=== PATIENT | female | born 1945 | race Caucasian/White ===

== ENCOUNTER 2020-01-27 10:58 | Inpatient (IN) | payer OTHER, BC ==
[2020-01-27] MEDS ORDERED: NA CHLORIDE 0.9% 500 ML ONE ×2 (11:25→12:53)
[2020-01-27 11:35] LABS: Absolute Lymphocytes (CBC) 0.9 K/uL (0.7-4.9); Basophils % 0.4 % (0-1.3); Hematocrit 35.7 % (36.0-45.0); Lymphocytes % 12.4 % (15.3-44.8); MPV 7.9 fL (7.6-11.3); RBC Red Blood Cell Count 4.05 M/uL (3.86-4.86)
[2020-01-27] MEDS ORDERED: ONDANSETRON 4 MG/2 ML VIAL ONE (11:37)
[2020-01-27 11:54] LABS: Albumin 2.8 g/dL (3.4-5.0); Bilirubin Direct 0.2 mg/dL (0-0.2); Bilirubin Total 0.6 mg/dL (0.2-1.0); Potassium 3.1 mmol/L (3.5-5.1); Protein, Total 6.8 g/dL (6.4-8.2)
[2020-01-27 12:57] LABS: Blood Morphology Comment NOT SEEN (NOT SEEN); Platelet Estimate ADEQ
--- NOTE | 2020-01-27 13:12 | ER ---
Nurse's Notes [facility] Name: Maribell Coello Age: 74 yrs Sex: Female : 1945 Arrival Date: 01/27/2020 Time: 11: Bed 6 Private MD: Diagnosis: Dehydration;Acute kidney failure, unspecified Presentation: 01/26 11:01 Chief complaint: EMS states: Pt c/o generalized weakness, loss of appetite and nausea, ph sees GI, has appointment today but felt like she couldn't wait. Also c/o bilateral foot pain which she believes is r/t new medication prescribed by GI. Coronavirus screen: Client denies travel out of the [place] in the last 14 days. At this time, the client does not indicate any symptoms associated with coronavirus-19. Ebola Screen: No symptoms or risks identified at this time. Initial Sepsis Screen: Does the patient meet any 2 criteria? No. Patient's initial sepsis screen is negative. Does the patient have a suspected source of infection? No. Patient's initial sepsis screen is negative. Risk Assessment: Do you want to hurt yourself or someone else? Patient reports no desire to harm self or others. Onset of symptoms was January 27, 2020. 11:01 Method Of Arrival: EMS: [facility] 11: Acuity: ALBINO 3 ph Historical: - Allergies: 11:07 No Known Allergies; ph - Home Meds: 11:07 Metformin Oral [Active]; sucralfate Oral [Active]; ph - PMHx: 11:07 Diabetes - NIDDM; Hypertension; Ulcers; ph - Immunization history:: Flu vaccine is up to date. - Social history:: Smoking status: Patient denies any tobacco usage or history of. - Family history:: not pertinent. - Hospitalizations: : No recent hospitalization is reported. Screenin:08 Abuse screen: Denies threats or abuse. Denies injuries from another. Nutritional ph screening: No deficits noted. Tuberculosis screening: No symptoms or risk factors identified. Fall Risk No fall in past 12 months (0 pts). No secondary diagnosis (0 pts). IV access (20 points). Ambulatory Aid- None/Bed Rest/Nurse Assist (0 pts). Gait- Weak (10 pts.). Mental Status- Oriented to own ability (0 pts). Total Rao Fall Scale indicates Low Risk Score (25-44 pts). Fall prevention measures have been instituted. Side Rails Up X 2 Placed close to Nursing Station Frequent Obs/Assesments occuring Family Present and informed to notify staff if they need to leave bedside As available Patient and Family Educated on Fall Prevention Program and strategies. Assessment: 11:05 General: Appears in no apparent distress. uncomfortable, Behavior is calm, cooperative, em appropriate for age. Pain: Denies pain. Neuro: Level of Consciousness is awake, alert, obeys commands, Oriented to person, place, time, situation, Appropriate for age. Cardiovascular: Capillary refill < 3 seconds Patient's skin is warm and dry. Respiratory: Airway is patent Respiratory effort is even, unlabored, Respiratory pattern is regular, symmetrical. GI: Abdomen is round non-distended, Abd is soft and non tender X 4 quads. Reports nausea, Patient currently denies nausea. Derm: Skin is intact, is fragile, is thin, Skin is pink, warm \T\ dry. Musculoskeletal: Capillary refill < 3 seconds, Range of motion: intact in all extremities. 12:40 Reassessment: Patient appears in no apparent distress at this time. Patient and/or em family updated on plan of care and expected duration. Pain level reassessed. Patient is alert, oriented x 3, equal unlabored respirations, skin warm/dry/pink. Patient states feeling better. 13:31 Reassessment: Dr. Urrutia - tita at bedside. em 14:30 Reassessment: Patient appears in no apparent distress at this time. Patient and/or em family updated on plan of care and expected duration. Pain level reassessed. Patient is alert, oriented x 3, equal unlabored respirations, skin warm/dry/pink. 15:30 Reassessment: Patient appears in no apparent distress at this time. Patient and/or em family updated on plan of care and expected duration. Pain level reassessed. Patient is alert, oriented x 3, equal unlabored respirations, skin warm/dry/pink. Vital Signs: 11:01 BP 127 / 58; Pulse 90; Resp 18; Temp 97.6(O); Pulse Ox 98% on R/A; Weight 84.37 kg; ph Height 5 ft. 3 in. (160.02 cm); 12:30 BP 135 / 64; Pulse 71; Resp 18; Pulse Ox 98% on R/A; em 13:30 BP 138 / 74; Pulse 85; Resp 18; Pulse Ox 100% on R/A; em 14:30 BP 139 / 91; Pulse 87; Resp 18; Pulse Ox 99% on R/A; Pain 0/10; em 15:30 BP 111 / 60; Pulse 75; Resp 18; Pulse Ox 99% on R/A; em 11:01 Body Mass Index 32.95 (84.37 kg, 160.02 cm) ph ED Course: 11:01 Patient arrived in ED. ph 11:02 Paulo Hairston, RN is Primary Nurse. em 11:03 Jarred Urrutia MD is Attending Physician. rn 11:05 Triage completed. ph 11:08 Arm band placed on Patient placed in an exam room, on a stretcher, on pulse oximetry. ph 11:08 Patient has correct armband on for positive identification. Bed in low position. Call ph light in reach. Side rails up X2. Pulse ox on. NIBP on. Door closed. Noise minimized. Warm blanket given. 11:20 Initial lab(s) drawn, by la, sent to lab. Inserted saline lock: 20 gauge in right em antecubital area, using aseptic technique. Blood collected. 11:29 EKG done, by ED staff, reviewed by Jarred Urrutia MD. dh3 13:10 Jarred Urrutia MD is Hospitalizing Provider. rn 13:10 Faraz Urrutia MD is Hospitalizing Provider. rn 16:01 No provider procedures requiring assistance completed. Patient admitted, IV remains in em place. Administered Medications: 11:20 Drug: NS 0.9% 500 ml Route: IV; Rate: bolus; Site: right antecubital; em 12:40 Follow up: IV Status: Completed infusion; IV Intake: 500ml em 11:30 Drug: Zofran (Ondansetron) 4 mg Route: IVP; Site: right antecubital; em 12:44 Follow up: Response: No adverse reaction; Marked relief of symptoms; Nausea is decreasedem 12:44 Drug: NS 0.9% 500 ml Route: IV; Rate: bolus; Site: right antecubital; em 13:30 Follow up: IV Status: Completed infusion; IV Intake: 500ml em Intake: 12:40 IV: 500ml; Total: 500ml. em 13:30 IV: 500ml; Total: 1000ml. em Outcome: 13:10 Decision to Hospitalize by Provider. rn 16:01 Admitted to ICU accompanied by nurse, via wheelchair, room ER 11, on monitor, with em chart, Report called to KESHAV Howell 16:01 Condition: good 16:01 Discharge instructions given to patient, Instructed on discharge instructions, Demonstrated understanding of instructions, follow-up care. 16:06 Patient left the ED. em Signatures: Paulo Hairston, KESHAV RN Jarred Taylor MD MD rn Hall, Patricia, RN RN Gurinder, Ida [facility]
--- NOTE | 2020-01-27 13:12 | EDPHYS ---
Physician Documentation [facility] Name: Maribell Coello Age: 74 yrs Sex: Female : 1945 Arrival Date: 01/27/2020 Time: 11:01 Bed 6 Private MD: ED Physician Jarred Urrutia HPI: 01/26 11:24 This 74 yrs old Female presents to ER via EMS with complaints of General rn Weakness. 11:24 Reports generalized weakness, being treated for ulcers by GI, has phone appt today with rn Dr. Bosch's office, reports dry heaves and fatigue. No syncope. Reports today got "the shakes", felt weak all over, and called 911 because wasn't sure if was going to pass out. Feels better now. No abd pain. No chest pain/sob. No productive cough or fever. . Onset: The symptoms/episode began/occurred at an unknown time. Severity of symptoms: At their worst the symptoms were mild in the emergency department the symptoms are unchanged. The patient has not experienced similar symptoms in the past. The patient has not recently seen a physician. Historical: - Allergies: 11:07 No Known Allergies; ph - Home Meds: 11:07 Metformin Oral [Active]; sucralfate Oral [Active]; ph - PMHx: 11:07 Diabetes - NIDDM; Hypertension; Ulcers; ph - Immunization history:: Flu vaccine is up to date. - Social history:: Smoking status: Patient denies any tobacco usage or history of. - Family history:: not pertinent. - Hospitalizations: : No recent hospitalization is reported. ROS: 11:24 Constitutional: Negative for fever and weight loss, Eyes: Negative for injury, pain, rn redness, and discharge, Neck: Negative for injury, pain, and swelling, Cardiovascular: Negative for chest pain, palpitations, and edema, Respiratory: Negative for shortness of breath, cough, wheezing, and pleuritic chest pain, Abdomen/GI: Negative for abdominal pain, constipation, MS/Extremity: Negative for injury and deformity, Skin: Negative for injury, rash, and discoloration, Neuro: Negative for headache, numbness, tingling, and seizure. Exam: 11:24 Constitutional: This is a well developed, well nourished patient who is awake, alert, rn and in no acute distress. Head/Face: Normocephalic, atraumatic. Cardiovascular: Regular rate and rhythm. No pulse deficits. Respiratory: No increased work of breathing, no retractions or nasal flaring. Abdomen/GI: Soft, non-tender Skin: Warm, dry MS/ Extremity: Pulses equal, no cyanosis. Neurovascular intact. Full, normal range of motion. Equal circumference. Neuro: Awake and alert, GCS 15, oriented to person, place, time, and situation. Cranial nerves II-XII grossly intact. Motor strength 4/5 in all extremities. Sensory grossly intact. Vital Signs: 11:01 BP 127 / 58; Pulse 90; Resp 18; Temp 97.6(O); Pulse Ox 98% on R/A; Weight 84.37 kg; ph Height 5 ft. 3 in. (160.02 cm); 12:30 BP 135 / 64; Pulse 71; Resp 18; Pulse Ox 98% on R/A; em 13:30 BP 138 / 74; Pulse 85; Resp 18; Pulse Ox 100% on R/A; em 14:30 BP 139 / 91; Pulse 87; Resp 18; Pulse Ox 99% on R/A; Pain 0/10; em 15:30 BP 111 / 60; Pulse 75; Resp 18; Pulse Ox 99% on R/A; em 11:01 Body Mass Index 32.95 (84.37 kg, 160.02 cm) ph MDM: 11:03 Patient medically screened. rn 13:09 Differential Diagnosis dehydration, UGIB, acute kidney injury. Data reviewed: vital rn signs, nurses notes, lab test result(s), EKG, and as a result, I will admit patient. Counseling: I had a detailed discussion with the patient and/or guardian regarding: the historical points, exam findings, and any diagnostic results supporting the discharge/admit diagnosis, lab results. Counseling: I had a detailed discussion with the patient and/or guardian regarding: the need for further work-up and treatment in the hospital. Response to treatment: the patient's symptoms have mildly improved after treatment, and as a result, I will admit patient. Admission orders: after a detailed discussion of the patient's condition and case, the admit orders are written by me. ED course: Pt with acute kidney injury, hypokalemia, possible ongoing UGIB, stable hemoglobin, will admit to hospitalist service for hydration and Dr. Erwin consult if needed. . 01/26 11:04 Order name: CBC with Diff; Complete Time: 13: rn 01/26 11:04 Order name: Basic Metabolic Panel; Complete Time: 12:23 rn 01/26 11:04 Order name: Urine Microscopic Only rn 01/26 11:04 Order name: Hepatic Function; Complete Time: 12:23 rn 01/26 11:04 Order name: Lipase; Complete Time: 12:23 rn 01/26 12:57 Order name: Manual Differential; Complete Time: 13: EDMS 01/26 11:04 Order name: IV Start; Complete Time: 11:22 rn 01/26 11:04 Order name: EKG; Complete Time: 11:04 rn 01/26 11:04 Order name: EKG - Nurse/Tech; Complete Time: 11:30 rn 01/26 11:04 Order name: Labs collected and sent; Complete Time: 11:22 rn Administered Medications: 11:20 Drug: NS 0.9% 500 ml Route: IV; Rate: bolus; Site: right antecubital; em 12:40 Follow up: IV Status: Completed infusion; IV Intake: 500ml em 11:30 Drug: Zofran (Ondansetron) 4 mg Route: IVP; Site: right antecubital; em 12:44 Follow up: Response: No adverse reaction; Marked relief of symptoms; Nausea is decreasedem 12:44 Drug: NS 0.9% 500 ml Route: IV; Rate: bolus; Site: right antecubital; em 13:30 Follow up: IV Status: Completed infusion; IV Intake: 500ml em Disposition: 01/27/20 13:10 Hospitalization ordered by Faraz Urrutia for Observation. Preliminary diagnosis are Dehydration, Acute kidney failure, unspecified. - Bed requested for Telemetry/MedSurg (observation). - Status is Observation. em - Condition is Stable. - Problem is new. - Symptoms have improved. Signatures: Dispatcher [employer] Paulo Heath RN RN em Jarred Urrutia MD MD rn Hall, Patricia, RN RN ph Corrections: (The following items were deleted from the chart) 16:06 13:10 Hospitalization Ordered by Faraz Urrutia MD for Observation. Preliminary em diagnosis is Dehydration; Acute kidney failure, unspecified. Bed requested for Telemetry/MedSurg (observation). Status is Observation. Condition is Stable. Problem is new. Symptoms have improved. rn
--- NOTE | 2020-01-27 13:50 | P.HP ---
Certification for Inpatient Patient admitted to: Observation With expected LOS: <2 Midnights Practitioner: I am a practitioner with admitting privileges, knowledge of patient current condition, hospital course, and medical plan of care. Services: Services provided to patient in accordance with Admission requirements found in Title 42 Section 412.3 of the Code of Federal Regulations Patient History Date of Service: 01/27/20 Primary Care Provider: Jose Callejas Reason for admission: GRACIE, decreased PO intake History of Present Illness: 74-year-old female, PMH: HTN, DM 2 who presents to ED with trembling, shakiness, and generalized weakness that has been progressively worsening over the past few days. She reports she has had decreased p.o. intake over the past 6 weeks due to the bitter taste in her mouth and decreased appetite. She recently underwent EGD [address] Bosch and was found to have esophagitis, gastritis with some bleeding, gastric ulcers. She was started on esomeprazole b.i.d. and Carafate b.i.d.. She reports minimal improvement, and continued decreased p.o. intake. She reports 1 small episode of nonbloody loose bowel movement 2 days ago. She has not had a bowel movement since then. She otherwise denies chest pain, shortness of breath, abdominal pain, dysuria, new rashes/lesions, numbness/tingling. In the ED, labwork notable for no leukocytosis, hemoglobin: 12.1, CO2: 20, BUN/Cr: 43/2.3. Urine pending. She was given to 500 cc bolus and reportedly felt better. Allergies citric acid Allergy (Verified 01/27/20 16:16) Hives/Rash Home Medications: Carvedilol [Coreg] 1 tab PO BID 01/27/20 Esomeprazole Mag Trihydrate [Nexium] 1 tab PO BID 01/27/20 Metformin ER [Glucophage ER*] 1 tab PO DAILY 01/27/20 Ondansetron HCl [Zofran] 1 tab PO Q6H PRN 01/27/20 Sucralfate 1 bot PO BID 01/27/20 Valsartan [Diovan] 1 tab PO DAILY 01/27/20 - Past Medical/Surgical History -: HTN -: DM 2, noninsulin dependent Past Surgical History: Patient denies surgical history - Social History Smoking Status: Never smoker Alcohol use: No Place of Residence: Home Review of Systems 10-point ROS is otherwise unremarkable Physical Examination - Physical Exam General: Alert, In no apparent distress, Oriented x3 HEENT: Other (Dry mucous membranes), Sclerae nonicteric Neck: Supple, JVD not distended Respiratory: Clear to auscultation bilaterally, Normal air movement Cardiovascular: No edema, Regular rate/rhythm, Normal S1 S2 Gastrointestinal: Soft and benign, Non-distended, No tenderness Musculoskeletal: No erythema, No tenderness Integumentary: No rashes Neurological: Normal speech, Normal affect - Studies Laboratory Data (last 24 hrs) 01/27/20 11:20: Sodium 137, Potassium 3.1 L, BUN 43 H, Creatinine 2.33 H, Glucose 199 H, Total Bilirubin 0.6, AST 18, ALT 14, Alkaline Phosphatase 92, Lipase 292 01/27/20 11:20: WBC 7.3, Hgb 12.1, Hct 35.7 L, Plt Count 271 D Assessment and Plan - Advance Directives Does patient have a Living Will: No Does patient have a Durable POA for Healthcare: No Physician Review Additional Text: GRACIE, likely prerenal -likely prerenal given significantly decreased p.o. intake. -continue normal saline at 100 mL/hr -will check urine sodium, creatinine, protein, obtain renal ultrasound to rule out any intrinsic disease -UA pending -if no improvement consider nephrology consult in a.m. Gastritis/esophagitis/duodenitis, with ulcers and prior bleeding -continue PPI b.i.d., continue Carafate b.i.d. HTN -low BP in the ED, restart as appropriate DM2, noninsulin dependent -insulin sliding scale, Accu-Cheks a.c. hs Time Spent Managing Pts Care (In Minutes): 55
[2020-01-27] MEDS ORDERED: ONDANSETRON 4 MG/2 ML VIAL IV PRN (16:17)
[2020-01-27] MEDS: INSULIN -REGULAR HUMAN 50 UNIT/0.5 ML ML SQ SCH ×2 (16:30→19:59)
[2020-01-27] MEDS: NA CHLORIDE 0.9% 1,000 ML IV SCH (17:17)
[2020-01-27] MEDS: PANTOPRAZOLE 40MG TABLET PO SCH (17:17)
[2020-01-27] MEDS: SUCRALFATE 1GM/10ML UCUP FT SCH ×2 (17:17→19:59)
[2020-01-27 17:31] LABS: Phosphorus 1.9 mg/dL (2.5-4.9)
[2020-01-27] MEDS ORDERED: POTASSIUM CL SA 10 MEQ TAB PO ONE (18:00)
[2020-01-27 23:44] LABS: Urine Appearance CLEAR; Urine Blood NEGATIVE (NEG); Urine Color YELLOW; Urine Glucose TRACE (NEG); Urine Protein 1+ (NEG); Urine Urobilinogen 0.2 mg/dL (0.2-1.0)
[2020-01-27 23:46] LABS: Urine Microscopic Reflex ORDER UMIC
[2020-01-27 23:51] LABS: UR PROTEIN 76 mg/dL (<11.9); UR SODIUM 9 mmol/L (27-287)
[2020-01-27 23:55] LABS: Urine Bilirubin NEGATIVE (NEG)
[2020-01-28 00:54] LABS: Urine Bacteria <20 /HPF (<20); Urine Culture Reflex Order REFLEXED; Urine RBC <5 /HPF (NONE SEEN); Urine Urothelial Cells <5 /HPF (NONE SEEN)
[2020-01-28] MEDS: NA CHLORIDE 0.9% 1,000 ML IV SCH ×3 (01:49→16:56)
[2020-01-28 04:07] LABS: Protime INR 1.03
[2020-01-28 04:09] LABS: Absolute Lymphocytes (CBC) 1.5 K/uL (0.7-4.9); Basophils % 0.6 % (0-1.3); Hematocrit 31.1 % (36.0-45.0); Lymphocytes % 20.7 % (15.3-44.8); MPV 7.6 fL (7.6-11.3); RBC Red Blood Cell Count 3.57 M/uL (3.86-4.86)
[2020-01-28 04:26] LABS: Albumin 2.2 g/dL (3.4-5.0); Bilirubin Total 0.4 mg/dL (0.2-1.0); Magnesium 1.6 mg/dL (1.8-2.4); Phosphorus 1.4 mg/dL (2.5-4.9); Potassium 3.7 mmol/L (3.5-5.1); Protein, Total 5.9 g/dL (6.4-8.2)
[2020-01-28] MEDS ORDERED: MAGNESIUM SULFATE 1 gm IVPB 1 GM/100 ML BAG IV ONE (04:40)
[2020-01-28] MEDS: INSULIN -REGULAR HUMAN 50 UNIT/0.5 ML ML SQ SCH ×4 (07:30→21:00)
[2020-01-28] MEDS: PANTOPRAZOLE 40MG TABLET PO SCH ×2 (08:10→16:55)
[2020-01-28] MEDS: SUCRALFATE 1GM/10ML UCUP FT SCH ×3 (08:10→16:55)
[2020-01-28] MEDS ORDERED: POTASSIUM PHOS IN 0.9 % NACL 15 MMOL/250 ML BAG IV ONE (09:00)
--- NOTE | 2020-01-28 18:42 | P.PN ---
Subjective Date of Service: 01/28/20 Primary Care Provider: Jose Callejas Chief Complaint: GRACIE, decreased PO intake Patient states she ate half of a meals today. She is less nauseous and feels she is getting better. She also reported pain in her legs are better. Physical Examination - Vital Signs Temperature: 97.3 F Blood Pressure: 133/58 Pulse: 70 Respirations: 18 Pulse Ox (%): 97 - Physical Exam General: Alert, In no apparent distress, Oriented x3 HEENT: Mucous membr. moist/pink Neck: Supple, JVD not distended Respiratory: Clear to auscultation bilaterally, Normal air movement Cardiovascular: No edema, Regular rate/rhythm, Normal S1 S2 Gastrointestinal: Normal bowel sounds, Soft and benign, Non-distended, No tenderness Musculoskeletal: No swelling, No erythema Integumentary: No rashes Neurological: Normal speech, Normal strength at 5/5 x4 extr - Studies Laboratory Data (last 24 hrs) 01/28/20 03:39: Sodium 140, Potassium 3.7, BUN 34 H, Creatinine 1.77 H, Glucose 131 H, Phosphorus 1.4 L, Magnesium 1.6 L, Total Bilirubin 0.4, AST 15, ALT 11 L, Alkaline Phosphatase 81 01/28/20 03:39: PT 12.2, INR 1.03 01/28/20 03:39: WBC 7.4, Hgb 10.8 L, Hct 31.1 L, Plt Count 238 01/27/20 22:43: Potassium 3.7 Assessment And Plan Physician Review Additional Text: GRACIE, likely prerenal -likely prerenal given significantly decreased p.o. intake. -serum creatinine is improving -continue IV normal saline -continue to monitor renal function. Gastritis/esophagitis/duodenitis, with ulcers and prior bleeding -continue PPI b.i.d., continue Carafate. HTN -blood pressure is stable. - DM2, noninsulin dependent -insulin sliding scale, Accu-Cheks a.c. hs
--- NOTE | 2020-01-28 18:53 | RAD REPORT ---
EXAM DESCRIPTION: US - Renal Ultrasound-Complete - 01/28/2020 6:01 pm CLINICAL HISTORY: pritesh COMPARISON: No comparisons FINDINGS: The right kidney measures 11.0 x 5.4 x 4.7 cm. The left kidney measures 10.9 x 5.8 x 4.9 cm. Renal cortical thickness and echogenicity are normal. No hydronephrosis or suspicious renal mass. No bladder wall thickening or mass. No intraluminal stone or mass. IMPRESSION: No hydronephrosis or suspicious renal mass. No other significant findings.
[2020-01-28] MEDS: SUCRALFATE 1GM/10ML UCUP PO SCH (21:00)
[2020-01-29] MEDS: NA CHLORIDE 0.9% 1,000 ML IV SCH ×3 (02:09→20:44)
[2020-01-29 04:17] LABS: Magnesium 1.7 mg/dL (1.8-2.4); Phosphorus 1.4 mg/dL (2.5-4.9); Potassium 3.7 mmol/L (3.5-5.1)
[2020-01-29] MEDS ORDERED: POTASSIUM CL SA 10 MEQ TAB PO ONE (05:24)
[2020-01-29] MEDS ORDERED: MAGNESIUM SULFATE 1 gm IVPB 1 GM/100 ML BAG IV ONE (05:24)
[2020-01-29] MEDS: POTASS/SODIUM PHOSPHATE 1 PKT POWD.PACK PO SCH ×3 (05:52→10:03)
--- NOTE | 2020-01-29 06:01 | EKG ---
Test Date: 2020-01-27 Test Time: 11:29:44 Pharm Spec: VEENA MEASUREMENT RESULTS: Intervals: Rate: 73 AK: 188 QRSD: 94 QT: 384 QTc: 423 [place]: P: 69 AK: 188 QRS: 33 T: -2 INTERPRETIVE STATEMENTS: Normal sinus rhythm Nonspecific ST and T wave abnormality Abnormal ECG Compared to ECG 07/23/2013 21:20:25 Sinus arrhythmia no longer present ST (T wave) deviation still present Electronically Signed On 01-29-20 05:56:46 CDT by Andrés Landin
[2020-01-29] MEDS: ACETAMINOPHEN 500 MG TAB PO PRN ×3 (06:20→23:35)
[2020-01-29] MEDS ORDERED: Magnesium Sulfate 2gm IVPB 2 G/50 ML BAG IV ONE (07:12)
[2020-01-29] MEDS ORDERED: POTASSIUM PHOS 30 MM in NA CHLORIDE 0.9% 500 ML IV ONE (07:12)
[2020-01-29] MEDS: INSULIN -REGULAR HUMAN 50 UNIT/0.5 ML ML SQ SCH ×4 (07:30→20:33)
[2020-01-29] MEDS: PANTOPRAZOLE 40MG TABLET PO SCH ×2 (08:24→17:16)
[2020-01-29] MEDS: SUCRALFATE 1GM/10ML UCUP PO SCH ×2 (08:26→20:38)
--- NOTE | 2020-01-29 14:01 | P.PN ---
Subjective Date of Service: 01/29/20 Primary Care Provider: Jose Callejas Chief Complaint: GRACIE, decreased PO intake Subjective: No new changes (No acute events overnight.) Physical Examination - Vital Signs Temperature: 97.8 F Blood Pressure: 140/65 Pulse: 83 Respirations: 16 Pulse Ox (%): 98 - Physical Exam General: In no apparent distress, Cooperative, Other (lethargic) HEENT: Atraumatic, Normocephalic, EOMI Neck: Supple Respiratory: Clear to auscultation bilaterally, Normal air movement Cardiovascular: No edema, Normal pulses, Regular rate/rhythm, Normal S1 S2 Gastrointestinal: Normal bowel sounds, Soft and benign, Non-distended Musculoskeletal: Other (Decreased ROM in both lower extremities) Neurological: Normal speech, Normal tone, Sensation intact Assessment & Plan Physician Review Additional Text: Assessment Patient is a 74 year old female with HTN, type II diabetes mellitus and recent dysphagia s/p EGD. She has been having poor oral intake for the past month. She was admitted for near syncope. Work up so far has showed GRACIE, and possibly UTI. Dizziness and gait abnormalities Near syncope GRACIE Uncontrolled type II diabetes mellitus Peripheral neuropathy Gastritis PLAN continue ceftriaxone for UTI Will check for orthostatic vitals PT/OT Continue IVF infusion Start long acting insulin along with insulin sliding scale Continue pantoprazole and sucralfate for gastritis Resume home dose of coreg Replace electrolytes: magnesium, phosphorus
[2020-01-29] MEDS ORDERED: D50W 25 GM/50 ML SYRINGE/VIAL IV PRN (14:03)
[2020-01-29] MEDS ORDERED: GLUCAGON 1 MG/VIAL IM PRN (14:03)
[2020-01-29] MEDS: SUCRALFATE 1 GM TABLET PO SCH ×2 (14:36→17:00)
[2020-01-29] MEDS: CEFTRIAXONE/SWI 1gm 1 GM/10 ML SYR IV SCH (14:37)
[2020-01-29] MEDS: NA CHLORIDE 0.9% 500 ML IV ONE ×2 (17:00→17:14)
[2020-01-29] MEDS: carvediloL 12.5 MG TAB PO SCH (17:16)
[2020-01-29 18:41] VITALS: BMI 33.7
[2020-01-29] MEDS: INSULIN GLARGINE 100 UNITS/ML SQ SCH (20:35)
[2020-01-30 04:26] LABS: Magnesium 1.5 mg/dL (1.8-2.4); Phosphorus 1.6 mg/dL (2.5-4.9); Potassium 3.3 mmol/L (3.5-5.1)
[2020-01-30] MEDS: POTASS/SODIUM PHOSPHATE 1 PKT POWD.PACK PO SCH ×3 (05:35→09:33)
[2020-01-30] MEDS: carvediloL 12.5 MG TAB PO SCH ×2 (05:35→17:14)
[2020-01-30] MEDS ORDERED: Magnesium Sulfate 2gm IVPB 2 G/50 ML BAG IV ONE (06:00)
[2020-01-30] MEDS ORDERED: POTASSIUM 25 MEQ EFFERV TAB PO ONE (06:00)
[2020-01-30] MEDS: INSULIN -REGULAR HUMAN 50 UNIT/0.5 ML ML SQ SCH ×4 (07:30→21:34)
[2020-01-30] MEDS: SUCRALFATE 1GM/10ML UCUP PO SCH ×2 (09:00→21:00)
[2020-01-30] MEDS: GABAPENTIN 100 MG CAP PO SCH ×3 (09:32→21:32)
[2020-01-30] MEDS: CEFTRIAXONE/SWI 1gm 1 GM/10 ML SYR IV SCH (09:33)
[2020-01-30] MEDS: PANTOPRAZOLE 40MG TABLET PO SCH ×2 (09:33→17:14)
[2020-01-30] MEDS: NA CHLORIDE 0.9% 1,000 ML IV SCH (09:34)
[2020-01-30] MEDS: ACETAMINOPHEN 500 MG TAB PO PRN (09:45)
[2020-01-30] MEDS: predniSONE 20 MG TAB PO SCH (15:06)
--- NOTE | 2020-01-30 15:08 | P.PN ---
Subjective Date of Service: 01/30/20 Primary Care Provider: Jose Callejas Chief Complaint: GRACIE, decreased PO intake Subjective: No new changes (Patient continues to have bilateral lower extremity pain. States it's radiating proximally to the hips) Physical Examination - Vital Signs Temperature: 98.0 F Blood Pressure: 136/61 Pulse: 80 Respirations: 16 Pulse Ox (%): 100 - Physical Exam General: Mild distress HEENT: Atraumatic, Normocephalic, EOMI Neck: Supple Respiratory: Clear to auscultation bilaterally, Normal air movement Cardiovascular: No edema, Normal pulses, Regular rate/rhythm, Normal S1 S2 Gastrointestinal: Normal bowel sounds, Non-distended, No tenderness Musculoskeletal: No clubbing, No swelling, No contractures, No erythema, No warmth, Tenderness Neurological: Normal speech, Sensation intact, Normal affect - Studies Microbiology Data (last 24 hrs): 01/27/20 23:15 Clean Catch Urine [place] Count - Final BETWEEN 10,000 & 100,000 CFU/ML 01/27/20 23:15 Clean Catch Urine - Final MIXED LUNA. 01/27/20 18:10 Nasopharnyx Coronavirus COVID-19 PCR - Final Assessment & Plan Physician Review Additional Text: Assessment Patient is a 74 year old female with HTN, type II diabetes mellitus and recent dysphagia s/p EGD. She has been having poor oral intake for the past month. She was admitted for near syncope. Work up so far has showed GRACIE, and possibly UTI. Dizziness and gait abnormalities Near syncope GRACIE Uncontrolled type II diabetes mellitus - A1c 12.1 Peripheral neuropathy Gastritis PLAN Still working with PT/OT. Dispo recommendations pending UTI ruled out. Discontinue ceftriaxone Discontinue IVF infusion as renal function returned to baseline Elevated serum and urine uric acid. Discussed with Nephrology potential diagnosis of gout arthritis. Nephrology started prednisone Continue bedtime lantus and insulin sliding scale. Fasting blood glucose < 188 Continue pantoprazole and sucralfate for gastritis Resume home dose of carvedilol
[2020-01-30] MEDS: INSULIN GLARGINE 100 UNITS/ML SQ SCH (21:32)
[2020-01-30] MEDS ORDERED: CEFTRIAXONE 1,000 MG in WATER FOR INJ,STERILE 10 ML IVP SCH (23:00)
[2020-01-31] MEDS ORDERED: CEFTRIAXONE/SWI 1gm 1 GM/10 ML SYR ONE (00:27)
--- NOTE | 2020-01-31 01:56 | CON ---
Date of Consultation: 01/30/2020 Consulting Physician: Prince Aurelio Klein MD. Reason For Consultation: Elevated BUN and creatinine, leg pain. History Of Present Illness: This is a 74-year-old female with significant past medical history of diabetes since 1994, complicated with neuropathy, no retinopathy, hypertension, hyperlipidemia, GERD, the patient came to the hospital because of decreased intake, found to have elevation in BUN and creatinine. The patient had EGD done by GI showing esophagitis. The patient was placed on PPI. Her symptoms did not improve. The patient is complaining also from pain in the leg without any fevers or any chills. No significant swelling. Primary workup showed uric acid at 8.1. Past Medical History: 1. Diabetes, complicated with neuropathy. 2. Hypertension. 3. Hyperlipidemia. 4. Esophagitis. Home Medications: Carvedilol, esomeprazole, metformin, Zofran, Carafate, valsartan. Allergies: TO CITRIC ACID. Past Surgical History: Negative. Social History: Lives with family. Denies smoking. Denies drinking. Denies drugs abuse. Review of Systems: Head and Neck: No red eye. No ear pain. GI: Decreased intake. : No polyuria, no dysuria, no hematuria. 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 Respiratory: No shortness of breath. Cardiovascular: Has no chest pain. Endocrine: No polydipsia. Skin: No rash. Neuro: Has neuropathy. Musculoskeletal: Has leg pain. Physical Examination: General: When I saw the patient, the patient is lying in bed. Vital Signs: Blood pressure 104/51, pulse of 78, afebrile. The patient had good urine output of 1200. Chest: Clear to auscultation. Heart: S1, S2. Regular. Abdomen: Soft, nontender. Extremities: Trace edema. Tenderness on the right ankle. No motion limitation. Laboratory Data: Upon presentation, H and H of 12.1/35.7. Sodium 140, potassium of 3.3, bicarb 21, BUN 18, creatinine 1, GFR of 51, magnesium 1.5, phosphorus 1.6. Urinalysis; WBC more than 50. Culture still pending. Current Medications: The patient on in the hospital include; 1. Carvedilol. 2. Tylenol. 3. Gabapentin. 4. Pantoprazole. 5. Carafate. 6. Magnesium sulfate. 7. KCl. Assessment And Plan: 1. Acute kidney injury, secondary to prerenal, superimposed, with ARB. Looked to me still on the dry side. We will follow up renal ultrasound. We will continue hydration. 2. We will hold any ARB for the time being and we will monitor the patient. 3. Hypertension, controlled, currently on the lower side of the presence of acute kidney injury. Hold blood pressure medications, especially ARB. 4. Urinary tract infection, to rule out complicated urinary tract infection. We will follow up ultrasound. We will start the patient on ceftriaxone and we will monitor. 5. Hypokalemia, hypomagnesemia, hypophosphatemia. Agree with supplement. We will follow up level. 6. Diabetes, as by Primary. 7. Leg pain with elevated uric acid. Possible Gout We will repeat uric acid. Start the patient on prednisone. We will follow up. Thank you, Dr. Klein, for allowing us to participate in the care of your patient. Time spent coordinating the care, discuss him with all of our team members including othere managed services sales consultant and hospitalist and [id number] with the patient and please go out of 65 min PATEL Voice ID: [id number] Report ID: [id number] JIM
[2020-01-31 04:56] LABS: Albumin 1.7 g/dL (3.4-5.0); Magnesium 1.9 mg/dL (1.8-2.4); Phosphorus 1.9 mg/dL (2.5-4.9); Potassium 4.3 mmol/L (3.5-5.1)
[2020-01-31 05:25] LABS: Urine Protein/Creatinine Ratio 0.66 ratio (<0.15)
[2020-01-31] MEDS: PANTOPRAZOLE 40MG TABLET PO SCH (06:18)
[2020-01-31] MEDS: carvediloL 12.5 MG TAB PO SCH (06:18)
[2020-01-31] MEDS: POTASS/SODIUM PHOSPHATE 1 PKT POWD.PACK PO SCH ×3 (06:24→12:29)
[2020-01-31] MEDS ORDERED: POTASS/SODIUM PHOSPHATE 1 PKT POWD.PACK ONE (06:36)
[2020-01-31] MEDS: INSULIN -REGULAR HUMAN 50 UNIT/0.5 ML ML SQ SCH ×2 (07:30→11:30)
[2020-01-31] MEDS: predniSONE 20 MG TAB PO SCH (08:25)
[2020-01-31] MEDS: GABAPENTIN 100 MG CAP PO SCH (08:25)
[2020-01-31] MEDS: SUCRALFATE 1GM/10ML UCUP PO SCH (08:26)
[2020-01-31] MEDS: ACETAMINOPHEN 500 MG TAB PO PRN (08:30)
--- NOTE | 2020-01-31 08:41 | P.DS ---
Admission Date: 01/28/20 Discharge Date: 01/31/20 Primary Care Provider: Jose Callejas Disposition: ROUTINE DISCHARGE Discharge Condition: GOOD Reason for Admission: GRACIE, decreased PO intake Brief History of Present Illness: Please refer to H&P Hospital Course: Patient is a 74 year old female with known PMH of HTN, type II diabetes mellitus who presented to the [facility] with poor oral intake, gait abnormalities. She was found to be in acute renal failure. Responded to IVF infusion. Nephrology was consulted. Her hospital course has been marked by bilateral lower extremity pain limiting her ability ambulate. The etiology of this issue was attributed to possible gout arthritis. She had a partial response to oral steroid which was started by Nephrology. Of note, patient A1c WAS 12.1. She is on OHA for the chronic management of her diabetes. She did better after being started on lantus during this hospital stay. She will need to follow up with her PCP for glucose monitor and insulin adjustment if needed Vital Signs/Physical Exam: Temp Pulse Resp BP Pulse Ox 97.1 F 73 18 156/70 H 97 01/31/20 08:00 01/31/20 08:00 01/31/20 08:00 01/31/20 08:00 01/31/20 08:00 General: In no apparent distress, Cooperative HEENT: Atraumatic, Normocephalic, EOMI Neck: Supple Respiratory: Clear to auscultation bilaterally, Normal air movement Cardiovascular: No edema, Normal pulses, Regular rate/rhythm, Normal S1 S2 Gastrointestinal: Normal bowel sounds, Soft and benign, Non-distended Musculoskeletal: No clubbing, No swelling, No contractures, No erythema, No tenderness, No warmth Neurological: Normal speech, Sensation intact, Normal affect Laboratory Data at Discharge: WBC 7.4 K/uL (4.3-10.9) 01/28/20 03:39 Hgb 10.8 g/dL (12.0-15.0) L 01/28/20 03:39 Hct 31.1 % (36.0-45.0) L 01/28/20 03:39 Plt Count 238 K/uL (152-406) 01/28/20 03:39 PT 12.2 SECONDS (9.5-12.5) 01/28/20 03:39 INR 1.03 01/28/20 03:39 Sodium 137 mmol/L (136-145) 01/31/20 04:10 Potassium 4.3 mmol/L (3.5-5.1) 01/31/20 04:10 BUN 17 mg/dL (7-18) 01/31/20 04:10 Creatinine 1.16 mg/dL (0.55-1.3) 01/31/20 04:10 Glucose 257 mg/dL (74-106) H 01/31/20 04:10 Uric Acid 8.1 mg/dL (2.6-6.0) H 01/30/20 12:07 Phosphorus 1.9 mg/dL (2.5-4.9) L 01/31/20 04:10 Magnesium 1.9 mg/dL (1.8-2.4) 01/31/20 04:10 Total Bilirubin 0.4 mg/dL (0.2-1.0) 01/28/20 03:39 AST 15 U/L (15-37) 01/28/20 03:39 ALT 11 U/L (12-78) L 01/28/20 03:39 Alkaline Phosphatase 81 U/L (45-117) 01/28/20 03:39 Lipase 292 U/L (73-393) 01/27/20 11:20 Home Medications: Carvedilol [Coreg] 1 tab PO BID 01/27/20 Esomeprazole Mag Trihydrate [Nexium] 1 tab PO BID 01/27/20 Metformin ER [Glucophage ER*] 1 tab PO DAILY 01/27/20 Ondansetron HCl [Zofran] 1 tab PO Q6H PRN 01/27/20 Sucralfate 1 bot PO BID 01/27/20 Valsartan [Diovan] 1 tab PO DAILY 01/27/20 Insulin Glargine Human [Lantus*] 10 units SQ BEDTIME #10 ml 01/31/20 carvediloL [Coreg*] 12.5 mg PO BID 6AM 6PM tab 01/31/20 predniSONE [Prednisone*] 40 mg PO DAILY #7 tab 01/31/20 New Medications: Insulin Glargine Human [Lantus*] 10 units SQ BEDTIME #10 ml predniSONE [Prednisone*] 40 mg PO DAILY #7 tab Diet: ADA
[2020-01-31 08:43] VITALS: O2SAT 97
[2020-01-31] MEDS ORDERED: CEFTRIAXONE 1 GM/NS 50 ML 1 GM/50 ML BAG IV SCH (09:00)
--- NOTE | 2020-01-31 10:23 | P.PN ---
Subjective Date of Service: 01/31/20 Primary Care Provider: Jose Callejas Chief Complaint: GRACIE, decreased PO intake Subjective: Improving Subjective Pt With HX of SM, admitted with near syncope had GRACIE , resolved on IVF Today no moravian complaints feels better can be discharged from nephrology point of view eneral: AAOX3, NAD , obese Neck; Supple, No elevated JVD hear: RRR, normal S1,2 no murmur or rub Chest: CTAB, no rlaes or wheezes Abdomen: Soft , Nt Extremities No edema or ulcer GRACIE due to dehdration resolved renal dose meds DM as per primary team HTN controlle Hypokalemia and hypomagnesemia replace as needed Physical Examination - Vital Signs Temperature: 97.1 F Blood Pressure: 156/70 Pulse: 73 Respirations: 18 Pulse Ox (%): 97 - Studies Microbiology Data (last 24 hrs): 01/27/20 23:15 Clean Catch Urine [place] Count - Final BETWEEN 10,000 & 100,000 CFU/ML 01/27/20 23:15 Clean Catch Urine - Final MIXED LUNA.
[2020-01-31] MEDS ORDERED: CEFTRIAXONE/SWI 1gm 1 GM/10 ML SYR IV SCH (11:00)
[2020-01-31 12:25] VITALS: BP 125/60; TEMP 97.7
[2020-02-01] MEDS ORDERED: predniSONE 5 MG TAB PO SCH (09:00)
== END 2020-01-31 13:54 | disposition home or self-care (01) | DRG 683 ==
LOC: ER 10:58 → ERHOLD 13:58 → 4TH 16:33 → OBSVTOIN 01-28 13:26
PROVIDERS: ADMIT Hospitalist; ATTEND Internal Medicine
DX: N17.9 Acute kidney failure, unspecified (principal); K22.10 Ulcer of esophagus without bleeding; I10 Essential (primary) hypertension; K25.9 Gastric ulcer, unspecified as acute or chronic, without hemorrhage or perforation; K26.9 Duodenal ulcer, unspecified as acute or chronic, without hemorrhage or perforation; E11.42 Type 2 diabetes mellitus with diabetic polyneuropathy; M10.9 Gout, unspecified; K21.9 Gastro-esophageal reflux disease without esophagitis; E78.5 Hyperlipidemia, unspecified; E87.6 Hypokalemia; E83.42 Hypomagnesemia; E83.39 Other disorders of phosphorus metabolism; E86.0 Dehydration; Z79.84 Long term (current) use of oral hypoglycemic drugs; Z79.899 Other long term (current) drug therapy; Z91.09 Other allergy status, other than to drugs and biological substances; Z20.828 Contact with and (suspected) exposure to other viral communicable diseases
CPT/HCPCS: 36415; 76770; 80048; 80053; 80069; 80076; 81003; 81015; 82550; 82570; 82947; 83036; 83690; 83735; 84100; 84132; 84156; 84300; 84550; 85025; 85610; 87086; 87088; 93005; 96361; 96374; 97116; 97161; 97530; 99285; G0378; J0696; J1815; J2405; J3475; J7030; J7040; J7512; U0002

== ENCOUNTER 2022-11-13 12:05 | Inpatient (IN) | payer OTHER, BC ==
--- OUTSIDE RECORDS SUMMARY | 2022-11-13 12:08 | XMS REPORT | Continuity of Care Document ---
:1945 Author Organization [facility] t Address [address]. [place]. [address] Care Team Providers Name Role Phone Jose Callejas Primary Care Physician LON TRAMMELL Attending Clinician Unavailable WENDY RAMIREZ Attending Clinician Unavailable MELVIN HERNANDEZ Attending Clinician Unavailable RAMESH BRAN Attending Clinician Unavailable YARIEL BRAY Admitting Clinician Unavailable Payers Payer Name Policy Type Policy Number Effective Date Expiration Date Taylor villafuerte MEDICARE PART A [id number] 2010 2024 AND B 00:00:00 00:00:00 Problems Condition Condition Condition Status Onset Resolution Last Treating Co mments Source Name Details Category Date Date Treatment Clinician Date 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 Social History Social Habit Start Date Stop Date Quantity Comments Source Exposure to 2022-08-06 2022-08-16 Not sure [facility] SARS-CoV-2 (event) 00:00:00 19:30:00 Tobacco use and 2022-02-15 2022-02-15 Smokeless tobacco [facility] exposure 00:00:00 00:00:00 non-user Alcohol intake 2022-02-15 2022-02-15 Lifetime [facility] 00:00:00 00:00:00 non-drinker (finding) Sex Ass[birth year] [facility] 00:00:00 00:00:00 Smoking Status Start Date Stop Date Source Never smoked tobacco [facility] Medications Ordered Filled Start Stop Current Ordering Indication Dosage Frequency Signature Comments Components Source Medication Medication Date Date Medication? Clinician (SIG) Name Name carvedilol Yes [id number] TAKE 1 U T (Coreg) 25 4-19 TABLET BY Heal th MG tablet 00:00: MOUTH 00 TWICE A DAY IN THE MORNING AND IN THE EVENING. TAKE WITH MEALS. levETIRAcet Yes [id number] 1500mg Q.5D Take 3 UT am (Keppra) 2-16 9106 tablets Healt h 500 MG 00:00: (1,500 mg tablet 00 total) by mouth in the morning and 3 tablets (1,500 mg total) in the evening. lacosamide 2022- No [id number] 100mg Q.5D Take 1 UT (Vimpat) 2-16 04-26 9106 tablet Health 100 MG 00:00: 00:00 (100 mg tablet 00 :00 total) by mouth in the morning and 1 tablet (100 mg total) before bedtime. hydrALAZINE 2022- No [id number] TAKE 1 AND UT (Apresoline 2-13 05-15 04/25 Health ) 50 MG 00:00: 04:59 TABLETS BY tablet 00 :00 MOUTH 2 TIMES A DAY gabapentin Yes [id number] 100mg Q.[id number] Take 1 UT (Neurontin) 2-10 9106 [id number] capsule Health 100 MG 00:00: 3D (100 mg capsule 00 total) by mouth in the morning and 1 capsule (100 mg total) at noon and 1 capsule (100 mg total) in the evening. lacosamide Yes [id number] 100mg Q.5D Take 1 UT (Vimpat) 1-27 9106 tablet Health 100 MG 00:00: (100 mg tablet 00 total) by mouth in the morning and 1 tablet (100 mg total) before bedtime. amLODIPine 2021-04 Yes [id number] TAKE 1 U T (Norvasc) 1-21 TABLET BY Healt h 10 MG 00:00: MOUTH 1 tablet 00 TIME EACH DAY. lisinopril 2021-04 Yes [id number] 10mg QD Take 1 U T 10 MG 1-09 tablet (10 Health tablet 00:00: mg total) 00 by mouth 1 (one) time each day. Blood 2021-04 Yes [id number] Check BP DC Pressure 0-25 daily Health Monitor kit 00:00: 00 methocarbam Yes [id number] 500mg Q.[id number] Take 1 UT ol 8-01 9106 [id number] tablet Health (Robaxin) 00:00: 3D (500 mg 500 MG 00 total) by tablet mouth in the morning and 1 tablet (500 mg total) at noon and 1 tablet (500 mg total) in the evening. Do all this for 14 days. glimepiride Yes [id number] 2mg Take 1 UT (Amaryl) 2 4-27 tablet (2 Heal th MG tablet 00:00: mg total) 00 by mouth 1 (one) time each day before breakfast. allopurinol Yes 300mg QD Take 300 U T (Zyloprim) 4-20 mg by Health 300 MG 12:24: mouth 1 tablet 32 (one) time each day. Immunizations Ordered Immunization Filled Immunization Date Status Commen ts Source Name Name COVID-19 Nuji 2021-05-05 [facility]pleted [facility]:00 ([facility]) COVID-19 Nuji 2020-07-11 Completed [facility] 00:00:00 ([facility]) COVID-19 Nuji 2020-06-20 Completed [facility]:00 ([facility]) Procedures This patient has no known procedures. Encounters Start End Encounter Admission Attending Care Care Encounter Source Date/Time Date/Time Type Type Clinicians Facility Department ID 2022-08-18 Outpatient [facility] [id number] DC 10:05:46 [id number] [facility] 2022-08-17 Outpatient [facility] [id number] DC 13:41:22 [id number] [facility] 2022-08-16 Outpatient [facility] [id number] UT 19:59:21 [id number] [facility] 2022-08-03 Outpatient [facility] [id number] [place] 15:58:21 [id number] [facility] 2022-02-22 Outpatient [facility] [id number] [place] 14:35:57 [id number] [facility] 2022-02-15 Outpatient [facility] [id number] [place] 14:03:39 [id number] [facility] 2021-09-12 Outpatient VALERI, [facility] [id number] UT 01:03:08 LON [id number] [facility] 2021-09-03 Outpatient [facility] [id number] [place] 13:01:47 [id number] [facility] 2021-08-11 Outpatient COLEA, [facility] [id number] UT 10:03:41 [facility] [id number] [facility] 2021-08-03 Outpatient [facility] [id number] UT 11:03:02 [id number] [facility] 2021-08-02 Outpatient [facility] [id number] UT 09:37:02 [id number] [facility] 2021-07-14 Outpatient [facility] [id number] [place] 13:45:11 [id number] [facility] 2021-06-11 Outpatient COLEA, [facility] [id number] [place] 15:41:00 [facility] 2023-08-21 2023-08-21 Outpatient DAVID, [facility] [id number] [place] 13:00:00 13:00:00 [facility] 2022-08-17 2022-08-17 [facility] [id number] UT 14:00:00 14:27:53 [facility] [id number] H [facility] [id number] 2022-02-22 2022-02-22 Outpatient COLEA, [facility] [id number] UT 13:00:00 13:00:00 [facility] 2022-02-15 2022-02-15 Outpatient COLEA, [facility] [id number] UT 14:30:00 14:54:11 [facility] 2021-06-04 2021-06-16 Inpatient E YINA, [facility] [id number] [facility] 22:12:00 17:10:00 RAMESH Results This patient has no known results.
[2022-11-13] MEDS ORDERED: NA CHLORIDE 0.9% 1,000 ML ONE ×4 (12:29→17:37)
[2022-11-13 13:01] LABS: Absolute Lymphocytes (CBC) 0.9 K/uL (0.7-4.9); Hematocrit 38.6 % (36.0-45.0); Lymphocytes % 6.7 % (15.3-44.8); MCV 91.3 fL (80-100); MPV 7.5 fL (7.6-11.3); RBC Red Blood Cell Count 4.22 M/uL (3.86-4.86)
[2022-11-13 13:08] LABS: Specific Gravity 1.022 (1.005-1.030); Urine Bacteria >50 /HPF (<20); Urine Bilirubin NEGATIVE (Negative); Urine Blood 3+ (Negative); Urine Clarity Extremely Turbid (Clear); Urine Color Colorless (Yellow); Urine Glucose 4+ (Over) (Negative); Urine Mucus 3+ /HPF (None Seen); Urine Protein TRACE (Negative); Urine RBC >50 /HPF (None Seen); Urine Urobilinogen Normal (Normal); Urine WBC Clump Occasional /HPF (None Seen)
[2022-11-13 13:27] LABS: Albumin 2.6 g/dL (3.4-5.0); Bilirubin Total 0.4 mg/dL (0.2-1.0); Magnesium 1.8 mg/dL (1.6-2.4); Potassium 4.4 mEq/L (3.5-5.1); Protein, Total 6.7 g/dL (6.4-8.2); Troponin High Sensitivity 4.8 pg/mL (<58.9)
--- NOTE | 2022-11-13 13:27 | RAD REPORT ---
EXAM DESCRIPTION: CT - Head Brain Wo Cont - 11/13/2022 1:14 pm CLINICAL HISTORY: CONFUSED COMPARISON: No comparisons TECHNIQUE: All CT scans are performed using dose optimization technique as appropriate and may inclu de automated exposure control or mA/KV adjustment according to patient size. FINDINGS: No intracranial hemorrhage, hydrocephalus or extra-axial fluid collection.No areas of brai n edema or evidence of midline shift. Moderate chronic small vessel ischemic changes The paranasal sinuses and mastoids are clear. The calvarium is intact. IMPRESSION: No acute intracranial abnormality.
[2022-11-13] MEDS ORDERED: NA CHLORIDE 0.9% 50 ML ONE (13:39)
[2022-11-13] MEDS ORDERED: CEFTRIAXONE 1000 MG/VIAL ONE (13:39)
--- NOTE | 2022-11-13 13:48 | RAD REPORT ---
EXAM DESCRIPTION: RAD - Chest Single View - 11/13/2022 1:31 pm CLINICAL HISTORY: ams COMPARISON: CHEST SINGLE VIEW dated 07/23/2013 FINDINGS: Lines: None. Lungs: Nonspecific fullness of the right lung apex. Pleural: No significant pleural effusions or pneumothorax. Cardiac: The heart size is within normal limits. Mediastinum: Within normal limits. Bones: No acute fractures. Other: None IMPRESSION: No acute cardiopulmonary disease. Right apical opacity could be scarring but is nonspeci fic. Consider chest CT to exclude a mass. This need not be emergent.
[2022-11-13] MEDS ORDERED: INSULIN -REGULAR HUMAN 50 UNIT/0.5 ML ML ONE ×3 (14:28→20:31)
--- NOTE | 2022-11-13 14:39 | ER ---
Nurse's Notes [facility] Name: Maribell Coello Age: 76 yrs Sex: Female : 1945 Arrival Date: 11/13/2022 Time: 12:05 Bed 20 Private MD: Diagnosis: Hyperglycemia, unspecified;Altered mental status, unspecified Presentation: 11/13 12:09 Chief complaint: EMS states: AMS x 3 days, stated three days ago pt was trying to put vg1 shorts on and fell against the wall and slid down. Today BGL was reading "high" and pt does not take any mediations at home. Coronavirus screen: Vaccine status: Patient reports receiving the 2nd dose of the covid vaccine. Client denies travel out of the [place] in the last 14 days. Ebola Screen: Patient negative for fever greater than or equal to 101.5 degrees Fahrenheit, and additional compatible Ebola Virus Disease symptoms Patient denies exposure to infectious person. Patient denies travel to an Ebola-affected area in the 21 days before illness onset. Initial Sepsis Screen: Does the patient meet any 2 criteria? HR > 90 bpm. Yes Does the patient have a suspected source of infection? No. Patient's initial sepsis screen is negative. Risk Assessment: Do you want to hurt yourself or someone else? Patient reports no desire to harm self or others. Onset of symptoms was November 10, 2022. 12:09 Method Of Arrival: EMS: [facility] vg1 12:09 Acuity: ALBINO 2 vg1 12:19 Care prior to arrival: IV initiated. 20 GA, in the left hand. vg1 12:19 Care prior to arrival: Medication(s) given: Normal saline infusion, 1000 mL. vg1 Triage Assessment: 12:16 General: Appears uncomfortable, obese, unkempt, Behavior is cooperative. Pain: Denies vg1 pain. Neuro: Level of Consciousness is awake, alert, obeys commands, Oriented to person, place. Cardiovascular: Patient's skin is warm and dry. Respiratory: Airway is patent Respiratory effort is even, unlabored. GI: Abdomen is round non-distended, pt is covered in fecal matter. : No signs and/or symptoms were reported regarding the genitourinary system. Derm: Rash noted that is on pelvis. Musculoskeletal: Circulation, motion, and sensation intact. Historical: - Allergies: 12:16 No Known Allergies; vg1 - Home Meds: 15:03 amlodipine oral [Active]; carvedilol oral [Active]; gabapentin oral [Active]; vg1 Lisinopril Oral [Active]; Hydralazine Oral [Active]; Keppra Oral [Active]; - PMHx: 12:16 Diabetes - NIDDM; Hypertension; Ulcers; vg1 15:03 Cerebrovascular accident; Seizure; vg1 - Immunization history:: Client reports receiving the 2nd dose of the Covid vaccine. - Social history:: Smoking status: Patient denies any tobacco usage or history of. Screenin:18 [facility] ED Fall Risk Assessment (Adult) History of falling in the last 3 months, vg1 including since admission Yes- single mechanical fall (1 pt) Confusion or Disorientation No (0 pts) Intoxicated or Sedated No (0 pts) Impaired Gait Yes (1 pt) Mobility Assist Device Used Yes (1 pt) Altered Elimination Yes (1 pt) Score/Fall Risk Level 3 or more points = High Risk Oriented to surroundings, Maintained a safe environment, Educated pt \\T\\ family on fall prevention, incl call for assistance when getting out of bed, Assessed \\T\\ reinforced patient's understanding of fall precautions, Hourly rounding (assess needs \\T\\ fall precautionary measures) done. Abuse screen: Denies threats or abuse. Denies injuries from another. Nutritional screening: No deficits noted. Tuberculosis screening: No symptoms or risk factors identified. Assessment: 12:18 Reassessment: SEE TRIAGE. vg1 19:25 General: Appears in no apparent distress. comfortable, obese, Behavior is calm, pf1 cooperative, appropriate for age, quiet. Pain: Denies pain. Neuro: Level of Consciousness is awake, alert, confused, Oriented to person. Cardiovascular: Capillary refill < 3 seconds Patient's skin is warm and dry. Respiratory: No deficits noted. Airway is patent Respiratory effort is even, unlabored, Respiratory pattern is regular, symmetrical. GI: Abdomen is round non-distended, obese, Bowel sounds present X 4 quads. Abd is soft and non tender X 4 quads. : No signs and/or symptoms were reported regarding the genitourinary system. EENT: No deficits noted. No signs and/or symptoms were reported regarding the EENT system. Derm: Rash noted that is red, on pelvis Abscess located on back. 20:44 General: attempted patient report, nurse to call back.. pf1 Vital Signs: 12:09 BP 153 / 82; Pulse 90; Resp 18; Temp 99.1(O); Pulse Ox 94% on R/A; vg1 12:54 BP 139 / 87; Pulse 90; Resp 17; Pulse Ox 96% on R/A; vg1 13:50 BP 142 / 85; Pulse 90; Resp 18; Pulse Ox 97% on R/A; vg1 17:54 Weight 85.73 kg; vg1 19:00 BP 138 / 72; Pulse 93; Resp 17; Temp 99.2; Pulse Ox 98% on R/A; Pain 0/10; pf1 19:40 BP 140 / 96; Pulse 88; Resp 17; Pulse Ox 97% on R/A; Pain 0/10; pf1 20:41 BP 131 / 59; Pulse 79; Resp 16; Temp 99.8; Pulse Ox 97% on R/A; Pain 0/10; pf1 19:00 Pain Scale: Adult pf1 19:40 Pain Scale: Adult pf1 20:41 Pain Scale: Adult pf1 ED Course: 12:09 Patient arrived in ED. vg1 12:09 Elliot Humphrey is Attending Physician. sk4 12:16 Triage completed. vg1 12:16 Arm band placed on. vg1 12:18 Patient has correct armband on for positive identification. Placed in gown. Bed in low vg1 position. Call light in reach. Side rails up X2. Client placed on continuous cardiac and pulse oximetry monitoring. NIBP monitoring applied. 12:19 Angy Ng, RN is Primary Nurse. vg1 13:10 Lactate w/ 2H reflex if indic. Sent. mm9 13:10 Urinalysis w/ reflexes Sent. mm9 13:10 CMP Sent. mm9 13:10 Magnesium Sent. mm9 13:11 Troponin HS Sent. mm9 13:11 Initial lab(s) drawn, by me, sent to lab. Urine collected: straight cath specimen, mm9 cloudy, EKG done, by ED staff, reviewed by Elliot Humphrey. Maintain EMS IV. Dressing intact. Good blood return noted. Site clean \\T\\ dry. 13:12 Pillow given. mm9 13:16 CT Head Brain wo Cont In Process Unspecified. EDMS 13:33 XRAY Chest (1 view) In Process Unspecified. EDMS 13:45 Inserted saline lock: 20 gauge in right antecubital area, using aseptic technique. vg1 13:45 First set of blood cultures drawn by me. vg1 13:58 Second set of blood cultures drawn LAC. vg1 14:38 Arnaldo Suarez MD is Hospitalizing Provider. sk4 20:39 No provider procedures requiring assistance completed. Patient admitted, IV remains in pf1 place. 21:01 Provided Education on: Need for admission. pf1 Administered Medications: 13:50 Drug: NS 0.9% IV 1000 ml Route: IV; Rate: 1 bolus; Site: right antecubital; vg1 19:00 Follow up: Response: No adverse reaction; Marked relief of symptoms; IV Status: pf1 Completed infusion; IV Intake: 1000ml 14:04 Drug: Rocephin IV 1 grams Route: IV; Rate: bolus; Site: right antecubital; vg1 14:26 Follow up: IV Status: Completed infusion vg1 14:27 Drug: Insulin Regular Human IVP 10 units {Co-Signature: sg5 (Shahana Thornton RN).} vg1 Route: IVP; Site: right antecubital; 19:00 Follow up: Response: No adverse reaction; Marked relief of symptoms; Blood sugar is pf1 lowered 14:31 Not Given (Physician Discretion): NS 0.9% IV 1000 ml IV at 1 bolus Per protocol; 1000 vg1 mL bolus 18:04 Drug: NS 0.9% IV (30 ml/kg) 30 ml/kg {Note: pt currently receiving third bolus.} Route: vg1 IV; Rate: bolus; Site: left hand; 19:00 Follow up: Response: No adverse reaction; Marked relief of symptoms pf1 20:45 Follow up: IV Status: Infusion continued upon admission pf1 20:23 Drug: Insulin Regular Human Sub-Q 10 units {Co-Signature: pf1 (Aurea Osorio RN).} rv {Note: bgl 384.} Route: Sub-Q; Site: abdomen; 20:45 Follow up: Response: No adverse reaction pf1 Medication: 20:43 VIS not applicable for this client. pf1 Intake: 19:00 IV: 1000ml; Total: 1000ml. pf1 Outcome: 14:38 Decision to Hospitalize by Provider. sk4 21:00 Admitted to Med/surg accompanied by tech, via stretcher, room 427, with chart, Report pf1 called to KESHAV Rain 21:00 Condition: stable 21:00 Instructed on the need for admit, Demonstrated understanding of instructions. 21:01 Patient left the ED. pf1 Signatures: Dispatcher [employer] EDMS Jim Desir, RN RN Angy Robert RN RN [email or web address] Lurdes Saba mm9 Aurea Osorio, KESHAV RN pf1 Elliot Humphrey 4 Shahana Thornton RN sg5 Aurea Osorio RN pf1
--- NOTE | 2022-11-13 14:39 | EDPHYS ---
Physician Documentation [facility] Name: Maribell Coello Age: 76 yrs Sex: Female : 1945 Arrival Date: 11/13/2022 Time: 12:05 Bed 20 Private MD: ED Physician Elliot Humphrey HPI: 11/13 12:22 This 76 yrs old Female presents to ER via EMS with complaints of High Blood Sugar. sk4 12:22 here by ems for ams. they report family informed three days of confusion. sugar reading sk4 high. ketones pos. has known diabetes but reportedly on no medicatinos. ems reports pt was on a sofa in excrement when they arrived. did slump over and bump head on a wall two days ago. . Historical: - Allergies: 12:16 No Known Allergies; vg1 - Home Meds: 15:03 amlodipine oral [Active]; carvedilol oral [Active]; gabapentin oral [Active]; vg1 Lisinopril Oral [Active]; Hydralazine Oral [Active]; Keppra Oral [Active]; - PMHx: 12:16 Diabetes - NIDDM; Hypertension; Ulcers; vg1 15:03 Cerebrovascular accident; Seizure; vg1 - Immunization history:: Client reports receiving the 2nd dose of the Covid vaccine. - Social history:: Smoking status: Patient denies any tobacco usage or history of. ROS: 12:22 Unable to obtain ROS due to altered mental status. sk4 Exam: 12:22 Constitutional: no acute distress. Head/Face: Normocephalic, atraumatic. sk4 Chest/axilla: Normal chest wall appearance and motion. Nontender with no deformity. No lesions are appreciated. Cardiovascular: Regular rate and rhythm Respiratory: Lungs have equal breath sounds bilaterally, clear to auscultation Abdomen/GI: Soft, non-tender Skin: Warm, dry w Neuro: oriented to name only. movse all extremities. Vital Signs: 12:09 BP 153 / 82; Pulse 90; Resp 18; Temp 99.1(O); Pulse Ox 94% on R/A; vg1 12:54 BP 139 / 87; Pulse 90; Resp 17; Pulse Ox 96% on R/A; vg1 13:50 BP 142 / 85; Pulse 90; Resp 18; Pulse Ox 97% on R/A; vg1 17:54 Weight 85.73 kg; vg1 19:00 BP 138 / 72; Pulse 93; Resp 17; Temp 99.2; Pulse Ox 98% on R/A; Pain 0/10; pf1 19:40 BP 140 / 96; Pulse 88; Resp 17; Pulse Ox 97% on R/A; Pain 0/10; pf1 20:41 BP 131 / 59; Pulse 79; Resp 16; Temp 99.8; Pulse Ox 97% on R/A; Pain 0/10; pf1 19:00 Pain Scale: Adult pf1 19:40 Pain Scale: Adult pf1 20:41 Pain Scale: Adult pf1 MDM: 12:09 Patient medically screened. [facility] 12:22 Differential diagnosis: DKA, hyperglycemia, electrolyte abn, cva, sepsis, bacteremia. [facility] Data reviewed: vital signs, nurses notes, lab test result(s), EKG, radiologic studies. 14:37 Consideration of Admission/Observation Patient was admitted/placed on observation. [facility] Management of patient was discussed with the following: Hospitalist: admission. Response to treatment: the patient's symptoms have mildly improved after treatment. ED course: iv fluid bolus. labs show elevated glucose and uti. rocephin. no ev of dka. insulin bolus given. admitted to hospiatlist. pt more awake/alert/conversational.. 11/13 12:10 Order name: CBC with Diff; Complete Time: 13:08 [facility] 11/13 12:10 Order name: Magnesium; Complete Time: 13:41 [facility] 11/13 12:10 Order name: Troponin HS; Complete Time: 13:41 [facility] 11/13 12:10 Order name: CMP; Complete Time: 13:41 [facility] 11/13 12:10 Order name: Urinalysis w/ reflexes; Complete Time: 13:27 [facility] 11/13 12:10 Order name: Lactate w/ 2H reflex if indic.; Complete Time: 13:27 [facility] 11/13 12:10 Order name: Blood Culture Adult (2) [facility] 11/13 13:20 Order name: Urine Culture EDNM 11/13 15:04 Order name: CBC with Automated Diff EDMS 11/13 15:04 Order name: CBC with Automated Diff EDMS 11/13 15:04 Order name: Comprehensive Metabolic Panel EDMS 11/13 15:04 Order name: Comprehensive Metabolic Panel [facility] 11/13 15:15 Order name: Hemoglobin A1c; Complete Time: 18:44 [facility] 11/13 15:15 Order name: Lipid Profile; Complete Time: 17:13 [facility] 11/13 15:15 Order name: Thyroid Stimulating Hormone; Complete Time: 17:13 [facility] 11/13 16:31 Order name: LDL, Direct; Complete Time: 17:13 [facility] 11/13 16:48 Order name: Lactate Sepsis 2 HR Follow-up; Complete Time: 17:13 [facility] 11/13 17:14 Order name: Glucose, Ancillary Testing; Complete Time: 18:44 [facility] 11/13 19:42 Order name: Glucose, Ancillary Testing; Complete Time: 20:23 [facility] 11/13 20:01 Order name: Lactate w/ 2H reflex if indic.; Complete Time: 20:23 [facility] 11/13 20:01 Order name: Basic Metabolic Panel; Complete Time: 20:23 [facility] 11/13 12:10 Order name: XRAY Chest (1 view); Complete Time: 14:09 [facility] 11/13 12:10 Order name: CT Head Brain wo Cont; Complete Time: 13:41 [facility] 11/13 18:02 Order name: CT Abd/Pelvis - Without Contrast [facility] 11/13 18:38 Order name: CT; Complete Time: 18:44 [facility] 11/13 12:10 Order name: EKG; Complete Time: 12:11 [facility] 11/13 15:04 Order name: 60g Consistent Carbohydrate (ADA 1800/2000) [facility] 11/13 15:13 Order name: Social Service Consult [facility] 11/13 12:10 Order name: Cardiac monitoring; Complete Time: 12:53 [facility] 11/13 12:10 Order name: EKG - Nurse/Tech; Complete Time: 12:53 [facility] 11/13 12:10 Order name: IV Saline Lock; Complete Time: 12:53 [facility] 11/13 12:10 Order name: Labs collected and sent; Complete Time: 12:53 [facility] 11/13 12:10 Order name: O2 Per Protocol; Complete Time: 12:19 [facility] 11/13 12:10 Order name: O2 Sat Monitoring; Complete Time: 12:19 [facility] Administered Medications: 13:50 Drug: NS 0.9% IV 1000 ml Route: IV; Rate: 1 bolus; Site: right antecubital; vg1 19:00 Follow up: Response: No adverse reaction; Marked relief of symptoms; IV Status: pf1 Completed infusion; IV Intake: 1000ml 14:04 Drug: Rocephin IV 1 grams Route: IV; Rate: bolus; Site: right antecubital; vg1 14:26 Follow up: IV Status: Completed infusion vg1 14:27 Drug: Insulin Regular Human IVP 10 units {Co-Signature: sg5 (Shahana Thornton RN).} vg1 Route: IVP; Site: right antecubital; 19:00 Follow up: Response: No adverse reaction; Marked relief of symptoms; Blood sugar is pf1 lowered 14:31 Not Given (Physician Discretion): NS 0.9% IV 1000 ml IV at 1 bolus Per protocol; 1000 vg1 mL bolus 18:04 Drug: NS 0.9% IV (30 ml/kg) 30 ml/kg {Note: pt currently receiving third bolus.} Route: vg1 IV; Rate: bolus; Site: left hand; 19:00 Follow up: Response: No adverse reaction; Marked relief of symptoms pf1 20:45 Follow up: IV Status: Infusion continued upon admission pf1 20:23 Drug: Insulin Regular Human Sub-Q 10 units {Co-Signature: pf1 (Aurea Osorio RN).} rv {Note: bgl 384.} Route: Sub-Q; Site: abdomen; 20:45 Follow up: Response: No adverse reaction pf1 Disposition Summary: 11/13/22 14:38 Hospitalization Ordered Hospitalization Status: Inpatient Admission sk4 Provider: Arnaldo Suarez Location: [facility] (Inpatient) sk4 Condition: Stable sk4 Problem: new sk4 Symptoms: have improved sk4 Bed/Room Type: Standard 4 Room Assignment: 427(11/13/22 20:30) cg Diagnosis - Hyperglycemia, unspecified sk4 - Altered mental status, unspecified sk4 Forms: - Medication Reconciliation Form sk4 - SBAR form sk4 Signatures: Dispatcher [employer] EDBraden Lopez FNP-C [employer]RE EXTINGUISHER CHARGER-Cla1 Briseyda Ng RN RN cg Caren Hall RN RN ap3 Jim Desir RN RN rv Angy Ng RN RN vg1 Elliot Humphrey [facility] Aurea Osorio RN pf1 Shahana Thornton RN sg5 Aurea Osorio RN pf1 Corrections: (The following items were deleted from the chart) 20:30 14:38 [facility] 21:01 12:25 BETA HYDROXYBUTYRATE+C.LAB.BRZ ordered. [facility] pf1
[2022-11-13] MEDS ORDERED: ONDANSETRON 4 MG/2 ML VIAL IV PRN (14:59)
[2022-11-13] MEDS ORDERED: MORPHINE 2 MG/ML SYR IV PRN (14:59)
--- NOTE | 2022-11-13 15:10 | P.HP ---
Certification for Inpatient With expected LOS: >2 Midnights Patient will require the following post-hospital care: Home Health Services Practitioner: I am a practitioner with admitting privileges, knowledge of patient current condition, hospital course, and medical plan of care. Services: Services provided to patient in accordance with Admission requirements found in Title 42 Section 412.3 of the Code of Federal Regulations Patient History Date of Service: 11/13/22 Reason for admission: Altered mental status hyperglycemia and a UTI History of Present Illness: Patient is 76 years old admitted from the home with altered mental status. According to EMS she has been altered for the past 3 days her son lives with her/currently patient is able to ambulate with assistance eat and drink and was found to be unkempt covered in feces. She has not taken her diabetic medication for a while. Her son knows a list of all her medications Allergies citric acid Allergy (Verified 01/27/20 16:16) Hives/Rash Home Medications: Carvedilol [Coreg] 1 tab PO BID 01/27/20 Esomeprazole Mag Trihydrate [Nexium] 1 tab PO BID 01/27/20 Metformin ER [Glucophage ER*] 1 tab PO DAILY 01/27/20 Sucralfate 1 bot PO BID 01/27/20 Valsartan [Diovan] 1 tab PO DAILY 01/27/20 ondansetron HCL [Zofran] 1 tab PO Q6H PRN 01/27/20 Insulin Glargine Human [Lantus*] 10 units SQ BEDTIME #10 ml 01/31/20 predniSONE [Prednisone*] 40 mg PO DAILY #7 tab 01/31/20 Syringe,Insulin,Needless 1 ml [Insulin Syringe] 100 ml SQ DAILY #45 disp.syrin 02/01/20 - Past Medical/Surgical History -: HTN -: DM 2, noninsulin dependent -: Dental surgery -: finger surgery -: cataract - Social History Alcohol use: No CD- Drugs: No Caffeine use: Yes Review of Systems 10-point ROS is otherwise unremarkable General: Weakness Physical Examination - Vital Signs Temperature: 98 F Blood Pressure: 152/77 Pulse: 86 Respirations: 13 Pulse Ox (%): 96 - Physical Exam General: Alert, Oriented x1 Neck: Supple Respiratory: Clear to auscultation bilaterally Cardiovascular: No edema, Normal S1 S2 Gastrointestinal: Normal bowel sounds, Soft and benign Musculoskeletal: No clubbing, No swelling (Patient is alert has expressive dysphasia/able to follow commands son at the bedside moving all her extremities poorcomprehension) - Studies Laboratory Data (last 24 hrs) 11/13/22 12:51: Sodium 129 L, Potassium 4.4, BUN 29 H, Creatinine 1.58 H, Glucose 619 H*, Magnesium 1.8, Total Bilirubin 0.4, AST 10 L, ALT 19, Alkaline Phosphatase 97 11/13/22 12:51: WBC 13.60 H, Hgb 12.4, Hct 38.6, Plt Count 237 Assessment and Plan - Problems (Diagnosis) (1) Hyperglycemia Current Visit: Yes Status: Acute Plan: Patient is age 76 with a history of diabetes ran out of her glimepiride ended up here with severe hyperglycemia her blood sugar is 619. Apparently she was discharged from [facility] with glimepiride and the son was not able to renew it. Patient is intolerant to metformin it is causes diarrhea does not take any insulin at home./Patient has been altered for the past 3 days according to EMS head CT is negative chest x-ray is unremarkable/patient is hyponatremic renal function is abnormal admit with IV fluids start patient on insulin (2) Cystitis Current Visit: Yes Status: Acute Plan: Patient has a UTI and will be given some Rocephin cultures have been ordered (3) Sepsis Current Visit: Yes Status: Acute Plan: Severe Sepsis elevated LA, Flud bolus Qualifiers: Sepsis acute organ dysfunction status: with acute organ dysfunction Severe sepsis acute organ dysfunction type: acute renal failure - Advance Directives Does patient have a Living Will: No Does patient have a Durable POA for Healthcare: No
[2022-11-13] MEDS: AMLODIPINE 10 MG TAB PO SCH (15:11)
[2022-11-13 16:14] LABS: HDL Cholesterol 39 mg/dL (40-60); Thyroid Stimulating Hormone 0.349 uIU/mL (0.358-3.740)
[2022-11-13 16:31] LABS: LDL, Direct 127 mg/dL (100-129)
[2022-11-13] MEDS ORDERED: AMLODIPINE 10 MG TAB ONE (16:43)
[2022-11-13] MEDS ORDERED: INSULIN GLARGINE 100 UNIT/ML SQ ONE (16:43)
[2022-11-13] MEDS: NA CHLORIDE 0.9% 1,000 ML IV SCH (17:00)
[2022-11-13] MEDS: INSULIN GLARGINE 100 UNIT/ML SQ SCH (17:05)
[2022-11-13] MEDS ORDERED: ACETAMINOPHEN 650MG/RECT SUPP PR ONE ×2 (17:21→17:29)
[2022-11-13] MEDS ORDERED: NA CHLORIDE 0.9% 1,000 ML IV ONE (17:29)
[2022-11-13] MEDS: INSULIN -REGULAR HUMAN 50 UNIT/0.5 ML ML SQ SCH ×2 (17:30→22:23)
--- NOTE | 2022-11-13 18:37 | RAD REPORT ---
EXAM DESCRIPTION: CTAbdomen Pelvis Wo Contrast - 11/13/2022 6:23 pm CLINICAL HISTORY: UTI, sepsis, pritesh COMPARISON: No comparisons TECHNIQUE: CT of the abdomen and pelvis was performed without contrast. All CT scans are performed using dose optimization technique as appropriate and may include automated exposure control or mA/KV adjustment according to patient size. FINDINGS: Lower chest: Cystic pleural based structure in the right lower lobe of doubtful significan ce. Coronary artery calcifications. Mild circumferential thickened distal esophagus. Liver: No acute abnormality or suspicious lesions. Biliary: No biliary ductal dilatation. Stomach: No significant focal abnormality. Duodenum: No significant focal abnormality. Pancreas: Pancreatic atrophy. Spleen: No significant abnormality. Adrenal: Left adrenal thickening. Kidney/ureter: No hydronephrosis. No renal calculi. Too small to characterize and/or benign appearing renal lesions are noted. Retroperitoneum: No retroperitoneal adenopathy. 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 Bowel: No significant focal abnormality. Peritoneum: No ascites or free air. Bladder: Grossly unremarkable. Reproductive: No adnexal masses. Bones: No acute fracture. Intramedullary johny with cephalomedullary screw in the right femur. Other: n/a IMPRESSION: No acute intra-abdominal or pelvic finding.
[2022-11-13 19:56] LABS: Potassium 3.5 mEq/L (3.5-5.1)
[2022-11-13] MEDS ORDERED: carvediloL 12.5 MG TAB PO SCH (21:00)
[2022-11-13 21:29] VITALS: O2SAT 97
[2022-11-14 00:05] VITALS: BMI 33.5
[2022-11-14] MEDS: NA CHLORIDE 0.9% 1,000 ML IV SCH ×4 (01:00→21:32)
[2022-11-14 05:34] LABS: Absolute Lymphocytes (CBC) 2.2 K/uL (0.7-4.9); Hematocrit 33.3 % (36.0-45.0); Lymphocytes % 13.6 % (15.3-44.8); MCV 89.9 fL (80-100); MPV 7.4 fL (7.6-11.3)
[2022-11-14 06:01] LABS: Bilirubin Total 0.4 mg/dL (0.2-1.0); Potassium 3.2 mEq/L (3.5-5.1); Protein, Total 5.6 g/dL (6.4-8.2)
--- NOTE | 2022-11-14 07:26 | P.PN ---
Date of Service: 11/14/22 Subjective: no nausea / vomiting / diarrhea denies trouble urinating febrile yesterday (102.3), now afebrile otherwise no new / worsening problems ROS: 10 point ROS as noted above, otherwise negative Physical Exam: GEN: Alert, orientedx2, NAD HEENT: Normal conjunctiva, sclera anicteric CV: Regular rate and rhythm, no edema Pulm: Nonlabored respirations on room air ABD: Soft, nontender, nondistended Neuro: Normal speech, normal affect, AOx2 vitals reviewed Problem List: Severe Sepsis likely secondary to UTI Altered Mental Status GRACIE NIDDM2 with Hyperglycemia hx of CVA Seizures Hypertension Severe Sepsis likely secondary to UTI Altered Mental Status CT head (11/13): No acute intracranial abnormality CT Abdomen (11/13): No acute intra-abdominal or pelvic finding. Urine culture: pending Blood culture: pending Continue Rocephin (11/14-) febrile yesterday (102.3), now afebrile; +leukocytosis (13.6 -> 15.9) cont IVF PRN pain medication GRACIE Monitor renal function cont IVF NIDDM2 with Hyperglycemia Reports not taking insulin at home - d/t diarrhea from metformin and also son not being able to renew prescription ACHS Accu-Chek, SSI hx of CVA Seizures Hypertension confirm home medications, restart as appropriate PT consult Code: Full Dispo: Home vs snf ss/cm consulted
[2022-11-14] MEDS: INSULIN -REGULAR HUMAN 50 UNIT/0.5 ML ML SQ SCH ×4 (07:30→21:32)
[2022-11-14] MEDS: carvediloL 25 MG TAB PO SCH ×2 (08:00→17:05)
[2022-11-14] MEDS: CEFTRIAXONE 1,000 MG in NA CHLORIDE 0.9% 50 ML IVPB SCH (08:44)
[2022-11-14] MEDS: AMLODIPINE 10 MG TAB PO SCH (08:44)
[2022-11-14] MEDS: INSULIN GLARGINE 100 UNIT/ML SQ SCH (08:45)
[2022-11-15 04:03] LABS: Absolute Lymphocytes (CBC) 1.8 K/uL (0.7-4.9); Hematocrit 30.6 % (36.0-45.0); Lymphocytes % 14.4 % (15.3-44.8); MCV 90.6 fL (80-100); MPV 7.2 fL (7.6-11.3); RBC Red Blood Cell Count 3.38 M/uL (3.86-4.86)
[2022-11-15 04:26] LABS: Magnesium 1.4 mg/dL (1.6-2.4); Potassium 3.1 mEq/L (3.5-5.1)
[2022-11-15] MEDS: INSULIN -REGULAR HUMAN 50 UNIT/0.5 ML ML SQ SCH ×4 (09:18→20:54)
[2022-11-15] MEDS: AMLODIPINE 10 MG TAB PO SCH (09:19)
[2022-11-15] MEDS: carvediloL 25 MG TAB PO SCH ×2 (09:19→17:00)
[2022-11-15] MEDS: CEFTRIAXONE 1,000 MG in NA CHLORIDE 0.9% 50 ML IVPB SCH (09:20)
[2022-11-15] MEDS: INSULIN GLARGINE 100 UNIT/ML SQ SCH (09:20)
[2022-11-15] MEDS: NA CHLORIDE 0.9% 1,000 ML IV SCH ×2 (09:21→17:00)
[2022-11-15] MEDS ORDERED: HYDROCODONE/APAP 5/325 MG TAB PO PRN (12:54)
--- NOTE | 2022-11-15 14:58 | EKG ---
Test Date: 2022-11-13 Test Time: 12:49:26 Sales Support Engineer: LAURA MEASUREMENT RESULTS: Intervals: Rate: 91 DC: 206 QRSD: 98 QT: 350 QTc: 430 [place]: P: 75 DC: 206 QRS: 59 T: 141 INTERPRETIVE STATEMENTS: Normal sinus rhythm Cannot rule out Anterior infarct, age undetermined Abnormal ECG Compared to ECG 01/27/2020 11:29:44 Myocardial infarct finding now present ST (T wave) deviation no longer present Electronically Signed On 11-15-22 14:55:42 CDT by Vinny Ken
--- NOTE | 2022-11-15 19:06 | P.PN ---
Subjective Date of Service: 11/15/22 Chief Complaint: Altered mental status hyperglycemia and a UTI Patient has no new complaint except intermittent hip pain with movement. She has a history of hip fracture. Physical Examination - Vital Signs Temperature: 97.6 F Blood Pressure: 144/70 Pulse: 80 Respirations: 17 Pulse Ox (%): 95 Assessment And Plan - Plan Physical Exam: GEN: Alert, oriented x 2, NAD HEENT: Normal conjunctiva, sclera anicteric CV: Regular rate and rhythm, no edema Pulm: Clear to auscultation bilaterally ABD: Soft, nontender, nondistended Neuro: No focal motor deficit vitals reviewed Problem List: Severe Sepsis likely secondary to UTI Altered Mental Status GRACIE NIDDM2 with Hyperglycemia hx of CVA Seizures Hypertension Severe Sepsis likely secondary to UTI Altered Mental Status CT head (11/13): No acute intracranial abnormality CT Abdomen (11/13): No acute intra-abdominal or pelvic finding. Urine culture: GNR. Follow urine culture. Blood culture: No growth to date Continue Rocephin (11/14-) No fever over the past 48 hours Patient has good oral intake. Discontinue IV fluid. PRN pain medication GRACIE GRACIE resolved. Discontinue IV fluid NIDDM2 with Hyperglycemia Reports not taking insulin at home - d/t diarrhea from metformin and also son not being able to renew prescription ACHS Accu-Chek, SSI hx of CVA Seizures Hypertension Continue home medications. Patient with impaired mobility. Continue PT. Code: Full
[2022-11-16 04:38] LABS: Potassium 3.7 mEq/L (3.5-5.1)
[2022-11-16 04:56] LABS: Absolute Lymphocytes (CBC) 1.5 K/uL (0.7-4.9); Hematocrit 31.2 % (36.0-45.0); Lymphocytes % 13.9 % (15.3-44.8); MPV 7.4 fL (7.6-11.3); RBC Red Blood Cell Count 3.42 M/uL (3.86-4.86)
[2022-11-16 08:14] VITALS: BP 139/70; TEMP 98.2
--- NOTE | 2022-11-16 08:53 | P.DS ---
Admission Date: 11/13/22 Discharge Date: 11/16/22 Disposition: ID HOME/HOME HEALTH CARE Discharge Condition: FAIR Reason for Admission: Altered mental status hyperglycemia and a UTI Brief History of Present Illness: Patient is 76 years old admitted from the home with altered mental status. According to EMS she was confused for 3 days. Her son lives with her provided the history. Patient is able to ambulate with assistance eat and drink and was found to be unkempt covered in feces. She had not taken her diabetic medication for a while. UA done in the emergency department suggested UTI. Patient was diagnosed with sepsis secondary to UTI and admitted for further management. Hospital Course: Diagnosis Severe Sepsis likely secondary to UTI Altered Mental Status GRACIE NIDDM2 with Hyperglycemia hx of CVA Seizures Hypertension Severe Sepsis likely secondary to UTI Altered Mental Status CT head (11/13): No acute intracranial abnormality CT Abdomen (11/13): No acute intra-abdominal or pelvic finding. Urine culture: Pansensitive E. coli. Blood culture: No growth to date Patient treated with IV Rocephin She had fever initially which resolved. Altered mental status resolved. Patient has good oral intake. GRACIE GRACIE resolved with IV hydration. NIDDM2 with Hyperglycemia Reports not taking insulin at home - d/t diarrhea from metformin and also son not being able to renew prescription. Hemoglobin A1c >14 Patient was started on long-acting insulin. She was also managed with insulin sliding scale. Patient is discharged with Lantus insulin. hx of CVA Seizures Hypertension Continued home medications. Patient with impaired mobility. She received PT. She is discharged to home with home health to continue therapy. Vital Signs/Physical Exam: Temp Pulse Resp BP Pulse Ox 98.2 F 79 20 139/70 96 11/16/22 08:00 11/16/22 08:00 11/16/22 08:00 11/16/22 08:00 11/16/22 08:00 General: Alert, In no apparent distress, Oriented x2 HEENT: Mucous membr. moist/pink Neck: JVD not distended Respiratory: Clear to auscultation bilaterally, Normal air movement Cardiovascular: No edema, Regular rate/rhythm, Normal S1 S2 Gastrointestinal: Soft and benign, Non-distended Musculoskeletal: No swelling Integumentary: No rashes Neurological: Other (No focal motor deficit) Laboratory Data at Discharge: WBC 11.10 thou/uL (4.3-10.9) H 11/16/22 03:39 Hgb 10.3 g/dL (12.0-15.0) L 11/16/22 03:39 Hct 31.2 % (36.0-45.0) L 11/16/22 03:39 Plt Count 229 thou/uL (152-406) 11/16/22 03:39 Sodium 137 mEq/L (136-145) 11/16/22 03:39 Potassium 3.7 mEq/L (3.5-5.1) D 11/16/22 03:39 BUN 18 mg/dL (7-18) 11/16/22 03:39 Creatinine 1.03 mg/dL (0.55-1.02) H 11/16/22 03:39 Glucose 231 mg/dL (74-106) H 11/16/22 03:39 Magnesium 1.4 mg/dL (1.6-2.4) L 11/15/22 03:35 Total Bilirubin 0.4 mg/dL (0.2-1.0) 11/14/22 05:00 AST 10 U/L (15-37) L 11/14/22 05:00 ALT 14 U/L (13-56) 11/14/22 05:00 Alkaline Phosphatase 73 U/L (45-117) D 11/14/22 05:00 Triglycerides 880 mg/dL (<150) H 11/13/22 12:51 Cholesterol 310 mg/dL (<200) H 11/13/22 12:51 LDL Cholesterol Direct 127 mg/dL (100-129) 11/13/22 12:51 HDL Cholesterol 39 mg/dL (40-60) L 11/13/22 12:51 Cholesterol/HDL Ratio 7.95 11/13/22 12:51 Home Medications: Carvedilol [Coreg] 1 tab PO BID 01/27/20 Esomeprazole Mag Trihydrate [Nexium] 1 tab PO BID 01/27/20 Sucralfate 1 bot PO BID 01/27/20 Valsartan [Diovan] 1 tab PO DAILY 01/27/20 ondansetron HCL [Zofran] 1 tab PO Q6H PRN 01/27/20 Alcohol Antiseptic Pads [Alcohol Swabs] 1 each TP DAILY #100 ea 11/16/22 Amlodipine [Norvasc*] 10 mg PO DAILY #30 tab 11/16/22 Blood Sugar Diagnostic [Blood Glucose Test Strip] 1 each MC DAILY #100 strip 11/16/22 Blood-Glucose Meter [Blood Glucose Meter] 1 each MC DAILY #1 ea 11/16/22 Cefpodoxime Proxetil 100 mg PO BID #10 tab 11/16/22 Insulin Glargine,Hum.rec.anlog [Lantus Solostar] 30 unit SQ DAILY #15 ml 11/16/22 Lancets [Lancets Ultra Thin] 1 each MC DAILY #100 ea 11/16/22 Pen Needle, Diabetic [Pen [place]] 1 each MC DAILY #100 units 11/16/22 New Medications: Alcohol Antiseptic Pads [Alcohol Swabs] 1 each TP DAILY #100 ea Blood-Glucose Meter [Blood Glucose Meter] 1 each MC DAILY #1 ea Blood Sugar Diagnostic [Blood Glucose Test Strip] 1 each MC DAILY #100 strip Cefpodoxime Proxetil 100 mg PO BID #10 tab Lancets [Lancets Ultra Thin] 1 each MC DAILY #100 ea Insulin Glargine,Hum.rec.anlog [Lantus Solostar] 30 unit SQ DAILY #15 ml Amlodipine [Norvasc*] 10 mg PO DAILY #30 tab Pen Needle, Diabetic [Pen [place]] 1 each MC DAILY #100 units Diet: ADA Activity: Fall precautions Followup: Unknown,U [Primary Care Provider] - Time spent managing pt's care (in minutes): 35
[2022-11-16] MEDS: INSULIN -REGULAR HUMAN 50 UNIT/0.5 ML ML SQ SCH (09:10)
[2022-11-16] MEDS: INSULIN GLARGINE 100 UNIT/ML SQ SCH (09:11)
[2022-11-16] MEDS: carvediloL 25 MG TAB PO SCH (09:12)
[2022-11-16] MEDS: AMLODIPINE 10 MG TAB PO SCH (09:13)
[2022-11-16] MEDS: CEFTRIAXONE 1,000 MG in NA CHLORIDE 0.9% 50 ML IVPB SCH (09:14)
== END 2022-11-16 12:40 | disposition home health service (06) | DRG 872 ==
LOC: ER 12:05 → ERHOLD 14:59 → 4TH 20:33
PROVIDERS: ADMIT Internal Medicine Sleep Medicine; ATTEND Internal Medicine
DX: A41.51 Sepsis due to Escherichia coli [E. coli] (principal); E87.1 Hypo-osmolality and hyponatremia; N30.00 Acute cystitis without hematuria; N17.9 Acute kidney failure, unspecified; E11.65 Type 2 diabetes mellitus with hyperglycemia; R65.20 Severe sepsis without septic shock; I10 Essential (primary) hypertension; Z88.8 Allergy status to other drugs, medicaments and biological substances; Z79.84 Long term (current) use of oral hypoglycemic drugs; Z86.73 Personal history of transient ischemic attack (TIA), and cerebral infarction without residual deficits; Z79.52 Long term (current) use of systemic steroids; Z79.899 Other long term (current) drug therapy
CPT/HCPCS: 36415; 70450; 71045; 74176; 80048; 80053; 80061; 81001; 82947; 83036; 83605; 83735; 84443; 84484; 85025; 87040; 87077; 87086; 87088; 87186; 93005; 96372; 97116; 97161; 97530; 99285; J0696; J1815; J7030

== ENCOUNTER 2022-11-29 21:37 | Inpatient (IN) | payer OTHER, BC ==
--- OUTSIDE RECORDS SUMMARY | 2022-11-29 21:39 | XMS REPORT | Continuity of Care Document ---
:1945 Author Organization [facility] t Address [address] [place] [place] [address] Care Team Providers Name Role Phone Jose Callejas Primary Care Physician LON TRAMMELL Attending Clinician Unavailable WENDY RAMIREZ Attending Clinician Unavailable MELVIN HERNANDEZ Attending Clinician Unavailable RAMESH BRAN Attending Clinician Unavailable YARIEL BRAY Admitting Clinician Unavailable Payers Payer Name Policy Type Policy Number Effective Date Expiration Date Taylor villafuerte MEDICARE PART A [id number] 2010 2024 AND B 00:00:00 00:00:00 Problems Condition Condition Condition Status Onset Resolution Last Treating Co mments Source Name Details Category Date Date Treatment Clinician Date Focal Focal Disease Active [place] [facility] epilepsy 08-17 Health 00:00: 00 Pathologic [...] Source Exposure to 2022-08-06 2022-08-16 Not sure [facility] SARS-CoV-2 (event) 00:00:00 19:30:00 Tobacco use and 2022-02-15 2022-02-15 Smokeless tobacco [facility] exposure 00:00:00 00:00:00 non-user Alcohol intake 2022-02-15 2022-02-15 Lifetime [facility] 00:00:00 00:00:00 non-drinker (finding) Sex Ass[birth year] [facility] 00:00:00 00:00:00 Smoking Status Start Date Stop Date Source Never smoked tobacco [facility] Medications Ordered Filled Start Stop Current Ordering Indication Dosage Frequency Signature Comments Components Source Medication Medication Date Date Medication? Clinician (SIG) Name Name carvedilol Yes [id number] TAKE 1 U T (Coreg) 25 4-19 TABLET BY Heal th MG tablet 00:00: MOUTH 00 TWICE A DAY IN THE MORNING AND IN THE EVENING. TAKE WITH MEALS. levETIRAcet Yes [id number] 1500mg Q.5D Take 3 UT am (Keppra) 2-16 9106 tablets Healt h 500 MG 00:00: (1,500 mg tablet 00 total) by mouth in the morning and 3 tablets (1,500 mg total) in the evening. lacosamide 2022- No [id number] 100mg Q.5D Take 1 UT (Vimpat) 2-16 04-26 9106 tablet Health 100 MG 00:00: 00:00 (100 mg tablet 00 :00 total) by mouth in the morning and 1 tablet (100 mg total) before bedtime. hydrALAZINE 2022- No [id number] TAKE 1 AND UT (Apresoline 2-13 05-15 04/25 Health ) 50 MG 00:00: 04:59 TABLETS BY tablet 00 :00 MOUTH 2 TIMES A DAY gabapentin Yes [id number] 100mg Q.[id number] Take 1 UT (Neurontin) 2-10 9106 [id number] capsule Health 100 MG 00:00: 3D (100 mg capsule 00 total) by mouth in the morning and 1 capsule (100 mg total) at noon and 1 capsule (100 mg total) in the evening. lacosamide Yes [id number] 100mg Q.5D Take 1 UT (Vimpat) 1-27 9106 tablet Health 100 MG 00:00: (100 mg tablet 00 total) by mouth in the morning and 1 tablet (100 mg total) before bedtime. amLODIPine 2021-04 Yes [id number] TAKE 1 U T (Norvasc) 1-21 TABLET BY Healt h 10 MG 00:00: MOUTH 1 tablet 00 TIME EACH DAY. lisinopril 2021-04 Yes [id number] 10mg QD Take 1 U T 10 MG 1-09 tablet (10 Health tablet 00:00: mg total) 00 by mouth 1 (one) time each day. Blood 2021-04 Yes [id number] Check BP [place] Pressure 0-25 daily Health Monitor kit 00:00: 00 methocarbam Yes [id number] 500mg Q.[id number] Take 1 UT ol 8-01 9106 [id number] tablet Health (Robaxin) 00:00: 3D (500 mg 500 MG 00 total) by tablet mouth in the morning and 1 tablet (500 mg total) at noon and 1 tablet (500 mg total) in the evening. Do all this for 14 days. glimepiride Yes [id number] 2mg Take 1 UT (Amaryl) 2 4-27 tablet (2 Heal th MG tablet 00:00: mg total) 00 by mouth 1 (one) time each day before breakfast. allopurinol Yes 300mg QD Take 300 U T (Zyloprim) 4-20 mg by Health 300 MG 12:24: mouth 1 tablet 32 (one) time each day. Immunizations Ordered Immunization Filled Immunization Date Status Commen ts Source Name Name COVID-19 [facility]beat 2021-05-05 [facility]pleted [facility]00 ([facility]) COVID-19 Opbeat 2020-07-11 [facility]pleted [facility] 00:[facility]:00 ([facility]) COVID-19 Opbeat 2020-06-20 Completed [facility] ([facility]) Procedures This patient has no known procedures. Encounters Start End Encounter Admission Attending Care Care Encounter Source Date/Time Date/Time Type Type Clinicians Facility Department ID 2022-08-18 Outpatient [facility] [id number] [place] 10:05:46 [id number] [facility] 2022-08-17 Outpatient [facility] [id number] [place] 13:41:22 [id number] [facility] 2022-08-16 Outpatient [facility] [id number] [place] 19:59:21 [id number] [facility] 2022-08-03 Outpatient [facility] [id number] [place] 15:58:21 [id number] [facility] 2022-02-22 Outpatient [facility] [id number] [place] 14:35:57 [id number] [facility] 2022-02-15 Outpatient [facility] [id number] [place] 14:03:39 [id number] [facility] 2021-09-12 Outpatient VALERI, [facility] [id number] [place] 01:03:08 LON [id number] [facility] 2021-09-03 Outpatient [facility] [id number] [place] 13:01:47 [id number] [facility] 2021-08-11 Outpatient COLEA, [facility] [id number] [place] 10:03:41 [facility] [id number] [facility] 2021-08-03 Outpatient [facility] [id number] [place] 11:03:02 [id number] [facility] 2021-08-02 Outpatient [facility] [id number] [place] 09:37:02 [id number] [facility] 2021-07-14 Outpatient [facility] [id number] [place] 13:45:11 [id number] [facility] 2021-06-11 Outpatient COLEA, [facility] [id number] [place] 15:41:00 [facility] 2023-08-21 2023-08-21 Outpatient DAVID, [facility] [id number] [place] 13:00:00 13:00:00 [facility] 2022-08-17 2022-08-17 [facility] [place] [facility] [id number] [place] 14:00:00 14:27:53 [facility] [id number] [facility] [id number] 2022-02-22 2022-02-22 Outpatient COLEA, [facility] [id number] [place] 13:00:00 13:00:00 [facility] 2022-02-15 2022-02-15 Outpatient COLEA, [facility] [id number] [place] 14:30:00 14:54:11 [facility] 2021-06-04 2021-06-16 Inpatient E YINA, [facility] [id number] [facility] 22:12:00 17:10:00 RAMESH Results This patient has no known results.
[2022-11-29 22:15] LABS: Absolute Lymphocytes (CBC) 1.6 K/uL (0.7-4.9); Hematocrit 38.9 % (36.0-45.0); Lymphocytes % 11.9 % (15.3-44.8); MCV 92.4 fL (80-100); MPV 7.2 fL (7.6-11.3); Platelets 520 thou/uL (152-406); RBC Red Blood Cell Count 4.21 M/uL (3.86-4.86)
[2022-11-29 22:20] LABS: Protime INR 0.99
[2022-11-29 22:26] LABS: Arterial Blood Carboxyhemoglob 1.8 % (0-1.5); Blood Gas Oxyhemoglobin 93.1 % (94-97)
--- NOTE | 2022-11-29 22:26 | RAD REPORT ---
EXAM DESCRIPTION: RADChest Single View11/29/2022 10:16 pm CLINICAL HISTORY: CHEST PAIN COMPARISON: Chest Single View dated 11/13/2022; CHEST SINGLE VIEW dated 07/23/2013; Abdomen Pelvis Wo Contrast dated 11/13/2022 TECHNIQUE: Portable AP view of the chest. FINDINGS: The lungs are clear.Bibasilar atelectasis. No pneumothorax or effusion. The cardiomediasti nal contours are unremarkable. IMPRESSION: No acute cardiopulmonary process.
[2022-11-29 22:33] LABS: Albumin 3.2 g/dL (3.4-5.0); Bilirubin Total 0.6 mg/dL (0.2-1.0); C-Reactive Protein 79.2 mg/L (<3.00); Potassium 4.4 mEq/L (3.5-5.1); Protein, Total 7.7 g/dL (6.4-8.2)
[2022-11-29] MEDS ORDERED: INSULIN -REGULAR HUMAN 50 UNIT/0.5 ML ML ONE (22:59)
[2022-11-29] MEDS ORDERED: ONDANSETRON 4 MG/2 ML VIAL ONE (23:00)
[2022-11-29] MEDS ORDERED: NA CHLORIDE 0.9% 100 ML ONE (23:00)
[2022-11-29] MEDS ORDERED: PIPERACIL/TAZO 3.375 GM VIAL IV ONE (23:00)
[2022-11-29] MEDS ORDERED: NA CHLORIDE 0.9% 1,000 ML ONE (23:01)
[2022-11-29 23:13] LABS: Specific Gravity 1.027 (1.005-1.030); Urine Bacteria 20-50 /HPF (<20); Urine Bilirubin NEGATIVE (Negative); Urine Blood 1+ (Negative); Urine Clarity Extremely Turbid (Clear); Urine Color Yellow (Yellow); Urine Glucose 1+ (Negative); Urine Mucus Slight /HPF (None Seen); Urine Protein 1+ (Negative); Urine RBC 21-50 /HPF (None Seen); Urine Urobilinogen Normal (Normal); Urine WBC Clump Rare /HPF (None Seen)
[2022-11-30] MEDS ORDERED: NA CHLORIDE 0.9% 1,000 ML ONE (00:17)
[2022-11-30] MEDS ORDERED: ALBUMIN HUMAN 25% 100 ML IV ONE (00:40)
[2022-11-30] MEDS ORDERED: NA CHLORIDE 0.9% 250 ML ONE (02:19)
[2022-11-30] MEDS ORDERED: VANCOMYCIN 1 GM/VIAL ONE (02:19)
[2022-11-30 02:45] LABS: Potassium 2.9 mEq/L (3.5-5.1)
--- NOTE | 2022-11-30 03:00 | EDPHYS ---
Physician Documentation [facility] Name: Maribell Coello Age: 76 yrs Sex: Female : 1945 Arrival Date: 11/29/2022 Time: 21:37 Bed 15 Private MD: ED Physician Jose Thomas HPI: 11/29 21:45 This 76 yrs old Female presents to ER via Unassigned with complaints of sp4 altered mental status . 21:45 76-year-old female presents with EMS for elevated blood sugar reported as high at home sp4 secondary to reading at 541 and then also EMS reported the reading was high. Patient also appears confused and has signs of generalized weakness or overall ill-appearing. Patient herself states she is OK and no complaint. 11/30 00:27 Patient's last admission record 11/13/2022 patient was admitted for severe sepsis, sp4 mental status changes, acute renal insufficiency, hyperglycemia associated with diabetes, also history of CVA seizures and hypertension. Patient was admitted by Dr. Lantigua. Patient responded to IV hydration and was managed for E. coli UTI with sepsis and managed with IV Rocephin. Patient was managed with home hypertension for her seizures. Patient's last creatinine in the range started at 1.03 and her blood glucose prior to discharge was 231. Hemoglobin 10.3.. Historical: - Allergies: 11/29 21:46 No Known Allergies; vc1 - Home Meds: 21:46 amlodipine oral [Active]; carvedilol oral [Active]; gabapentin oral [Active]; vc1 sucralfate Oral [Active]; Metformin Oral [Active]; Hydralazine Oral [Active]; 22:04 lisinopril Oral [Active]; Keppra Oral [Active]; ha1 - PMHx: 21:46 Cerebrovascular accident; Diabetes - NIDDM; Hypertension; Seizure; Ulcers; vc1 - PSHx: 21:46 None; vc1 - Immunization history:: Adult Immunizations unknown. - Social history:: Smoking status: unknown. - Family history:: not pertinent. ROS: 11/30 00:27 Constitutional: Negative for fever, chills, and weight loss, positive for mental status sp4 changes All other systems are negative. Exam: 00:27 Constitutional: This is a well developed, elderly frail woman, ill-appearing, toxic sp4 appearing, signs of dehydration, acute confusion, patient has no complaints on arrival but appears altered. Head/Face: Normocephalic, atraumatic. Eyes: Pupils equal round and reactive to light, extra-ocular motions intact. Lids and lashes normal. Conjunctiva and sclera are not injected. Cornea within normal limits. Periorbital areas with no swelling, redness, or edema. ENT: Nares patent. No nasal discharge, no septal abnormalities noted. Tympanic membranes are normal and external auditory canals are clear. Oropharynx with no redness, swelling, or masses, exudates, or evidence of obstruction, uvula midline. Mucous membranes moist. Neck: Trachea midline, no thyromegaly or masses palpated, and no cervical lymphadenopathy. Supple, full range of motion without nuchal rigidity, or vertebral point tenderness. Chest/axilla: Normal chest wall appearance and motion. Nontender with no deformity. No lesions are appreciated. Cardiovascular: Regular rate and rhythm with a normal S1 and S2. No gallops, murmurs, or rubs. Normal PMI, no JVD. No pulse deficits. Respiratory: Lungs have equal breath sounds bilaterally, clear to auscultation and percussion. No rales, rhonchi or wheezes noted. No increased work of breathing, no retractions or nasal flaring. Abdomen/GI: Soft, non-tender, with normal bowel sounds. No distension or tympany. No guarding or rebound. No evidence of tenderness throughout. Back: No spinal tenderness. No costovertebral tenderness. Female : Urinary incontinence on arrival Skin: Warm, dry , Normal color with no rashes, no lesions, and no evidence of cellulitis. Poor skin turgor indicative of dehydration MS/ Extremity: Pulses equal, no cyanosis. Neurovascular intact. Full, normal range of motion. Neuro: Awake and alert, GCS 15, oriented to person, place, Cranial nerves II-XII grossly intact. Motor strength 5/5 in all extremities. Sensory grossly intact. Signs of mild to moderate confusion and hypoactive delirium, generalized weakness patient is nonambulatory on arrival Psych: Awake, alert, with orientation to person, place . Signs of hypoactive delirium. 00:27 ECG was reviewed by the Attending Physician. EKG time 2227, there is normal sinus rhythm at the rate of 69, muscle tremor artifact, no ectopy, no ST elevation or depression, no signs of acute abnormality. Vital Signs: 11/29 21:43 Temp 99.1(A); vc1 21:43 BP 156 / 116; Pulse 70; Resp 22; Pulse Ox 89% on R/A; Weight 85.73 kg; Height 5 ft. 4 ha1 in. ; 22:05 BP 158 / 135; Pulse 69; Resp 22 S; Pulse Ox 94% on 2 lpm NC; ha1 22:45 BP 105 / 62; Pulse 68; Resp 18 S; Pulse Ox 98% on 2 lpm NC; ha1 23:30 BP 102 / 54; Pulse 68; Resp 16 S; Pulse Ox 96% on 2 lpm NC; ha1 23:47 BP 105 / 60; Pulse 77; Resp 17 S; Pulse Ox 98% on 2 lpm NC; ha1 23:56 BP 88 / 73; Pulse 73; Resp 16 S; Pulse Ox 98% on R/A; ha1 11/30 02:45 BP 101 / 49; Pulse 71; Resp 18 S; Pulse Ox 98% on 2 lpm NC; ha1 03:30 BP 108 / 53; Pulse 68; Resp 17 S; Pulse Ox 98% on 2 lpm NC; ha1 04:15 BP 107 / 44; Pulse 71; Resp 18 S; Pulse Ox 98% on 2 lpm NC; ha1 05:00 BP 106 / 52; Pulse 70; Resp 20 S; Pulse Ox 98% on 2 lpm NC; ha1 11/29 21:43 Body Mass Index 32.44 (85.73 kg, 162.56 cm) ha1 Procedures: 01:19 Central Line: the site was prepped with Betadine, in sterile fashion, a triple lumen sp4 catheter was inserted, in the right internal jugular vein, in 1 attempts. placement was verified, by CXR, by blood return, Ultrasound-guided placed, the site was dressed with Tegaderm, using sterile technique, the patient tolerated the procedure, well, Right internal jugular CVL placed with ultrasound guidance. No complication. MDM: 11/29 21:48 Patient medically screened. sp4 11/30 00:27 Differential Diagnosis altered mental status, sepsis. Data reviewed: vital signs, sp4 nurses notes, EMS record, old medical records, lab test result(s), EKG, radiologic studies, CT scan, plain films. Consideration of Admission/Observation Patient was admitted/placed on observation. Escalation of care including admission/observation considered. Management of patient was discussed with the following: Hospitalist: Discussed with admitting team. ED course: Patient presents with altered mental status elevated blood sugar above 700 additionally signs of acute renal failure and hypoactive delirium. Patient's blood pressure has dropped in the emergency room she will require central line for emergent resuscitation. Will probably require ICU admit. . 02:56 ED course: Blood sugar has markedly improved down to 400. Patient at this time does not sp4 require insulin infusion. But will give another bolus of 5 units IV. Will replace IV potassium and IV calcium. Stable for admission to telemetry floor without ICU, condition on admit is stable blood pressure 101/49.. 11/29 21:46 Order name: Blood Culture Adult (2) sp4 11/29 21:46 Order name: CBC with Diff; Complete Time: 22:36 sp4 11/29 21:46 Order name: CMP; Complete Time: 00:05 sp4 11/29 21:46 Order name: Lactate w/ 2H reflex if indic.; Complete Time: 22:36 sp4 11/29 21:46 Order name: Protime (+inr); Complete Time: 22:36 sp4 11/29 21:46 Order name: Ptt, Activated; Complete Time: 22:36 sp4 11/29 21:46 Order name: Urinalysis w/ reflexes; Complete Time: 00:05 sp4 11/29 21:46 Order name: ABG; Complete Time: 22:36 sp4 11/29 21:47 Order name: CRP; Complete Time: 00:05 sp4 11/29 22:01 Order name: Glucose, Ancillary Testing; Complete Time: 22:36 EDMS 11/29 23:17 Order name: Urine Culture EDMS 11/30 00:05 Order name: Glucose, Ancillary Testing; Complete Time: 00:05 EDMS 11/30 01:35 Order name: BMP; Complete Time: 02:54 ha1 11/30 03:30 Order name: Lactate w/ 2H reflex if indic. EDMS 11/30 03:30 Order name: Urinalysis w/ reflexes EDMS 11/30 03:30 Order name: Basic Metabolic Panel EDMS 11/30 03:30 Order name: Basic Metabolic Panel EDMS 11/30 03:30 Order name: Basic Metabolic Panel EDMS 11/30 03:30 Order name: Basic Metabolic Panel EDMS 11/30 03:30 Order name: CBC with Automated Diff EDMS 11/30 03:30 Order name: CBC with Automated Diff EDMS 11/30 03:30 Order name: CBC with Automated Diff EDMS 11/30 03:30 Order name: CBC with Automated Diff EDMS 11/30 03:30 Order name: Magnesium EDMS 11/30 03:30 Order name: Magnesium EDMS 11/30 03:30 Order name: Magnesium EDMS 11/30 03:30 Order name: Magnesium EDMS 11/29 21:46 Order name: Chest Single View XRAY; Complete Time: 22:36 sp4 11/29 21:47 Order name: CT Head Brain wo Cont sp4 11/30 01:17 Order name: Chest Single View XRAY sp4 11/29 21:46 Order name: EKG; Complete Time: 21:47 sp4 11/30 03:30 Order name: 60g Consistent Carbohydrate (ADA 1800/2000) EDOH 11/30 03:30 Order name: CONS Physician Consult EDOH 11/30 03:31 Order name: Dietitian Consult EDOH 11/30 03:52 Order name: Physical Therapy Consult EDOH 11/29 21:46 Order name: Accucheck; Complete Time: 22:07 sp4 11/29 21:46 Order name: Cardiac monitoring; Complete Time: 22:07 sp4 11/29 21:46 Order name: Cath; Complete Time: 22:42 sp4 11/29 21:46 Order name: EKG - Nurse/Tech; Complete Time: 22:30 sp4 11/29 21:46 Order name: IV Saline Lock - Large Bore; Complete Time: 22:07 sp4 11/29 21:46 Order name: Labs collected and sent; Complete Time: 22:07 sp4 11/29 21:46 Order name: O2 Per Protocol; Complete Time: 22:07 sp4 11/29 21:46 Order name: O2 Sat Monitoring; Complete Time: 22:07 sp4 11/29 21:46 Order name: Vital Signs; Complete Time: 22:07 sp4 11/30 00:27 Order name: Central Line Kit; Complete Time: 01:21 sp4 EC:27 Rate is 69 beats/min. Rhythm is regular, Normal Sinus Rhythm. QRS [place] is Normal. [place] sp4 interval is normal. QRS interval is normal. QT interval is normal. T waves are Normal. No ST changes noted. Clinical impression: No evidence of ischemia. Interpreted by me. Administered Medications: 11/29 22:52 Drug: Insulin Regular Human IVP 10 units {Co-Signature: vc1 (Zena Pearson RN).} ha Route: IVP; Site: left antecubital; 22:53 Drug: Insulin Regular Human IVP 10 units {Co-Signature: vc1 (Zena Pearson RN).} ha1 Route: IVP; Site: left antecubital; 23:10 Drug: NS 0.9% IV 1000 ml Route: IV; Rate: 1 bolus; Site: left antecubital; [place] 23:10 Drug: Ondansetron IVP 4 mg Route: IVP; Site: left antecubital; [place] 23:14 Drug: NS 0.9% IV 1000 ml Route: IV; Rate: 125 ml/hr; Site: left antecubital; [place] 23:55 Drug: Piperacillin-Tazobactam IVPB 3.375 grams Route: IVPB; Infused Over: 60 mins; [place] Site: left hand; 11/30 00:25 Follow up: Response: No adverse reaction; IV Status: Completed infusion [place] 00:11 Drug: NS 0.9% IV 1000 ml Route: IV; Rate: 1 bolus; Site: left antecubital; [place] 00:43 Drug: Albumin IVPB 25 grams Volume: 100 ml; Route: IVPB; Site: left antecubital; [place] 02:30 Drug: vancoMYCIN IVPB 1 grams Route: IVPB; Infused Over: 2 hrs; Site: left antecubital; [place] 04:30 Follow up: Response: No adverse reaction; IV Status: Completed infusion; IV Intake: ha1 250ml 03:55 Drug: Insulin Regular Human IVP 5 units {Co-Signature: pf1 (Aurea Osorio RN).} Route: ha1 IVP; Site: left hand; 04:00 Drug: Calcium Gluconate IVPB 2 grams Route: IVPB; Infused Over: 60 mins; Site: left ha1 hand; 04:00 Drug: Potassium Chloride IV 20 mEq {Note: central line.} Route: IV; Rate: calculated ha1 rate; Site: Other; 04:42 Drug: Potassium Chloride IV 20 mEq {Note: Dr. Paez put in the order but due to protocol ha1 the two potassium can not be administered together. the second this order will be given by nurse Eve in patients room..} Route: IV; Rate: calculated rate; Site: Other; Disposition Summary: 11/30/22 02:59 Hospitalization Ordered Hospitalization Status: Inpatient Admission sp4 Provider: Briana Humphrey sp4 Condition: Stable sp4 Problem: new sp4 Symptoms: have improved sp4 Bed/Room Type: Standard sp4 Location: Intensive Care Unit(11/30/22 03:29) cg Room Assignment: -(11/30/22 03:29) cg Diagnosis - Acute hypovolemia, hyperglycemia, hyperglycemic hyperosmolar nonketotic state, sp4 hypokalemia, hypocalcemia, moderate dehydration, sepsis, pyelonephritis, acute hypoactive delirium, acute metabolic encephalopathy - Other specified diabetes mellitus with hyperglycemia sp4 - Acute renal insufficiency sp4 Forms: - Medication Reconciliation Form sp4 - SBAR form sp4 Critical care time excluding procedures: 02:59 Critical care time: Bedside Care: 36 minutes, Consultation: 12 minutes, Family sp4 Intervention: 12 minutes. Total time: 60 minutes Signatures: Dispatcher [employer] Briseyda Villatoro RN RN Zena Pearson RN RN vc1 Erlinda Armas RN RN 1 Jose Thomas MD MD sp4 Zena Pearson RN vc1 Aurea Osorio RN pf1 Corrections: (The following items were deleted from the chart) 11/29 22:06 21:46 Home Meds: lisinopril Oral; vc1 ha1 22:06 21:46 Home Meds: Keppra Oral; vc1 ha1 11/30 03:29 02:59 Telemetry/MedSurg (Inpatient) sp4 cg 03: 02:59 sp4 cg
--- NOTE | 2022-11-30 03:00 | ER ---
Nurse's Notes [facility] Name: Maribell Coello Age: 76 yrs Sex: Female : 1945 Arrival Date: 11/29/2022 Time: 21:37 Bed 15 Private MD: Diagnosis: Acute hypovolemia, hyperglycemia, hyperglycemic hyperosmolar nonketotic state, hypokalemia, hypocalcemia, moderate dehydration, sepsis, pyelonephritis, acute hypoactive delirium, acute metabolic encephalopathy;Other specified diabetes mellitus with hyperglycemia;Acute renal insufficiency Presentation: 11/29 21:43 Chief complaint: EMS states: We were called out for a fall with lift assist. When we vc1 arrived he said she had been altered all day. He checked her sugar earlier and it said high so he gave her 40 units, at 1840 it said 541. About 30 minutes ago it said high again so he gave her 30 more units. When we arrived she was altered and hanging upside down off the couch. Her oxygen was 89% so we placed her on 2L where it came up to 94%. Coronavirus screen: Client denies travel out of the [place] in the last 14 days. At this time, the client does not indicate any symptoms associated with coronavirus-19. Ebola Screen: Patient negative for fever greater than or equal to 101.5 degrees Fahrenheit, and additional compatible Ebola Virus Disease symptoms Patient denies exposure to infectious person. Patient denies travel to an Ebola-affected area in the 21 days before illness onset. No symptoms or risks identified at this time. Risk Assessment: Do you want to hurt yourself or someone else? Patient reports no desire to harm self or others. Onset of symptoms was November 29, 2022. 21:43 Method Of Arrival: EMS: [facility] vc1 21:43 Acuity: ALBINO 3 vc1 21:43 Initial Sepsis Screen: Does the patient meet any 2 criteria? No. Patient's initial ha1 sepsis screen is negative. Does the patient have a suspected source of infection? No. Patient's initial sepsis screen is negative. 21:49 Care prior to arrival: IV initiated. 20 GA, in the left wrist, Oxygen administered. via vc1 nasal cannula. Triage Assessment: 21:43 General: Appears uncomfortable, Behavior is calm. Pain: Denies pain. Neuro: Level of ha1 Consciousness is awake, alert, Oriented to person, place. Cardiovascular: Capillary refill. 21:43 Respiratory: Airway is patent Respiratory effort is even, unlabored, Respiratory ha1 pattern is regular, symmetrical. Derm: Rash noted that is red, on buttocks. Musculoskeletal:. Historical: - Allergies: 21:46 No Known Allergies; vc1 - Home Meds: 21:46 amlodipine oral [Active]; carvedilol oral [Active]; gabapentin oral [Active]; vc1 sucralfate Oral [Active]; Metformin Oral [Active]; Hydralazine Oral [Active]; 22:04 lisinopril Oral [Active]; Keppra Oral [Active]; ha1 - PMHx: 21:46 Cerebrovascular accident; Diabetes - NIDDM; Hypertension; Seizure; Ulcers; vc1 - PSHx: 21:46 None; vc1 - Immunization history:: Adult Immunizations unknown. - Social history:: Smoking status: unknown. - Family history:: not pertinent. Screenin:43 [facility] ED Fall Risk Assessment (Adult) History of falling in the last 3 months, ha1 including since admission No falls in past 3 months (0 pts) Confusion or Disorientation Yes (5 pts) Intoxicated or Sedated No (0 pts) Impaired Gait Yes (1 pt) Mobility Assist Device Used Yes (1 pt) Altered Elimination Yes (1 pt) Score/Fall Risk Level 3 or more points = High Risk Oriented to surroundings, Maintained a safe environment, Educated pt \T\ family on fall prevention, incl call for assistance when getting out of bed, Hourly rounding (assess needs \T\ fall precautionary measures) done. Abuse screen: Denies threats or abuse. Denies injuries from another. Nutritional screening: No deficits noted. Tuberculosis screening: No symptoms or risk factors identified. Assessment: 22:00 Reassessment: Patient and/or family updated on plan of care and expected duration. Pain ha1 level reassessed. Patient is alert, oriented x 3, equal unlabored respirations, skin warm/dry/pink. 23:58 Reassessment: Patient and/or family updated on plan of care and expected duration. Pain ha1 level reassessed. Patient is alert, oriented x 3, equal unlabored respirations, skin warm/dry/pink. Patient is alert/active/playful, equal unlabored respirations, skin warm/dry/pink. notified Dr. Paez of low BP. 11/30 01:00 Reassessment: Patient and/or family updated on plan of care and expected duration. Pain ha1 level reassessed. Patient is alert, oriented x 3, equal unlabored respirations, skin warm/dry/pink. 01:50 Reassessment: pt. was moved from room 16 to room 15 because oxygen monitor was not ha1 working. 02:00 Reassessment: Patient and/or family updated on plan of care and expected duration. Pain ha1 level reassessed. General: Appears comfortable, Behavior is calm. 03:00 Reassessment: Patient and/or family updated on plan of care and expected duration. Pain ha1 level reassessed. 03:00 Respiratory: Airway is patent Respiratory effort is even, unlabored, Respiratory ha1 pattern is regular, symmetrical. 04:00 Reassessment: Patient and/or family updated on plan of care and expected duration. Pain ha1 level reassessed. 04:00 Respiratory: Airway is patent Respiratory effort is even, unlabored, Respiratory ha1 pattern is regular, symmetrical. 05:00 Reassessment:. Respiratory: Airway is patent Respiratory effort is even, unlabored, ha1 Respiratory pattern is regular, symmetrical. 05:00 Reassessment: Patient states feeling better. ha1 Vital Signs: 11/29 21:43 Temp 99.1(A); vc1 21:43 BP 156 / 116; Pulse 70; Resp 22; Pulse Ox 89% on R/A; Weight 85.73 kg; Height 5 ft. 4 ha1 in. ; 22:05 BP 158 / 135; Pulse 69; Resp 22 S; Pulse Ox 94% on 2 lpm NC; ha1 22:45 BP 105 / 62; Pulse 68; Resp 18 S; Pulse Ox 98% on 2 lpm NC; ha1 23:30 BP 102 / 54; Pulse 68; Resp 16 S; Pulse Ox 96% on 2 lpm NC; ha1 23:47 BP 105 / 60; Pulse 77; Resp 17 S; Pulse Ox 98% on 2 lpm NC; ha1 23:56 BP 88 / 73; Pulse 73; Resp 16 S; Pulse Ox 98% on R/A; ha1 11/30 02:45 BP 101 / 49; Pulse 71; Resp 18 S; Pulse Ox 98% on 2 lpm NC; ha1 03:30 BP 108 / 53; Pulse 68; Resp 17 S; Pulse Ox 98% on 2 lpm NC; ha1 04:15 BP 107 / 44; Pulse 71; Resp 18 S; Pulse Ox 98% on 2 lpm NC; ha1 05:00 BP 106 / 52; Pulse 70; Resp 20 S; Pulse Ox 98% on 2 lpm NC; ha1 11/29 21:43 Body Mass Index 32.44 (85.73 kg, 162.56 cm) ha1 ED Course: 11/29 21:43 Patient arrived in ED. vc1 21:45 Jose Thomas MD is Attending Physician. sp4 21:46 Triage completed. vc1 21:49 Arm band placed on left wrist. vc1 21:49 Patient has correct armband on for positive identification. Placed in gown. Bed in low vc1 position. Call light in reach. Side rails up X2. Client placed on continuous cardiac and pulse oximetry monitoring. NIBP monitoring applied. 21:50 Maintain EMS IV. Dressing intact. Good blood return noted. Site clean \T\ dry. Gauge \T\ vc 1 site: 20 gauge left wrist. 22:04 Erlinda Armas, RN is Primary Nurse. ha1 22:06 Inserted saline lock: 20 gauge in left antecubital area, using aseptic technique. Blood rv1 collected. 22:07 ABG Sent. rv1 22:07 Blood Culture Adult (2) Sent. rv1 22:07 CBC with Diff Sent. rv1 22:07 CMP Sent. rv1 22:07 Lactate w/ 2H reflex if indic. Sent. rv1 22:07 Protime (+inr) Sent. rv1 22:07 Ptt, Activated Sent. rv1 22:18 Chest Single View XRAY In Process Unspecified. EDMS 22:30 CRP Sent. ha1 22:42 Blood Culture Adult (2) Sent. ha1 22:47 Urinalysis w/ reflexes Sent. rv1 23:09 CT Head Brain wo Cont In Process Unspecified. EDMS 11/30 01:10 Assisted provider with central line placement. Set up central line tray. Triple lumen ha1 line placed in right subclavian. Line placed by Jose Thomas MD Placement verified by CXR, Dressed with Tegaderm, Blood was collected. Patient tolerated well. Was handwashing/sanitizing done immediately prior to procedure? Was blood aspirated from each lumen? Yes. 01:31 Chest Single View XRAY In Process Unspecified. EDMS 02:57 Briana Humphrey MD is Hospitalizing Provider. sp4 05:00 Patient admitted, IV remains in place. ha1 Administered Medications: 11/29 22:52 Drug: Insulin Regular Human IVP 10 units {Co-Signature: vc1 (Zena Pearson RN).} ha1 Route: IVP; Site: left antecubital; 22:53 Drug: Insulin Regular Human IVP 10 units {Co-Signature: vc1 (Zena Pearson RN).} ha1 Route: IVP; Site: left antecubital; 23:10 Drug: NS 0.9% IV 1000 ml Route: IV; Rate: 1 bolus; Site: left antecubital; [facility] 23:10 Drug: Ondansetron IVP 4 mg Route: IVP; Site: left antecubital; [facility] 23:14 Drug: NS 0.9% IV 1000 ml Route: IV; Rate: 125 ml/hr; Site: left antecubital; 1 23:55 Drug: Piperacillin-Tazobactam IVPB 3.375 grams Route: IVPB; Infused Over: 60 mins; [facility] Site: left hand; 11/30 00:25 Follow up: Response: No adverse reaction; IV Status: Completed infusion [facility] 00:11 Drug: NS 0.9% IV 1000 ml Route: IV; Rate: 1 bolus; Site: left antecubital; [facility] 00:43 Drug: Albumin IVPB 25 grams Volume: 100 ml; Route: IVPB; Site: left antecubital; 1 02:30 Drug: vancoMYCIN IVPB 1 grams Route: IVPB; Infused Over: 2 hrs; Site: left antecubital; [facility] 04:30 Follow up: Response: No adverse reaction; IV Status: Completed infusion; IV Intake: ha1 250ml 03:55 Drug: Insulin Regular Human IVP 5 units {Co-Signature: pf1 (Aurea Osorio RN).} Route: ha1 IVP; Site: left hand; 04:00 Drug: Calcium Gluconate IVPB 2 grams Route: IVPB; Infused Over: 60 mins; Site: left ha1 hand; 04:00 Drug: Potassium Chloride IV 20 mEq {Note: central line.} Route: IV; Rate: calculated ha1 rate; Site: Other; 04:42 Drug: Potassium Chloride IV 20 mEq {Note: Dr. Paez put in the order but due to protocol ha1 the two potassium can not be administered together. the second this order will be given by nurse Eve in patients room..} Route: IV; Rate: calculated rate; Site: Other; Medication: 05:00 VIS not applicable for this client. ha1 Intake: 04:30 IV: 250ml; Total: 250ml. ha1 Outcome: 02:59 Decision to Hospitalize by Provider. sp4 05:00 Admitted to ICU accompanied by tech, via stretcher, room 7, with chart, Report called ha1 to Nini Prado 05:00 Condition: stable ha1 05:00 Discharge instructions given to patient, Instructed on the need for admit. 05:04 Patient left the ED. ha1 Signatures: Dispatcher [employer] EDMS Zena Pearson RN RN vc1 Erlinda Armas RN RN 1 Renuka Fletcher rvJose Valenzuela MD MD sp4 Zena Pearson RN vc1 Aurea Osorio RN pf1 Corrections: (The following items were deleted from the chart) 11/29 22:06 21:46 Home Meds: lisinopril Oral; vc1 ha1 22:06 21:46 Home Meds: Keppra Oral; vc1 ha1 23:58 22:08 Pulse 69bpm; Resp 22bpm; Spontaneous; Pulse Ox 94% 2 lpm Nasal Cannula; ha1 ha1 11/30 00:15 0808 23:58 Reassessment: Patient and/or family updated on plan of care and expected ha1 duration. Pain level reassessed. Patient is alert, oriented x 3, equal unlabored respirations, skin warm/dry/pink. ha1
--- NOTE | 2022-11-30 03:12 | P.HP ---
Certification for Inpatient Patient admitted to: Inpatient With expected LOS: <2 Midnights Patient will require the following post-hospital care: None Practitioner: I am a practitioner with admitting privileges, knowledge of patient current condition, hospital course, and medical plan of care. Services: Services provided to patient in accordance with Admission requirements found in Title 42 Section 412.3 of the Code of Federal Regulations Patient History Date of Service: 11/30/22 Reason for admission: Hyperglycemia History of Present Illness: 76 year old female pmhx HTN, DM uncontrolled presents to emergency room via EMS for hyperglycemia. Her BG >500 at home. reports associated confusion, moderate generalized weakness. She is poor historian, reports she ran out of her medication, unsure accuracy, She does denies fever, cough, NVD, Abdominal pain, chest pain. She was previously admitted 11/13/2022 for severe sepsis,E. coli UTI, mental status changes, acute renal insufficiency, hyperglycemia associated with diabetes.Labatory evaluation, CBC WBC 13.80, left shift 79.8, BG 784 on arrival to ER, hyponatremia 127, Acute renal insufficency BUN 58 CR 4.25, hypo albumin 3.2, with noted hypotension. CXR MPRESSION: No acute cardiopulmonary process, CT head pendingPlan to admit for Acute hypovolemia, hyperglycemia, hyperglycemic hyperosmolar nonketotic state, hypokalemia, hypocalcemia, moderate dehydration, sepsis, pyelonephritis, acute hypoactive delirium, acute metabolic encephalopathy, Other specified diabetes mellitus with hyperglycemia, Acute renal insufficiency Allergies citric acid Allergy (Verified 01/27/20 16:16) Hives/Rash Home Medications: Carvedilol [Coreg] 1 tab PO BID 01/27/20 Esomeprazole Mag Trihydrate [Nexium] 1 tab PO BID 01/27/20 Sucralfate 1 bot PO BID 01/27/20 Valsartan [Diovan] 1 tab PO DAILY 01/27/20 ondansetron HCL [Zofran] 1 tab PO Q6H PRN 01/27/20 Alcohol Antiseptic Pads [Alcohol Swabs] 1 each TP DAILY #100 ea 11/16/22 Amlodipine [Norvasc*] 10 mg PO DAILY #30 tab 11/16/22 Blood Sugar Diagnostic [Blood Glucose Test Strip] 1 each MC DAILY #100 strip 11/16/22 Blood-Glucose Meter [Blood Glucose Meter] 1 each MC DAILY #1 ea 11/16/22 Cefpodoxime Proxetil 100 mg PO BID #10 tab 11/16/22 Insulin Glargine,Hum.rec.anlog [Lantus Solostar] 30 unit SQ DAILY #15 ml 11/16/22 Lancets [Lancets Ultra Thin] 1 each MC DAILY #100 ea 11/16/22 Pen Needle, Diabetic [Pen [place]] 1 each MC DAILY #100 units 11/16/22 - Past Medical/Surgical History Diabetic: Yes -: HTN -: DM 2, noninsulin dependent -: Dental surgery -: finger surgery -: cataract - Social History Alcohol use: No CD- Drugs: No Caffeine use: Yes Review of Systems 10-point ROS is otherwise unremarkable Physical Examination - Physical Exam General: Alert, In no apparent distress, Oriented x2 HEENT: Atraumatic, Normocephalic, PERRLA Neck: 2+ carotid pulse no bruit, JVD not distended Respiratory: Clear to auscultation bilaterally, Normal air movement Cardiovascular: Normal pulses, Regular rate/rhythm, Normal S1 S2 Capillary refill: <2 Seconds Gastrointestinal: Normal bowel sounds, Hypoactive Musculoskeletal: No clubbing, No swelling Integumentary: No rashes, No breakdown Neurological: Sensation intact, Other (AOx2, forgettful, follows commands, no focal deficits) - Studies Laboratory Data (last 24 hrs) 11/30/22 11/29/22 11/29/22 02:10 22:01 22:01 WBC Hgb Hct Plt Count PT 10.9 INR 0.99 APTT 25.7 Sodium 137 D 127 L Potassium 2.9 L D 4.4 BUN 47 H 58 H Creatinine 2.83 H 4.25 H Glucose 400 H* 748 H* Total Bilirubin 0.6 AST 11 L ALT 21 Alkaline Phosphatase 105 11/29/22 22:01 WBC 13.80 H Hgb 12.5 Hct 38.9 Plt Count 520 H PT INR APTT Sodium Potassium BUN Creatinine Glucose Total Bilirubin AST ALT Alkaline Phosphatase Assessment and Plan - Plan Assessment/Plan acute hypoactive delirium acute metabolic encephalopathy Acute hypovolemia hyperglycemia, hyperglycemic hyperosmolar nonketotic state hypokalemia hypocalcemia moderate dehydration, sepsis pyelonephritis acute hypoactive delirium acute metabolic encephalopathy Acute renal insufficiency Assessment/Plan acute hypoactive delirium acute metabolic encephalopathy fall precautions, PT eval for evaluation ambulation CT head pending sepsis with Acute hypovolemia moderate dehydration pyelonephritis CBC WBC 13.80, left shift 79.8, trend cultures ID consult, IV abx, IVF CXR MPRESSION: No acute cardiopulmonary process, hyperglycemia, hyperglycemic hyperosmolar nonketotic state SSI, Plater Supervisor consult for DM diet education hypokalemia hypocalcemia hyponatremia trend electrolytes, replace prn hyponatremia 127, Acute renal insufficiency Neph consult, trend kidney function BUN 58 CR 4.25, Diet DM diet Full code DVT heparin Discharge Plan: Home Plan to discharge in: 48 Hours - Advance Directives Does patient have a Living Will: No Does patient have a Durable POA for Healthcare: No - Code Status/Comfort Care Code Status: Full Code Physician Review: Patient Assessed, Agree with Above Assessment and Plan Time Spent Managing Pts Care (In Minutes): 50
[2022-11-30] MEDS ORDERED: ACETAMINOPHEN 500 MG TAB PO PRN (03:28)
[2022-11-30] MEDS ORDERED: ONDANSETRON 4 MG/2 ML VIAL IV PRN (03:28)
[2022-11-30] MEDS ORDERED: NA CHLORIDE 0.9% 1,000 ML IV SCH (04:00)
[2022-11-30] MEDS ORDERED: CALCIUM GLUCONATE 1 GM IVPB 2 GM/100 ML BAG IV ONE (04:07)
[2022-11-30] MEDS ORDERED: KCL 20 MEQ/100 mL IVPB 200 ML IV ONE (04:07)
[2022-11-30] MEDS ORDERED: NA CHLORIDE 0.9% 500 ML ONE (04:08)
[2022-11-30] MEDS ORDERED: INSULIN -REGULAR HUMAN 50 UNIT/0.5 ML ML ONE (04:10)
[2022-11-30 07:22] VITALS: BMI 32.0
[2022-11-30] MEDS: PIPER TAZO 3.375 GM in NA CHLORIDE 0.9% 100 ML IV SCH ×2 (08:21→11:48)
[2022-11-30] MEDS: HEPARIN 5000 UNIT/ML 1 ML VIAL SQ SCH ×2 (08:21→16:59)
[2022-11-30] MEDS: INSULIN -REGULAR HUMAN 50 UNIT/0.5 ML ML SQ SCH ×4 (08:22→22:51)
[2022-11-30] MEDS ORDERED: DOXYCYCLINE 100 MG in NA CHLORIDE 0.9% 100 ML IVPB SCH (09:00)
--- NOTE | 2022-11-30 09:49 | P.CNS ---
Date of Consult: 11/30/22 Reason for Consult: sepsis, uti Chief Complaint: Hyperglycemia History of Present Illness: Patient is a 76 yo female with a past medical history of Diabetes mellitus type 2 and hypertension who presented to the ED via EMS with complaints of confusion and generalized weakness. Her blood glucose was found to be >500. Urinalysis with pyuria and bacteruria suggestive of UTI. Allergies citric acid Allergy (Verified 01/27/20 16:16) Hives/Rash Home medications list reviewed: Yes Home Medications: Carvedilol [Coreg] 1 tab PO BID 01/27/20 Esomeprazole Mag Trihydrate [Nexium] 1 tab PO BID 01/27/20 Sucralfate 1 bot PO BID 01/27/20 Valsartan [Diovan] 1 tab PO DAILY 01/27/20 ondansetron HCL [Zofran] 1 tab PO Q6H PRN 01/27/20 Alcohol Antiseptic Pads [Alcohol Swabs] 1 each TP DAILY #100 ea 11/16/22 Amlodipine [Norvasc*] 10 mg PO DAILY #30 tab 11/16/22 Blood Sugar Diagnostic [Blood Glucose Test Strip] 1 each MC DAILY #100 strip 11/16/22 Blood-Glucose Meter [Blood Glucose Meter] 1 each MC DAILY #1 ea 11/16/22 Cefpodoxime Proxetil 100 mg PO BID #10 tab 11/16/22 Insulin Glargine,Hum.rec.anlog [Lantus Solostar] 30 unit SQ DAILY #15 ml 11/16/22 Lancets [Lancets Ultra Thin] 1 each MC DAILY #100 ea 11/16/22 Pen Needle, Diabetic [Pen [place]] 1 each MC DAILY #100 units 11/16/22 - Past Medical/Surgical History Diabetic: Yes -: HTN -: DM 2, noninsulin dependent -: CVA -: Seizures -: Dental surgery -: finger surgery -: cataract - Social History Smoking Status: Unknown if ever smoked Alcohol use: No CD- Drugs: No Caffeine use: Yes Review of Systems Unremarkable (denies any complaints at this time) Physical Examination Temp Pulse Resp BP Pulse Ox 97 F 86 12 118/52 L 100 11/30/22 05:25 11/30/22 05:25 11/30/22 05:25 11/30/22 05:25 11/30/22 05:25 General: In no apparent distress, Oriented x2 HEENT: Atraumatic, Normocephalic Neck: Supple, JVD not distended Respiratory: Normal air movement (on 2L NC), Diminished Cardiovascular: Normal pulses, Regular rate/rhythm Gastrointestinal: Normal bowel sounds, Soft and benign Musculoskeletal: No clubbing, No swelling Integumentary: Other (moisture associated dermatitis buttocks) Neurological: Normal affect Urinary: Bhatti catheter Laboratory Data (last 24 hrs) 11/30/22 11/29/22 11/29/22 02:10 22:01 22:01 WBC Hgb Hct Plt Count PT 10.9 INR 0.99 APTT 25.7 Sodium 137 D 127 L Potassium 2.9 L D 4.4 BUN 47 H 58 H Creatinine 2.83 H 4.25 H Glucose 400 H* 748 H* Total Bilirubin 0.6 AST 11 L ALT 21 Alkaline Phosphatase 105 11/29/22 22:01 WBC 13.80 H Hgb 12.5 Hct 38.9 Plt Count 520 H PT INR APTT Sodium Potassium BUN Creatinine Glucose Total Bilirubin AST ALT Alkaline Phosphatase Imagings Data: - Reviewed Conclusions/Impression: Problem List Diabetes Mellitus type II Hypertension Sepsis Urinary Tract Infection Acute Renal Insufficiency Mild PCM Sepsis Urinary Tract Infection - Blood cultures 11/29: Pending - Urine culture 11/29: pending - Currently on Zosyn and Doxycycline (started 11/30) - Denies any urinary symptoms. No dysuria, retention, frequency, suprapubic pain or flank pain. No nausea or vomiting. Leukocytosis (WBC 13.8) Afebrile. Recommendations - Continue Zosyn for now. Will follow up with urine culture results and adjust as needed. - Discontinue Doxycycline - Monitor WBC and fever trends Case discussed with Ephraim Leggett
--- NOTE | 2022-11-30 10:37 | RAD REPORT ---
EXAM DESCRIPTION: CT - Head Brain Wo Cont - 11/30/2022 7:10 am CLINICAL HISTORY: 76-year-old female with confusion. COMPARISON: 11/13/2022. TECHNIQUE: CT brain without contrast. This exam was performed according to our departmental dose opt imization program which includes use of automated exposure control, adjustment of the mA and/or kV ac cording to patient size and/or use of iterative reconstruction technique. FINDINGS: Multifocal regions of patchy hypoattenuation are present in a subcortical and periventricu lar deep white matter distribution, nonspecific; however, most likely represent small vessel ischemic disease, age indeterminate. Gliosis of the superior right temporal lobe may reflect sequela of prior infarction. The ventricles, and sulci are prominent compatible with underlying volume loss. The malave-white norm er differentiation is preserved. There is no mass effect, midline shift, intra- or extra-axial flui d collection/acute hemorrhage. Partially empty sella otherwise the midline structures are within normal limits. The osseous struct ures are unremarkable. The paranasal sinuses and mastoid air cells are clear. IMPRESSION: 1. No acute intracranial abnormalities. Nonspecific white matter change most likely sm all vessel ischemic disease, age indeterminate. 2. CT is insensitive for early evaluation of acute stroke. If there is clinical concern for acute ischemia, an MRI may be considered. Electronically signed by: Celena Carter MD 11/29/2022 11:46 PM CDT Due to temporary technical issues with the PACS/Fluency reporting system, reports are being signed by the in house radiologist without review as a courtesy to ensure prompt reporting. The interpreting r adiologist is fully responsible for the content of the report.
[2022-11-30] MEDS: NA CHLORIDE 0.9% 1,000 ML IV SCH ×2 (11:00→21:00)
--- NOTE | 2022-11-30 12:39 | P.PN ---
Date of Service: 11/30/22 Patient appear confused. Vital signs stable. Blood sugar readings yesterday. Diagnosis: Hyperosmolar hyperglycemia state. UTI Plan: Continue antibiotic IV fluid Aggressive blood sugar control. Resume home dose Lantus. Fingerstick glucose monitoring.
--- NOTE | 2022-11-30 13:20 | RAD REPORT ---
EXAM DESCRIPTION: RAD - Chest Single View - 11/30/2022 1:29 am CLINICAL HISTORY: The patient is 76 years old and is Female; R IJ CVL placement TECHNIQUE: Frontal view of the chest. COMPARISON: No relevant prior studies available. FINDINGS: Lungs: Unremarkable. No consolidation. Pleural space: Unremarkable. No pneumothorax. Heart: Unremarkable. Mediastinum: Unremarkable. Bones/joints: Unremarkable. Tubes, lines and devices: Right IJ central venous catheter with tip in the SVC. IMPRESSION: Right IJ central venous catheter with tip in the SVC. Electronically signed by: Tremaine Barreto MD 11/30/2022 1:50 AM CDT Due to temporary technical issues with the PACS/Fluency reporting system, reports are being signed by the in house radiologist without review as a courtesy to ensure prompt reporting. The interpreting r adiologist is fully responsible for the content of the report.
--- NOTE | 2022-11-30 17:56 | P.CNS ---
Date of Consult: 11/30/22 Reason for Consult: GRACIE Requesting Physician: ligia lantigua Chief Complaint: Hyperglycemia History of Present Illness: 76 year old female pmhx HTN, DM uncontrolled presents to emergency room via EMS for hyperglycemia. Her BG >500 at home. reports associated confusion, moderate generalized weakness. She is poor historian, reports she ran out of her medication, unsure accuracy, She does denies fever, cough, NVD, Abdominal pain, chest pain. She was previously admitted 11/13/2022 for severe sepsis,E. coli UTI, mental status changes, acute renal insufficiency, hyperglycemia associated with diabetes.Labatory evaluation, CBC WBC 13.80, left shift 79.8, BG 784 on arrival to ER, hyponatremia 127, Acute renal insufficency BUN 58 CR 4.25, hypo albumin 3.2, with noted hypotension. CXR MPRESSION: No acute cardiopulmonary process, CT head pendingPlan to admit for Acute hypovolemia, hyperglycemia, hyperglycemic hyperosmolar nonketotic state, hypokalemia, hypocalcemia, moderate dehydration, sepsis, pyelonephritis, acute hypoactive delirium, acute metabolic encephalopathy, Other specified diabetes mellitus with hyperglycemia, Acute renal insufficiency 21:45 This 76 yrs old Female presents to ER via Unassigned with complaints of sp4 altered mental status . 21:45 76-year-old female presents with EMS for elevated blood sugar reported as high at home sp4 secondary to reading at 541 and then also EMS reported the reading was high. Patient also appears confused and has signs of generalized weakness or overall ill- appearing. Patient herself states she is OK and no complaint. 11/30 00:27 Patient's last admission record 11/13/2022 patient was admitted for severe sepsis, sp4 mental status changes, acute renal insufficiency, hyperglycemia associated with diabetes, also history of CVA seizures and hypertension. Patient was admitted by Dr. Lantigua. Patient responded to IV hydration and was managed for E. coli UTI with sepsis and managed with IV Rocephin. Patient was managed with home hypertension for her seizures. Patient's last creatinine in the range started at 1.03 and her blood glucose prior to discharge was 231. Hemoglobin 10.3.. No NSAIDs. No urinary difficulties. Allergies citric acid Allergy (Verified 01/27/20 16:16) Hives/Rash Home medications list reviewed: Yes Home Medications: Carvedilol [Coreg] 1 tab PO BID 01/27/20 Esomeprazole Mag Trihydrate [Nexium] 1 tab PO BID 01/27/20 Sucralfate 1 bot PO BID 01/27/20 Valsartan [Diovan] 1 tab PO DAILY 01/27/20 ondansetron HCL [Zofran] 1 tab PO Q6H PRN 01/27/20 Alcohol Antiseptic Pads [Alcohol Swabs] 1 each TP DAILY #100 ea 11/16/22 Amlodipine [Norvasc*] 10 mg PO DAILY #30 tab 11/16/22 Blood Sugar Diagnostic [Blood Glucose Test Strip] 1 each MC DAILY #100 strip 11/16/22 Blood-Glucose Meter [Blood Glucose Meter] 1 each MC DAILY #1 ea 11/16/22 Cefpodoxime Proxetil 100 mg PO BID #10 tab 11/16/22 Insulin Glargine,Hum.rec.anlog [Lantus Solostar] 30 unit SQ DAILY #15 ml 11/16/22 Lancets [Lancets Ultra Thin] 1 each MC DAILY #100 ea 11/16/22 Pen Needle, Diabetic [Pen [place]] 1 each MC DAILY #100 units 11/16/22 - Past Medical/Surgical History Diabetic: Yes -: HTN -: DM 2, noninsulin dependent -: CVA -: Seizures -: Hx GRACIE (Dr. Alonso/ Dr. Sesay) -: Dental surgery -: finger surgery -: cataract - Social History Smoking Status: Unknown if ever smoked Alcohol use: No CD- Drugs: No Caffeine use: Yes Review of Systems 10-point ROS is otherwise unremarkable General: Weakness, Malaise Physical Examination Temp Pulse Resp BP Pulse Ox 97.8 F 72 16 108/58 L 92 11/30/22 16:00 11/30/22 15:19 11/30/22 15:00 11/30/22 15:19 11/30/22 15:19 General: In no apparent distress, Cooperative HEENT: Atraumatic Neck: Supple Respiratory: Normal air movement Cardiovascular: No edema, Regular rate/rhythm Gastrointestinal: Soft and benign, Non-distended Musculoskeletal: No clubbing, No contractures Integumentary: No rashes, No cyanosis Neurological: Normal speech Laboratory Data (last 24 hrs) 11/30/22 11/29/2223 02:10 22:01 22:01 WBC Hgb Hct Plt Count PT 10.9 INR 0.99 APTT 25.7 Sodium 137 D 127 L Potassium 2.9 L D 4.4 BUN 47 H 58 H Creatinine 2.83 H 4.25 H Glucose 400 H* 748 H* Total Bilirubin 0.6 AST 11 L ALT 21 Alkaline Phosphatase 105 11/29/22 22:01 WBC 13.80 H Hgb 12.5 Hct 38.9 Plt Count 520 H PT INR APTT Sodium Potassium BUN Creatinine Glucose Total Bilirubin AST ALT Alkaline Phosphatase Imagings Data: EXAM DESCRIPTION: RAD - Chest Single View - 11/30/2022 1:29 am CLINICAL HISTORY: The patient is 76 years old and is Female; R IJ CVL placement TECHNIQUE: Frontal view of the chest. COMPARISON: No relevant prior studies available. FINDINGS: Lungs: Unremarkable. No consolidation. Pleural space: Unremarkable. No pneumothorax. Heart: Unremarkable. Mediastinum: Unremarkable. Bones/joints: Unremarkable. Tubes, lines and devices: Right IJ central venous catheter with tip in the SVC. IMPRESSION: Right IJ central venous catheter with tip in the SVC. EXAM DESCRIPTION: CT - Head Brain Wo Cont - 11/30/2022 7:10 am CLINICAL HISTORY: 76-year-old female with confusion. COMPARISON: 11/13/2022. TECHNIQUE: CT brain without contrast. This exam was performed according to our departmental dose optimization program which includes use of automated exposure control, adjustment of the mA and/or kV according to patient size and/or use of iterative reconstruction technique. FINDINGS: Multifocal regions of patchy hypoattenuation are present in a subcortical and periventricular deep white matter distribution, nonspecific; however, most likely represent small vessel ischemic disease, age indeterminate. Gliosis of the superior right temporal lobe may reflect sequela of prior infarction. The ventricles, and sulci are prominent compatible with underlying volume loss. The malave-white matter differentiation is preserved. There is no mass effect, midline shift, intra- or extra-axial fluid collection/acute hemorrhage. Partially empty sella otherwise the midline structures are within normal limits. The osseous structures are unremarkable. The paranasal sinuses and mastoid air cells are clear. IMPRESSION: 1. No acute intracranial abnormalities. Nonspecific white matter change most likely small vessel ischemic disease, age indeterminate. 2. CT is insensitive for early evaluation of acute stroke. If there is clinical concern for acute ischemia, an MRI may be considered. EXAM DESCRIPTION: RADChest Single View11/29/2022 10:16 pm CLINICAL HISTORY: CHEST PAIN COMPARISON: Chest Single View dated 11/13/2022; CHEST SINGLE VIEW dated 07/23/2013; Abdomen Pelvis Wo Contrast dated 11/13/2022 TECHNIQUE: Portable AP view of the chest. FINDINGS: The lungs are clear.Bibasilar atelectasis. No pneumothorax or effusion. The cardiomediastinal contours are unremarkable. IMPRESSION: No acute cardiopulmonary process. Conclusions/Impression: Stage III GRACIE in the setting of hypotension & hypovolemia CKD with Proteinuria -No NSAIDs -Continue IVF with NS -Continue dee Hyponatremia -Continue IVF with NS Hypokalemia -Replete potassium as ordered Hypocalcemia -Start Ergo -Start Tums BID HTN with CKD complicated by hypotension -Hold antihypertensives -Continue IVF DM II with CKD & Hyperglycemia -Continue Lantus -RISS Acute Cystitis with Hematuria -Continue Zosyn -Follow up culture Thank you kindly for the consultation
--- NOTE | 2022-11-30 18:07 | EKG ---
Test Date: 2022-11-29 Test Time: 22:25:32 Timber Harvester Operator: DORIAN MEASUREMENT RESULTS: Intervals: Rate: 71 NM: 198 QRSD: 78 QT: 420 QTc: 456 [place]: P: 88 NM: 198 QRS: 68 T: 89 INTERPRETIVE STATEMENTS: Normal sinus rhythm Nonspecific ST and T wave abnormality Abnormal ECG Compared to ECG 11/13/2022 12:49:26 ST (T wave) deviation now present Myocardial infarct finding no longer present Electronically Signed On 11-30-22 18:06:29 CDT by Vinny Ken
--- NOTE | 2022-11-30 18:07 | EKG ---
Test Date: 2022-11-29 Test Time: 22:27:01 Relations Specialist: DORIAN MEASUREMENT RESULTS: Intervals: Rate: 69 [place]: 198 QRSD: 86 QT: 424 QTc: 454 [place]: P: 73 [place]: 198 QRS: 52 T: 81 INTERPRETIVE STATEMENTS: Normal sinus rhythm Nonspecific ST and T wave abnormality Abnormal ECG Compared to ECG 11/29/2022 22:25:32 No significant changes Electronically Signed On 11-30-22 18:06:25 CDT by Vinny Ken
[2022-11-30] MEDS: SUCRALFATE 1 GM TABLET PO SCH (22:51)
[2022-12-01] MEDS: PIPER TAZO 3.375 GM in NA CHLORIDE 0.9% 100 ML IV SCH ×2 (00:22→12:11)
[2022-12-01] MEDS: HEPARIN 5000 UNIT/ML 1 ML VIAL SQ SCH ×3 (00:22→17:34)
[2022-12-01 05:35] LABS: Albumin 2.3 g/dL (3.4-5.0); Bilirubin Direct 0.2 mg/dL (0-0.2); Bilirubin Indirect, Calculated 0.1 mg/dL (0.2-0.8); Bilirubin Total 0.3 mg/dL (0.2-1.0); Phosphorus 1.8 mg/dL (2.5-4.9); Potassium 3.5 mEq/L (3.5-5.1); Protein, Total 5.7 g/dL (6.4-8.2); Uric Acid 10.4 mg/dL (2.6-6.0)
[2022-12-01 05:36] LABS: Absolute Lymphocytes (CBC) 2.2 K/uL (0.7-4.9); Hematocrit 31.3 % (36.0-45.0); Lymphocytes % 24.3 % (15.3-44.8); MCV 91.5 fL (80-100); MPV 7.3 fL (7.6-11.3); Platelets 345 thou/uL (152-406); RBC Red Blood Cell Count 3.42 M/uL (3.86-4.86)
[2022-12-01] MEDS: SUCRALFATE 1 GM TABLET PO SCH ×2 (08:42→20:35)
[2022-12-01] MEDS: CALCIUM CARBONATE 500 MG TAB PO SCH ×2 (08:42→17:58)
[2022-12-01] MEDS: DOCUSATE NA 100 MG CAP PO SCH ×2 (08:42→20:33)
[2022-12-01] MEDS: POTASS/SODIUM PHOSPHATE 1 PKT POWD.PACK PO SCH ×3 (08:43→10:26)
[2022-12-01] MEDS: INSULIN -REGULAR HUMAN 50 UNIT/0.5 ML ML SQ SCH ×4 (08:44→20:33)
[2022-12-01] MEDS: INSULIN GLARGINE 100 UNIT/ML SQ SCH (08:57)
[2022-12-01] MEDS ORDERED: DRISDOL (VITAMIN D=ERGOCALCIFEROL) 50000 UNIT CAP PO SCH (09:00)
[2022-12-01] MEDS ORDERED: HOME MED 1 EA UNK (Insulin Glargine,Hum.Rec.Anlog [Lantus Solostar] 100 UNIT/ML Insuln.Pen SQ SCH (09:00)
[2022-12-01] MEDS ORDERED: POTASSIUM CL SA 10 MEQ TAB PO ONE (09:00)
--- NOTE | 2022-12-01 09:58 | P.PN ---
Date of Service: 12/01/22 Chief Complaint: Hyperglycemia Subjective: Improving. Transferred out of ICU. Patient seen and examined at bedside. No new or worsening complaints. No acute events reported overnight. Physical Examination Temp Pulse Resp BP Pulse Ox 97.4 F 73 16 153/68 H 95 12/01/22 08:00 12/01/22 08:00 12/01/22 08:00 12/01/22 08:00 12/01/22 08:00 General: In no apparent distress, Oriented x2 HEENT: Atraumatic, Normocephalic Neck: Supple, JVD not distended Respiratory: Normal air movement. On room air. Diminished at bases. Cardiovascular: Normal pulses, Regular rate/rhythm Gastrointestinal: Normal bowel sounds, Soft and benign Musculoskeletal: No clubbing, No swelling Integumentary: Moisture associated dermatitis buttocks Neurological: Normal affect Urinary: Bhatti catheter Laboratory Data: Reviewed Microbiology Data: Reviewed Imagings Data: Reviewed Medications List: reviewed Assessment and Plan Problem List Diabetes Mellitus type II Hypertension Sepsis Urinary Tract Infection, Uncomplicated Acute Renal Insufficiency Mild PCM Sepsis Urinary Tract Infection - Urinalysis 11/29: +pyuria and bacteruria suggestive of UTI - Blood cultures 11/29: No growth to date - Urine culture 11/29: No growth to date - Currently on Zosyn (started 11/30) - Denies any urinary symptoms. No dysuria, retention, frequency, suprapubic pain or flank pain. No nausea or vomiting. Leukocytosis resolved (WBC 13.8 -> 9.2) Afebrile. Recommendations - Urine and blood culture no growth. We will continue antibiotic therapy for 5 days (started 11/30) - Currently on Zosyn IV --> Consider switch to Augmentin PO. - Monitor WBC and fever trends - Strict blood glucose control - Supportive care and nutritional support as needed - Apply calazime cream to buttocks Case discussed with Ephraim Leggett
[2022-12-01 10:12] VITALS: O2SAT 95
--- NOTE | 2022-12-01 16:19 | P.PN ---
Subjective Date of Service: 12/01/22 Chief Complaint: Hyperglycemia Patient denies any new complaint today. She is awake and interactive and appears to be in a good mood. No issues overnight. Physical Examination - Vital Signs Temperature: 97.6 F Blood Pressure: 161/76 Pulse: 89 Respirations: 16 Pulse Ox (%): 95 - Studies Microbiology Data (last 24 hrs): 11/29/22 22:43 Clean Catch Urine [place] Count - Final No growth. 11/29/22 22:43 Clean Catch Urine - Final No growth. 11/29/22 22:01 Blood - Blood Blood Culture Gram Stain - Final 11/29/22 22:17 Blood - Blood Blood Culture Gram Stain - Final Assessment And Plan - Plan Physical Exam General: Alert, In no apparent distress, Oriented x2 Neck: JVD not distended Respiratory: Clear to auscultation bilaterally, Normal air movement Cardiovascular: Normal pulses, Regular rate/rhythm, Normal S1 S2 Gastrointestinal: Normal bowel sounds, Hypoactive Integumentary: No rashes, No breakdown Neurological: Sensation intact, AOx2, follows commands, no focal deficits. Diagnosis Acute metabolic encephalopathy Acute hypovolemia Hyperglycemic hyperosmolar nonketotic state hypokalemia Hypocalcemia Sepsis Acute cystitis Acute kidney injury Plan acute metabolic encephalopathy Secondary to [facility] fall precautions, PT eval for evaluation ambulation Septic shock Acute cystitis CBC WBC 13.80, left shift 79.8, Urine culture: No growth ID consulted, IV Continue abx, IVF Hyperglycemic hyperosmolar nonketotic state Significantly improved. AMS improved. Continue long-acting insulin and SSI. Monitor and correct electrolytes. Acute kidney injury Improved with IV hydration. Neph consulted Serum creatinine has trended down significantly. Diet DM diet Full code DVT heparin Discharge Plan: Home
[2022-12-01] MEDS: NA CHLORIDE 0.9% 1,000 ML IV SCH ×2 (17:00→17:39)
[2022-12-01] MEDS: AMPICILLIN/SULBACT 3 GM in NA CHLORIDE 0.9% 100 ML IV SCH (17:35)
[2022-12-01] MEDS ORDERED: POTASS/SODIUM PHOSPHATE 1 PKT POWD.PACK PO ONE (21:10)
--- NOTE | 2022-12-01 21:14 | P.PN ---
Date of Service: 12/01/22 Vital Signs Temp Pulse Resp BP Pulse Ox 97.6 F 89 16 161/76 H 95 12/01/22 16:22 12/01/22 16:22 12/01/22 16:22 12/01/22 16:22 12/01/22 16:22 Medications Acetaminophen (Acetaminophen 500 Mg Tab) 500 mg PO Q4HP PRN PRN Reason: Pain scale 2-4 (Mild) Calcium Carbonate/Glycine (Calcium Carbonate 500 Mg Tab) 500 mg PO BIDWM [facility] Last Admin: 12/01/22 17:58 Dose: 500 mg Docusate Sodium (Docusate Na 100 Mg Cap) 100 mg PO BID [facility] Last Admin: 12/01/22 20:33 Dose: Not Given Ergocalciferol (Drisdol (Vitamin D=Ergocalciferol) 86306 Unit Cap) 50,000 unit PO Q7D [facility] Last Admin: 12/01/22 09:00 Dose: 50,000 unit Heparin Sodium (Porcine) (Heparin 5000 Unit/Ml 1 Ml Vial) 5,000 unit SQ Q8HR [facility] Last Admin: 12/01/22 17:34 Dose: 5,000 unit Sodium Chloride (Ns 1000 Ml Ivbag) 1,000 mls @ 100 mls/hr IV .Q10H [facility] Last Admin: 12/01/22 17:39 Dose: 1,000 mls Ampicillin Sodium/Sulbactam (Sodium 3 gm/ Sodium Chloride) 100 mls @ 200 mls/hr IV Q6HR [facility]; Protocol Last Admin: 12/01/22 17:35 Dose: 100 mls Insulin Glargine (Insulin Glargine 100 Unit/Ml) 30 unit SQ DAILY [facility] Last Admin: 12/01/22 08:57 Dose: 30 unit Insulin Human Regular (Insulin -Regular Human 50 Unit/0.5 Ml Ml) 0 unit SQ ACHS [facility]; Protocol Last Admin: 12/01/22 20:33 Dose: 7 unit Ondansetron HCl (Ondansetron 4 Mg/2 Ml Vial) 4 mg IV Q6HP PRN PRN Reason: NAUSEA / VOMITING Sodium Chloride (Flush Normal Saline 10 Ml) 10 ml IV BID [facility] Last Admin: 12/01/22 20:34 Dose: 10 ml Sucralfate (Sucralfate 1 Gm Tablet) 1 gm PO BID [facility] Last Admin: 12/01/22 20:35 Dose: 1 gm Microbiology Results 11/29/22 22:43 Clean Catch Urine [place] Count - Final No growth. 11/29/22 22:43 Clean Catch Urine - Final No growth. 11/29/22 22:01 Blood - Blood Aerobic Blood Culture - Preliminary 11/29/22 22:01 Blood - Blood Blood Culture Gram Stain - Final 11/29/22 22:01 Blood - Blood Anaerobic Blood Culture - Preliminary No growth in 24 hours. 11/29/22 22:17 Blood - Blood Aerobic Blood Culture - Preliminary 11/29/22 22:17 Blood - Blood Blood Culture Gram Stain - Final 11/29/22 22:17 Blood - Blood Anaerobic Blood Culture - Preliminary No growth in 24 hours. Assessment/ Plan: Nephrology No dyspnea No chest pain Feeling better No acute events overnight Vitals, medications, blood work and imaging reviewed in the chart. General: In no apparent distress, Cooperative HEENT: Atraumatic Neck: Supple Respiratory: Normal air movement Cardiovascular: No edema, Regular rate/rhythm Gastrointestinal: Soft and benign, Non-distended Musculoskeletal: No clubbing, No contractures Integumentary: No rashes, No cyanosis Neurological: Normal speech [facility] Laboratory Data (last 24 hrs) 11/30/22 11/29/22 11/29/22 02:10 22:01 22:01 WBC Hgb Hct Plt Count PT 10.9 INR 0.99 APTT 25.7 Sodium 137 D 127 L Potassium 2.9 L D 4.4 BUN 47 H 58 H Creatinine 2.83 H 4.25 H Glucose 400 H* 748 H* Total Bilirubin 0.6 AST 11 L ALT 21 Alkaline Phosphatase 105 11/29/22 22:01 WBC 13.80 H Hgb 12.5 Hct 38.9 Plt Count 520 H PT INR APTT Sodium Potassium BUN Creatinine Glucose Total Bilirubin AST ALT Alkaline Phosphatase Imagings Data: EXAM DESCRIPTION: RAD - Chest Single View - 11/30/2022 1:29 am CLINICAL HISTORY: The patient is 76 years old and is Female; R IJ CVL placement TECHNIQUE: Frontal view of the chest. COMPARISON: No relevant prior studies available. FINDINGS: Lungs: Unremarkable. No consolidation. Pleural space: Unremarkable. No pneumothorax. Heart: Unremarkable. Mediastinum: Unremarkable. Bones/joints: Unremarkable. Tubes, lines and devices: Right IJ central venous catheter with tip in the SVC. IMPRESSION: Right IJ central venous catheter with tip in the SVC. EXAM DESCRIPTION: CT - Head Brain Wo Cont - 11/30/2022 7:10 am CLINICAL HISTORY: 76-year-old female with confusion. COMPARISON: 11/13/2022. TECHNIQUE: CT brain without contrast. This exam was performed according to our departmental dose optimization program which includes use of automated exposure control, adjustment of the mA and/or kV according to patient size and/or use of iterative reconstruction technique. FINDINGS: Multifocal regions of patchy hypoattenuation are present in a subcortical and periventricular deep white matter distribution, nonspecific; however, most likely represent sm all vessel ischemic disease, age indeterminate. Gliosis of the superior right temporal lobe may reflect sequela of prior infarction. The ventricles, and sulci are prominent compatible with underlying volume loss. The malave-white matter differentiation is preserved. There is no mass effect, midline shift, intra- or extra-axial fluid collection/acute hemorrhage. Partially empty sella otherwise the midline structures are within normal limits. The osseous structures are unremarkable. The paranasal sinuses and mastoid air cells are clear. IMPRESSION: 1. No acute intracranial abnormalities. Nonspecific white matter change most likely small vessel ischemic disease, age indeterminate. 2. CT is insensitive for early evaluation of acute stroke. If there is clinical concern for acute ischemia, an MRI may be considered. EXAM DESCRIPTION: RADChest Single View11/29/2022 10:16 pm CLINICAL HISTORY: CHEST PAIN COMPARISON: Chest Single View dated 11/13/2022; CHEST SINGLE VIEW dated 07/23/2013; Abdomen Pelvis Wo Contrast dated 11/13/2022 TECHNIQUE: Portable AP view of the chest. FINDINGS: The lungs are clear.Bibasilar atelectasis. No pneumothorax or effusion. The cardiomediastinal contours are unremarkable. IMPRESSION: No acute cardiopulmonary process. Conclusions/Impression: Stage III GRACIE in the setting of hypotension & hypovolemia CKD with Proteinuria -No NSAIDs -Continue IVF with NS -Continue dee Hyponatremia -Continue IVF with NS Hypokalemia -Replete potassium as ordered Hypocalcemia -Continue Ergo -Continue Tums BID Hypophosphatemia -Neutraphos X1 HTN with CKD complicated by hypotension -Hold antihypertensives -Continue IVF DM II with CKD & Hyperglycemia -Continue Lantus -RISS Acute Cystitis with Hematuria -Continue Zosyn -Follow up culture Case reviewed with Dr. Lantigua
[2022-12-02] MEDS: AMPICILLIN/SULBACT 3 GM in NA CHLORIDE 0.9% 100 ML IV SCH ×4 (00:41→17:06)
[2022-12-02] MEDS: HEPARIN 5000 UNIT/ML 1 ML VIAL SQ SCH ×3 (01:47→16:03)
[2022-12-02] MEDS ORDERED: AMPICILLIN/SULBACTAM 3GM/VIAL ONE (03:51)
[2022-12-02] MEDS ORDERED: NA CHLORIDE 0.9% 100 ML ONE (03:54)
[2022-12-02] MEDS: NA CHLORIDE 0.9% 1,000 ML IV SCH ×2 (04:16→15:41)
[2022-12-02 04:56] LABS: Absolute Lymphocytes (CBC) 2.2 K/uL (0.7-4.9); Hematocrit 32.6 % (36.0-45.0); Lymphocytes % 25.9 % (15.3-44.8); MCV 90.4 fL (80-100); MPV 6.9 fL (7.6-11.3); Platelets 329 thou/uL (152-406)
[2022-12-02 05:09] LABS: Magnesium 1.5 mg/dL (1.6-2.4); Phosphorus 1.6 mg/dL (2.5-4.9); Potassium 3.7 mEq/L (3.5-5.1)
[2022-12-02] MEDS: POTASS/SODIUM PHOSPHATE 1 PKT POWD.PACK PO SCH ×3 (08:01→11:00)
[2022-12-02 08:27] LABS: Specific Gravity 1.008 (1.005-1.030); Urine Bacteria <20 /HPF (<20); Urine Bilirubin NEGATIVE (Negative); Urine Blood 3+ (Negative); Urine Clarity Turbid (Clear); Urine Color Colorless (Yellow); Urine Glucose 3+ (Negative); Urine Mucus Slight /HPF (None Seen); Urine Protein NEGATIVE (Negative); Urine RBC 21-50 /HPF (None Seen); Urine Urobilinogen Normal (Normal)
[2022-12-02] MEDS ORDERED: DRISDOL (VITAMIN D=ERGOCALCIFEROL) 50000 UNIT CAP PO SCH (09:00)
[2022-12-02] MEDS ORDERED: Magnesium Sulfate 2gm IVPB 2 G/50 ML BAG IV ONE (09:00)
[2022-12-02] MEDS ORDERED: POTASSIUM CL SA 10 MEQ TAB PO ONE (09:00)
--- NOTE | 2022-12-02 09:33 | P.PN ---
Date of Service: 12/02/22 Chief Complaint: Hyperglycemia Subjective: Improving. No acute events reported overnight. Denies any new or worsening complaints. Patient in bed, NAD. nonlabored respirations. Physical Examination Temp Pulse Resp BP Pulse Ox 98.3 F 90 16 178/82 H 96 12/02/22 08:00 12/02/22 08:00 12/02/22 08:00 12/02/22 08:00 12/02/22 08:00 General: In no apparent distress, Oriented x2 HEENT: Atraumatic, Normocephalic Neck: Supple, JVD not distended Respiratory: Normal air movement. On room air. Diminished at bases. Cardiovascular: Normal pulses, Regular rate/rhythm Gastrointestinal: Normal bowel sounds, Soft and benign Musculoskeletal: No clubbing, No swelling Integumentary: Moisture associated dermatitis buttocks Laboratory Data: Reviewed Microbiology Data: Reviewed Imagings Data: Reviewed Medications List: reviewed Assessment and Plan Problem List Diabetes Mellitus type II Hypertension Sepsis Urinary Tract Infection, Uncomplicated Acute Renal Insufficiency Mild PCM Sepsis Urinary Tract Infection - Urinalysis 11/29: +pyuria and bacteruria suggestive of UTI - Blood cultures 11/29: No growth to date - Urine culture 11/29: No growth to date - Zosyn switched to Unasyn 12/02 - Denies any urinary symptoms. No dysuria, retention, frequency, suprapubic pain or flank pain. No nausea or vomiting. - Urine culture 12/01: pending Leukocytosis resolved Afebrile. Recommendations - Urine and blood culture no growth. Continue antibiotic therapy for 5 days (started 11/30) - Zosyn switched to Unasyn 12/02. - follow up with repeat urine culture - Monitor WBC and fever trends - Strict blood glucose control - Supportive care and nutritional support as needed - Apply calazime cream to buttocks Case discussed with Ephraim Leggett
[2022-12-02 09:48] LABS: UR MICROALBUMIN 7.4 mg/dL (< 1.9); UR PROTEIN 21.2 mg/dL (<11.9)
[2022-12-02 09:54] LABS: UR CREAT < 13.0 mg/dL (20-320)
[2022-12-02] MEDS: INSULIN -REGULAR HUMAN 50 UNIT/0.5 ML ML SQ SCH ×4 (10:03→21:09)
[2022-12-02] MEDS: INSULIN GLARGINE 100 UNIT/ML SQ SCH (10:04)
[2022-12-02] MEDS: SUCRALFATE 1 GM TABLET PO SCH ×2 (10:05→21:03)
[2022-12-02] MEDS: CALCIUM CARBONATE 500 MG TAB PO SCH ×2 (10:06→16:03)
[2022-12-02] MEDS: DOCUSATE NA 100 MG CAP PO SCH ×2 (10:06→21:08)
--- NOTE | 2022-12-02 18:38 | P.PN ---
Subjective Date of Service: 12/02/22 Chief Complaint: Hyperglycemia Patient has no new complaint. She is awake and interactive and appears to be in a good mood. No issues overnight. Physical Examination - Vital Signs Temperature: 97.9 F Blood Pressure: 175/79 Pulse: 88 Respirations: 16 Pulse Ox (%): 98 - Studies Microbiology Data (last 24 hrs): 11/29/22 22:01 Blood - Blood Blood Culture Gram Stain - Final Assessment And Plan - Plan Physical Exam General: Alert, In no apparent distress, Oriented x2 Neck: JVD not distended Respiratory: Clear to auscultation bilaterally, Normal air movement Cardiovascular: Normal pulses, Regular rate/rhythm, Normal S1 S2 Gastrointestinal: Normal bowel sounds, Hypoactive Integumentary: No rashes, No breakdown Neurological: Sensation intact, AOx2, follows commands, no focal deficits. Diagnosis Acute metabolic encephalopathy Acute hypovolemia Hyperglycemic hyperosmolar nonketotic state hypokalemia Hypocalcemia Sepsis Acute cystitis Acute kidney injury Plan acute metabolic encephalopathy Secondary to [facility]. Resolved. fall precautions, PT eval for evaluation ambulation Septic shock Acute cystitis CBC WBC 13.80, left shift 79.8, Urine culture: No growth Blood culture: Gram stain positive for gram-positive rods in 2 bottles. All bottles yielded no growth. Repeat blood culture is pending. ID is following. Continue abx, IVF Hyperglycemic hyperosmolar nonketotic state Significantly improved. AMS improved. Continue long-acting insulin and SSI. Monitor and correct electrolytes. Acute kidney injury Resolved Nephrology is following. Discontinue IV fluid. Diet DM diet Full code DVT heparin Discharge Plan: Home
[2022-12-02] MEDS ORDERED: HOME MED 1 EA UNK (Hydralazine Hcl [Hydralazine Hcl] 50 MG Tablet) PO SCH (21:00)
[2022-12-02] MEDS: HYDRALAZINE HCL 25 MG TABLET PO SCH (21:02)
[2022-12-02] MEDS: levETIRAcetam 500 MG TAB PO SCH (21:02)
[2022-12-02] MEDS: carvediloL 25 MG TAB PO SCH (21:03)
[2022-12-02] MEDS: GABAPENTIN 100 MG CAP PO SCH (21:03)
[2022-12-03] MEDS: AMPICILLIN/SULBACT 3 GM in NA CHLORIDE 0.9% 100 ML IV SCH ×2 (00:04→06:01)
[2022-12-03] MEDS: HEPARIN 5000 UNIT/ML 1 ML VIAL SQ SCH ×2 (00:05→08:40)
[2022-12-03 04:26] LABS: Absolute Lymphocytes (CBC) 2.5 K/uL (0.7-4.9); Hematocrit 30.9 % (36.0-45.0); Lymphocytes % 30.4 % (15.3-44.8); MCV 91.3 fL (80-100); MPV 6.6 fL (7.6-11.3); Platelets 301 thou/uL (152-406); RBC Red Blood Cell Count 3.38 M/uL (3.86-4.86)
[2022-12-03 04:40] LABS: Magnesium 1.8 mg/dL (1.6-2.4); Phosphorus 2.5 mg/dL (2.5-4.9); Potassium 3.4 mEq/L (3.5-5.1)
[2022-12-03] MEDS ORDERED: MAGNESIUM SULFATE 1 gm IVPB 1 GM/100 ML BAG IV ONE (04:57)
[2022-12-03] MEDS ORDERED: POTASSIUM 25 MEQ EFFERV TAB PO ONE (07:00)
[2022-12-03] MEDS: INSULIN -REGULAR HUMAN 50 UNIT/0.5 ML ML SQ SCH (07:30)
[2022-12-03 08:37] VITALS: BP 122/70; TEMP 97.1
[2022-12-03] MEDS: INSULIN GLARGINE 100 UNIT/ML SQ SCH (08:40)
[2022-12-03] MEDS: SUCRALFATE 1 GM TABLET PO SCH (08:41)
[2022-12-03] MEDS: HYDRALAZINE HCL 25 MG TABLET PO SCH (08:42)
[2022-12-03] MEDS: DOCUSATE NA 100 MG CAP PO SCH (08:42)
[2022-12-03] MEDS: GABAPENTIN 100 MG CAP PO SCH (08:42)
[2022-12-03] MEDS: carvediloL 25 MG TAB PO SCH (08:42)
[2022-12-03] MEDS: CALCIUM CARBONATE 500 MG TAB PO SCH (08:43)
[2022-12-03] MEDS: levETIRAcetam 500 MG TAB PO SCH (08:44)
--- NOTE | 2022-12-03 08:58 | P.DS ---
Admission Date: 11/30/22 Discharge Date: 12/03/22 Disposition: DC HOME/HOME HEALTH CARE Discharge Condition: FAIR Reason for Admission: Hyperglycemia Brief History of Present Illness: 76 year old female PMH HTN, DM uncontrolled presented to the emergency room via EMS for hyperglycemia. Her BG >500 at home. She was confused and had moderate generalized weakness. She is poor historian, reports she ran out of her medication, unsure accuracy, She denied fever, cough, NVD, Abdominal pain, chest pain. She was previously admitted 11/13/2022 for severe sepsis,E. coli UTI, mental status changes, acute renal insufficiency, hyperglycemia associated with diabetes. Labatory evaluation, CBC WBC 13.80, left shift 79.8, BG 784 on arrival to ER, hyponatremia 127, Acute renal insufficency BUN 58 CR 4.25, hypo albumin 3.2, with noted hypotension. CXR MPRESSION: No acute cardiopulmonary process. Patient to admit for hyperglycemic hyperosmolar nonketotic state, electrolyte abnormalities, sepsis, and UTI. Hospital Course: Diagnosis Acute metabolic encephalopathy Acute hypovolemia Hyperglycemic hyperosmolar nonketotic state hypokalemia Hypocalcemia Sepsis Acute cystitis Acute kidney injury Patient admitted to the medical floor in the following medical problems addressed: Plan acute metabolic encephalopathy Secondary to HHS. Resolved with IV hydration and subcutaneous insulin. Patient was seen by PT. she ambulated 140 feet with a walker. Septic shock Acute cystitis CBC WBC 13.80, left shift 79.8, Urine culture: No growth Blood culture: Gram stain positive for gram-positive rods in 2 bottles. All bottles yielded no growth. Repeat blood cultures x2 yielded no growth. Infectious disease saw patient and assisted with management. Patient treated with broad-spectrum IV antibiotics-Unasyn and IV fluid. She is discharged with oral Augmentin. Hyperglycemic hyperosmolar nonketotic state Significantly improved with subcutaneous insulin AMS resolved. Managed with home dose Lantus and SSI. Acute kidney injury Resolved with IV fluid Nephrology saw her and assisted with management. Vital Signs/Physical Exam: Temp Pulse Resp BP Pulse Ox 97.1 F 66 16 122/70 95 12/03/22 08:00 12/03/22 08:43 12/03/22 08:00 12/03/22 08:43 12/03/22 08:00 General: In no apparent distress, Other (Awake) HEENT: Mucous membr. moist/pink Neck: JVD not distended Respiratory: Clear to auscultation bilaterally, Normal air movement Cardiovascular: Regular rate/rhythm, Normal S1 S2 Gastrointestinal: Normal bowel sounds, Soft and benign, Non-distended Integumentary: No rashes, No cyanosis Neurological: Other (Aphasic. She moves all extremities.) Laboratory Data at Discharge: WBC 8.10 thou/uL (4.3-10.9) 12/03/22 04:18 Hgb 10.2 g/dL (12.0-15.0) L 12/03/22 04:18 Hct 30.9 % (36.0-45.0) L 12/03/22 04:18 Plt Count 301 thou/uL (152-406) 12/03/22 04:18 PT 10.9 SECONDS (9.5-12.5) 11/29/22 22:01 INR 0.99 11/29/22 22:01 APTT 25.7 SECONDS (24.3-36.9) 11/29/22 22:01 Sodium 141 mEq/L (136-145) 12/03/22 04:18 Potassium 3.4 mEq/L (3.5-5.1) L 12/03/22 04:18 BUN 11 mg/dL (7-18) 12/03/22 04:18 Creatinine 0.72 mg/dL (0.55-1.02) 12/03/22 04:18 Glucose 119 mg/dL (74-106) H 12/03/22 04:18 Uric Acid 10.4 mg/dL (2.6-6.0) H 12/01/22 05:00 Phosphorus 2.5 mg/dL (2.5-4.9) 12/03/22 04:18 Magnesium 1.8 mg/dL (1.6-2.4) 12/03/22 04:18 Total Bilirubin 0.3 mg/dL (0.2-1.0) 12/01/22 05:00 AST 12 U/L (15-37) L 12/01/22 05:00 ALT 16 U/L (13-56) 12/01/22 05:00 Alkaline Phosphatase 77 U/L (45-117) 12/01/22 05:00 Home Medications: Carvedilol [Coreg] 2 tab PO BID 01/27/20 Amlodipine [Norvasc*] 10 mg PO DAILY #30 tab 11/16/22 Gabapentin 100 mg PO TID 12/02/22 Hydralazine HCl 1.5 tab PO BID 12/02/22 Lisinopril [Zestril] 10 mg PO DAILY 12/02/22 levETIRAcetam [Levetiracetam] 1,500 mg PO BID 12/02/22 Amox/Clavulanate [Augmentin 875-125 Tab] 1 each PO BID #10 tab 12/03/22 Calcium Carbonate [Oscal*] 500 mg PO BIDWM #60 tab 12/03/22 Docusate [Colace Cap*] 100 mg PO BID #60 cap 12/03/22 Insulin Glargine,Hum.rec.anlog [Semglee] 30 unit SQ DAILY ml 12/03/22 Sucralfate [Carafate*] 1 gm PO BID tab 12/03/22 Vitamin D [Drisdol*] 50,000 unit PO Q7D #4 cap 12/03/22 New Medications: Amox/Clavulanate [Augmentin 875-125 Tab] 1 each PO BID #10 tab Docusate [Colace Cap*] 100 mg PO BID #60 cap Vitamin D [Drisdol*] 50,000 unit PO Q7D #4 cap Calcium Carbonate [Oscal*] 500 mg PO BIDWM #60 tab Diet: ADA Activity: Fall precautions Time spent managing pt's care (in minutes): 38
[2022-12-03] MEDS ORDERED: lisinopriL 10 MG TAB PO SCH (09:00)
[2022-12-03] MEDS ORDERED: AMLODIPINE 10 MG TAB PO SCH (09:00)
[2022-12-03] MEDS ORDERED: Mupirocin NASAL 2 APPL/1 GM TUBE NAS SCH (21:00)
== END 2022-12-03 13:16 | disposition home health service (06) | DRG 871 ==
LOC: ER 21:37 → 3RD-ICU 11-30 03:16 → 2ND 11-30 15:45
PROVIDERS: ADMIT Internal Medicine; ATTEND Internal Medicine
PROC: 02HV33Z Insertion of Infusion Device into Superior Vena Cava, Percutaneous Approach (ICD-10-PCS; principal; 2022-11-30)
DX: A41.9 Sepsis, unspecified organism (principal); E11.00 Type 2 diabetes mellitus with hyperosmolarity without nonketotic hyperglycemic-hyperosmolar coma (NKHHC); G93.41 Metabolic encephalopathy; R65.21 Severe sepsis with septic shock; N12 Tubulo-interstitial nephritis, not specified as acute or chronic; F05 Delirium due to known physiological condition; N17.9 Acute kidney failure, unspecified; E44.1 Mild protein-calorie malnutrition; L89.321 Pressure ulcer of left buttock, stage 1; L89.311 Pressure ulcer of right buttock, stage 1; I12.9 Hypertensive chronic kidney disease with stage 1 through stage 4 chronic kidney disease, or unspecified chronic kidney disease; N18.9 Chronic kidney disease, unspecified; E11.22 Type 2 diabetes mellitus with diabetic chronic kidney disease; E86.1 Hypovolemia; E87.6 Hypokalemia; E83.51 Hypocalcemia; E86.0 Dehydration; Z79.4 Long term (current) use of insulin; Z79.02 Long term (current) use of antithrombotics/antiplatelets; Z91.09 Other allergy status, other than to drugs and biological substances; Z68.32 Body mass index [BMI] 32.0-32.9, adult; Z86.73 Personal history of transient ischemic attack (TIA), and cerebral infarction without residual deficits; Z79.899 Other long term (current) drug therapy
CPT/HCPCS: 36415; 70450; 71045; 80048; 80053; 80076; 81001; 82043; 82570; 82805; 82947; 83605; 83735; 84100; 84156; 84550; 85025; 85610; 85730; 86140; 87040; 87086; 87088; 87205; 93005; 97116; 97161; 99285; J0295; J0612; J1644; J1815; J2405; J2543; J3475; J3480; J7030; J7040; J7050; P9047

== ENCOUNTER 2022-12-13 12:04 | Inpatient (IN) | payer OTHER, BC ==
--- OUTSIDE RECORDS SUMMARY | 2022-12-13 12:07 | XMS REPORT | Continuity of Care Document ---
:1945 Author Organization [facility] t Address [address] [place] [place] [address] Care Team Providers Name Role Phone Jose Callejas Primary Care Physician LON TRAMMELL Attending Clinician Unavailable WENDY RAMIREZ Attending Clinician Unavailable MELVIN HERNANDEZ Attending Clinician Unavailable RAMESH BRAN Attending Clinician Unavailable YARIEL BRAY Admitting Clinician Unavailable Payers Payer Name Policy Type Policy Number Effective Date Expiration Date Taylor villfauerte MEDICARE PART A [id number] 2010 2024 AND B 00:00:00 00:00:00 Problems Condition Condition Condition Status Onset Resolution Last Treating Co mments Source Name Details Category Date Date Treatment Clinician Date Focal Focal Disease Active [facility] epilepsy 08-17 [facility] 00:00: 00 Pathologic [...] Source Exposure to 2022-08-06 2022-08-16 Not sure [facility] SARS-CoV-2 (event) 00:00:00 19:30:00 Tobacco use and 2022-02-15 2022-02-15 Smokeless tobacco [facility] exposure 00:00:00 00:00:00 non-user Alcohol intake 2022-02-15 2022-02-15 Lifetime [facility] 00:00:00 00:00:00 non-drinker (finding) Sex Ass[birth year] [facility] 00:00:00 00:00:00 Smoking Status Start Date Stop Date Source Never smoked tobacco [facility] Medications Ordered Filled Start Stop Current Ordering Indication Dosage Frequency Signature Comments Components Source Medication Medication Date Date Medication? Clinician (SIG) Name Name carvedilol Yes [id number] TAKE 1 U T (Coreg) 25 4-19 TABLET BY Heal th MG tablet 00:00: MOUTH 00 TWICE A DAY IN THE MORNING AND IN THE EVENING. TAKE WITH MEALS. levETIRAcet Yes [id number] 1500mg Q.5D Take 3 UT am (Keppra) 2-16 9106 tablets Healt h 500 MG 00:00: (1,500 mg tablet 00 total) by mouth in the morning and 3 tablets (1,500 mg total) in the evening. lacosamide 2022- No [id number] 100mg Q.5D Take 1 UT (Vimpat) 2-16 04-26 9106 tablet Health 100 MG 00:00: 00:00 (100 mg tablet 00 :00 total) by mouth in the morning and 1 tablet (100 mg total) before bedtime. hydrALAZINE 2022- No [id number] TAKE 1 AND UT (Apresoline 2-13 05-15 04/25 Health ) 50 MG 00:00: 04:59 TABLETS BY tablet 00 :00 MOUTH 2 TIMES A DAY gabapentin Yes [id number] 100mg Q.[id number] Take 1 UT (Neurontin) 2-10 9106 [id number] capsule Health 100 MG 00:00: 3D (100 mg capsule 00 total) by mouth in the morning and 1 capsule (100 mg total) at noon and 1 capsule (100 mg total) in the evening. lacosamide Yes [id number] 100mg Q.5D Take 1 UT (Vimpat) 1-27 9106 tablet Health 100 MG 00:00: (100 mg tablet 00 total) by mouth in the morning and 1 tablet (100 mg total) before bedtime. amLODIPine 2021-04 Yes [id number] TAKE 1 U T (Norvasc) 1-21 TABLET BY Healt h 10 MG 00:00: MOUTH 1 tablet 00 TIME EACH DAY. lisinopril 2021-04 Yes [id number] 10mg QD Take 1 U T 10 MG 1-09 tablet (10 Health tablet 00:00: mg total) 00 by mouth 1 (one) time each day. Blood 2021-04 Yes [id number] Check BP [place] Pressure 0-25 daily Health Monitor kit 00:00: 00 methocarbam Yes [id number] 500mg Q.[id number] Take 1 UT ol 8-01 9106 [id number] tablet Health (Robaxin) 00:00: 3D (500 mg 500 MG 00 total) by tablet mouth in the morning and 1 tablet (500 mg total) at noon and 1 tablet (500 mg total) in the evening. Do all this for 14 days. glimepiride Yes [id number] 2mg Take 1 UT (Amaryl) 2 4-27 tablet (2 Heal th MG tablet 00:00: mg total) 00 by mouth 1 (one) time each day before breakfast. allopurinol Yes 300mg QD Take 300 U T (Zyloprim) 4-20 mg by Health 300 MG 12:24: mouth 1 tablet 32 (one) time each day. Immunizations Ordered Immunization Filled Immunization Date Status Commen ts Source Name Name COVID-19 [facility] 2021-05-05 Completed [facility]:00 ([facility]) COVID-19 [facility] 2020-07-11 Completed [facility] 00:00:00 ([facility]) COVID-19 [facility] 2020-06-20 Completed [facility] 00:00:00 ([facility]) Procedures This patient has no known procedures. Encounters Start End Encounter Admission Attending Care Care Encounter Source Date/Time Date/Time Type Type Clinicians Facility Department ID 2022-08-18 Outpatient [facility] [id number] [place] 10:05:46 [id number] [facility] 2022-08-17 Outpatient [facility] [id number] [place] 13:41:22 [id number] [facility] 2022-08-16 Outpatient [facility] [id number] [place] 19:59:21 [id number] [facility] 2022-08-03 Outpatient [facility] [id number] [place] 15:58:21 [id number] [facility] 2022-02-22 Outpatient [facility] [id number] [place] 14:35:57 [id number] [facility] 2022-02-15 Outpatient [facility] [id number] [place] 14:03:39 [id number] [facility] 2021-09-12 Outpatient VALERI, [facility] [id number] [place] 01:03:08 LON [id number] [facility] 2021-09-03 Outpatient [facility] [id number] [place] 13:01:47 [id number] [facility] 2021-08-11 Outpatient COLEA, [facility] [id number] [place] 10:03:41 [facility] [id number] [facility] 2021-08-03 Outpatient [facility] [id number] [place] 11:03:02 [id number] [facility] 2021-08-02 Outpatient [facility] [id number] [place] 09:37:02 [id number] [facility] 2021-07-14 Outpatient [facility] [id number] [place] 13:45:11 [id number] [facility] 2021-06-11 Outpatient COLEA, [facility] [id number] [place] 15:41:00 [facility] 2023-08-21 2023-08-21 Outpatient DAVID, [facility] [id number] [place] 13:00:00 13:00:00 [facility] 2022-08-17 2022-08-17 [facility] [id number] [place] 14:00:00 14:27:53 [facility] [id number] [facility] [id number] 2022-02-22 2022-02-22 Outpatient COLEA, [facility] [id number] [place] 13:00:00 13:00:00 [facility] 2022-02-15 2022-02-15 Outpatient COLEA, [facility] [id number] [place] 14:30:00 14:54:11 [facility] 2021-06-04 2021-06-16 Inpatient E YINA, [facility] [address] [facility] 22:12:00 17:10:00 RAMESH Results This patient has no known results.
[2022-12-13 13:04] LABS: Absolute Lymphocytes (CBC) 2.2 K/uL (0.7-4.9); Hematocrit 38.4 % (36.0-45.0); Lymphocytes % 18.2 % (15.3-44.8); MCV 92.1 fL (80-100); MPV 7.4 fL (7.6-11.3); Platelets 383 thou/uL (152-406); RBC Red Blood Cell Count 4.17 M/uL (3.86-4.86)
[2022-12-13 13:08] LABS: Protime INR 1.03
[2022-12-13] MEDS ORDERED: NA CHLORIDE 0.9% 2,000 ML ONE (13:21)
[2022-12-13] MEDS ORDERED: INSULIN -REGULAR HUMAN 50 UNIT/0.5 ML ML ONE (13:21)
[2022-12-13 13:33] LABS: Specific Gravity 1.024 (1.005-1.030); Transitional Epithelial <5 /HPF (None Seen); Urine Bacteria <20 /HPF (<20); Urine Bilirubin NEGATIVE (Negative); Urine Blood 2+ (Negative); Urine Clarity Extremely Turbid (Clear); Urine Color Light-Orange (Yellow); Urine Glucose NEGATIVE (Negative); Urine Protein 1+ (Negative); Urine RBC >50 /HPF (None Seen); Urine Urobilinogen Normal (Normal); Urine WBC Clump Many /HPF (None Seen)
[2022-12-13 13:43] LABS: Albumin 3.1 g/dL (3.4-5.0); Bilirubin Direct 0.1 mg/dL (0-0.2); Bilirubin Indirect, Calculated 0.3 mg/dL (0.2-0.8); Bilirubin Total 0.4 mg/dL (0.2-1.0); Potassium 4.3 mEq/L (3.5-5.1); Protein, Total 7.5 g/dL (6.4-8.2); Troponin High Sensitivity 5.7 pg/mL (<58.9)
--- NOTE | 2022-12-13 14:25 | RAD REPORT ---
EXAM DESCRIPTION: RAD - Chest Single View - 12/13/2022 2:07 pm CLINICAL HISTORY: SOB Chest pain. COMPARISON: <Comparisons> FINDINGS: Portable technique limits examination quality. The lungs are emphysematous but grossly clear. The heart is normal in size. No displaced fractures. IMPRESSION: No acute intrathoracic process suspected.
--- NOTE | 2022-12-13 14:54 | ER ---
Nurse's Notes [facility] Name: Maribell Coello Age: 76 yrs Sex: Female : 1945 Arrival Date: 12/13/2022 Time: 12:04 Bed 8 Private MD: Diagnosis: Acute kidney failure, unspecified;UTI/ Urinary tract infection, site not specified;Type 2 diabetes mellitus with hyperglycemia;Weakness;Obesity, unspecified;Elevated white blood cell count Presentation: 12/13 12:23 Chief complaint: EMS states: EMS called for high blood sugar, BGL 430s, son reports ph that her blood sugar has been high for the past few days, has been administering insulin, VSS, pt smells of urine w/ urinary and bowel incontinence noted. Coronavirus screen: Vaccine status: Patient reports receiving the 2nd dose of the covid vaccine. Ebola Screen: No symptoms or risks identified at this time. Initial Sepsis Screen: Does the patient meet any 2 criteria? Mean Arterial Pressure (MAP) < 65. No. Patient's initial sepsis screen is negative. Does the patient have a suspected source of infection? Yes: Dysuria/Frequency/Urgency/UTI. Risk Assessment: Do you want to hurt yourself or someone else? Patient reports no desire to harm self or others. Onset of symptoms was December 13, 2022. 12:23 Method Of Arrival: EMS: [facility] ph 12:23 Acuity: ALBINO 3 ph 12:26 Care prior to arrival: Medication(s) given: Normal saline infusion, IV initiated. 20 ph GA, in the left antecubital area. Historical: - Allergies: 12:26 CITRIC ACID; ph - PMHx: 12:26 Cerebrovascular accident; Diabetes - NIDDM; Hypertension; Seizure; Ulcers; ph - Immunization history:: Adult Immunizations unknown. - Social history:: Smoking status: unknown. Screenin:28 [facility] ED Fall Risk Assessment (Adult) History of falling in the last 3 months, ld1 including since admission No falls in past 3 months (0 pts). Abuse screen: Denies threats or abuse. Denies injuries from another. Nutritional screening: No deficits noted. Tuberculosis screening: No symptoms or risk factors identified. Assessment: 12:26 General: Appears in no apparent distress. comfortable, Behavior is calm, cooperative, ld1 appropriate for age. Pain: Denies pain. Neuro: Level of Consciousness is awake, alert, obeys commands, Oriented to person, place, time, situation. Cardiovascular: Capillary refill < 3 seconds Patient's skin is warm and dry. Rhythm is sinus rhythm. Respiratory: Airway is patent Respiratory effort is even, unlabored. GI: Abdomen is round non-distended. : No signs and/or symptoms were reported regarding the genitourinary system. EENT: No signs and/or symptoms were reported regarding the EENT system. Derm: No signs and/or symptoms reported regarding the dermatologic system. Musculoskeletal: No signs and/or symptoms reported regarding the musculoskeletal system. Vital Signs: 12:23 BP 98 / 45; Pulse 72; Resp 18; Temp 97.6(O); Pulse Ox 95% on R/A; Weight 81.65 kg; ph 12:26 BP 98 / 45; Pulse 72; Resp 18; Pulse Ox 94% on R/A; ld1 13:17 BP 115 / 65; Pulse 69; Resp 18; Pulse Ox 96% on R/A; ld1 14:24 BP 121 / 80; Pulse 73; Resp 18; Pulse Ox 100% on R/A; ld1 15:19 BP 157 / 68; Pulse 68; Resp 18; Pulse Ox 97% on R/A; ld1 16:25 BP 139 / 72; Pulse 71; Resp 18; Pulse Ox 96% on R/A; ld1 18:08 BP 149 / 80; Pulse 72; Resp 18; Pulse Ox 99% on R/A; ld1 ED Course: 12:11 Patient arrived in ED. sb4 12:17 Neil Leblanc MD is Attending Physician. davis 12:26 Triage completed. ph 12:26 Cleaned of incontinence. Linen changed. ld1 12:27 Patient has correct armband on for positive identification. Placed in gown. Bed in low ph position. Call light in reach. Side rails up X2. Client placed on continuous cardiac and pulse oximetry monitoring. NIBP monitoring applied. Door closed. Noise minimized. Warm blanket given. 12:27 Maintain EMS IV. Dressing intact. Good blood return noted. Site clean \T\ dry. Gauge \T\ ph site: 20 LAC. 12:28 Arm band placed on Patient placed in an exam room, on a stretcher, on satellite project site monitor, ph on pulse oximetry. 12:28 Straight cath inserted, using sterile technique, 16 Fr. Specimen obtained. Returned ph cloudy urine. Patient tolerated well. 12:28 No provider procedures requiring assistance completed. ld1 12:36 Erin Gerard, RN is Primary Nurse. ld1 12:59 Lactate w/ 2H reflex if indic. Sent. bc6 12:59 Urine W/Microscopic (UAM) Sent. bc6 12:59 Basic Metabolic Panel Sent. bc6 12:59 CBC with Diff Sent. bc6 12:59 LFT's Sent. bc6 12:59 PT-INR Sent. bc6 12:59 Troponin HS Sent. bc6 12:59 Inserted saline lock: 20 gauge in right antecubital area, using aseptic technique. bc6 Blood collected. 13:17 Lactate w/ 2H reflex if indic. Sent. ld1 13:17 Urine W/Microscopic (UAM) Sent. ld1 13:17 Basic Metabolic Panel Sent. ld1 13:17 LFT's Sent. ld1 13:17 Troponin HS Sent. ld1 13:17 Lipase Sent. ld1 13:52 Notified ED physician of a critical lab result(s). Glucose 418. aa5 14:09 XRAY Chest (1 view) In Process Unspecified. EDMS 14:49 Joe Lantigua is Hospitalizing Provider. [facility] 14:53 CT Stone Protocol In Process Unspecified. EDMS 21:18 Patient admitted, IV remains in place. rv 21:19 Provided Education on: UTI, HYPERGYLCEMIA. rv Administered Medications: 13:16 Drug: Insulin Regular Human IVP 10 units {Co-Signature: ph (Maira Funez RN).} Route: ld1 IVP; Site: right antecubital; 19:55 Follow up: Response: No adverse reaction; Blood sugar is lowered rv 13:17 Drug: NS 0.9% IV 1000 ml Route: IV; Rate: 1 bolus; Site: right antecubital; ld1 19:55 Follow up: IV Status: Completed infusion; IV Intake: 1000ml rv 13:17 Drug: NS 0.9% IV 1000 ml Route: IV; Rate: 1 bolus; Site: right antecubital; ld1 19:55 Follow up: IV Status: Completed infusion; IV Intake: 1000ml rv 15:18 Drug: Rocephin IV 1 grams Route: IV; Rate: per protocol; Site: left antecubital; ld1 19:55 Follow up: Response: No adverse reaction; IV Status: Completed infusion rv Medication: 21:19 VIS not applicable for this client. rv Intake: 19:55 IV: 1000ml; Total: 1000ml. rv 19:55 IV: 1000ml; Total: 2000ml. rv Outcome: 14:53 Decision to Hospitalize by Provider. davis 21:18 Admitted to Tele accompanied by nurse, via stretcher, room 405, with chart, Report rv called to BEDSIDE REPORT 21:18 Condition: stable 21:18 Instructed on the need for admit. 21:19 Patient left the ED. rv Signatures: Dispatcher [employer] EDMS Neil Leblanc MD MD cha Calderon, Audri, RN RN aa5 Maira Funez, RN RN ph Jim Desir RN RN rv Erin Gerard RN RN ld1 Alis Antony, PA-C PA-C sb4 Haley Berman 6 Maira Funez RN ph Corrections: (The following items were deleted from the chart) 12:27 12:26 Patient is placed in psych hold ld1 ld1
--- NOTE | 2022-12-13 14:54 | EDPHYS ---
Physician Documentation [facility] Name: Maribell Coello Age: 76 yrs Sex: Female : 1945 Arrival Date: 12/13/2022 Time: 12:04 Bed 8 Private MD: ED Physician Neil Leblanc HPI: 12/13 14:40 This 76 yrs old Female presents to ER via EMS with complaints of High Blood davis Sugar. 14:40 The patient or guardian reports hyperglycemia. Onset: The symptoms/episode davis began/occurred 2 day(s) ago. Associated signs and symptoms: Pertinent positives: nausea. Current symptoms: In the emergency department the patient's symptoms are unchanged from the initial presentation, despite home interventions. The patient has experienced similar episodes in the past, a few times. Historical: - Allergies: 12:26 CITRIC ACID; ph - PMHx: 12:26 Cerebrovascular accident; Diabetes - NIDDM; Hypertension; Seizure; Ulcers; ph - Immunization history:: Adult Immunizations unknown. - Social history:: Smoking status: unknown. ROS: 14:42 Constitutional: Negative for fever, chills, and weight loss, Eyes: Negative for injury, davis pain, redness, and discharge, ENT: Negative for injury, pain, and discharge, Neck: Negative for injury, pain, and swelling, Cardiovascular: Negative for chest pain, palpitations, and edema, Respiratory: Negative for shortness of breath, cough, wheezing, and pleuritic chest pain, Abdomen/GI: Negative for abdominal pain, nausea, vomiting, diarrhea, and constipation, : Negative for injury, bleeding, discharge, and swelling, MS/Extremity: Negative for injury and deformity, Skin: Negative for injury, rash, and discoloration, Neuro: Negative for headache, weakness, numbness, tingling, and seizure, Psych: Negative for depression, anxiety, suicide ideation, homicidal ideation, and hallucinations, Allergy/Immunology: Negative for hives, rash, and allergies, Endocrine: Negative for neck swelling, polydipsia, polyuria, polyphagia, and marked weight changes. 14:42 Back: Positive for flank pain, bilaterally. Exam: 14:43 Constitutional: This is a well developed, well nourished patient who is awake, alert, davis and in no acute distress. Head/Face: Normocephalic, atraumatic. Eyes: Pupils equal round and reactive to light, extra-ocular motions intact. Lids and lashes normal. Conjunctiva and sclera are non-icteric and not injected. Cornea within normal limits. Periorbital areas with no swelling, redness, or edema. ENT: Nares patent. No nasal discharge, no septal abnormalities noted. Tympanic membranes are normal and external auditory canals are clear. Oropharynx with no redness, swelling, or masses, exudates, or evidence of obstruction, uvula midline. Mucous membranes moist. Neck: Trachea midline, no thyromegaly or masses palpated, and no cervical lymphadenopathy. Supple, full range of motion without nuchal rigidity, or vertebral point tenderness. No Meningismus. Chest/axilla: Normal chest wall appearance and motion. Nontender with no deformity. No lesions are appreciated. Cardiovascular: Regular rate and rhythm with a normal S1 and S2. No gallops, murmurs, or rubs. Normal PMI, no JVD. No pulse deficits. Respiratory: Lungs have equal breath sounds bilaterally, clear to auscultation and percussion. No rales, rhonchi or wheezes noted. No increased work of breathing, no retractions or nasal flaring. Abdomen/GI: Soft, non-tender, with normal bowel sounds. No distension or tympany. No guarding or rebound. No evidence of tenderness throughout. Back: No spinal tenderness. No costovertebral tenderness. Full range of motion. Female : Normal external genitalia. Skin: Warm, dry with normal turgor. Normal color with no rashes, no lesions, and no evidence of cellulitis. MS/ Extremity: Pulses equal, no cyanosis. Neurovascular intact. Full, normal range of motion. Neuro: Awake and alert, GCS 15, oriented to person, place, time, and situation. Cranial nerves II-XII grossly intact. Motor strength 5/5 in all extremities. Sensory grossly intact. Cerebellar exam normal. Normal gait. Psych: Awake, alert, with orientation to person, place and time. Behavior, mood, and affect are within normal limits. 14:43 ECG was reviewed by the Attending Physician. Vital Signs: 12:23 BP 98 / 45; Pulse 72; Resp 18; Temp 97.6(O); Pulse Ox 95% on R/A; Weight 81.65 kg; ph 12:26 BP 98 / 45; Pulse 72; Resp 18; Pulse Ox 94% on R/A; ld1 13:17 BP 115 / 65; Pulse 69; Resp 18; Pulse Ox 96% on R/A; ld1 14:24 BP 121 / 80; Pulse 73; Resp 18; Pulse Ox 100% on R/A; ld1 15:19 BP 157 / 68; Pulse 68; Resp 18; Pulse Ox 97% on R/A; ld1 16:25 BP 139 / 72; Pulse 71; Resp 18; Pulse Ox 96% on R/A; ld1 18:08 BP 149 / 80; Pulse 72; Resp 18; Pulse Ox 99% on R/A; ld1 MDM: 12:17 Patient medically screened. davis 14:57 Differential diagnosis: hyperglycemia. Differential Diagnosis sepsis, flu. Data daivs reviewed: vital signs, nurses notes, lab test result(s), EKG. Consideration of Admission/Observation Patient was admitted/placed on observation. Escalation of care including admission/observation considered. I considered the following discharge prescriptions or medication management in the emergency department Medications were administered in the Emergency Department. See MAR. Independent interpretation of the following test(s) in the Emergency Department EKG: See my EKG interpretation above. Test considered but Not performed: Ultrasound no abd usg. Care significantly affected by the following chronic conditions: Diabetes, Hypertension, seizure, cva. Counseling: I had a detailed discussion with the patient and/or guardian regarding the historical points, exam findings, and any diagnostic results supporting the discharge/admit diagnosis, lab results, radiology results, the need for further work-up and treatment in the hospital. 12/13 12:44 Order name: Glucose, Ancillary Testing; Complete Time: 13:03 EDMS 12/13 12:52 Order name: Basic Metabolic Panel; Complete Time: 14:36 ph 12/13 12:52 Order name: CBC with Diff; Complete Time: 14:36 ph 12/13 12:52 Order name: LFT's; Complete Time: 14:36 ph 12/13 12:52 Order name: PT-INR; Complete Time: 14:36 ph 12/13 12:52 Order name: Troponin HS; Complete Time: 14:36 ph 12/13 12:53 Order name: Urine W/Microscopic (UAM); Complete Time: 14:36 ph 12/13 12:53 Order name: Lactate w/ 2H reflex if indic.; Complete Time: 14:36 ph 12/13 13:03 Order name: Lipase; Complete Time: 14:36 davis 12/13 13:39 Order name: Urine Culture EDSC 12/13 14:57 Order name: Glucose, Ancillary Testing EDSC 12/13 16:28 Order name: Magnesium [facility]SC 12/13 16:28 Order name: Phosphorus [facility]SC 12/13 16:29 Order name: T4 Free [facility]SC 12/13 16:29 Order name: Thyroid Stimulating Hormone EDSC 12/13 16:29 Order name: Urinalysis w/ reflexes EDMS 12/13 16:29 Order name: Basic Metabolic Panel [facility] 12/13 16:29 Order name: Basic Metabolic Panel [facility] 12/13 16:29 Order name: CBC with Automated Diff [facility] 12/13 16:29 Order name: CBC with Automated Diff [facility] 12/13 16:29 Order name: Lipid Profile [facility] 12/13 16:29 Order name: Lipid Profile [facility] 12/13 16:29 Order name: NT PRO-BNP [facility] 12/13 16:29 Order name: NT PRO-BNP [facility] 12/13 16:36 Order name: NT PRO-BNP [facility] 12/13 12:52 Order name: XRAY Chest (1 view); Complete Time: 14:36 ph 12/13 14:40 Order name: CT Stone Protocol [facility] 12/13 12:52 Order name: EKG; Complete Time: 12:53 ph 12/13 16:26 Order name: Diet Ada 1800 Abrahan; Complete Time: 16:26 ld1 12/13 16:28 Order name: CONS Physician Consult [facility] 12/13 12:52 Order name: Cardiac monitoring; Complete Time: 12:53 ph 12/13 12:52 Order name: EKG - Nurse/Tech; Complete Time: 12:53 ph 12/13 12:52 Order name: IV Saline Lock; Complete Time: 12:53 ph 12/13 12:52 Order name: Labs collected and sent; Complete Time: 12:53 ph 12/13 12:52 Order name: O2 Per Protocol; Complete Time: 12:53 ph 12/13 12:52 Order name: O2 Sat Monitoring; Complete Time: 12:53 ph EC:43 Rate is 70 beats/min. Rhythm is regular. QRS [place] is Normal. [place] interval is normal. QRS davis interval is normal. QT interval is normal. No Q waves. T waves are Normal. No ST changes noted. Clinical impression: NSR w/ Non-specific ST/T Changes and No evidence of ischemia. Interpreted by me. Reviewed by me. Administered Medications: 13:16 Drug: Insulin Regular Human IVP 10 units {Co-Signature: casimiro (Maira Funez RN).} Route: ld1 IVP; Site: right antecubital; 19:55 Follow up: Response: No adverse reaction; Blood sugar is lowered rv 13:17 Drug: NS 0.9% IV 1000 ml Route: IV; Rate: 1 bolus; Site: right antecubital; ld1 19:55 Follow up: IV Status: Completed infusion; IV Intake: 1000ml rv 13:17 Drug: NS 0.9% IV 1000 ml Route: IV; Rate: 1 bolus; Site: right antecubital; ld1 19:55 Follow up: IV Status: Completed infusion; IV Intake: 1000ml rv 15:18 Drug: Rocephin IV 1 grams Route: IV; Rate: per protocol; Site: left antecubital; ld1 19:55 Follow up: Response: No adverse reaction; IV Status: Completed infusion rv Disposition Summary: 12/13/22 14:53 Hospitalization Ordered Hospitalization Status: Inpatient Admission davis Provider: Joe Lantigua cha [facility] davis Condition: Fair davis Problem: new davis Symptoms: have improved davis Bed/Room Type: Standard [facility] Room Assignment: 405(12/13/22 19:39) cg Diagnosis - Acute kidney failure, unspecified davis - UTI/ Urinary tract infection, site not specified davis - Type 2 diabetes mellitus with hyperglycemia davis - Weakness davis - Obesity, unspecified davis - Elevated white blood cell count davis Forms: - Medication Reconciliation Form davis - SBAR form davis - Leadership Thank You Letter davis Signatures: Dispatcher [employer] Neil Gaines MD MD cha Hall, Patricia, RN RN ph Garcia, Cindy, RN RN Erin Gerard RN RN ld1 Jim Desir RN, Patricia RN ph Corrections: (The following items were deleted from the chart) 16:29 15:44 60g Consistent Carbohydrate (ADA 1800/2000) ordered. EDSC EDMS 19:39 14:53 davis cg
--- NOTE | 2022-12-13 15:17 | RAD REPORT ---
EXAM DESCRIPTION: CT - Stone Protocol - 12/13/2022 2:56 pm CLINICAL HISTORY: Flank pain. FLANK PAIN COMPARISON: Abdomen Pelvis Wo Contrast dated 11/13/2022 TECHNIQUE: Axial images were obtained without oral or IV contrast. Lack of contrast limits solid org an and vascular assessment. The [id number] spans the entirety of the system partially obscuring uppermost abdomen and lung bases. Coronal reformatted images were obtained and reviewed. All CT scans are performed using dose optimization technique as appropriate and may include automated exposure control or mA/KV adjustment according to patient size. FINDINGS: The lower lung sanchez are clear. Imaged portions of the liver and spleen show no suspicious findings on non-contrast imaging. The panc reas and adrenal glands are normal. No pathologic lymphadenopathy in the abdomen or pelvis. 8 mm oblong stone is present right renal pelvis. No additional stone or hydronephrosis. No bowel obstruction, free air, free fluid or abscess. Normal appendix noted.Moderate stool is presen t throughout the colon. No significant bony abnormality. Hardware is present proximal right femur. IMPRESSION: 8 mm stone is seen in the right renal pelvis. Moderate stool throughout the colon.
[2022-12-13] MEDS ORDERED: CEFTRIAXONE 1000 MG/VIAL ONE (15:20)
[2022-12-13] MEDS ORDERED: ACETAMINOPHEN 325 MG TABLET PO PRN (16:08)
[2022-12-13] MEDS ORDERED: TRAMADOL HCL 50 MG TAB PO PRN (16:08)
[2022-12-13] MEDS ORDERED: D10W 250 ML BAG IV PRN ×2 (16:09→16:23)
[2022-12-13] MEDS ORDERED: GLUCAGON 1 MG/VIAL IM PRN ×2 (16:09→16:23)
[2022-12-13] MEDS ORDERED: ONDANSETRON 4 MG/2 ML VIAL IV PRN (16:26)
[2022-12-13] MEDS: INSULIN -REGULAR HUMAN 50 UNIT/0.5 ML ML SQ SCH ×2 (16:30→22:29)
--- NOTE | 2022-12-13 16:33 | P.HP ---
Certification for Inpatient Patient admitted to: Inpatient With expected LOS: >2 Midnights Patient will require the following post-hospital care: None Practitioner: I am a practitioner with admitting privileges, knowledge of patient current condition, hospital course, and medical plan of care. Services: Services provided to patient in accordance with Admission requirements found in Title 42 Section 412.3 of the Code of Federal Regulations Patient History Date of Service: 12/13/22 Reason for admission: Hyperglycemia History of Present Illness: Patient is a 76-year-old female with a past medical history significant for DM 2, hypertension, seizures, CVA who presents with complaint of hyperglycemia. Patient is alert and oriented x1 and unable to provide any accurate history. Patient noted to be confused. Patient's son reported that patient has been experiencing intermittent confusion for the past couple of days. Family also reported that patient's blood sugar has been uncontrolled for quite some time now but blood sugar levels became very elevated in the last 2 days. No other signs and symptoms reported. Symptoms are aggravated or relieved by nothing. Patient was brought to the hospital for medical evaluation. Of note, nursing staff reported the patient was soiled with feces and urine from head to toe. Patient was given a complete bath by nursing staff. Allergies citric acid Allergy (Verified 01/27/20 16:16) Hives/Rash Home Medications: Carvedilol [Coreg] 2 tab PO BID 01/27/20 Amlodipine [Norvasc*] 10 mg PO DAILY #30 tab 11/16/22 Gabapentin 100 mg PO TID 12/02/22 Hydralazine HCl 1.5 tab PO BID 12/02/22 Lisinopril [Zestril] 10 mg PO DAILY 12/02/22 levETIRAcetam [Levetiracetam] 1,500 mg PO BID 12/02/22 Amox/Clavulanate [Augmentin 875-125 Tab] 1 each PO BID #10 tab 12/03/22 Calcium Carbonate [Oscal*] 500 mg PO BIDWM #60 tab 12/03/22 Docusate [Colace Cap*] 100 mg PO BID #60 cap 12/03/22 Insulin Glargine,Hum.rec.anlog [Semglee] 30 unit SQ DAILY ml 12/03/22 Sucralfate [Carafate*] 1 gm PO BID tab 12/03/22 Vitamin D [Drisdol*] 50,000 unit PO Q7D #4 cap 12/03/22 - Past Medical/Surgical History Diabetic: Yes -: HTN -: DM 2, noninsulin dependent -: CVA -: Seizures -: Hx GRACIE (Dr. Alonso/ Dr. Sesay) -: Dental surgery -: finger surgery -: cataract - Social History Smoking Status: Never smoker Alcohol use: No CD- Drugs: No Caffeine use: Yes Place of Residence: Home Review of Systems is unable to be obtained (Patient is confused. Unable to provide history.) Physical Examination - Physical Exam General: Alert, In no apparent distress, Oriented x1, Cooperative, Confused HEENT: Atraumatic, PERRLA, Mucous membr. moist/pink, EOMI, Sclerae nonicteric Neck: Supple, 2+ carotid pulse no bruit, No LAD, Without JVD or thyroid abnormality Respiratory: Clear to auscultation bilaterally, Normal air movement Cardiovascular: No edema, Regular rate/rhythm, Normal S1 S2 Capillary refill: <2 Seconds Gastrointestinal: Normal bowel sounds, Soft and benign, No tenderness Musculoskeletal: No clubbing, No swelling, No tenderness Integumentary: No rashes, No significant lesion Neurological: Normal speech, Normal tone, Normal affect Lymphatics: No axilla or inguinal lymphadenopathy - Studies Laboratory Data (last 24 hrs) 12/13/22 12/13/22 12/13/22 12:55 12:55 12:55 WBC 12.20 H Hgb 12.8 Hct 38.4 Plt Count 383 PT 11.3 INR 1.03 Sodium Potassium BUN Creatinine Glucose Total Bilirubin AST ALT Alkaline Phosphatase Lipase 34 12/13/22 12:55 WBC Hgb Hct Plt Count PT INR Sodium 133 L Potassium 4.3 BUN 46 H Creatinine 2.29 H Glucose 418 H* Total Bilirubin 0.4 AST 10 L ALT 19 Alkaline Phosphatase 88 Lipase Assessment and Plan - Plan --GRACIE. Likely prerenal. Secondary to dehydration. Continue IV hydration. Nephrology consulted. Will await further recommendations. --DM2 with hyperglycemia. BS monitoring with sliding scale insulin, pre-meal insulin and Lantus. -- History of CVA. Continue aspirin. --UTI POA. Patient placed on antibiotics. Urine cultures pending. --Candidiasis. Yeast noted on UA. Patient placed on Diflucan. --History of seizures. Seizure precautions. Continue home medication. --GERD. Continue home medications. --Hypertension. Stable. Continue home medications. --Constipation. CT imaging indicates " moderate stool throughout the colon." Patient placed on laxatives. --Acute metabolic encephalopathy. Likely secondary to UTI. Continue antibiotics and supportive care. --DVT prophylaxis with Lovenox subQ. Discharge Plan: Home Plan to discharge in: Greater than 2 days - Advance Directives Does patient have a Living Will: No Does patient have a Durable POA for Healthcare: No - Code Status/Comfort Care Code Status Assessed: Yes Physician Review: Patient Assessed, Agree with Above Assessment and Plan Critical Care: No
--- NOTE | 2022-12-13 16:42 | P.CNS ---
Date of Consult: 12/13/22 Reason for Consult: GRACIE Requesting Physician: Briana Humphrey Chief Complaint: Hyperglycemia History of Present Illness: Patient is a 76-year-old female with a past medical history significant for DM 2, hypertension, seizures, CVA who presents with complaint of hyperglycemia. Patient is alert and oriented x1 and unable to provide any accurate history. Patient noted to be confused. Patient's son reported that patient has been experiencing intermittent confusion for the past couple of days. Family also reported that patient's blood sugar has been uncontrolled for quite some time now but blood sugar levels became very elevated in the last 2 days. No other signs and symptoms reported. Symptoms are aggravated or relieved by nothing. Patient was brought to the hospital for medical evaluation. Of note, nursing staff reported the patient was soiled with feces and urine from head to toe. Patient was given a complete bath by nursing staff. The patient's son reports that he called EMS for hyperglycemia with BG in the 400s. He did not call the PCP because she currently does not have a PCP. 14:40 This 76 yrs old Female presents to ER via EMS with complaints of High Blood davis Sugar. 14:40 The patient or guardian reports hyperglycemia. Onset: The symptoms/episode davis began/occurred 2 day(s) ago. Associated signs and symptoms: Pertinent positives: nausea. Current symptoms: In the emergency department the patient's symptoms are unchanged from the initial presentation, despite home interventions. The patient has experienced similar episodes in the past, a few times. Allergies citric acid Allergy (Verified 01/27/20 16:16) Hives/Rash Home medications list reviewed: Yes Home Medications: Carvedilol [Coreg] 2 tab PO BID 01/27/20 Amlodipine [Norvasc*] 10 mg PO DAILY #30 tab 11/16/22 Gabapentin 100 mg PO TID 12/02/22 Hydralazine HCl 1.5 tab PO BID 12/02/22 Lisinopril [Zestril] 10 mg PO DAILY 12/02/22 levETIRAcetam [Levetiracetam] 1,500 mg PO BID 12/02/22 Amox/Clavulanate [Augmentin 875-125 Tab] 1 each PO BID #10 tab 12/03/22 Calcium Carbonate [Oscal*] 500 mg PO BIDWM #60 tab 12/03/22 Docusate [Colace Cap*] 100 mg PO BID #60 cap 12/03/22 Insulin Glargine,Hum.rec.anlog [Semglee] 30 unit SQ DAILY ml 12/03/22 Sucralfate [Carafate*] 1 gm PO BID tab 12/03/22 Vitamin D [Drisdol*] 50,000 unit PO Q7D #4 cap 12/03/22 - Past Medical/Surgical History Diabetic: Yes -: HTN -: IDDM II -: CVA -: Seizures -: Proteinuria/ Hx GRACIE -: Dental surgery -: finger surgery -: cataract - Social History Smoking Status: Unknown if ever smoked Alcohol use: No CD- Drugs: No Caffeine use: Yes Review of Systems 10-point ROS is otherwise unremarkable General: Weakness, Malaise Physical Examination General: In no apparent distress, Oriented x3 HEENT: Atraumatic Neck: Supple Respiratory: Normal air movement Cardiovascular: No edema, Regular rate/rhythm Gastrointestinal: Soft and benign, Non-distended Musculoskeletal: No clubbing, No contractures Integumentary: No rashes, No cyanosis Neurological: Normal speech Laboratory Data (last 24 hrs) 12/13/22 12/13/22 12/13/22 12:55 12:55 12:55 WBC 12.20 H Hgb 12.8 Hct 38.4 Plt Count 383 PT 11.3 INR 1.03 Sodium Potassium BUN Creatinine Glucose Total Bilirubin AST ALT Alkaline Phosphatase Lipase 34 12/13/22 12:55 WBC Hgb Hct Plt Count PT INR Sodium 133 L Potassium 4.3 BUN 46 H Creatinine 2.29 H Glucose 418 H* Total Bilirubin 0.4 AST 10 L ALT 19 Alkaline Phosphatase 88 Lipase Imagings Data: EXAM DESCRIPTION: RAD - Chest Single View - 12/13/2022 2:07 pm CLINICAL HISTORY: SOB Chest pain. COMPARISON: <Comparisons> FINDINGS: Portable technique limits examination quality. The lungs are emphysematous but grossly clear. The heart is normal in size. No displaced fractures. IMPRESSION: No acute intrathoracic process suspected. EXAM DESCRIPTION: CT - Stone Protocol - 12/13/2022 2:56 pm CLINICAL HISTORY: Flank pain. FLANK PAIN COMPARISON: Abdomen Pelvis Wo Contrast dated 11/13/2022 TECHNIQUE: Axial images were obtained without oral or IV contrast. Lack of contrast limits solid organ and vascular assessment. The [id number] spans the entirety of the system partially obscuring uppermost abdomen and lung bases. Coronal reformatted images were obtained and reviewed. All CT scans are performed using dose optimization technique as appropriate and may include automated exposure control or mA/KV adjustment according to patient size. FINDINGS: The lower lung sanchez are clear. Imaged portions of the liver and spleen show no suspicious findings on non- contrast imaging. The pancreas and adrenal glands are normal. No pathologic lymphadenopathy in the abdomen or pelvis. 8 mm oblong stone is present right renal pelvis. No additional stone or hydronephrosis. No bowel obstruction, free air, free fluid or abscess. Normal appendix noted.Moderate stool is present throughout the colon. No significant bony abnormality. Hardware is present proximal right femur. IMPRESSION: 8 mm stone is seen in the right renal pelvis. Moderate stool throughout the colon. Conclusions/Impression: Stage III GRACIE likely due to hypovolemia CKD I with Proteinuria -No NSAIDs -Continue IVF Hyponatremia in the setting of Hyperglycemia -Corrected sodum 140.6 Hypercalcemia -Continue IVF HTN with CKD -Hold antihypertensives DM II with CKD & Hyperglycemia -Continue Lantus -RISS Case reviewed with hospitalist team ER and Hospital note reviewed Thank you kindly for the consultation
[2022-12-13] MEDS ORDERED: NA CHLORIDE 0.9% 1,000 ML IV SCH (17:00)
[2022-12-13] MEDS: INSULIN LISPRO 100 UNIT/1 ML SQ SCH (17:00)
[2022-12-13] MEDS: ENOXAPARIN 30 MG/0.3 ML SQ SCH (17:00)
[2022-12-13 17:11] LABS: Magnesium 1.9 mg/dL (1.6-2.4); Phosphorus 3.6 mg/dL (2.5-4.9); Thyroid Stimulating Hormone 0.443 uIU/mL (0.358-3.740)
[2022-12-13] MEDS ORDERED: POLYETHYL GLY 3350 17 GM/DOSE PO PRN (19:49)
[2022-12-13] MEDS ORDERED: INSULIN GLARGINE 100 UNIT/ML SQ SCH (21:00)
[2022-12-13] MEDS ORDERED: NACHLORIDE 0.45% 1,000 ML IV SCH (21:00)
[2022-12-13] MEDS: FLUCONAZOLE 100 MG TAB PO SCH (22:13)
[2022-12-13] MEDS: DOCUSATE NA/SENNA CONC 1 TAB PO SCH (22:14)
[2022-12-13] MEDS: Meropenem 1,000 MG in NA CHLORIDE 0.9% 100 ML IV SCH (22:15)
[2022-12-13] MEDS: INSULIN GLARGINE 100 UNIT/ML SQ SCH (22:28)
[2022-12-14 00:03] VITALS: O2SAT 96; BMI 31.8
[2022-12-14 06:40] LABS: Hematocrit 35.8 % (36.0-45.0); Lymphocytes % 25.8 % (15.3-44.8); MCV 92.5 fL (80-100); MPV 7.4 fL (7.6-11.3); Platelets 314 thou/uL (152-406); RBC Red Blood Cell Count 3.87 M/uL (3.86-4.86)
[2022-12-14 06:55] LABS: BUN Blood Urea Nitrogen 37 mg/dL (7-18); Bicarbonate 29 mEq/L (21-32); Glomerular Filtration Rate 38 ml/min (=/>90); Glucose Level 162 mg/dL (74-106); HDL Cholesterol 35 mg/dL (40-60); NT PRO-BNP 289 pg/mL (<450); Potassium 3.6 mEq/L (3.5-5.1); Sodium Level 138 mEq/L (136-145)
[2022-12-14] MEDS ORDERED: POTASSIUM CL SA 10 MEQ TAB PO ONE (07:06)
[2022-12-14 07:07] LABS: LDL, Direct 105 mg/dL (100-129)
[2022-12-14] MEDS: INSULIN -REGULAR HUMAN 50 UNIT/0.5 ML ML SQ SCH ×4 (07:30→21:00)
[2022-12-14] MEDS: INSULIN LISPRO 100 UNIT/1 ML SQ SCH ×3 (08:00→16:30)
[2022-12-14] MEDS: ENOXAPARIN 30 MG/0.3 ML SQ SCH (08:28)
[2022-12-14] MEDS: Meropenem 1,000 MG in NA CHLORIDE 0.9% 100 ML IV SCH ×2 (08:28→20:56)
[2022-12-14] MEDS: ASPIRIN 81 MG CHEWABLE TABLET PO SCH (08:29)
[2022-12-14] MEDS: DOCUSATE NA/SENNA CONC 1 TAB PO SCH ×2 (08:29→20:57)
[2022-12-14] MEDS: FLUCONAZOLE 100 MG TAB PO SCH (08:33)
--- NOTE | 2022-12-14 08:48 | P.PN ---
Date of Service: 12/14/22 Vital Signs Temp Pulse Resp BP Pulse Ox 97.1 F 65 18 158/69 H 96 12/14/22 07:46 12/14/22 07:46 12/14/22 07:46 12/14/22 07:46 12/14/22 07:46 Medications Acetaminophen (Acetaminophen 325 Mg Tablet) 650 mg PO Q6H PRN PRN Reason: TEMP > 100' F Aspirin (Aspirin 81 Mg Chewable Tablet) 81 mg PO DAILY [facility] Last Admin: 12/14/22 08:29 Dose: 81 mg Dextrose (D10w 250 Ml Bag) 125 ml IV PRN PRN; Protocol PRN Reason: HYPOGLYCEMIA Enoxaparin Sodium (Enoxaparin 30 Mg/0.3 Ml) 30 mg SQ DAILY [facility] Last Admin: 12/14/22 08:28 Dose: 30 mg Fluconazole (Fluconazole 100 Mg Tab) 100 mg PO DAILY [facility]; Protocol Stop: 12/18/22 18:01 Last Admin: 12/14/22 08:33 Dose: 100 mg Glucagon (Glucagon 1 Mg/Vial) 1 mg IM 1X PRN; Protocol PRN Reason: HYPOGLYCEMIA Meropenem 1,000 mg/ Sodium (Chloride) 100 mls @ 200 mls/hr IV Q12HR [facility] Last Admin: 12/14/22 08:28 Dose: 100 mls Insulin Glargine (Insulin Glargine 100 Unit/Ml) 30 unit SQ BEDTIME [facility] Last Admin: 12/13/22 22:28 Dose: 30 unit Insulin Human Lispro (Insulin Lispro 100 Unit/1 Ml) 5 unit SQ TIDWM [facility] Last Admin: 12/14/22 08:00 Dose: Not Given Insulin Human Regular (Insulin -Regular Human 50 Unit/0.5 Ml Ml) 0 unit SQ ACHS [facility]; Protocol Last Admin: 12/14/22 07:30 Dose: Not Given Ondansetron HCl (Ondansetron 4 Mg/2 Ml Vial) 4 mg IV Q6HP PRN PRN Reason: NAUSEA / VOMITING Polyethylene Glycol (Polyethyl Gly 3350 17 Gm/Dose) 17 gm PO DAILY PRN PRN Reason: CONSTIPATION Senna/Docusate Sodium (Docusate Na/Senna Conc 1 Tab) 1 tab PO BID [facility] Last Admin: 12/14/22 08:29 Dose: 1 tab Sodium Chloride (Flush Normal Saline 10 Ml) 10 ml IV BID [facility] Last Admin: 12/14/22 08:30 Dose: 10 ml Tramadol HCl (Tramadol Hcl 50 Mg Tab) 50 mg PO TID PRN PRN Reason: Pain scale 5-7 (Moderate) Lab Results (last 24 hrs) 12/13/22 14:44: POC Glucose 260 H 12/13/22 12:55: Phosphorus 3.6, Magnesium 1.9, NT-Pro-B Natriuret Pep 175, TSH 0.443, Free T4 1.08 12/13/22 12:55: Lipase 34 12/13/22 12:55: Lactic Acid 1.3 12/13/22 12:55: Urine Color Light-orange, Urine Clarity Extremely turbid H, Urine pH 5.0, Ur Specific [place] 1.024, Glucose (UA)(Auto) Negative, Urine Ketones Negative, Urine Blood 2+ H, Urine Nitrite Negative, Urine Bilirubin Negative, Urine Urobilinogen Normal, Ur Leukocyte Esterase 500 H, Urine RBC >50 H, Urine WBC >50 H, Urine WBC Clumps Many H, Ur Squamous Epith Cells <5, Ur Transition Epith Cell <5, Urine Bacteria <20, Urine Yeast (Budding) Many H, Urine Culture Reflexed Reflexed, Urine Total Protein 1+ H 12/13/22 12:55: PT 11.3, INR 1.03 12/13/22 12:55: WBC 12.20 H, RBC 4.17, Hgb 12.8, Hct 38.4, MCV 92.1, MCH 30.7, MCHC 33.4, RDW 14.3, Plt Count 383, MPV 7.4 L, Neutrophils % 72.9, Lymphocytes % 18.2, Monocytes % 4.9, Eosinophils % 2.8, Basophils % 1.2, Absolute Neutrophils 8.9 H, Absolute Lymphocytes 2.2, Absolute Monocytes 0.6, Absolute Eosinophils 0.3, Absolute Basophils 0.1 12/13/22 12:55: Sodium 133 L, Potassium 4.3, Chloride 96 L, Carbon Dioxide 29, Anion Gap 12.3, BUN 46 H, Creatinine 2.29 H, Est GFR (CKD-EPI) 22 L, Glucose 418 H*, Calcium 10.7 H, Total Bilirubin 0.4, Direct Bilirubin 0.1, Indirect Bilirubin 0.3, AST 10 L, ALT 19, Alkaline Phosphatase 88, Troponin I High Sens 5.7, Serum Total Protein 7.5, Albumin 3.1 L, Globulin 4.4 H, Albumin/Globulin Ratio 0.7 L 12/13/22 12:32: POC Glucose 446 H* Assessment/ Plan: Nephrology No dyspnea No chest pain Feeling better today +PO No acute events overnight Vitals, medications, blood work and imaging reviewed in the chart General: In no apparent distress, Oriented x3 HEENT: Atraumatic Neck: Supple Respiratory: Normal air movement Cardiovascular: No edema, Regular rate/rhythm Gastrointestinal: Soft and benign, Non-distended Musculoskeletal: No clubbing, No contractures Integumentary: No rashes, No cyanosis Neurological: Normal speech Laboratory Data (last 24 hrs) 12/13/22 12/13/22 12/13/22 12:55 12:55 12:55 WBC 12.20 H Hgb 12.8 Hct 38.4 Plt Count 383 PT 11.3 INR 1.03 Sodium Potassium BUN Creatinine Glucose Total Bilirubin AST ALT Alkaline Phosphatase Lipase 34 12/13/22 12:55 WBC Hgb Hct Plt Count PT INR Sodium 133 L Potassium 4.3 BUN 46 H Creatinine 2.29 H Glucose 418 H* Total Bilirubin 0.4 AST 10 L ALT 19 Alkaline Phosphatase 88 Lipase Imagings Data: EXAM DESCRIPTION: RAD - Chest Single View - 12/13/2022 2:07 pm CLINICAL HISTORY: SOB Chest pain. COMPARISON: <Comparisons> FINDINGS: Portable technique limits examination quality. The lungs are emphysematous but grossly clear. The heart is normal in size. No displaced fractures. IMPRESSION: No acute intrathoracic process suspected. EXAM DESCRIPTION: CT - Stone Protocol - 12/13/2022 2:56 pm CLINICAL HISTORY: Flank pain. FLANK PAIN COMPARISON: Abdomen Pelvis Wo Contrast dated 11/13/2022 TECHNIQUE: Axial images were obtained without oral or IV contrast. Lack of contrast limits solid organ and vascular assessment. The [id number] spans the entirety of the system partially obscuring uppermost abdomen and lung bases. Coronal reformatted images were obtained and reviewed. All CT scans are performed using dose optimization technique as appropriate and may include automated exposure control or mA/KV adjustment according to patient size. FINDINGS: The lower lung sanchez are clear. Imaged portions of the liver and spleen show no suspicious findings on non- contrast imaging. The pancreas and adrenal glands are normal. No pathologic lymphadenopathy in the abdomen or pelvis. 8 mm oblong stone is present right renal pelvis. No additional stone or hydronephrosis. No bowel obstruction, free air, free fluid or abscess. Normal appendix noted.Moderate stool is present throughout the colon. No significant bony abnormality. Hardware is present proximal right femur. IMPRESSION: 8 mm stone is seen in the right renal pelvis. Moderate stool throughout the colon. Conclusions/Impression: Stage III GRACIE likely due to hypovolemia CKD I with Proteinuria -No NSAIDs -Continue IVF Hyponatremia in the setting of Hyperglycemia -Monitor level Hypercalcemia, resolved -Continue IVF HTN with CKD -Restart Lisinopril 10mg daily DM II with CKD & Hyperglycemia -Continue Lantus -RISS Anemia in chronic illness -Monitor H&H Case reviewed with Dr. Humphrey Hospitalist note reviewed
[2022-12-14] MEDS: lisinopriL 10 MG TAB PO SCH (10:06)
--- NOTE | 2022-12-14 12:59 | EKG ---
Test Date: 2022-12-13 Test Time: 12:32:19 [employer] Operator Helper: YARELI MEASUREMENT RESULTS: Intervals: Rate: 70 [place]: 206 QRSD: 90 QT: 410 QTc: 442 [place]: P: 74 [place]: 206 QRS: 35 T: 82 INTERPRETIVE STATEMENTS: Normal sinus rhythm Nonspecific ST and T wave abnormality Abnormal ECG Compared to ECG 11/29/2022 22:27:01 No significant changes Electronically Signed On 12-14-22 12:57:46 CDT by Vinny Ken
[2022-12-14 18:10] LABS: Specific Gravity 1.022 (1.005-1.030); Urine Bacteria <20 /HPF (<20); Urine Bilirubin NEGATIVE (Negative); Urine Blood 2+ (Negative); Urine Clarity Extremely Turbid (Clear); Urine Color Yellow (Yellow); Urine Glucose NEGATIVE (Negative); Urine Protein 1+ (Negative); Urine RBC >50 /HPF (None Seen); Urine Urobilinogen Normal (Normal); Urine WBC Clump Occasional /HPF (None Seen)
[2022-12-14] MEDS: INSULIN GLARGINE 100 UNIT/ML SQ SCH (20:58)
[2022-12-15 07:26] LABS: Absolute Lymphocytes (CBC) 2.7 K/uL (0.7-4.9); Hematocrit 35.3 % (36.0-45.0); Lymphocytes % 20.1 % (15.3-44.8); MCV 91.1 fL (80-100); MPV 7.4 fL (7.6-11.3); Platelets 293 thou/uL (152-406); RBC Red Blood Cell Count 3.88 M/uL (3.86-4.86)
[2022-12-15] MEDS: INSULIN -REGULAR HUMAN 50 UNIT/0.5 ML ML SQ SCH ×2 (07:30→12:12)
[2022-12-15 07:34] LABS: Potassium 3.4 mEq/L (3.5-5.1)
[2022-12-15 08:38] VITALS: BP 148/66; TEMP 97.1
[2022-12-15] MEDS: INSULIN LISPRO 100 UNIT/1 ML SQ SCH ×2 (09:55→12:11)
[2022-12-15] MEDS: ENOXAPARIN 30 MG/0.3 ML SQ SCH (09:56)
[2022-12-15] MEDS: lisinopriL 10 MG TAB PO SCH (09:56)
[2022-12-15] MEDS: ASPIRIN 81 MG CHEWABLE TABLET PO SCH (09:56)
[2022-12-15] MEDS: DOCUSATE NA/SENNA CONC 1 TAB PO SCH (09:56)
[2022-12-15] MEDS: FLUCONAZOLE 100 MG TAB PO SCH (09:56)
[2022-12-15] MEDS: Meropenem 1,000 MG in NA CHLORIDE 0.9% 100 ML IV SCH (09:57)
--- NOTE | 2022-12-15 10:55 | P.PN ---
Date of Service: 12/15/22 Vital Signs Temp Pulse Resp BP Pulse Ox 97.1 F 70 18 148/66 H 95 12/15/22 08:00 12/15/22 09:56 12/15/22 08:00 12/15/22 09:56 12/15/22 08:00 Medications Acetaminophen (Acetaminophen 325 Mg Tablet) 650 mg PO Q6H PRN PRN Reason: TEMP > 100' F Aspirin (Aspirin 81 Mg Chewable Tablet) 81 mg PO DAILY [facility] Last Admin: 12/15/22 09:56 Dose: 81 mg Dextrose (D10w 250 Ml Bag) 125 ml IV PRN PRN; Protocol PRN Reason: HYPOGLYCEMIA Enoxaparin Sodium (Enoxaparin 30 Mg/0.3 Ml) 30 mg SQ DAILY [facility] Last Admin: 12/15/22 09:56 Dose: 30 mg Fluconazole (Fluconazole 100 Mg Tab) 100 mg PO DAILY [facility]; Protocol Stop: 12/18/22 18:01 Last Admin: 12/15/22 09:56 Dose: 100 mg Glucagon (Glucagon 1 Mg/Vial) 1 mg IM 1X PRN; Protocol PRN Reason: HYPOGLYCEMIA Meropenem 1,000 mg/ Sodium (Chloride) 100 mls @ 200 mls/hr IV Q12HR [facility] Last Admin: 12/15/22 09:57 Dose: 100 mls Insulin Glargine (Insulin Glargine 100 Unit/Ml) 30 unit SQ BEDTIME [facility] Last Admin: 12/14/22 20:58 Dose: 30 unit Insulin Human Lispro (Insulin Lispro 100 Unit/1 Ml) 5 unit SQ TIDWM [facility] Last Admin: 12/15/22 09:55 Dose: 5 unit Insulin Human Regular (Insulin -Regular Human 50 Unit/0.5 Ml Ml) 0 unit SQ ACHS [facility]; Protocol Last Admin: 12/15/22 07:30 Dose: 4 unit Lisinopril (Lisinopril 10 Mg Tab) 10 mg PO DAILY [facility] Last Admin: 12/15/22 09:56 Dose: 10 mg Ondansetron HCl (Ondansetron 4 Mg/2 Ml Vial) 4 mg IV Q6HP PRN PRN Reason: NAUSEA / VOMITING Polyethylene Glycol (Polyethyl Gly 3350 17 Gm/Dose) 17 gm PO DAILY PRN PRN Reason: CONSTIPATION Senna/Docusate Sodium (Docusate Na/Senna Conc 1 Tab) 1 tab PO BID [facility] Last Admin: 12/15/22 09:56 Dose: 1 tab Sodium Chloride (Flush Normal Saline 10 Ml) 10 ml IV BID [facility] Last Admin: 12/15/22 09:56 Dose: 10 ml Tramadol HCl (Tramadol Hcl 50 Mg Tab) 50 mg PO TID PRN PRN Reason: Pain scale 5-7 (Moderate) Microbiology Results 12/13/22 12:55 Clean Catch Urine [place] Count - Final >100,000 CFU/ML. 12/13/22 12:55 Clean Catch Urine - Final Assessment/ Plan: Nephrology No dyspnea No chest pain No acute events overnight Vitals, medications, blood work and imaging reviewed in the chart General: In no apparent distress, Oriented x3 HEENT: Atraumatic Neck: Supple Respiratory: Normal air movement Cardiovascular: No edema, Regular rate/rhythm Gastrointestinal: Soft and benign, Non-distended Musculoskeletal: No clubbing, No contractures Integumentary: No rashes, No cyanosis Neurological: Normal speech Laboratory Data (last 24 hrs) 12/13/22 12/13/22 12/13/22 12:55 12:55 12:55 WBC 12.20 H Hgb 12.8 Hct 38.4 Plt Count 383 PT 11.3 INR 1.03 Sodium Potassium BUN Creatinine Glucose Total Bilirubin AST ALT Alkaline Phosphatase Lipase 34 12/13/22 12:55 WBC Hgb Hct Plt Count PT INR Sodium 133 L Potassium 4.3 BUN 46 H Creatinine 2.29 H Glucose 418 H* Total Bilirubin 0.4 AST 10 L ALT 19 Alkaline Phosphatase 88 Lipase Imagings Data: EXAM DESCRIPTION: RAD - Chest Single View - 12/13/2022 2:07 pm CLINICAL HISTORY: SOB Chest pain. COMPARISON: <Comparisons> FINDINGS: Portable technique limits examination quality. The lungs are emphysematous but grossly clear. The heart is normal in size. No displaced fractures. IMPRESSION: No acute intrathoracic process suspected. EXAM DESCRIPTION: CT - Stone Protocol - 12/13/2022 2:56 pm CLINICAL HISTORY: Flank pain. FLANK PAIN COMPARISON: Abdomen Pelvis Wo Contrast dated 11/13/2022 TECHNIQUE: Axial images were obtained without oral or IV contrast. Lack of contrast limits solid organ and vascular assessment. The [id number] spans the entirety of the system partially obscuring uppermost abdomen and lung bases. Coronal reformatted images were obtained and reviewed. All CT scans are performed using dose optimization technique as appropriate and may include automated exposure control or mA/KV adjustment according to patient size. FINDINGS: The lower lung sanchez are clear. Imaged portions of the liver and spleen show no suspicious findings on non- contrast imaging. The pancreas and adrenal glands are normal. No pathologic lymphadenopathy in the abdomen or pelvis. 8 mm oblong stone is present right renal pelvis. No additional stone or hydronephrosis. No bowel obstruction, free air, free fluid or abscess. Normal appendix noted.Moderate stool is present throughout the colon. No significant bony abnormality. Hardware is present proximal right femur. IMPRESSION: 8 mm stone is seen in the right renal pelvis. Moderate stool throughout the colon. Conclusions/Impression: Stage III GRACIE likely due to hypovolemia CKD I with Proteinuria -No NSAIDs Hyponatremia in the setting of Hyperglycemia -Monitor level Hypokalemia -Replete as ordered Hypercalcemia, resolved -Monitor level -Start Ergo HTN with CKD -Increase Lisinopril 10mg BID DM II with CKD & Hyperglycemia -Continue Lantus -RISS Anemia in chronic illness -Monitor H&H Hospitalist note reviewed
[2022-12-15] MEDS ORDERED: DRISDOL (VITAMIN D=ERGOCALCIFEROL) 50000 UNIT CAP PO SCH (11:00)
--- NOTE | 2022-12-15 12:16 | P.PN ---
Date of Service: 12/14/22 Subjective Patient is clinically doing well with no new complaints. Physical Examination -Vitals Reviewed -Physical Exam General: Alert, In no apparent distress, Oriented x1, Cooperative, Confused Respiratory: Clear to auscultation bilaterally, Normal air movement Cardiovascular: No edema, Regular rate/rhythm, Normal S1 S2 Gastrointestinal: Normal bowel sounds, Soft and benign, No tenderness Musculoskeletal: No clubbing, No swelling, No tenderness Integumentary: No rashes, No significant lesion Neurological: Normal speech, Normal tone, Normal affect Assessment and Plan -Assessment/Plan --GRACIE. Likely prerenal. Secondary to dehydration. Continue IV hydration. Nephrology consulted. Will await further recommendations. Continues to improve --DM2 with hyperglycemia. BS monitoring with sliding scale insulin, pre-meal insulin and Lantus. --History of CVA. Continue aspirin. --UTI POA. Patient placed on antibiotics. Urine cultures pending. No bacteremia. No bacteria grown in the urine. Continue on oral antibiotics --Candidiasis. Yeast noted on UA. Patient placed on Diflucan. --History of seizures. Seizure precautions. Continue home medication. --GERD. Continue home medications. --Hypertension. Stable. Continue home medications. --Constipation. CT imaging indicates " moderate stool throughout the colon." Patient placed on laxatives. --Acute metabolic encephalopathy. Likely secondary to UTI. Continue antibiotics and supportive care. --DVT prophylaxis with Lovenox subQ. Discharge Plan: Home Plan to discharge in: Greater than 2 days - Advance Directives Does patient have a Living Will: No Does patient have a Durable POA for Healthcare: No - Code Status/Comfort Care Code Status Assessed: Yes Physician Review: Patient Assessed, Agree with Above Assessment and Plan Critical Care: No
--- NOTE | 2022-12-15 12:22 | P.DS ---
Discharge Date: 12/15/22 Disposition: ROUTINE DISCHARGE Discharge Condition: GOOD Reason for Admission: Hyperglycemia Brief History of Present Illness: Patient is a 76-year-old female with a past medical history significant for DM 2, hypertension, seizures, CVA who presents with complaint of hyperglycemia. Patient is alert and oriented x1 and unable to provide any accurate history. Patient noted to be confused. Patient's son reported that patient has been experiencing intermittent confusion for the past couple of days. Family also reported that patient's blood sugar has been uncontrolled for quite some time now but blood sugar levels became very elevated in the last 2 days. No other signs and symptoms reported. Symptoms are aggravated or relieved by nothing. Patient was brought to the hospital for medical evaluation. Of note, nursing staff reported the patient was soiled with feces and urine from head to toe. Patient was given a complete bath by nursing staff. Hospital Course: Patient has done well during hospitalization. Patient renal function has improved. Patient has fungal infection in the urine which we will treat with Diflucan. Also treat with omnicef for possible infection. At this time, johnnie ent is stable for discharge with outpatient follow-up. Vital Signs/Physical Exam: Temp Pulse Resp BP Pulse Ox 97.1 F 70 18 148/66 H 95 12/15/22 08:00 12/15/22 09:56 12/15/22 08:00 12/15/22 09:56 12/15/22 08:00 General: Alert, In no apparent distress, Oriented x3 Laboratory Data at Discharge: WBC 13.30 thou/uL (4.3-10.9) H 12/15/22 06:37 Hgb 12.3 g/dL (12.0-15.0) 12/15/22 06:37 Hct 35.3 % (36.0-45.0) L 12/15/22 06:37 Plt Count 293 thou/uL (152-406) 12/15/22 06:37 PT 11.3 SECONDS (9.5-12.5) 12/13/22 12:55 INR 1.03 12/13/22 12:55 Sodium 137 mEq/L (136-145) 12/15/22 06:37 Potassium 3.4 mEq/L (3.5-5.1) L 12/15/22 06:37 BUN 27 mg/dL (7-18) H 12/15/22 06:37 Creatinine 1.06 mg/dL (0.55-1.02) H 12/15/22 06:37 Glucose 172 mg/dL (74-106) H 12/15/22 06:37 Phosphorus 3.6 mg/dL (2.5-4.9) 12/13/22 12:55 Magnesium 1.9 mg/dL (1.6-2.4) 12/13/22 12:55 Total Bilirubin 0.4 mg/dL (0.2-1.0) 12/13/22 12:55 AST 10 U/L (15-37) L 12/13/22 12:55 ALT 19 U/L (13-56) 12/13/22 12:55 Alkaline Phosphatase 88 U/L (45-117) 12/13/22 12:55 Triglycerides 522 mg/dL (<150) H 12/14/22 06:00 Cholesterol 215 mg/dL (<200) H 12/14/22 06:00 LDL Cholesterol Direct 105 mg/dL (100-129) 12/14/22 06:00 HDL Cholesterol 35 mg/dL (40-60) L 12/14/22 06:00 Cholesterol/HDL Ratio 6.14 12/14/22 06:00 Lipase 34 U/L (13-75) 12/13/22 12:55 Home Medications: Carvedilol [Coreg] 25 mg PO BID 01/27/20 Amlodipine [Norvasc*] 10 mg PO DAILY #30 tab 11/16/22 Gabapentin 100 mg PO TID 12/02/22 Hydralazine HCl 1.5 tab PO BID 12/02/22 Lisinopril [Zestril] 10 mg PO DAILY 12/02/22 levETIRAcetam [Levetiracetam] 3 tab PO TID 12/02/22 Glimepiride [Amaryl*] 2 mg PO DAILY 12/14/22 Lacosamide 2 tab PO BID 12/14/22 Aspirin Chewable [Aspirin Chewable*] 81 mg PO DAILY #30 tab.chew 12/15/22 Docusate/Senna [Senokot-S*] 1 tab PO BID #60 tab 12/15/22 Fluconazole 100 mg PO DAILY #7 tab 12/15/22 Insulin Glargine,Hum.rec.anlog [Semglee] 30 unit SQ BEDTIME #2 vial 12/15/22 Polyethyl Gly 3350 [Glycolax*] 17 gm PO DAILY PRN #30 udbot 12/15/22 traMADol HCL [Ultram*] 50 mg PO TID PRN #30 tab 12/15/22 New Medications: Aspirin Chewable [Aspirin Chewable*] 81 mg PO DAILY #30 tab.chew Fluconazole 100 mg PO DAILY #7 tab Polyethyl Gly 3350 [Glycolax*] 17 gm PO DAILY PRN #30 udbot PRN Reason: Constipation Insulin Glargine,Hum.rec.anlog [Semglee] 30 unit SQ BEDTIME #2 vial Docusate/Senna [Senokot-S*] 1 tab PO BID #60 tab traMADol HCL [Ultram*] 50 mg PO TID PRN #30 tab PRN Reason: Pain Scale 5-7 (Moderate) Physician Discharge Instructions: -DC IV and DC home -Follow-up with PCP in 1 to 2 weeks -Follow-up with Nephrology in 1 to 2 weeks -Please call Dr. Humphrey at [phone] if any questions regarding hospital stay -Please call nursing station at [phone] if any nursing or medication questions -Return to the emergency room if symptoms worsen because Diet: ADA Activity: Fall precautions Followup: NONE,NONE [Primary Care Provider] - Time spent managing pt's care (in minutes): 35
[2022-12-15] MEDS ORDERED: lisinopriL 10 MG TAB PO SCH (21:00)
== END 2022-12-15 15:53 | disposition home or self-care (01) | DRG 682 ==
LOC: ER 12:04 → ERHOLD 16:07 → 4TH 19:59
PROVIDERS: ADMIT Hospitalist; ATTEND Hospitalist
DX: N17.9 Acute kidney failure, unspecified (principal); G93.41 Metabolic encephalopathy; B37.49 Other urogenital candidiasis; E87.1 Hypo-osmolality and hyponatremia; E86.0 Dehydration; K21.9 Gastro-esophageal reflux disease without esophagitis; I12.9 Hypertensive chronic kidney disease with stage 1 through stage 4 chronic kidney disease, or unspecified chronic kidney disease; N18.30 Chronic kidney disease, stage 3 unspecified; D63.1 Anemia in chronic kidney disease; E83.52 Hypercalcemia; E11.65 Type 2 diabetes mellitus with hyperglycemia; K59.00 Constipation, unspecified; E66.9 Obesity, unspecified; D72.829 Elevated white blood cell count, unspecified; Z79.4 Long term (current) use of insulin; Z88.8 Allergy status to other drugs, medicaments and biological substances; Z68.31 Body mass index [BMI] 31.0-31.9, adult; Z86.73 Personal history of transient ischemic attack (TIA), and cerebral infarction without residual deficits
CPT/HCPCS: 36415; 51702; 71045; 74176; 76377; 80048; 80061; 80076; 81001; 82947; 83605; 83690; 83735; 83880; 84100; 84439; 84443; 84484; 85025; 85610; 87040; 87086; 87088; 93005; 96361; 96365; 96366; 96375; 99285; J0696; J1650; J1815; J2185; J7030

== ENCOUNTER 2022-12-20 12:50 | Inpatient (IN) | payer OTHER, BC ==
--- OUTSIDE RECORDS SUMMARY | 2022-12-20 12:58 | XMS REPORT | Continuity of Care Document ---
:1945 Author Organization [facility] t Address [address] [place] [place] [address] Care Team Providers Name Role Phone Jose Callejas Primary Care Physician LON TRAMMELL Attending Clinician Unavailable WENDY RAMIREZ Attending Clinician Unavailable MELVIN HERNANDEZ Attending Clinician Unavailable RAMESH BRAN Attending Clinician Unavailable YARIEL BRAY Admitting Clinician Unavailable Payers Payer Name Policy Type Policy Number Effective Date Expiration Date Taylor villafuerte MEDICARE PART A [id number] 2010 2024 AND B 00:00:00 00:00:00 Problems Condition Condition Condition Status Onset Resolution Last Treating Co mments Source Name Details Category Date Date Treatment Clinician Date Focal Focal Disease Active [place] epilepsy epilepsy 08-17 Health 00:00: 00 Pathologic [...] Source Exposure to 2022-08-06 2022-08-16 Not sure [facility] [facility] SARS-CoV-2 (event) 00:00:00 19:30:00 Tobacco use and 2022-02-15 2022-02-15 Smokeless tobacco [facility] [facility] exposure 00:00:00 00:00:00 non-user Alcohol intake 2022-02-15 2022-02-15 Lifetime [facility] [facility] 00:00:00 00:00:00 non-drinker (finding) Sex Ass[birth year] [facility] 00:00:00 00:00:00 Smoking Status Start Date Stop Date Source Never smoked tobacco [facility] [facility] Medications Ordered Filled Start Stop Current Ordering Indication Dosage Frequency Signature Comments Components Source Medication Medication Date Date Medication? Clinician (SIG) Name Name carvedilol Yes [id number] TAKE 1 U T (Coreg) 25 4-19 TABLET BY Heal th MG tablet 00:00: MOUTH 00 TWICE A DAY IN THE MORNING AND IN THE EVENING. TAKE WITH MEALS. levETIRAcet Yes [id number] 1500mg Q.5D Take 3 UT am (Keppra) 2-16 9106 tablets Healt h 500 MG 00:00: (1,500 mg tablet 00 total) by mouth in the morning and 3 tablets (1,500 mg total) in the evening. lacosamide 2022- No [id number] 100mg Q.5D Take 1 UT (Vimpat) 2-16 04-26 9106 tablet Health 100 MG 00:00: 00:00 (100 mg tablet 00 :00 total) by mouth in the morning and 1 tablet (100 mg total) before bedtime. hydrALAZINE 2022- No [id number] TAKE 1 AND UT (Apresoline 2-13 05-15 04/25 Health ) 50 MG 00:00: 04:59 TABLETS BY tablet 00 :00 MOUTH 2 TIMES A DAY gabapentin Yes [id number] 100mg Q.[id number] Take 1 UT (Neurontin) 2-10 9106 [id number] capsule Health 100 MG 00:00: 3D (100 mg capsule 00 total) by mouth in the morning and 1 capsule (100 mg total) at noon and 1 capsule (100 mg total) in the evening. lacosamide Yes [id number] 100mg Q.5D Take 1 UT (Vimpat) 1-27 9106 tablet Health 100 MG 00:00: (100 mg tablet 00 total) by mouth in the morning and 1 tablet (100 mg total) before bedtime. amLODIPine 2021-04 Yes [id number] TAKE 1 U T (Norvasc) 1-21 TABLET BY Healt h 10 MG 00:00: MOUTH 1 tablet 00 TIME EACH DAY. lisinopril 2021-04 Yes [id number] 10mg QD Take 1 U T 10 MG 1-09 tablet (10 Health tablet 00:00: mg total) 00 by mouth 1 (one) time each day. Blood 2021-04 Yes [id number] Check BP [place] Pressure 0-25 daily Health Monitor kit 00:00: 00 methocarbam Yes [id number] 500mg Q.[id number] Take 1 UT ol 8-01 9106 [id number] tablet Health (Robaxin) 00:00: 3D (500 mg 500 MG 00 total) by tablet mouth in the morning and 1 tablet (500 mg total) at noon and 1 tablet (500 mg total) in the evening. Do all this for 14 days. glimepiride Yes [id number] 2mg Take 1 UT (Amaryl) 2 4-27 tablet (2 Heal th MG tablet 00:00: mg total) 00 by mouth 1 (one) time each day before breakfast. allopurinol Yes 300mg QD Take 300 U T (Zyloprim) 4-20 mg by Health 300 MG 12:24: mouth 1 tablet 32 (one) time each day. Immunizations Ordered Immunization Filled Immunization Date Status Commen ts Source Name Name COVID-19 [place] 2021-05-05 Completed [facility] 00:00:00 (PURPLE-DILUTE) COVID-19 [place] 2020-07-11 Completed [facility] 00:00:00 (PURPLE-DILUTE) COVID-19 [place] 2020-06-20 Completed [facility] 00:00:00 (PURPLE-DILUTE) Procedures This patient has no known procedures. Encounters Start End Encounter Admission Attending Care Care Encounter Source Date/Time Date/Time Type Type Clinicians Facility Department ID 2022-08-18 Outpatient [facility] [id number] [place] 10:05:46 [id number] [facility] 2022-08-17 Outpatient [facility] [id number] [place] 13:41:22 [id number] [facility] 2022-08-16 Outpatient [facility] [id number] [place] 19:59:21 [id number] [facility] 2022-08-03 Outpatient [facility] [id number] [place] 15:58:21 [id number] [facility] 2022-02-22 Outpatient [facility] [id number] [place] 14:35:57 [id number] [facility] 2022-02-15 Outpatient [facility] [id number] [place] 14:03:39 [id number] [facility] 2021-09-12 Outpatient VALERI, [facility] [id number] [place] 01:03:08 LON [id number] [facility] 2021-09-03 Outpatient [facility] [id number] [place] 13:01:47 [id number] [facility] 2021-08-11 Outpatient COLEA, [facility] [id number] [place] 10:03:41 [facility] [id number] [facility] 2021-08-03 Outpatient [facility] [id number] [place] 11:03:02 [id number] [facility] 2021-08-02 Outpatient [facility] [id number] [place] 09:37:02 [id number] [facility] 2021-07-14 Outpatient [facility] [id number] [place] 13:45:11 [id number] [facility] 2021-06-11 Outpatient COLEA, [facility] [id number] [place] 15:41:00 [facility] 2023-08-21 2023-08-21 Outpatient DAVID, [facility] [id number] [place] 13:00:00 13:00:00 [facility] 2022-08-17 2022-08-17 [facility] [id number] [place] 14:00:00 14:27:53 [facility] [id number] [facility] [id number] 2022-02-22 2022-02-22 Outpatient COLEA, [facility] [id number] [place] 13:00:00 13:00:00 [facility] 2022-02-15 2022-02-15 Outpatient COLEA, [facility] [id number] [place] 14:30:00 14:54:11 [facility] 2021-06-04 2021-06-16 Inpatient E YINA, [facility] [id number] [facility] 22:12:00 17:10:00 RAMESH Results This patient has no known results.
--- NOTE | 2022-12-20 13:53 | RAD REPORT ---
EXAM DESCRIPTION: RAD - Chest Single View - 12/20/2022 1:37 pm CLINICAL HISTORY: ams Chest pain. COMPARISON: Chest Single View dated 12/13/2022; Chest Single View dated 11/30/2022; Chest Single View d ated 11/29/2022; Chest Single View dated 11/13/2022 FINDINGS: Portable technique limits examination quality. The lungs are emphysematous but grossly clear. The heart is normal in size. No displaced fractures. IMPRESSION: COPD.
[2022-12-20 14:09] LABS: Lymphocytes % 28.7 % (15.3-44.8); MCV 92.1 fL (80-100); MPV 7.7 fL (7.6-11.3); Platelets 342 thou/uL (152-406); RBC Red Blood Cell Count 4.02 M/uL (3.86-4.86)
[2022-12-20 14:19] LABS: Albumin 3.1 g/dL (3.4-5.0); Bilirubin Total 0.3 mg/dL (0.2-1.0); Potassium 4.8 mEq/L (3.5-5.1); Protein, Total 7.4 g/dL (6.4-8.2)
[2022-12-20 14:31] LABS: Specific Gravity 1.013 (1.005-1.030); Urine Bacteria >50 /HPF (<20); Urine Bilirubin NEGATIVE (Negative); Urine Blood 3+ (Negative); Urine Clarity Extremely Turbid (Clear); Urine Color Light-Orange (Yellow); Urine Glucose NEGATIVE (Negative); Urine Protein 1+ (Negative); Urine RBC >50 /HPF (None Seen); Urine Urobilinogen Normal (Normal); Urine WBC Clump Many /HPF (None Seen)
--- NOTE | 2022-12-20 15:04 | ER ---
Nurse's Notes [facility] Name: Maribell Coello Age: 77 yrs Sex: Female : 1945 Arrival Date: 12/20/2022 Time: 12:50 Bed 16 Private MD: Diagnosis: UTI/ Urinary tract infection, site not specified;Hyperglycemia, unspecified;Chronic kidney disease, unspecified;Nonspecific low blood-pressure reading Presentation: 12/20 13:00 Chief complaint: EMS states: family toned out to home for suspected UTI. Pt was eh3 hospitalized for UTI recently and discharged a few days ago with oral antibiotics. EMS reports partial bottle of antibiotics at home, when course should've been completed by now. Pt c/o chest pain en route in ambulance. Coronavirus screen: Vaccine status: Patient reports receiving the 2nd dose of the covid vaccine. Ebola Screen: No symptoms or risks identified at this time. Initial Sepsis Screen: Does the patient meet any 2 criteria? No. Patient's initial sepsis screen is negative. Does the patient have a suspected source of infection? Yes: Dysuria/Frequency/Urgency/UTI. Risk Assessment: Do you want to hurt yourself or someone else? Patient reports no desire to harm self or others. Onset of symptoms was December 20, 2022. 13:00 Method Of Arrival: EMS: [facility] 13:00 Acuity: ALBINO 3 3 Triage Assessment: 13:03 General: Appears in no apparent distress. comfortable, Behavior is calm, cooperative. eh3 Pain: Denies pain. Neuro: Level of Consciousness is awake, alert, obeys commands, Oriented to person. Cardiovascular: Capillary refill < 3 seconds Patient's skin is warm and dry. Respiratory: Airway is patent Respiratory effort is even, unlabored. GI: Abdomen is round non-distended. Derm: Skin is pink, warm \T\ dry. Musculoskeletal: Circulation, motion, and sensation intact. Historical: - Allergies: 13:03 CITRIC ACID; eh3 - Home Meds: 13:03 amlodipine oral [Active]; carvedilol oral [Active]; gabapentin oral [Active]; eh3 Hydralazine Oral [Active]; Keppra Oral [Active]; lisinopril Oral [Active]; Metformin Oral [Active]; sucralfate Oral [Active]; - PMHx: 13:03 Cerebrovascular accident; Diabetes - NIDDM; Hypertension; Seizure; Ulcers; eh3 - Immunization history:: Adult Immunizations up to date. - Social history:: Smoking status: unknown. Screenin:07 [facility] ED Fall Risk Assessment (Adult) Score/Fall Risk Level 0 - 2 = Low Risk. Abuse eh3 screen: Denies threats or abuse. Denies injuries from another. Nutritional screening: No deficits noted. Tuberculosis screening: No symptoms or risk factors identified. Assessment: 13:07 Reassessment: No changes from previously documented assessment. See triage assessment. eh3 14:00 Reassessment: Patient appears in no apparent distress at this time. Patient and/or eh3 family updated on plan of care and expected duration. Pain level reassessed. Patient is alert, oriented x 3, equal unlabored respirations, skin warm/dry/pink. 15:00 Reassessment: Patient appears in no apparent distress at this time. Patient and/or eh3 family updated on plan of care and expected duration. Pain level reassessed. Patient is alert, oriented x 3, equal unlabored respirations, skin warm/dry/pink. 16:00 Reassessment: Patient appears in no apparent distress at this time. Patient and/or eh3 family updated on plan of care and expected duration. Pain level reassessed. Patient is alert, oriented x 3, equal unlabored respirations, skin warm/dry/pink. 17:00 Reassessment: Patient appears in no apparent distress at this time. Patient and/or eh3 family updated on plan of care and expected duration. Pain level reassessed. Patient is alert, oriented x 3, equal unlabored respirations, skin warm/dry/pink. 18:00 Reassessment: Patient appears in no apparent distress at this time. Patient and/or eh3 family updated on plan of care and expected duration. Pain level reassessed. Patient is alert, oriented x 3, equal unlabored respirations, skin warm/dry/pink. 18:14 Reassessment: Nurse to nurse report received by Carmen on 2nd floor. [facility] Vital Signs: 13:00 BP 109 / 59; Pulse 67; Resp 18; Temp 98.1(O); Pulse Ox 95% on R/A; 3 14:00 BP 91 / 56; Pulse 65; Resp 18; Pulse Ox 92% on R/A; eh3 15:00 BP 96 / 58; Pulse 62; Resp 18; Pulse Ox 95% on 2 lpm NC; eh3 16:00 BP 103 / 62; Pulse 60; Resp 18; Pulse Ox 95% on 2 lpm NC; eh3 17:00 BP 99 / 50; Pulse 62; Resp 18; Pulse Ox 99% on 2 lpm NC; eh3 18:00 BP 92 / 56; Pulse 63; Resp 18; Pulse Ox 96% on 3 lpm NC; eh3 ED Course: 12:56 Patient arrived in ED. ms3 12:58 Librado Gerard DO is Attending Physician. ms3 13:00 Dominique Funez, RN is Primary Nurse. eh3 13:03 Triage completed. eh3 13:03 Arm band placed on. eh3 13:07 Patient has correct armband on for positive identification. Bed in low position. Call eh3 light in reach. Side rails up X2. Provided Education on: Use of call wallace. Client placed on continuous cardiac and pulse oximetry monitoring. NIBP monitoring applied. 13:30 Inserted saline lock: 20 gauge in right antecubital area, using aseptic technique. eh3 Blood collected. 13:38 CXR XRAY In Process Unspecified. EDMS 14:00 Oxygen administration via nasal cannula \T\ 2L/min. eh3 15:04 Demarcus Kurtz MD is Hospitalizing Provider. ms3 18:16 No provider procedures requiring assistance completed. Patient admitted, IV remains in eh3 place. Administered Medications: 18:20 Drug: Rocephin IV 1 grams Route: IV; Rate: calculated rate; Site: right antecubital; eh3 18:34 Follow up: Response: No adverse reaction; IV Status: Completed infusion; IV Intake: [id number] Medication: 18:16 VIS not applicable for this client. eh3 Intake: 18:34 IV: 50ml; Total: 50ml. eh3 Outcome: 15:04 Decision to Hospitalize by Provider. ms3 18:51 Patient left the ED. eh3 Signatures: Dispatcher [employer] EDMS Librado Gerard DO DO ms3 Dominique Funez, RN RN eh3 Corrections: (The following items were deleted from the chart) 18:15 15:00 BP 96 / 58; Pulse 62bpm; Resp 18bpm; Pulse Ox 95% RA; 3 3 18:15 16:00 BP 103 / 62; Pulse 60bpm; Resp 18bpm; Pulse Ox 95% RA; 3 3
--- NOTE | 2022-12-20 15:05 | EDPHYS ---
Physician Documentation [facility] Name: Maribell Coello Age: 77 yrs Sex: Female : 1945 Arrival Date: 12/20/2022 Time: 12:50 Bed 16 Private MD: ED Physician Librado Gerard HPI: 12/20 13:44 This 77 yrs old Female presents to ER via EMS with complaints of Urinary Problem. ms3 13:44 77-year-old female with past medical history of CVA, diabetes, hypertension, seizures ms3 presents via [facility] for elevated blood glucose. EMS states they were called to patient's house for low blood glucose level. EMS noted patient's blood pressure to be 97/58, glucose 242, afebrile. Patient denies pain. Patient denies nausea, vomiting, shortness of breath. Historical: - Allergies: 13:03 CITRIC ACID; eh3 - Home Meds: 13:03 amlodipine oral [Active]; carvedilol oral [Active]; gabapentin oral [Active]; eh3 Hydralazine Oral [Active]; Keppra Oral [Active]; lisinopril Oral [Active]; Metformin Oral [Active]; sucralfate Oral [Active]; - PMHx: 13:03 Cerebrovascular accident; Diabetes - NIDDM; Hypertension; Seizure; Ulcers; eh3 - Immunization history:: Adult Immunizations up to date. - Social history:: Smoking status: unknown. ROS: 13:44 Constitutional: Negative for fever, and chills. Neck: Negative for injury, pain, and ms3 swelling, Cardiovascular: Negative for chest pain, and palpitations. Respiratory: Negative for shortness of breath, cough, wheezing, and pleuritic chest pain, Abdomen/GI: Negative for abdominal pain, nausea, vomiting, diarrhea, and constipation, MS/Extremity: Negative for injury and deformity. 13:44 All other systems are negative. Exam: 13:44 Constitutional: This is a well developed, well nourished patient who is awake, alert, ms3 and in no acute distress. Head/Face: Normocephalic, atraumatic. Neck: Trachea midline, no cervical lymphadenopathy. Supple, full range of motion without nuchal rigidity, or vertebral point tenderness. No Meningismus. Chest/axilla: Normal chest wall appearance and motion. Nontender with no deformity. Cardiovascular: Regular rate and rhythm with a normal S1 and S2. No gallops, murmurs, or rubs. Normal PMI, no JVD. No pulse deficits. Respiratory: Lungs have equal breath sounds bilaterally, clear to auscultation and percussion. No rales, rhonchi or wheezes noted. No increased work of breathing, no retractions or nasal flaring. Skin: Warm, dry with normal turgor. Normal color with no rashes, no lesions, and no evidence of cellulitis. Vital Signs: 13:00 BP 109 / 59; Pulse 67; Resp 18; Temp 98.1(O); Pulse Ox 95% on R/A; eh3 14:00 BP 91 / 56; Pulse 65; Resp 18; Pulse Ox 92% on R/A; eh3 15:00 BP 96 / 58; Pulse 62; Resp 18; Pulse Ox 95% on 2 lpm NC; eh3 16:00 BP 103 / 62; Pulse 60; Resp 18; Pulse Ox 95% on 2 lpm NC; eh3 17:00 BP 99 / 50; Pulse 62; Resp 18; Pulse Ox 99% on 2 lpm NC; eh3 18:00 BP 92 / 56; Pulse 63; Resp 18; Pulse Ox 96% on 3 lpm NC; eh3 MDM: 12:57 Patient medically screened. ms3 13:44 Differential Diagnosis UTI versus pneumonia versus hyperglycemia. ms3 17:53 Data reviewed: vital signs, nurses notes, lab test result(s), radiologic studies, and ms3 as a result, I will discharge patient. Consideration of Admission/Observation Patient was admitted/placed on observation. Management of patient was discussed with the following: Hospitalist: . 17:55 I considered the following discharge prescriptions or medication management in the mo3 emergency department Medications were administered in the Emergency Department. See MAR. Independent interpretation of the following test(s) in the Emergency Department X-Ray: My interpretation is CXR image reviewed by me does not show PNA. Historians other than the Patient: EMS: [facility]. Counseling: I had a detailed discussion with the patient and/or guardian regarding the historical points, exam findings, and any diagnostic results supporting the discharge/admit diagnosis, lab results, radiology results, the need for further work-up and treatment in the hospital. 12/20 12:57 Order name: CBC with Diff; Complete Time: 14:53 ms3 12/20 12:57 Order name: CMP; Complete Time: 14:53 ms3 12/20 12:57 Order name: Urinalysis w/ reflexes; Complete Time: 14:53 ms3 12/20 14:34 Order name: Urine Culture EDMS 12/20 16:49 Order name: Magnesium; Complete Time: 17:53 EDMS 12/20 16:50 Order name: Phosphorus; Complete Time: 17:53 EDMS 12/20 16:50 Order name: Urinalysis w/ reflexes EDMS 12/20 16:50 Order name: Basic Metabolic Panel EDMS 12/20 16:50 Order name: Basic Metabolic Panel EDMS 12/20 16:50 Order name: CBC with Automated Diff EDMS 12/20 16:50 Order name: CBC with Automated Diff EDMS 12/20 12:57 Order name: CXR XRAY; Complete Time: 14:05 ms3 12/20 16:49 Order name: CONS Physician Consult EDMS 12/20 17:05 Order name: 60g Consistent Carbohydrate (ADA 1800/1999) EDMS 12/20 12:57 Order name: IV Saline Lock; Complete Time: 16:14 ms3 12/20 12:57 Order name: Labs collected and sent; Complete Time: 16:14 ms3 Administered Medications: 18:20 Drug: Rocephin IV 1 grams Route: IV; Rate: calculated rate; Site: right antecubital; eh3 18:34 Follow up: Response: No adverse reaction; IV Status: Completed infusion; IV Intake: [id number] Disposition Summary: 12/20/22 15:04 Hospitalization Ordered Hospitalization Status: Inpatient Admission ms3 Provider: Demarcus Kurtz ms3 Location: Telemetry/MedSurg (Inpatient) ms3 Condition: Stable ms3 Problem: new ms3 Symptoms: are unchanged ms3 Bed/Room Type: Standard ms3 Room Assignment: 232(12/20/22 18:03) bd Diagnosis - UTI/ Urinary tract infection, site not specified ms3 - Hyperglycemia, unspecified ms3 - Chronic kidney disease, unspecified ms3 - Nonspecific low blood-pressure reading ms3 Forms: - Medication Reconciliation Form ms3 - SBAR form ms3 - Leadership Thank You Letter ms3 Signatures: Dispatcher [employer] EDLA Dirrim, Elena bd Gerard, Librado, DO ms3 Dominique Funez RN RN eh3 Corrections: (The following items were deleted from the chart) 18:03 15:04 ms3 bd
[2022-12-20] MEDS ORDERED: ACETAMINOPHEN 325 MG TABLET PO PRN (16:43)
[2022-12-20] MEDS ORDERED: TRAMADOL HCL 50 MG TAB PO PRN (16:43)
[2022-12-20] MEDS ORDERED: ONDANSETRON 4 MG/2 ML VIAL IV PRN (16:47)
[2022-12-20] MEDS: ENOXAPARIN 40 MG/0.4 ML SQ SCH (17:00)
[2022-12-20] MEDS ORDERED: GLUCAGON 1 MG/VIAL IM PRN (17:03)
--- NOTE | 2022-12-20 17:04 | P.HP ---
Certification for Inpatient Patient admitted to: Inpatient With expected LOS: >2 Midnights Patient will require the following post-hospital care: None Practitioner: I am a practitioner with admitting privileges, knowledge of patient current condition, hospital course, and medical plan of care. Services: Services provided to patient in accordance with Admission requirements found in Title 42 Section 412.3 of the Code of Federal Regulations Patient History Date of Service: 12/20/22 Reason for admission: Poor appetite and hyperglycemia History of Present Illness: Patient is a 77-year-old female with a past medical history significant for DM 2, hypertension, seizures, CVA who presents with complaint of poor Appetite and hyperglycemia. Patient is alert and oriented x1. Patient is confused and unable to provide any history. Patient was discharged from the hospital 5 days ago after being treated for UTI and GRACIE. Patient's son reported that patient has been having poor p.o. intake due to poor appetite for the past 5 days. Family reported that patient did not eat or drink anything yesterday. Family also reported that patient complained about dysuria every time she uses the bathroom. No other signs and symptoms reported. Symptoms are aggravated or relieved by nothing. EMS was called and patients blood pressure were noted to 97/58. Patient was brought to the hospital for medical evaluation. Allergies citric acid Allergy (Verified 12/14/22 02:45) Hives/Rash Home Medications: Carvedilol [Coreg] 25 mg PO BID 01/27/20 Amlodipine [Norvasc*] 10 mg PO DAILY #30 tab 11/16/22 Gabapentin 100 mg PO TID 12/02/22 Hydralazine HCl 1.5 tab PO BID 12/02/22 Lisinopril [Zestril] 10 mg PO DAILY 12/02/22 levETIRAcetam [Levetiracetam] 3 tab PO TID 12/02/22 Glimepiride [Amaryl*] 2 mg PO DAILY 12/14/22 Lacosamide 2 tab PO BID 12/14/22 Aspirin Chewable [Aspirin Chewable*] 81 mg PO DAILY #30 tab.chew 12/15/22 Blood Sugar Diagnostic [Glucose Test Strip] 1 each MC BID #100 strip 12/15/22 Docusate/Senna [Senokot-S*] 1 tab PO BID #60 tab 12/15/22 Fluconazole 100 mg PO DAILY #7 tab 12/15/22 Insulin Glargine,Hum.rec.anlog [Semglee] 30 unit SQ BEDTIME #2 vial 12/15/22 Polyethyl Gly 3350 [Glycolax*] 17 gm PO DAILY PRN #30 udbot 12/15/22 traMADol HCL [Ultram*] 50 mg PO TID PRN #30 tab 12/15/22 - Past Medical/Surgical History Diabetic: Yes -: HTN -: IDDM II -: CVA -: Seizures -: Proteinuria/ Hx GRACIE -: Dental surgery -: finger surgery -: cataract - Social History Smoking Status: Never smoker Alcohol use: No CD- Drugs: No Caffeine use: Yes Place of Residence: Home Review of Systems is unable to be obtained (Patient is confused, unable to provide any history.) Physical Examination - Physical Exam General: Alert, In no apparent distress, Oriented x1, Confused HEENT: Atraumatic, PERRLA, EOMI, Sclerae nonicteric Neck: Supple, 2+ carotid pulse no bruit, No LAD, Without JVD or thyroid abnormality Respiratory: Clear to auscultation bilaterally, Normal air movement Cardiovascular: No edema, Regular rate/rhythm, Normal S1 S2 Capillary refill: <2 Seconds Gastrointestinal: Normal bowel sounds, Soft and benign, Non-distended, No tenderness Musculoskeletal: No clubbing, No swelling, No tenderness Integumentary: No rashes, No significant lesion Neurological: Normal speech, Normal tone, Normal affect Lymphatics: No axilla or inguinal lymphadenopathy - Studies Laboratory Data (last 24 hrs) 12/20/22 12/20/22 13:53 13:53 WBC 10.50 Hgb 12.4 Hct 37.0 Plt Count 342 Sodium 135 L Potassium 4.8 BUN 63 H Creatinine 2.70 H Glucose 206 H Total Bilirubin 0.3 AST 15 ALT 21 Alkaline Phosphatase 95 Assessment and Plan - Plan --GRACIE. Likely prerenal. Secondary to dehydration. Continue IV hydration. Alpine Patroller consulted. Avoid NSAIDs and nephrotoxins. Will await further rec ommendations from membership administrator. --UTI POA. Patient placed on antibiotics. Urine cultures pending. Infectious disease MD consulted. Will await further recommendations. --Candidiasis. Yeast noted on UA. Patient placed on Diflucan. --Acute metabolic encephalopathy. Likely secondary to UTI. Continue antibiotics and supportive care. --DM2 with hyperglycemia. BS monitoring with sliding scale insulin and Lantus. -- History of CVA. Continue aspirin. --History of seizures. Seizure precautions. Continue home medication. --GERD. Continue home medication. --Hypertension. Patient currently hypotensive--likely secondary to dehydration. We will hold off on BP meds. Patient has not had any appreciable p.o. intake in the last 5 days. Continue IV hydration. We will continue to monitor blood pressure levels. --DVT prophylaxis with Lovenox subQ. Discharge Plan: Home Plan to discharge in: Greater than 2 days - Advance Directives Does patient have a Living Will: No Does patient have a Durable POA for Healthcare: No - Code Status/Comfort Care Code Status Assessed: Yes Physician Review: Patient Assessed, Agree with Above Assessment and Plan Critical Care: No
[2022-12-20] MEDS ORDERED: D10W 250 ML BAG IV PRN (17:10)
[2022-12-20 17:52] LABS: Magnesium 2.4 mg/dL (1.6-2.4); Phosphorus 4.5 mg/dL (2.5-4.9)
[2022-12-20] MEDS ORDERED: CEFTRIAXONE 1000 MG/VIAL ONE (18:31)
[2022-12-20] MEDS ORDERED: NA CHLORIDE 0.9% 50 ML ONE (18:32)
[2022-12-20] MEDS ORDERED: ENOXAPARIN 40 MG/0.4 ML SQ ONE (18:32)
[2022-12-20] MEDS: NA CHLORIDE 0.9% 1,000 ML IV SCH (20:38)
[2022-12-20] MEDS: INSULIN GLARGINE 100 UNIT/ML SQ SCH (21:00)
[2022-12-20] MEDS: Meropenem 1,000 MG in NA CHLORIDE 0.9% 100 ML IV SCH (21:52)
[2022-12-20] MEDS: FLUCONAZOLE 100 MG TAB PO SCH (21:52)
[2022-12-20] MEDS: INSULIN -REGULAR HUMAN 50 UNIT/0.5 ML ML SQ SCH (21:52)
[2022-12-21 03:39] LABS: Absolute Lymphocytes (CBC) 2.8 K/uL (0.7-4.9); Hematocrit 34.8 % (36.0-45.0); Lymphocytes % 32.5 % (15.3-44.8); MCV 92.5 fL (80-100); MPV 7.6 fL (7.6-11.3); Platelets 310 thou/uL (152-406); RBC Red Blood Cell Count 3.76 M/uL (3.86-4.86)
[2022-12-21 03:54] LABS: Potassium 4.4 mEq/L (3.5-5.1)
[2022-12-21 04:16] VITALS: BMI 32.8
[2022-12-21 06:40] LABS: Specific Gravity 1.021 (1.005-1.030); Urine Bacteria <20 /HPF (<20); Urine Bilirubin NEGATIVE (Negative); Urine Blood 3+ (OVER) (Negative); Urine Clarity Extremely Turbid (Clear); Urine Color Light-Orange (Yellow); Urine Glucose NEGATIVE (Negative); Urine Protein 1+ (Negative); Urine RBC >50 /HPF (None Seen); Urine Urobilinogen Normal (Normal); Urine WBC Clump Few /HPF (None Seen)
[2022-12-21] MEDS: INSULIN -REGULAR HUMAN 50 UNIT/0.5 ML ML SQ SCH ×4 (07:30→21:24)
[2022-12-21] MEDS: Meropenem 1,000 MG in NA CHLORIDE 0.9% 100 ML IV SCH ×2 (08:09→21:22)
[2022-12-21] MEDS: FLUCONAZOLE 100 MG TAB PO SCH (08:09)
[2022-12-21] MEDS: ASPIRIN 81 MG CHEWABLE TABLET PO SCH (08:09)
[2022-12-21] MEDS: ENOXAPARIN 40 MG/0.4 ML SQ SCH (08:09)
[2022-12-21] MEDS: NA CHLORIDE 0.9% 1,000 ML IV SCH (08:14)
--- NOTE | 2022-12-21 08:42 | P.CNS ---
Date of Consult: 12/21/22 Reason for Consult: GRACIE Requesting Physician: Demacrus Kurtz Chief Complaint: Poor appetite and hyperglycemia History of Present Illness: Patient is a 77-year-old female with a past medical history significant for DM 2, hypertension, seizures, CVA who presents with complaint of poor Appetite and hyperglycemia. Patient is alert and oriented x1. Patient is confused and unable to provide any history. Patient was discharged from the hospital 5 days ago after being treated for UTI and GRACIE. Patient's son reported that patient has been having poor p.o. intake due to poor appetite for the past 5 days. Family reported that patient did not eat or drink anything yesterday. Family also reported that patient complained about dysuria every time she uses the bathroom. No other signs and symptoms reported. Symptoms are aggravated or relieved by nothing. EMS was called and patients blood pressure were noted to 97/58. Patient was brought to the hospital for medical evaluation. 13:44 This 77 yrs old Female presents to ER via EMS with complaints of Urinary Problem. ms3 13:44 77-year-old female with past medical history of CVA, diabetes, hypertension, seizures ms3 presents via [facility] for elevated blood glucose. EMS states they were called to patient's house for low blood glucose level. EMS noted patient's blood pressure to be 97/58, glucose 242, afebrile. Patient denies pain. Patient denies nausea, vomiting, shortness of breath. Poor historian. +PO Allergies citric acid Allergy (Verified 12/14/22 02:45) Hives/Rash Home medications list reviewed: Yes Home Medications: Carvedilol [Coreg] 25 mg PO BID 01/27/20 Amlodipine [Norvasc*] 10 mg PO DAILY #30 tab 11/16/22 Gabapentin 100 mg PO TID 12/02/22 Hydralazine HCl 1.5 tab PO BID 12/02/22 Lisinopril [Zestril] 10 mg PO DAILY 12/02/22 levETIRAcetam [Levetiracetam] 3 tab PO TID 12/02/22 Glimepiride [Amaryl*] 2 mg PO DAILY 12/14/22 Lacosamide 2 tab PO BID 12/14/22 Aspirin Chewable [Aspirin Chewable*] 81 mg PO DAILY #30 tab.chew 12/15/22 Blood Sugar Diagnostic [Glucose Test Strip] 1 each MC BID #100 strip 12/15/22 Docusate/Senna [Senokot-S*] 1 tab PO BID #60 tab 12/15/22 Fluconazole 100 mg PO DAILY #7 tab 12/15/22 Insulin Glargine,Hum.rec.anlog [Semglee] 30 unit SQ BEDTIME #2 vial 12/15/22 Polyethyl Gly 3350 [Glycolax*] 17 gm PO DAILY PRN #30 udbot 12/15/22 traMADol HCL [Ultram*] 50 mg PO TID PRN #30 tab 12/15/22 - Past Medical/Surgical History Diabetic: Yes -: HTN -: IDDM II -: CVA -: Seizures -: Proteinuria/ Hx GRACIE (Dr. Alonso/ Dr. Sesay) -: Dental surgery -: finger surgery -: cataract - Social History Smoking Status: Unknown if ever smoked Alcohol use: No CD- Drugs: No Caffeine use: Yes Place of Residence: Home Review of Systems 10-point ROS is otherwise unremarkable General: Weakness, Malaise Physical Examination Temp Pulse Resp BP Pulse Ox 97.8 F 61 18 119/56 L 98 12/21/22 04:00 12/21/22 04:00 12/21/22 04:00 12/21/22 04:00 12/21/22 04:00 General: In no apparent distress, Cooperative HEENT: Atraumatic Neck: Supple Respiratory: Clear to auscultation bilaterally Cardiovascular: No edema, Regular rate/rhythm Gastrointestinal: Soft and benign, Non-distended Musculoskeletal: No clubbing, No contractures Integumentary: No rashes, No cyanosis Neurological: Normal speech Laboratory Data (last 24 hrs) 12/20/22 12/20/22 12/20/22 13:53 13:53 13:53 WBC 10.50 Hgb 12.4 Hct 37.0 Plt Count 342 Sodium 135 L Potassium 4.8 BUN 63 H Creatinine 2.70 H Glucose 206 H Phosphorus 4.5 Magnesium 2.4 Total Bilirubin 0.3 AST 15 ALT 21 Alkaline Phosphatase 95 Imagings Data: EXAM DESCRIPTION: RAD - Chest Single View - 12/20/2022 1:37 pm CLINICAL HISTORY: ams Chest pain. COMPARISON: Chest Single View dated 12/13/2022; Chest Single View dated 11/30/2022; Chest Single View dated 11/29/2022; Chest Single View dated 11/13/2022 FINDINGS: Portable technique limits examination quality. The lungs are emphysematous but grossly clear. The heart is normal in size. No displaced fractures. IMPRESSION: COPD. Conclusions/Impression: Stage III GRACIE likely due to hypovolemia CKD I with Proteinuria -No NSAIDs -Continue IVF with NS Hyponatremia -Continue IVF with NS Hypercalcemia -Continue IVF with NS HTN with CKD -Hold Lisinopril DM II with Hyperglycemia & CKD -RISS -Continue Lantus Anemia in chronic illness -Monitor H&H Acute Cystitis with hematuria -Continue abx -Follow up cultures Hospitalist and ER notes reviewed Thank you kindly for the consultation
--- NOTE | 2022-12-21 10:00 | P.CNS ---
Date of Consult: 12/21/22 Chief Complaint: Poor appetite and hyperglycemia History of Present Illness: Patient is a 77-year-old female with a past medical history of diabetes type 2, seizure disorder, hypertension, history of CVA who presented to the ED with complaints of decreased appetite and hyperglycemia. Of note, the patient was recently hospitalized for urinary tract infection and acute kidney injury. Since discharge, family has reported that the patient has had poor oral intake. Urine cultures obtained and patient was started on empiric antibiotics. Infectious disease consulted. Allergies citric acid Allergy (Verified 12/14/22 02:45) Hives/Rash Home medications list reviewed: Yes Home Medications: Carvedilol [Coreg] 25 mg PO BID 01/27/20 Amlodipine [Norvasc*] 10 mg PO DAILY #30 tab 11/16/22 Gabapentin 100 mg PO TID 12/02/22 Hydralazine HCl 1.5 tab PO BID 12/02/22 Lisinopril [Zestril] 10 mg PO DAILY 12/02/22 levETIRAcetam [Levetiracetam] 3 tab PO TID 12/02/22 Glimepiride [Amaryl*] 2 mg PO DAILY 12/14/22 Lacosamide 2 tab PO BID 12/14/22 Aspirin Chewable [Aspirin Chewable*] 81 mg PO DAILY #30 tab.chew 12/15/22 Blood Sugar Diagnostic [Glucose Test Strip] 1 each MC BID #100 strip 12/15/22 Docusate/Senna [Senokot-S*] 1 tab PO BID #60 tab 12/15/22 Fluconazole 100 mg PO DAILY #7 tab 12/15/22 Insulin Glargine,Hum.rec.anlog [Semglee] 30 unit SQ BEDTIME #2 vial 12/15/22 Polyethyl Gly 3350 [Glycolax*] 17 gm PO DAILY PRN #30 udbot 12/15/22 traMADol HCL [Ultram*] 50 mg PO TID PRN #30 tab 12/15/22 - Past Medical/Surgical History Diabetic: Yes -: HTN -: IDDM II -: CVA -: Seizures -: Proteinuria/ Hx GRACIE -: Dental surgery -: finger surgery -: cataract - Social History Smoking Status: Unknown if ever smoked Alcohol use: No CD- Drugs: No Caffeine use: Yes Place of Residence: Home Review of Systems Unremarkable Physical Examination Temp Pulse Resp BP Pulse Ox 96.9 F 62 16 105/56 L 99 12/21/22 08:00 12/21/22 08:00 12/21/22 08:00 12/21/22 08:00 12/21/22 08:00 General: Alert, In no apparent distress, Oriented x2, Confused HEENT: Atraumatic, Normocephalic Neck: Supple, JVD not distended Respiratory: Clear to auscultation bilaterally, Normal air movement Cardiovascular: No edema, Regular rate/rhythm Gastrointestinal: Normal bowel sounds, Soft and benign, Non-distended Musculoskeletal: No clubbing Integumentary: No rashes Laboratory Data - reviewed microbiology data - reviewed Imagings Data: - reviewed Conclusions/Impression: Problem list Urinary tract infection GRACIE Diabetes mellitus type 2 Hypertension Seizure disorder Hx CVA Urinary Tract Infection -Urine culture 12/20 pending - previous urine culture on 11/13 with E. coli. -Due to recent hospitalization and use of antibiotics, patient at high risk for multidrug-resistant organism. She was started on meropenem on 12/20. - WBC within normal limits. Afebrile. - On meropenem (12/20-) Recommendations - Continue meropenem for now - follow up with urine and blood culture results and will adjust antibiotics as appropriate. - nutritional supplementation as needed Case discussed with Ephraim Leggett
--- NOTE | 2022-12-21 10:18 | P.PN ---
Subjective Date of Service: 12/21/22 Chief Complaint: Poor appetite and hyperglycemia No acute events overnight. She is alert and oriented x 1 to person. When asked her location, she is unable to identify that she is in a hospital. When asked the date, she replies "December." She denies any particular symptoms at this time. Review of Systems is unable to be obtained (confusion) Physical Examination - Vital Signs Temperature: 96.9 F Blood Pressure: 105/56 Pulse: 62 Respirations: 16 Pulse Ox (%): 99 - Physical Exam General: Alert, In no apparent distress, Oriented x1 HEENT: Atraumatic, Mucous membr. moist/pink, Sclerae nonicteric Neck: JVD not distended Respiratory: Clear to auscultation bilaterally, Normal air movement Cardiovascular: No edema, Regular rate/rhythm, Normal S1 S2, No gallops, No rubs, No murmurs Gastrointestinal: Normal bowel sounds, Soft and benign, Non-distended, No tenderness, No rebound, No guarding Musculoskeletal: No clubbing Integumentary: No rashes Neurological: Other (slightly confused) - Studies Laboratory Data (last 24 hrs) 12/20/22 12/20/22 12/20/22 13:53 13:53 13:53 WBC 10.50 Hgb 12.4 Hct 37.0 Plt Count 342 Sodium 135 L Potassium 4.8 BUN 63 H Creatinine 2.70 H Glucose 206 H Phosphorus 4.5 Magnesium 2.4 Total Bilirubin 0.3 AST 15 ALT 21 Alkaline Phosphatase 95 Assessment And Plan - Plan # Acute Toxic Metabolic Encephalopathy likely secondary to Urinary Tract Infection - Remains A&O x 1 - mental baseline unclear at this time - Soft blood pressures on admission, but not meeting sepsis criteria - Chest x-ray = "COPD." - Urinalysis = 3+ blood, 500 leukocyte esterase, >50 RBCs, >50 WBCs, many WBCs, >50 bacteria, few yeast, 10-20 hyaline casts, 1+ protein - Urine cultures: - 12/13/2022 - 4+ yeast, not Renetta Albicans - 11/13/2022 - dean-sensitive Escherichia Coli - Infectious Diseases consulted - recommendations appreciated - Continue meropenem + fluconazole for now # KDIGO Stage III Acute Kidney Injury - suspect pre-renal - Nephrology consulted - recommendations appreciated - Creatinine = 2.70 -> 2.49 (creatinine was 0.72 on 12/03/2022) - Urinalysis = 3+ blood, 500 leukocyte esterase, >50 RBCs, >50 WBCs, many WBCs, >50 bacteria, few yeast, 10-20 hyaline casts, 1+ protein - IV fluids per Nephrology - Monitor creatinine and urine output - If worsening, obtain renal ultrasound - Renally dose medications # Hyperglycemia in Type II Diabetes Mellitus - Correction scale insulin # History of Cerebrovascular Accident # Seizure Disorder # Hypertension # Gastroesophageal Reflux Disease - Reconcile home medications once verified Demarcus Kurtz M.D.
[2022-12-21] MEDS: INSULIN GLARGINE 100 UNIT/ML SQ SCH (21:23)
[2022-12-22 05:07] LABS: Potassium 4.6 mEq/L (3.5-5.1); Uric Acid 12.4 mg/dL (2.6-6.0)
[2022-12-22] MEDS: NA CHLORIDE 0.9% 1,000 ML IV SCH ×2 (06:07→11:00)
[2022-12-22] MEDS: INSULIN -REGULAR HUMAN 50 UNIT/0.5 ML ML SQ SCH ×4 (07:30→20:40)
[2022-12-22] MEDS: ASPIRIN 81 MG CHEWABLE TABLET PO SCH (09:23)
[2022-12-22] MEDS: FLUCONAZOLE 100 MG TAB PO SCH (09:23)
[2022-12-22] MEDS: ENOXAPARIN 40 MG/0.4 ML SQ SCH (09:24)
[2022-12-22] MEDS: Meropenem 1,000 MG in NA CHLORIDE 0.9% 100 ML IV SCH (09:24)
--- NOTE | 2022-12-22 09:25 | P.PN ---
Date of Service: 12/22/22 Chief Complaint: Poor appetite and hyperglycemia Subjective: Improving Patient sitting up in bed eating breakfast. She denies any new or worsening complaints at this time. No acute events reported overnight. Physical Examination Temp Pulse Resp BP Pulse Ox 97.4 F 67 16 141/63 H 97 12/22/22 08:00 12/22/22 08:00 12/22/22 08:00 12/22/22 08:00 12/22/22 08:00 General: Alert, In no apparent distress, Oriented x2, Confused HEENT: Atraumatic, Normocephalic Neck: Supple, JVD not distended Respiratory: Clear to auscultation bilaterally, Normal air movement Cardiovascular: No edema, Regular rate/rhythm Gastrointestinal: Normal bowel sounds, Soft and benign, Non-distended Musculoskeletal: No clubbing Integumentary: No rashes Laboratory Data - reviewed Microbiology data - reviewed Imagings Data: - reviewed Medications List: reviewed Assessment and plan Problem list Urinary tract infection GRACIE Diabetes mellitus type 2 Hypertension Seizure disorder Hx CVA Urinary Tract Infection -Urine culture 12/20: colony count between 10,000-100,000 CFU/mL. -Previous urine culture 12/13: 4+ yeast not Renetta albicans for which she was prescribed fluconazole on 12/13. - Due to recent hospitalization and use of antibiotics, patient at high risk for multidrug-resistant organism. She was started on meropenem on 12/20. - WBC within normal limits. Afebrile. - On meropenem (12/20-) -Blood culture 12/21: pending Recommendations - urine culture without growth. Discontinue Meropenem. - Continue fluconazole PO for 14 days (12/13-12/27) - follow up with blood culture results - nutritional supplementation as needed Case discussed with Ephraim Leggett
--- NOTE | 2022-12-22 20:13 | P.PN ---
Subjective Date of Service: 12/22/22 Chief Complaint: Poor appetite and hyperglycemia No acute events overnight. She remains alert and oriented x 1 to person. Creatinine is improving. She denies any specific symptoms. Review of Systems is unable to be obtained Physical Examination - Vital Signs Temperature: 98.0 F Blood Pressure: 134/62 Pulse: 69 Respirations: 16 Pulse Ox (%): 97 Assessment And Plan - Plan # Acute Toxic Metabolic Encephalopathy likely secondary to Urinary Tract Infection - Remains A&O x 1 - mental baseline unclear at this time - Soft blood pressures on admission, but not meeting sepsis criteria - Chest x-ray = "COPD." - Urinalysis = 3+ blood, 500 leukocyte esterase, >50 RBCs, >50 WBCs, many WBCs, >50 bacteria, few yeast, 10-20 hyaline casts, 1+ protein - Urine cultures: - 12/13/2022 - 4+ yeast, not Renetta Albicans - 11/13/2022 - dean-sensitive Escherichia Coli - Infectious Diseases consulted - recommendations appreciated - Continue meropenem + fluconazole for now # KDIGO Stage III Acute Kidney Injury - suspect pre-renal - Nephrology consulted - recommendations appreciated - Creatinine = 2.70 -> 2.49 -> 1.58 (creatinine was 0.72 on 12/03/2022) - Urinalysis = 3+ blood, 500 leukocyte esterase, >50 RBCs, >50 WBCs, many WBCs, >50 bacteria, few yeast, 10-20 hyaline casts, 1+ protein - IV fluids per Nephrology - Monitor creatinine and urine output - If worsening, obtain renal ultrasound - Renally dose medications # Hyperglycemia in Type II Diabetes Mellitus - Correction scale insulin # History of Cerebrovascular Accident # Seizure Disorder # Hypertension # Gastroesophageal Reflux Disease - Reconcile home medications once verified Demarcus Kurtz M.D.
[2022-12-22] MEDS: INSULIN GLARGINE 100 UNIT/ML SQ SCH (20:40)
--- NOTE | 2022-12-22 21:33 | P.PN ---
Date of Service: 12/22/22 Vital Signs Temp Pulse Resp BP Pulse Ox 98.0 F 69 16 134/62 97 12/22/22 20:13 12/22/22 20:13 12/22/22 20:13 12/22/22 20:13 12/22/22 20:13 Medications Acetaminophen (Acetaminophen 325 Mg Tablet) 650 mg PO Q6H PRN PRN Reason: TEMP > 100' F Aspirin (Aspirin 81 Mg Chewable Tablet) 81 mg PO DAILY [facility] Last Admin: 12/22/22 09:23 Dose: 81 mg Dextrose (D10w 250 Ml Bag) 125 ml IV PRN PRN; Protocol PRN Reason: HYPOGLYCEMIA Enoxaparin Sodium (Enoxaparin 40 Mg/0.4 Ml) 40 mg SQ DAILY [facility] Last Admin: 12/22/22 09:24 Dose: 40 mg Fluconazole (Fluconazole 100 Mg Tab) 100 mg PO DAILY [facility]; Protocol Last Admin: 12/22/22 09:23 Dose: 100 mg Glucagon (Glucagon 1 Mg/Vial) 1 mg IM 1X PRN PRN Reason: HYPOGLYCEMIA Sodium Chloride (Ns 1000 Ml Ivbag) 1,000 mls @ 75 mls/hr IV .[id number] [facility] Last Admin: 12/22/22 11:00 Dose: Not Given Insulin Glargine (Insulin Glargine 100 Unit/Ml) 30 unit SQ BEDTIME [facility] Last Admin: 12/22/22 20:40 Dose: 30 unit Insulin Human Regular (Insulin -Regular Human 50 Unit/0.5 Ml Ml) 0 unit SQ ACHS [facility]; Protocol Last Admin: 12/22/22 20:40 Dose: 3 unit Ondansetron HCl (Ondansetron 4 Mg/2 Ml Vial) 4 mg IV Q6HP PRN PRN Reason: NAUSEA / VOMITING Sodium Chloride (Flush Normal Saline 10 Ml) 10 ml IV BID [facility] Last Admin: 12/22/22 20:41 Dose: 10 ml Tramadol HCl (Tramadol Hcl 50 Mg Tab) 50 mg PO TID PRN PRN Reason: Pain scale 5-7 (Moderate) Microbiology Results 12/20/22 14:15 Catheterized Urine [place] Count - Preliminary BETWEEN 10,000 & 100,000 CFU/ML 12/20/22 14:15 Catheterized Urine - Preliminary Assessment/ Plan: Nephrology No dyspnea No chest pain +Appetite No acute events overnight Limited IH/ ROS due to mental status Vitals, medications, blood work and imaging reviewed in the chart. General: In no apparent distress, Cooperative HEENT: Atraumatic Neck: Supple Respiratory: Clear to auscultation bilaterally Cardiovascular: No edema, Regular rate/rhythm Gastrointestinal: Soft and benign, Non-distended Musculoskeletal: No clubbing, No contractures Integumentary: No rashes, No cyanosis Neurological: Normal speech Laboratory Data (last 24 hrs) 12/20/22 12/20/22 12/20/22 13:53 13:53 13:53 WBC 10.50 Hgb 12.4 Hct 37.0 Plt Count 342 Sodium 135 L Potassium 4.8 BUN 63 H Creatinine 2.70 H Glucose 206 H Phosphorus 4.5 Magnesium 2.4 Total Bilirubin 0.3 AST 15 ALT 21 Alkaline Phosphatase 95 Imagings Data: EXAM DESCRIPTION: RAD - Chest Single View - 12/20/2022 1:37 pm CLINICAL HISTORY: ams Chest pain. COMPARISON: Chest Single View dated 12/13/2022; Chest Single View dated 11/30/2022; Chest Single View dated 11/29/2022; Chest Single View dated 11/13/2022 FINDINGS: Portable technique limits examination quality. The lungs are emphysematous but grossly clear. The heart is normal in size. No displaced fractures. IMPRESSION: COPD. Conclusions/Impression: Stage III GRACIE likely due to hypovolemia CKD I with Proteinuria -No NSAIDs -Continue IVF with NS Hyponatremia -Continue IVF with NS Hypercalcemia, resolved HTN with CKD -Hold Lisinopril DM II with Hyperglycemia & CKD -RISS -Continue Lantus Anemia in chronic illness -Monitor H&H Acute Cystitis with hematuria -Continue abx -Follow up cultures Hospitalist note reviewed Case reviewed with Dr. Kurtz
[2022-12-23] MEDS: NA CHLORIDE 0.9% 1,000 ML IV SCH (00:22)
[2022-12-23 03:33] LABS: Potassium 4.4 mEq/L (3.5-5.1)
[2022-12-23] MEDS: INSULIN -REGULAR HUMAN 50 UNIT/0.5 ML ML SQ SCH ×4 (07:30→20:40)
[2022-12-23] MEDS: ASPIRIN 81 MG CHEWABLE TABLET PO SCH (08:52)
[2022-12-23] MEDS: FLUCONAZOLE 100 MG TAB PO SCH (08:52)
[2022-12-23] MEDS: ENOXAPARIN 40 MG/0.4 ML SQ SCH (08:53)
--- NOTE | 2022-12-23 09:18 | P.PN ---
Date of Service: 12/23/22 Chief Complaint: Poor appetite and hyperglycemia Subjective: Improving Patient sitting in chair at bedside. In no apparent distress. No acute events reported overnight. She denies any urinary symptoms. No nausea, vomiting or diarrhea. No new or worsening complaints. Physical Examination Temp Pulse Resp BP Pulse Ox 97.1 F 64 16 167/86 H 98 12/23/22 08:00 12/23/22 08:53 12/23/22 08:00 12/23/22 08:53 12/23/22 08:00 General: Alert, In no apparent distress, Oriented x2, Confused/dementia HEENT: Atraumatic, Normocephalic Neck: Supple, JVD not distended Respiratory: Clear to auscultation bilaterally, Normal air movement Cardiovascular: No edema, Regular rate/rhythm Gastrointestinal: Normal bowel sounds, Soft and benign, Non-distended Musculoskeletal: No clubbing Integumentary: No rashes Laboratory Data - reviewed Microbiology data - Reviewed Imagings Data: - reviewed Medications List: reviewed Assessment and plan Problem list Urinary tract infection GRACIE Diabetes mellitus type 2 Hypertension Seizure disorder Hx CVA Urinary Tract Infection -Urine culture 12/20: colony count between 10,000-100,000 CFU/mL. -Previous urine culture 12/13: 4+ yeast not Renetta albicans for which she was prescribed fluconazole on 12/13. - Due to recent hospitalization and use of antibiotics, patient at high risk for multidrug-resistant organism. She was started on meropenem on 12/20. - WBC within normal limits. Afebrile. - On meropenem (12/20-) -Blood culture 12/21: No growth to date Recommendations - Continue fluconazole PO for 14 days (12/13 to 12/27) - nutritional supplementation as needed -physical therapy Case discussed with Ephraim Leggett
[2022-12-23] MEDS: AMLODIPINE 5 MG TAB PO SCH (12:13)
--- NOTE | 2022-12-23 16:35 | P.PN ---
Subjective Date of Service: 12/23/22 Chief Complaint: Poor appetite and hyperglycemia No acute events overnight. She remains alert and oriented x 1 to person. When asked the location, [place] She handed me the [employer] menu and stated that it was a parcel that need to be shipped. She denies any chest pain, palpitations, or shortness of breath. Review of Systems is unable to be obtained Neurological: Confusion Physical Examination - Vital Signs Temperature: 97.0 F Blood Pressure: 151/73 Pulse: 68 Respirations: 16 Pulse Ox (%): 96 - Studies Microbiology Data (last 24 hrs): 12/20/22 14:15 Catheterized Urine [place] Count - Final BETWEEN 10,000 & 100,000 CFU/ML 12/20/22 14:15 Catheterized Urine - Final Assessment And Plan - Plan - Physical Exam General: Alert, In no apparent distress, Oriented x1 HEENT: Atraumatic, Mucous membr. moist/pink, Sclerae nonicteric Neck: JVD not distended Respiratory: Clear to auscultation bilaterally, Normal air movement Cardiovascular: No edema, Regular rate/rhythm, No murmurs Gastrointestinal: Normal bowel sounds, Soft, Non-distended, No tenderness Musculoskeletal: No clubbing Integumentary: No rashes Neurological: Other (confused) # Acute Toxic Metabolic Encephalopathy likely secondary to Fungal Urinary Tract Infection - Remains A&O x 1 - mental baseline unclear at this time - Soft blood pressures on admission, but not meeting sepsis criteria - Chest x-ray = "COPD." - Urinalysis = 3+ blood, 500 leukocyte esterase, >50 RBCs, >50 WBCs, many WBCs, >50 bacteria, few yeast, 10-20 hyaline casts, 1+ protein - Urine cultures: - 12/20/2022 - 3+ yeast, not Renetta Albicans - 12/13/2022 - 4+ yeast, not Renetta Albicans - 11/13/2022 - dean-sensitive Escherichia Coli - Infectious Diseases consulted and spoke with [facility] Sgarbi - recommendations appreciated - Discontinue meropenem - Continue fluconazole # KDIGO Stage III Acute Kidney Injury - suspect pre-renal - Nephrology consulted - recommendations appreciated - Creatinine = 2.70 -> 2.49 -> 1.58 -> 1.17 (creatinine was 0.72 on 12/03/2022) - Urinalysis = 3+ blood, 500 leukocyte esterase, >50 RBCs, >50 WBCs, many WBCs, >50 bacteria, few yeast, 10-20 hyaline casts, 1+ protein - IV fluids per Nephrology - Monitor creatinine and urine output - If worsening, obtain renal ultrasound - Renally dose medications # Hyperglycemia in Type II Diabetes Mellitus - Correction scale insulin # History of Cerebrovascular Accident # Seizure Disorder # Hypertension # Gastroesophageal Reflux Disease - Reconcile home medications once verified Demarcus Kurtz M.D.
--- NOTE | 2022-12-23 17:20 | P.PN ---
Nephrology (S) Renal function test improved, BP back up post hydration, no acute events noted Vitals, medications, blood work and imaging reviewed in the chart. General: In no apparent distress HEENT: Atraumatic Neck: Supple Respiratory: b/l air entry without rhonchi Cardiovascular: No edema, Regular rate/rhythm Gastrointestinal: Soft and benign, Non-distended Musculoskeletal: No clubbing Integumentary: No rashes, No cyanosis Neurological: Normal speech, awake, responsive Imagings Data: EXAM DESCRIPTION: RAD - Chest Single View - 12/20/2022 1:37 pm CLINICAL HISTORY: ams Chest pain. COMPARISON: Chest Single View dated 12/13/2022; Chest Single View dated 11/30/2022; Chest Single View dated 11/29/2022; Chest Single View dated 11/13/2022 FINDINGS: Portable technique limits examination quality. The lungs are emphysematous but grossly clear. The heart is normal in size. No displaced fractures. IMPRESSION: COPD. Conclusions/Impression: Recurrent Stage II GRACIE in the setting of pre-renal state, relative hypotension, concurrent GRACIE Multiple GRACIE episodes in the past two mo -Renal function recovers quickly, will stop IVF. Maintain off ACEi or diuretics or meds which can induce functional kidney injury. No NSAIDs. Hypercalcemia 2nd to volume contraction, resolved HTN, essential -BP post hydration trends back up but recommend against aggressive control in the setting of above mentioned, will avoid adding back multiple agents and use monotherapy with CCB alone currently DM II with Hyperglycemia -Needs improved glycemic control as the hyperglycemia is likely contributory to osmotic diuresis and recurrent vol depletion episodes. -Re-assess spot urine study proteinuria as OP outside of acute illness episodes Acute Cystitis with hematuria -Treat yeast infection
[2022-12-23] MEDS: INSULIN GLARGINE 100 UNIT/ML SQ SCH (20:41)
[2022-12-24] MEDS ORDERED: HYDRALAZINE HCL 20 MG/ML VIAL IV PRN (00:10)
[2022-12-24] MEDS: INSULIN -REGULAR HUMAN 50 UNIT/0.5 ML ML SQ SCH ×2 (07:30→11:30)
[2022-12-24 07:50] LABS: Potassium 3.9 mEq/L (3.5-5.1)
[2022-12-24 09:50] VITALS: O2SAT 95
[2022-12-24] MEDS: AMLODIPINE 5 MG TAB PO SCH (10:33)
[2022-12-24] MEDS: ENOXAPARIN 40 MG/0.4 ML SQ SCH (10:33)
[2022-12-24] MEDS: ASPIRIN 81 MG CHEWABLE TABLET PO SCH (10:34)
[2022-12-24] MEDS: FLUCONAZOLE 100 MG TAB PO SCH (10:34)
--- NOTE | 2022-12-24 13:03 | P.PN ---
Nephrology (S) Renal function test improved, no acute events noted although pt does demonstrate confusion during conversation Vitals, medications, blood work and imaging reviewed in the chart. General: In no apparent distress HEENT: Atraumatic Neck: Supple Respiratory: b/l air entry without rhonchi Cardiovascular: No edema, Regular rate/rhythm Gastrointestinal: Soft and benign, Non-distended Musculoskeletal: No clubbing Integumentary: No rashes, No cyanosis Neurological: Normal speech, awake, responsive, pleasantly confused Imagings Data: EXAM DESCRIPTION: RAD - Chest Single View - 12/20/2022 1:37 pm CLINICAL HISTORY: ams Chest pain. COMPARISON: Chest Single View dated 12/13/2022; Chest Single View dated 11/30/2022; Chest Single View dated 11/29/2022; Chest Single View dated 11/13/2022 FINDINGS: Portable technique limits examination quality. The lungs are emphysematous but grossly clear. The heart is normal in size. No displaced fractures. IMPRESSION: COPD. Conclusions/Impression: Recurrent Stage II GRACIE in the setting of pre-renal state/relative hypotension now resolved, Multiple GRACIE episodes in the past two mo -Renal function recovers quickly, did stop IVF. Maintain off ACEi or diuretics or meds which can induce functional kidney injury. No NSAIDs. Hypercalcemia 2nd to volume contraction, resolved HTN, essential -BP post hydration trends back up but recommend against aggressive control in the setting of above mentioned, will avoid adding back multiple agents and use monotherapy with CCB alone currently DM II with Hyperglycemia -Needs improved glycemic control as the hyperglycemia is likely contributory to osmotic diuresis and recurrent vol depletion episodes. -Re-assess spot urine study proteinuria as OP outside of acute illness episodes Acute Cystitis with hematuria -Treat yeast infection
[2022-12-24 16:22] VITALS: BP 151/82; TEMP 97.5
--- NOTE | 2022-12-24 16:39 | P.DS ---
Admission Date: 12/20/22 Discharge Date: 12/24/22 Disposition: TRANSFER TO INPATIENT REHAB Discharge Condition: GOOD Reason for Admission: Poor appetite and hyperglycemia Consultations: 1. Nephrology 2. Infectious Diseases Hospital Course: DIAGNOSES: # Acute Toxic Metabolic Encephalopathy likely secondary to Fungal Urinary Tract Infection - improved # KDIGO Stage III Acute Kidney Injury - suspect pre-renal # Hyperglycemia in Type II Diabetes Mellitus # History of Cerebrovascular Accident # Seizure Disorder # Hypertension # Gastroesophageal Reflux Disease HOSPITAL COURSE: Ms. Maribell Coello is a pleasant 77 year old female with a past medical history significant for type II diabetes mellitus, prior cerebrovascular accident, seizure disorder, hypertension, and gastroesophageal reflux disease who was admitted to the [facility] on 12/20/2022 for altered mental status. She was admitted to the Medicine service. Upon further evaluation, her urinalysis revealed, 3+ blood, 500 leukocyte esterase, >50 RBCs, >50 WBCs, many WBCs, >50 bacteria, few yeast, 10-20 hyaline casts, 1+ protein. Infectious Diseases was consulted and she was evaluated by Dr. Deluna. She was initially treated with meropenem + fluconazole. Her urine culture would return positive for 3+ yeast, not Renetta Albicans. Over the course of her hospitalization, her mental status improved significantly. This morning, she was alert and oriented x 2-3, which is her mental baseline per her son, Mr. Pemberton. She has been accepted to [facility] and was discharged there for continued PT services. Per Infectious Diseases, she is to continue fluconazole for 3 more days to complete a total of 14 days. She was also found to have a stage III acute kidney injury. Nephrology was consulted and she was evaluated by Dr. Alonso. She was treated with IV fluids and, over the course of her hospitalization, her renal function normalized. On 12/24/2022, she was seen on rounds and deemed medically stable for discharge. She and her family members were given the opportunity to ask questions and reported no further questions. Furthermore, all questions were answered to the best of my ability. A copy of this discharge summary will be sent to the above providers to facilitate continuity of care. Today, I personally spent 25 minutes on her case, of which greater than 50% of the time was spent in patient education, counseling, and coordination of care as described above. - Physical Exam General: Alert, In no apparent distress, Oriented x2-3 HEENT: Atraumatic, Mucous membr. moist/pink, Sclerae nonicteric Neck: JVD not distended Respiratory: Clear to auscultation bilaterally, Normal air movement Cardiovascular: No edema, Regular rate/rhythm, No murmurs Gastrointestinal: Normal bowel sounds, Soft, Non-distended, No tenderness Musculoskeletal: No clubbing Integumentary: No rashes Neurological: Normal speech, Normal affect Vital Signs/Physical Exam: Temp Pulse Resp BP Pulse Ox 97.5 F 75 18 151/82 H 93 12/24/22 16:00 12/24/22 16:00 12/24/22 16:00 12/24/22 16:00 12/24/22 16:00 Laboratory Data at Discharge: WBC 8.60 thou/uL (4.3-10.9) 12/21/22 02:58 Hgb 11.9 g/dL (12.0-15.0) L 12/21/22 02:58 Hct 34.8 % (36.0-45.0) L 12/21/22 02:58 Plt Count 310 thou/uL (152-406) 12/21/22 02:58 Sodium 139 mEq/L (136-145) 12/24/22 07:22 Potassium 3.9 mEq/L (3.5-5.1) 12/24/22 07:22 BUN 20 mg/dL (7-18) H 12/24/22 07:22 Creatinine 0.99 mg/dL (0.55-1.02) 12/24/22 07:22 Glucose 92 mg/dL (74-106) 12/24/22 07:22 Uric Acid 12.4 mg/dL (2.6-6.0) H 12/22/22 03:35 Phosphorus 4.5 mg/dL (2.5-4.9) 12/20/22 13:53 Magnesium 2.4 mg/dL (1.6-2.4) 12/20/22 13:53 Total Bilirubin 0.3 mg/dL (0.2-1.0) 12/20/22 13:53 AST 15 U/L (15-37) 12/20/22 13:53 ALT 21 U/L (13-56) 12/20/22 13:53 Alkaline Phosphatase 95 U/L (45-117) 12/20/22 13:53 Home Medications: Carvedilol [Coreg] 25 mg PO BID 01/27/20 Amlodipine [Norvasc*] 10 mg PO DAILY #30 tab 11/16/22 Gabapentin 100 mg PO TID 12/02/22 Hydralazine HCl 1.5 tab PO BID 12/02/22 Lisinopril [Zestril] 10 mg PO DAILY 12/02/22 levETIRAcetam [Levetiracetam] 3 tab PO TID 12/02/22 Glimepiride [Amaryl*] 2 mg PO DAILY 12/14/22 Lacosamide 2 tab PO BID 12/14/22 Aspirin Chewable [Aspirin Chewable*] 81 mg PO DAILY #30 tab.chew 12/15/22 Blood Sugar Diagnostic [Glucose Test Strip] 1 each MC BID #100 strip 12/15/22 Docusate/Senna [Senokot-S*] 1 tab PO BID #60 tab 12/15/22 Fluconazole 100 mg PO DAILY #7 tab 12/15/22 Insulin Glargine,Hum.rec.anlog [Semglee] 30 unit SQ BEDTIME #2 vial 12/15/22 Polyethyl Gly 3350 [Glycolax*] 17 gm PO DAILY PRN #30 udbot 12/15/22 traMADol HCL [Ultram*] 50 mg PO TID PRN #30 tab 12/15/22 Physician Discharge Instructions: 1. Please call and schedule a follow-up appointment with your PCP in 3-5 days - Your blood work showed anemia. Please discuss further evaluation, including a colonoscopy, with your PCP 2. Please call and schedule a follow-up appointment with Nephrology (Dr. Alonso) in 5-7 days - Your urine sample contained blood. Please discuss with your Day Care Home Provider for further evaluation to evaluate for cancer. Diet: AHA Activity: Fall precautions Followup: NONE,NONE [Primary Care Provider] - Samuel Alonso DO [ACTIVE - CAN ADMIT] - Time spent managing pt's care (in minutes): 25
== END 2022-12-24 16:52 | DRG 682 ==
LOC: ER 12:50 → ERHOLD 16:32 → 2ND 18:15
PROVIDERS: ADMIT Internal Medicine; ATTEND Internal Medicine
DX: N17.9 Acute kidney failure, unspecified (principal); G92.8 Other toxic encephalopathy; N30.01 Acute cystitis with hematuria; E87.1 Hypo-osmolality and hyponatremia; I12.9 Hypertensive chronic kidney disease with stage 1 through stage 4 chronic kidney disease, or unspecified chronic kidney disease; N18.1 Chronic kidney disease, stage 1; E11.22 Type 2 diabetes mellitus with diabetic chronic kidney disease; E11.65 Type 2 diabetes mellitus with hyperglycemia; D63.1 Anemia in chronic kidney disease; E86.0 Dehydration; K21.9 Gastro-esophageal reflux disease without esophagitis; E83.52 Hypercalcemia; J44.9 Chronic obstructive pulmonary disease, unspecified; Z79.4 Long term (current) use of insulin; Z79.02 Long term (current) use of antithrombotics/antiplatelets; Z79.84 Long term (current) use of oral hypoglycemic drugs; Z79.82 Long term (current) use of aspirin; Z86.73 Personal history of transient ischemic attack (TIA), and cerebral infarction without residual deficits; Z91.09 Other allergy status, other than to drugs and biological substances; Z79.899 Other long term (current) drug therapy
CPT/HCPCS: 36415; 71045; 80048; 80053; 81001; 82947; 83735; 84100; 84550; 85025; 87040; 87086; 87088; 96374; 97116; 97161; 99285; J0696; J1650; J1815; J2185; J7030

== ENCOUNTER 2023-03-14 19:53 | Inpatient (IN) | payer OTHER, BC ==
--- OUTSIDE RECORDS SUMMARY | 2023-03-14 19:57 | XMS REPORT | Continuity of Care Document ---
:1945 Author Organization [facility] t Address [address] [place] [place] [address] Care Team Providers Name Role Phone Jose Callejas Primary Care Physician LON TRAMMELL Attending Clinician Unavailable WENDY RAMIREZ Attending Clinician Unavailable MELVIN HERNANDEZ Attending Clinician Unavailable RAMESH BRAN Attending Clinician Unavailable YARIEL BRAY Admitting Clinician Unavailable Payers Payer Name Policy Type Policy Number Effective Date Expiration Date Taylor villafuerte MEDICARE PART A [id number] 2010 2024 AND B 00:00:00 00:00:00 Problems Condition Condition Condition Status Onset Resolution Last Treating Co mments Source Name Details Category Date Date Treatment Clinician Date Focal Focal Disease Active [place] epilepsy epilepsy 08-17 Health 00:00: 00 Pathologic [...] Source Exposure to 2022-08-06 2022-08-16 Not sure [facility] SARS-CoV-2 (event) 00:00:00 19:30:00 Tobacco use and 2022-02-15 2022-02-15 Smokeless tobacco [facility] exposure 00:00:00 00:00:00 non-user Alcohol intake 2022-02-15 2022-02-15 Lifetime [facility] 00:00:00 00:00:00 non-drinker (finding) Sex Ass[birth year] [facility] 00:00:00 00:00:00 Smoking Status Start Date Stop Date Source Never smoked tobacco [facility] Medications Ordered Filled Start Stop Current Ordering Indication Dosage Frequency Signature Comments Components Source Medication Medication Date Date Medication? Clinician (SIG) Name Name carvedilol Yes [id number] TAKE 1 U T (Coreg) 25 4-19 TABLET BY Heal th MG tablet 00:00: MOUTH 00 TWICE A DAY IN THE MORNING AND IN THE EVENING. TAKE WITH MEALS. levETIRAcet Yes [id number] 1500mg Q.5D Take 3 UT am (Keppra) 2-16 9106 tablets Healt h 500 MG 00:00: (1,500 mg tablet 00 total) by mouth in the morning and 3 tablets (1,500 mg total) in the evening. lacosamide 2022- No [id number] 100mg Q.5D Take 1 UT (Vimpat) 2-16 04-26 9106 tablet Health 100 MG 00:00: 00:00 (100 mg tablet 00 :00 total) by mouth in the morning and 1 tablet (100 mg total) before bedtime. hydrALAZINE 2022- No [id number] TAKE 1 AND UT (Apresoline 2-13 05-15 04/25 Health ) 50 MG 00:00: 04:59 TABLETS BY tablet 00 :00 MOUTH 2 TIMES A DAY gabapentin Yes [id number] 100mg Q.[id number] Take 1 UT (Neurontin) 2-10 9106 [id number] capsule Health 100 MG 00:00: 3D (100 mg capsule 00 total) by mouth in the morning and 1 capsule (100 mg total) at noon and 1 capsule (100 mg total) in the evening. lacosamide Yes [id number] 100mg Q.5D Take 1 UT (Vimpat) 1-27 9106 tablet Health 100 MG 00:00: (100 mg tablet 00 total) by mouth in the morning and 1 tablet (100 mg total) before bedtime. amLODIPine 2021-04 Yes [id number] TAKE 1 U T (Norvasc) 1-21 TABLET BY Healt h 10 MG 00:00: MOUTH 1 tablet 00 TIME EACH DAY. lisinopril 2021-04 Yes [id number] 10mg QD Take 1 U T 10 MG 1-09 tablet (10 Health tablet 00:00: mg total) 00 by mouth 1 (one) time each day. Blood 2021-04 Yes [id number] Check BP UT Pressure 0-25 daily Health Monitor kit 00:00: 00 methocarbam Yes [id number] 500mg Q.[id number] Take 1 UT ol 801 9106 [id number] tablet Health (Robaxin) 00:00: 3D (500 mg 500 MG 00 total) by tablet mouth in the morning and 1 tablet (500 mg total) at noon and 1 tablet (500 mg total) in the evening. Do all this for 14 days. glimepiride Yes [id number] 2mg Take 1 UT (Amaryl) 2 4-27 tablet (2 Heal th MG tablet 00:00: mg total) 00 by mouth 1 (one) time each day before breakfast. allopurinol Yes 300mg QD Take 300 U T (Zyloprim) 4-20 mg by Health 300 MG 12:24: mouth 1 tablet 32 (one) time each day. Procedures This patient has no known procedures. Encounters Start End Encounter Admission Attending Care Care Encounter Source Date/Time Date/Time Type Type Clinicians Facility Department ID 2022-08-18 Outpatient [facility] [id number] [place] 10:05:46 [id number] [facility] 2022-08-17 Outpatient [facility] [id number] [place] 13:41:22 [id number] [facility] 2022-08-16 Outpatient [facility] [id number] [place] 19:59:21 [id number] [facility] 2022-08-03 Outpatient [facility] [id number] [place] 15:58:21 [id number] [facility] 2022-02-22 Outpatient [facility] [id number] [place] 14:35:57 [id number] [facility] 2022-02-15 Outpatient [facility] [id number] [place] 14:03:39 [id number] [facility] 2021-09-12 Outpatient VALERI, [facility] [id number] [place] 01:03:08 LON [id number] [facility] 2021-09-03 Outpatient [facility] [id number] [place] 13:01:47 [id number] [facility] 2021-08-11 Outpatient JAMES, [facility] [id number] [place] 10:03:41 COUNTS INCLUDE 234 BEDS AT THE [facility] [id number] [facility] 2021-08-03 Outpatient [facility] [id number] [place] 11:03:02 [id number] [facility] 2021-08-02 Outpatient [facility] [id number] [place] 09:37:02 [id number] [facility] 2021-07-14 Outpatient [facility] [id number] [place] 13:45:[id number] [place] [address] 2021-06-11 Outpatient JAMES, [facility] [id number] [place] 15:41:00 [facility] 2023-08-21 2023-08-21 Outpatient DAMARIS, [facility] [id number] [place] 13:00:00 13:00:[address] [facility] 2022-08-17 2022-08-17 [facility] [id number] [place] 14:00:00 14:27:53 [facility] [id number] [facility] [id number] 2022-02-22 2022-02-22 Outpatient JAMES, [facility] [id number] [place] 13:00:00 13:00:00 [facility] 2022-02-15 2022-02-15 Outpatient JAMES, [facility] [id number] [place] 14:30:00 14:54:11 [facility] 2021-06-04 2021-06-16 Inpatient Bijan BRAN, [facility] [id number] [facility] 22:12:00 17:10:00 RAMESH Results This patient has no known results.
--- NOTE | 2023-03-14 20:19 | RAD REPORT ---
EXAM DESCRIPTION: CT - Ct Stroke Brain Wo Cont - 03/14/2023 8:09 pm CLINICAL HISTORY: STROKE ALERT COMPARISON: Head Brain Wo Cont dated 11/29/2022; Head Brain Wo Cont dated 11/13/2022 TECHNIQUE: All CT scans are performed using dose optimization technique as appropriate and may inclu de automated exposure control or mA/KV adjustment according to patient size. FINDINGS: No intracranial hemorrhage, hydrocephalus or extra-axial fluid collection.No areas of brai n edema or evidence of midline shift. Mild to moderate chronic small vessel ischemic changes. The paranasal sinuses and mastoids are clear. The calvarium is intact. IMPRESSION: No acute intracranial abnormality. Discussed with Yudy Pedro by Dr. Frey at 0804 on 03/14/23
[2023-03-14 20:31] LABS: Absolute Lymphocytes (CBC) 0.7 K/uL (0.7-4.9); Hematocrit 40.6 % (36.0-45.0); Lymphocytes % 3.7 % (15.3-44.8); MCV 88.5 fL (80-100); MPV 6.8 fL (7.6-11.3); Platelets 242 thou/uL (152-406); RBC Red Blood Cell Count 4.59 M/uL (3.86-4.86)
[2023-03-14 20:40] LABS: Protime INR 1.11
--- NOTE | 2023-03-14 20:45 | RAD REPORT ---
EXAM DESCRIPTION: RAD - Chest Single View - 03/14/2023 8:21 pm CLINICAL HISTORY: AMS COMPARISON: Chest Single View dated 12/20/2022; Chest Single View dated 12/13/2022; Chest Single View dated 11/30/2022; Chest Single View dated 11/29/2022; Stone Protocol dated 12/13/2022 FINDINGS: Lines: None. Lungs: No evidence of edema or pneumonia. Pleural: No significant pleural effusions or pneumothorax. Cardiac: The heart size is within normal limits. Mediastinum: Within normal limits. Bones: No acute fractures. Other: None IMPRESSION: No acute cardiopulmonary disease.
[2023-03-14] MEDS ORDERED: ACETAMINOPHEN 650MG/RECT SUPP PR ONE (20:49)
[2023-03-14] MEDS ORDERED: ENOXAPARIN 100 MG/ML SYR SQ ONE (20:50)
[2023-03-14] MEDS ORDERED: FOLIC ACID 5 MG/ML VIAL ONE (20:51)
[2023-03-14 20:54] LABS: Albumin 2.8 g/dL (3.4-5.0); Bilirubin Direct 0.1 mg/dL (0-0.2); Bilirubin Indirect, Calculated 0.3 mg/dL (0.2-0.8); Bilirubin Total 0.4 mg/dL (0.2-1.0); Magnesium 1.9 mg/dL (1.6-2.4); Potassium 4.3 mEq/L (3.5-5.1); Protein, Total 7.2 g/dL (6.4-8.2); Troponin High Sensitivity 6.9 pg/mL (<58.9)
[2023-03-14 21:08] LABS: Blood Morphology Comment NOT SEEN (NOT SEEN); Platelet Estimate ADEQ
[2023-03-14] MEDS ORDERED: NA CHLORIDE 0.9% 100 ML ONE (21:15)
[2023-03-14] MEDS ORDERED: CEFEPIME 1 GM/VIAL ONE (21:15)
[2023-03-14 21:33] LABS: Specific Gravity 1.017 (1.005-1.030); Urine Bacteria None Seen /HPF (<20); Urine Bilirubin NEGATIVE (Negative); Urine Blood 1+ (Negative); Urine Clarity Extremely Turbid (Clear); Urine Color Yellow (Yellow); Urine Glucose NEGATIVE (Negative); Urine Protein 1+ (Negative); Urine Urobilinogen Normal (Normal); Urine WBC Clump Few /HPF (None Seen)
--- NOTE | 2023-03-14 21:39 | ER ---
Nurse's Notes [facility] Name: Maribell Coello Age: 77 yrs Sex: Female : 1945 Arrival Date: 03/14/2023 Time: 19:53 Bed 8 Private MD: Diagnosis: Sepsis, unspecified organism;Altered mental status, unspecified;renal insufficiency Presentation: 03/14 19:54 Chief complaint: EMS states: AMS X2 HRS. EMS REPORTS SON CALLED AND STATES SHE HAS HAD jj7 INCREASING AMS. THEY STATE SHE HAS HX OF STROKE BUT SOME CAN'T RECALL IF FACIAL DROOPING IS NEW OR FROM PREVIOUS STROKE. EMS STATE ANOTHER CREW WAS CALLED TO CHECK ON PT EARLIER. THEY STATED SHE WAS NOT ALTERED AND FINE SO THEY LEFT THE RESIDENCE. Coronavirus screen: At this time, the client does not indicate any symptoms associated with coronavirus-19. Ebola Screen: No symptoms or risks identified at this time. Initial Sepsis Screen: Does the patient meet any 2 criteria? Temp <36.0*C (96.8*F)) or > 38.3*C (100.9*F). Does the patient have a suspected source of infection? No. Patient's initial sepsis screen is negative. Risk Assessment: Do you want to hurt yourself or someone else? Patient reports no desire to harm self or others. Onset of symptoms was March 14, 2023 at 18:00. 19:54 Method Of Arrival: EMS: [facility] jj7 19:54 Acuity: ALBINO 2 jj7 Triage Assessment: 20:21 General: Appears uncomfortable, Behavior is calm, cooperative, appropriate for age. jj7 Neuro: Level of Consciousness is awake, alert, confused, Oriented to person, Cloud Solutions Architect are weak bilaterally Weakness in bilateral hand(s) arm(s) leg(s) foot/feet Gait is HASN'T WALKED IN ER. SON STATES SHE HASN'T WALKED SINCE YESTERDAY. Speech with expressive aphasia noted, Facial droop on left, Historical: - Allergies: 20:21 CITRIC ACID; jj7 - PMHx: 20:21 Cerebrovascular accident; Diabetes - NIDDM; Hypertension; Seizure; Ulcers; jj7 - Immunization history:: Adult Immunizations up to date. - Social history:: Smoking status: Patient denies any tobacco usage or history of. Patient/guardian denies using alcohol, street drugs. Screenin:55 Abuse screen: Denies threats or abuse. Nutritional screening: No deficits noted. jj7 Tuberculosis screening: No symptoms or risk factors identified. 21:45 [facility] Swallow Protocol Brief Cognitive Screen What is your name? Normal, Where are you jj7 right now? Abnormal: PT IS NOT SURE WHERE SHE IS. CONFUSED. What year is it? Abnormal: PT CAN NOT ANSWER THIS QUESTION. Oral Mechanism Examination 3 oz Water Swallow Challenge: Pt able to drink all water without stopping, coughing, choking or throat clearing: Yes MD Notified: Yudy Pedro GROUNDWATER CONSULTANT-C. 22:03 [facility] ED Fall Risk Assessment (Adult) History of falling in the last 3 months, jj7 including since admission No falls in past 3 months (0 pts) Confusion or Disorientation Yes (5 pts) Intoxicated or Sedated No (0 pts) Impaired Gait Yes (1 pt) Mobility Assist Device Used Yes (1 pt) Altered Elimination Yes (1 pt) Score/Fall Risk Level 3 or more points = High Risk Oriented to surroundings, Maintained a safe environment, Educated pt \T\ family on fall prevention, incl call for assistance when getting out of bed. Assessment: 19:55 Reassessment: SEE TRIAGE ASSESSMENT. PT TAKEN STRAIGHT TO CT AFTER REPORT FROM EMS. jj7 20:30 Reassessment: Patient and/or family updated on plan of care and expected duration. Pain jj7 level reassessed. Patient states symptoms have improved. 21:30 Reassessment: No changes from previously documented assessment. jj7 22:30 Reassessment: No changes from previously documented assessment. jj7 23:30 Reassessment: No changes from previously documented assessment. jj7 03/15 01:04 Reassessment: Patient and/or family updated on plan of care and expected duration. Pain jj7 level reassessed. 02:00 Reassessment: Patient appears in no apparent distress at this time. No changes from jw7 previously documented assessment. Patient and/or family updated on plan of care and expected duration. Pain level reassessed. Patient is alert, oriented x 3, equal unlabored respirations, skin warm/dry/pink. 03:15 Reassessment: Patient appears in no apparent distress at this time. No changes from jw7 previously documented assessment. Patient and/or family updated on plan of care and expected duration. Pain level reassessed. Patient is alert, oriented x 3, equal unlabored respirations, skin warm/dry/pink. Vital Signs: 03/14 19:54 BP 138 / 75; Pulse 87; Resp 17; Temp 102.2; Pulse Ox 96% ; Weight 104.33 kg; Height 5 jj7 ft. 2 in. ; 21:00 BP 141 / 67; Pulse 87; Resp 18; Pulse Ox 96% ; j7 21:57 BP 119 / 60; Pulse 85; Resp 16; Temp 101.9; Pulse Ox 96% ; j7 23:00 BP 124 / 59; Pulse 77; Resp 16; Temp 101; Pulse Ox 94% ; 7 03/15 00:00 BP 119 / 52; Pulse 76; Resp 20; Pulse Ox 96% ; j7 01:04 BP 122 / 69; Pulse 75; Resp 15; Pulse Ox 96% ; 7 01:35 Temp 99; jw7 02:00 BP 143 / 72; Pulse 83; Resp 22 S; Pulse Ox 96% on R/A; jw7 03:00 BP 150 / 65; Pulse 88; Resp 23 S; Pulse Ox 95% on R/A; jw7 03:49 BP 147 / 76; Pulse 86; Resp 21 S; Pulse Ox 95% on R/A; jw7 03/14 19:54 Body Mass Index 42.07 (104.33 kg, 157.48 cm) jj7 NIH Stroke Scale Scores: 03/14 19:58 NIHSS Score: 16 snw ED Course: 19:55 Patient has correct armband on for positive identification. Placed in gown. Bed in low jj7 position. Side rails up X2. Client placed on continuous cardiac and pulse oximetry monitoring. NIBP monitoring applied. monitoring manager on. 19:55 Maintain EMS IV. Dressing intact. Good blood return noted. Site clean \T\ dry. Gauge \T\ jj 7 site: 20 LEFT AC. 19:56 Patient arrived in ED. as6 19:57 [facility]ud[facility]C [facility] snw 19:57 Billy Webb MD is Attending Physician. snw 20:05 EKG done, by ED staff, reviewed by Yudy Pedro GROUNDWATER CONSULTANT-C. mb9 20:11 CT Stroke Brain w/o Contrast In Process Unspecified. EDMS 20:14 Annabel Dimas, RN is Primary Nurse. jj7 20:21 Triage completed. jj7 20:22 Arm band placed on. mb9 20:23 Stroke CXR 1 View In Process Unspecified. EDMS 20:32 Blood Culture Adult (2) Sent. jj7 20:32 Hepatic Function Sent. jj7 20:32 High Sensitivity Troponin Sent. jj7 20:33 Magnesium Sent. jj7 20:33 Protime (+inr) Sent. jj7 20:33 Ptt, Activated Sent. jj7 21:00 Inserted saline lock: 20 gauge in right antecubital area, using aseptic technique. jj7 Blood collected. 21:05 Blood Culture Adult (2) Sent. jj7 21:14 Urine collected: Bhatti catheter specimen, cloudy, Amount Returned: 100mL. Bhatti cath jj7 inserted, using sterile technique, 16 Fr., by az, balloon inflated, to gravity drainage, urine specimen collected. 21:38 Briana Humphrey MD is Hospitalizing Provider. snw 23:14 Lactate w/ 2H reflex if indic. Sent. jj7 03/15 03:39 Provided Education on: need for admit. [facility] 03:39 No provider procedures requiring assistance completed. Patient admitted, IV remains in jw7 place. 03:48 Attending Physician role handed off by Billy Webb MD sp4 03:48 Jose Thomas MD is Attending Physician. sp4 Administered Medications: 03/14 20:59 Drug: Enoxaparin Sub-Q 100 mg Sub-Q once Route: Sub-Q; Site: right lower abdomen; jj7 22:05 Follow up: Response: No adverse reaction jj7 20:59 Drug: foLIC Acid IVPB 1 mg IVPB once Route: IVPB; Site: right antecubital; jj7 21:10 Follow up: IV Status: Completed infusion jj7 22:05 Follow up: Response: No adverse reaction jj7 21:00 Drug: Acetaminophen GA Suppository 650 mg GA once Route: GA; jj7 22:05 Follow up: Response: Temperature is decreased jj7 21:10 Drug: Cefepime IVPB 1 grams IVPB at 200 ml/hr once over 30 mins; (mix in NS 100 mL) jj7 Route: IVPB; Rate: 200 ml/hr; Infused Over: 30 mins; Site: right antecubital; 21:42 Follow up: IV Status: Completed infusion jj7 Medication: 19:55 VIS not applicable for this client. jj7 Outcome: 21:38 Decision to Hospitalize by Provider. snw 03/15 03:39 Admitted to Med/surg accompanied by tech, via stretcher, room 215, jw7 Condition: stable Instructed on the need for admit, Demonstrated understanding of instructions, 03:51 Admitted to Med/surg Report called to NAZ PARR jj7 03:59 Patient left the ED. jj7 NIH Stroke Scale - NIH Stroke Score Date: 03/14/2023 Time: 19:58 Total Score = 16 10. Dysarthria (speech clarity - read or repeat words) - 1(Mild to Moderate) 11. Extinction and Inattention (visual/tactile/auditory/spatial/personal) - 1(Present) 1a. Level of Consciousness (LOC) - 0(Alert) 1b. Level of Consciousness (LOC) (Month \T\ Age) - 2(Neither) 1c. LOC Commands (Open \T\ Closes Eyes/Head Start Teacher) - 2(Neither) 2. Best Gaze (Lateral Gaze Paresis) - 0(Normal) 3. Visual Field Loss - 0(No visual loss) 4. Facial Palsy - 2(Partial paralysis) 5a. Left Arm: Motor (10-second hold) - 0(No drift) 5b. Right Arm: Motor (10-second hold) - 0(No drift) 6a. Left Leg: Motor (5-second hold - always test supine) - 3(No effort against gravity) 6b. Right Leg: Motor (5-second hold - always test supine) - 3(No effort against gravity) 7. Limb Ataxia (finger/nose \T\ heel/flaherty - test with eyes open) - 0(Absent) 8. Sensory Loss (pinprick arms/legs/face) - 0(Normal) 9. Best Language: Aphasia (description/naming/reading) - 2(Severe aphasia) Initials: snw Signatures: Dispatcher [employer] EDMS Yudy Pedro, LYNETTE-C GROUNDWATER CONSULTANT-Csnw Alex Patterson RN RN as6 Vanessa Salcedo RN RN jw7 Annabel Dimas RN RN jj7 Annelise Leahy RN RN mb9 Jose Thomas MD MD sp4 Corrections: (The following items were deleted from the chart) 03/14 20:29 19:55 Reassessment: SEE TRIAGE ASSESSMENT jj7 jj7 03/15 00:32 03/14 20:30 Reassessment: Patient states symptoms have improved. jj7 jj7
--- NOTE | 2023-03-14 21:39 | EDPHYS ---
Physician Documentation [facility] Name: Maribell Coello Age: 77 yrs Sex: Female : 1945 Arrival Date: 03/14/2023 Time: 19:53 Bed 8 Private MD: ED Physician Jose Thomas HPI: 03/14 21:39 This 77 yrs old Female presents to ER via EMS with complaints of AMS. snw 21:39 The patient presents with decreased mental status. Onset: The symptoms/episode snw began/occurred acutely, today, and became worse 2 hour(s) ago. Possible causes: CVA or TIA, head injury, low blood sugar, sepsis. Associated signs and symptoms: Pertinent positives: confusion, weakness, decreased responsiveness. Current symptoms: In the emergency department the patient's symptoms are unchanged from the initial presentation, despite EMS interventions. Patient's baseline: Neuro: alert and fully oriented, Motor: Pt ambulates with 4 point walker, Son states pt was ambulating and transferring on her own yesterday. today pt has not been out of her chair. EMS was called for decreased responsiveness. The patient has experienced similar episodes in the past. It is unknown whether or not the patient has recently seen a physician. 21:46 medications list obtained from hospital record, no blood thinners. snw Historical: - Allergies: 20:21 CITRIC ACID; jj7 - PMHx: 20:21 Cerebrovascular accident; Diabetes - NIDDM; Hypertension; Seizure; Ulcers; jj7 - Immunization history:: Adult Immunizations up to date. - Social history:: Smoking status: Patient denies any tobacco usage or history of. Patient/guardian denies using alcohol, street drugs. ROS: 21:39 Eyes: Negative for injury, pain, redness, and discharge, ENT: Negative for injury, snw pain, and discharge, Neck: Negative for injury, pain, and swelling, Cardiovascular: Negative for chest pain, palpitations, and edema, Respiratory: Negative for shortness of breath, cough, wheezing, and pleuritic chest pain, Abdomen/GI: Negative for abdominal pain, nausea, vomiting, diarrhea, and constipation, Back: Negative for injury and pain, : Negative for injury, bleeding, discharge, and swelling, 21:39 Constitutional: Positive for body aches, malaise, poor PO intake, 21:39 MS/extremity: Positive for weakness, 21:39 Neuro: Positive for altered mental status, weakness, Exam: 21:42 ENT: Nares patent. No nasal discharge, no septal abnormalities noted. Tympanic snw membranes are normal and external auditory canals are clear. Oropharynx with no redness, swelling, or masses, exudates, or evidence of obstruction, uvula midline. Mucous membranes moist. Neck: Trachea midline, no thyromegaly or masses palpated, and no cervical lymphadenopathy. Supple, full range of motion without nuchal rigidity, or vertebral point tenderness. No Meningismus. Chest/axilla: Normal chest wall appearance and motion. Nontender with no deformity. No lesions are appreciated. Cardiovascular: Regular rate and rhythm with a normal S1 and S2. No gallops, murmurs, or rubs. Normal PMI, no JVD. No pulse deficits. Respiratory: Lungs have equal breath sounds bilaterally, clear to auscultation and percussion. No rales, rhonchi or wheezes noted. No increased work of breathing, no retractions or nasal flaring. Abdomen/GI: Soft, non-tender, with normal bowel sounds. No distension or tympany. No guarding or rebound. No evidence of tenderness throughout. Back: No spinal tenderness. No costovertebral tenderness. Full range of motion. Skin: Warm, dry with normal turgor. Normal color with no rashes, no lesions, and no evidence of cellulitis. 21:42 Constitutional: The patient appears awake, listless, obese, smells of urine, 21:42 Head/face: Noted is not opening left eye, mild droop. 21:42 Eyes: Extraocular movements: intact throughout, 21:42 Musculoskeletal/extremity: Extremities: moving upper extremities but not lower, lilts to her side, Circulation is intact in all extremities. 21:42 Skin: Appearance: Color: dusky, diaper dermatitis, 21:42 Neuro: Orientation: Not oriented to Mentation: slow to respond, unable to follow commands, Motor: was only moving upper extremities on arrival, moving right leg later in ED stay, Gait: not tested. seizure activity, is not displayed by the patient, unable to answer questions, cannot tell me her name, age, does not follow commands, 21:47 Constitutional: The patient appears noted to have 102.2 on arrival snw Vital Signs: 19:54 BP 138 / 75; Pulse 87; Resp 17; Temp 102.2; Pulse Ox 96% ; Weight 104.33 kg; Height 5 [facility] ft. 2 in. ; 21:00 BP 141 / 67; Pulse 87; Resp 18; Pulse Ox 96% ; 7 21:57 BP 119 / 60; Pulse 85; Resp 16; Temp 101.9; Pulse Ox 96% ; 7 23:00 BP 124 / 59; Pulse 77; Resp 16; Temp 101; Pulse Ox 94% ; 7 03/15 00:00 BP 119 / 52; Pulse 76; Resp 20; Pulse Ox 96% ; 7 01:04 BP 122 / 69; Pulse 75; Resp 15; Pulse Ox 96% ; [facility] 01:35 Temp 99; 7 02:00 BP 143 / 72; Pulse 83; Resp 22 S; Pulse Ox 96% on R/A; 7 03:00 BP 150 / 65; Pulse 88; Resp 23 S; Pulse Ox 95% on R/A; 7 03:49 BP 147 / 76; Pulse 86; Resp 21 S; Pulse Ox 95% on R/A; jw7 03/14 19:54 Body Mass Index 42.07 (104.33 kg, 157.48 cm) [facility] NIH Stroke Scale Scores: 03/14 19:58 NIHSS Score: 16 sn MDM: 20:02 Patient medically screened. [facility] 21:36 Differential Diagnosis: CVA, electrolyte abnormality, hypoglycemia, intracranial bleed, snw sepsis, UTI, volume depletion. Data reviewed: vital signs, nurses notes. Management of patient was discussed with the following: Hospitalist: Dr. Lantigua. I considered the following discharge prescriptions or medication management in the emergency department Medications were administered in the Emergency Department. See MAR. Historians other than the Patient: Daughter/Son: Son. Counseling: I had a detailed discussion with the patient and/or guardian regarding the historical points, exam findings, and any diagnostic results supporting the discharge/admit diagnosis, the presence of at least one elevated blood pressure reading (>120/80) during this emergency department visit, lab results, radiology results, the need for further work-up and treatment in the hospital. Response to treatment: the patient's symptoms have mildly improved after treatment. 21:48 ED course: sepsis, +fever, Urine source, WBC 18+, no increase in Lactate, no snw hypotension. 03/14 19:57 Order name: CBC with Diff; Complete Time: 21:13 snw 03/14 19:57 Order name: Hepatic Function; Complete Time: 20:57 snw 03/14 19:57 Order name: High Sensitivity Troponin; Complete Time: 20:57 snw 03/14 19:57 Order name: Magnesium; Complete Time: 20:57 snw 03/14 19:57 Order name: Protime (+inr); Complete Time: 20:47 snw 03/14 19:57 Order name: Ptt, Activated; Complete Time: 20:47 snw 03/14 20:04 Order name: Blood Culture Adult (2) [facility] 03/14 20:04 Order name: Lactate w/ 2H reflex if indic.; Complete Time: 20:52 snw 03/14 20:04 Order name: Urine Culture [facility] 03/14 20:04 Order name: Urine W/Microscopic (UAM); Complete Time: 21:48 snw 03/14 20:04 Order name: Blood Culture Adult (2) [facility] 03/14 20:27 Order name: Comprehensive Metabolic Panel; Complete Time: 20:57 EDPR 03/14 20:33 Order name: Flu; Complete Time: 21:27 [facility] 03/14 20:33 Order name: COVID-19 SARS RT PCR; Complete Time: 21:27 [facility] 03/14 21:08 Order name: Manual Differential; Complete Time: 21:13 EDMS 03/14 22:31 Order name: Lactate w/ 2H reflex if indic.; Complete Time: 00:00 EDMS 03/14 22:31 Order name: Urinalysis w/ reflexes EDMS 03/14 22:31 Order name: Basic Metabolic Panel EDMS 03/14 22:31 Order name: Basic Metabolic Panel; Complete Time: 02:20 EDMS 03/14 22:31 Order name: CBC with Automated Diff EDMS 03/14 22:31 Order name: CBC with Automated Diff; Complete Time: 02:54 EDMS 03/14 22:31 Order name: Magnesium EDMS 03/14 22:31 Order name: Magnesium; Complete Time: 02:20 EDMS 03/14 22:31 Order name: Phosphorus EDMS 03/14 22:31 Order name: Phosphorus; Complete Time: 02:20 EDMS 03/14 22:31 Order name: Thyroid Stimulating Hormone EDMS 03/14 22:31 Order name: Thyroid Stimulating Hormone; Complete Time: 02:20 EDMS 03/15 02:49 Order name: Manual Differential; Complete Time: 02:54 EDMS 03/14 19:57 Order name: CT Stroke Brain w/o Contrast; Complete Time: 20:33 snw 03/14 19:57 Order name: Stroke CXR 1 View; Complete Time: 20:47 snw 03/14 19:57 Order name: EKG; Complete Time: 19:58 snw 03/14 22:31 Order name: Physical Therapy Consult EDMS 03/14 19:57 Order name: Accucheck; Complete Time: 21:36 snw 03/14 19:57 Order name: Cardiac monitoring; Complete Time: 20:32 snw 03/14 19:57 Order name: EKG - Nurse/Tech; Complete Time: 20:32 snw 03/14 19:57 Order name: IV Saline Lock; Complete Time: 20:32 snw 03/14 19:57 Order name: Labs collected and sent; Complete Time: 20:32 snw 03/14 19:57 Order name: NPO; Complete Time: 20:32 snw 03/14 19:57 Order name: O2 Per Protocol; Complete Time: 20:32 snw 03/14 19:57 Order name: O2 Sat Monitoring; Complete Time: 20:32 snw 03/14 19:57 Order name: Stroke Swallow Screen; Complete Time: 21:45 snw 03/14 20:04 Order name: IV Saline Lock - Large Bore; Complete Time: 21:17 snw 03/14 20:04 Order name: Vital Signs; Complete Time: 21:17 snw 03/14 20:04 Order name: Bhatti; Complete Time: 21:17 snw EC:35 Rate is 89 beats/min. Rhythm is regular. QT interval is normal. Clinical impression: snw Abnormal EKG without significant change. Administered Medications: 20:59 Drug: Enoxaparin Sub-Q 100 mg Sub-Q once Route: Sub-Q; Site: right lower abdomen; jj7 22:05 Follow up: Response: No adverse reaction jj7 20:59 Drug: foLIC Acid IVPB 1 mg IVPB once Route: IVPB; Site: right antecubital; 21:10 Follow up: IV Status: Completed infusion 22:05 Follow up: Response: No adverse reaction 21:00 Drug: Acetaminophen SC Suppository 650 mg SC once Route: SC; 22:05 Follow up: Response: Temperature is decreased 21:10 Drug: Cefepime IVPB 1 grams IVPB at 200 ml/hr once over 30 mins; (mix in NS 100 mL) Route: IVPB; Rate: 200 ml/hr; Infused Over: 30 mins; Site: right antecubital; 21:42 Follow up: IV Status: Completed infusion Disposition: 03/15 03:49 Co-signature as Attending Physician, Jose Thomas MD I agree with the assessment sp4 and plan of care. I reviewed the patient's care provided by the Advanced Practice Provider and agree with the diagnosis and treatment plan. Disposition Summary: 03/14/23 21:38 Hospitalization Ordered Notes: Hospitalization Status: Inpatient Admission snw Provider: Briana Humphrey snneela Location: Telemetry/MedSur (Inpatient) snw Condition: Fair snw Problem: new snw Symptoms: have improved snw Bed/Room Type: Standard snw Room Assignment: 215(03/15/23 03:31) mc5 Diagnosis - Sepsis, unspecified organism snw - Altered mental status, unspecified snw - renal insufficiency snw Forms: - Medication Reconciliation Form snw - SBAR form snw - Leadership Thank You Letter snw NIH Stroke Scale - NIH Stroke Score Date: 03/14/2023 Time: 19:58 Total Score = 16 10. Dysarthria (speech clarity - read or repeat words) - 1(Mild to Moderate) 11. Extinction and Inattention (visual/tactile/auditory/spatial/personal) - 1(Present) 1a. Level of Consciousness (LOC) - 0(Alert) 1b. Level of Consciousness (LOC) (Month \T\ Age) - 2(Neither) 1c. LOC Commands (Open \T\ Closes Eyes/Signals Analyst) - 2(Neither) 2. Best Gaze (Lateral Gaze Paresis) - 0(Normal) 3. Visual Field Loss - 0(No visual loss) 4. Facial Palsy - 2(Partial paralysis) 5a. Left Arm: Motor (10-second hold) - 0(No drift) 5b. Right Arm: Motor (10-second hold) - 0(No drift) 6a. Left Leg: Motor (5-second hold - always test supine) - 3(No effort against gravity) 6b. Right Leg: Motor (5-second hold - always test supine) - 3(No effort against gravity) 7. Limb Ataxia (finger/nose \T\ heel/flaherty - test with eyes open) - 0(Absent) 8. Sensory Loss (pinprick arms/legs/face) - 0(Normal) 9. Best Language: Aphasia (description/naming/reading) - 2(Severe aphasia) Initials: snw Signatures: Dispatcher [employer] EDMS Yudy Pedro, VOCATIONAL TRAINER-C VOCATIONAL TRAINER-Csnw Annabel Dimas, RN RN jj7 Jose Thomas MD MD sp4 Malena Ch [email or web address] Corrections: (The following items were deleted from the chart) 03/14 20: 19:58 BASIC METABOLIC PANEL+C.LAB.BRZ ordered. EDMS EDMS : 20:05 COMPREHENSIVE METABOLIC PANEL+C.LAB.BRZ ordered. EDMS EDMS 21:03 20:14 Neck Angio+CT.RAD.BRZ ordered. EDMS EDMS 21:04 20:14 Head Angio+CT.RAD.BRZ ordered. EDMS EDMS 03/15 03:31 03/14 21:38 snw [email or web address]
[2023-03-14] MEDS ORDERED: ONDANSETRON 4 MG/2 ML VIAL IV PRN (22:22)
[2023-03-14] MEDS ORDERED: D50W 25 GM/50 ML SYRINGE IV PRN (22:22)
[2023-03-14] MEDS ORDERED: GLUCAGON 1 MG/VIAL IM PRN (22:22)
--- NOTE | 2023-03-14 22:51 | P.HP ---
Certification for Inpatient Patient admitted to: Inpatient With expected LOS: >2 Midnights Practitioner: I am a practitioner with admitting privileges, knowledge of patient current condition, hospital course, and medical plan of care. Services: Services provided to patient in accordance with Admission requirements found in Title 42 Section 412.3 of the Code of Federal Regulations Patient History Date of Service: 03/14/23 Reason for admission: Altered mental status History of Present Illness: 77-year-old woman with a history of seizure disorder, diabetes and hypertension was brought to the emergency department by EMS accompanied by the son with a complaint of altered mental status of onset this afternoon. Son reported patient became confused this afternoon, refused to eat her difficulty giving her medications. Son reports progressive confusion and weakness so he called EMS and patient was brought to the emergency department. Patient was conversant but confused during my examination in the ED, oriented only to self. Fever of 102 recorded in the ED. Patient with significant leukocytosis and meets criteria for sepsis. Sepsis protocol initiated in the ED. UA suggest UTI. Patient given IV fluid and IV antibiotics. She is admitted for further management. Allergies citric acid Allergy (Verified 12/14/22 02:45) Hives/Rash Home Medications: Gabapentin 100 mg PO TID 12/02/22 levETIRAcetam [Levetiracetam] 3 tab PO TID 12/02/22 Lacosamide 1 tab PO BID 12/14/22 Aspirin Chewable [Aspirin Chewable*] 81 mg PO DAILY #30 tab.chew 12/15/22 Docusate/Senna [Senokot-S*] 1 tab PO BID #60 tab 12/15/22 traMADol HCL [Ultram*] 50 mg PO Q6H PRN 12/24/22 Glimepiride [Amaryl*] 4 mg PO DAILY #60 tab 01/04/23 Magnesium Oxide [Mag 0X*] 400 mg PO BID #60 tab 01/04/23 Amlodipine [Norvasc*] 5 mg PO BID #30 tab 01/05/23 Carvedilol [Coreg] 12.5 mg PO BID #30 01/05/23 Hydralazine [Apresoline*] 25 mg PO BID #60 tab 01/05/23 Insulin Glargine,Hum.rec.anlog [Insulin Glargine] 15 unit SQ BEDTIME #1 vial 01/05/23 Lisinopril [Zestril] 5 mg PO BID #30 01/05/23 - Past Medical/Surgical History Diabetic: Yes -: HTN -: IDDM II -: CVA -: Seizures -: Proteinuria/ Hx GRACIE (Dr. Alonso/ Dr. Sesay) -: Dental surgery -: finger surgery -: cataract - Family History Family History: Reviewed- Non-Contributory - Social History Alcohol use: No CD- Drugs: No Caffeine use: Yes Review of Systems Other: No reported diarrhea or constipation. No reported vomiting. I am not able to obtain full review of systems due to altered mental status. Physical Examination - Physical Exam General: In no apparent distress, Confused, Other HEENT: Atraumatic, PERRLA, Mucous membr. moist/pink, Sclerae nonicteric Neck: Supple, JVD not distended Respiratory: Clear to auscultation bilaterally, Normal air movement Cardiovascular: No edema, Regular rate/rhythm, Normal S1 S2 Capillary refill: <2 Seconds Gastrointestinal: Normal bowel sounds, Soft and benign, Non-distended, Other (Obese abdomen) Musculoskeletal: No swelling, No tenderness Integumentary: No erythema, No cyanosis Neurological: Normal speech, Other (No focal motor deficit) Lymphatics: No axilla or inguinal lymphadenopathy - Studies Laboratory Data (last 24 hrs) 03/14/23 03/14/23 03/14/23 20:14 20:14 20:14 WBC 18.10 H Hgb 13.7 Hct 40.6 Plt Count 242 PT 12.2 INR 1.11 APTT 25.4 Sodium 132 L Potassium 4.3 BUN 39 H Creatinine 2.24 H Glucose 224 H Magnesium 1.9 Total Bilirubin 0.4 AST 13 L ALT 19 Alkaline Phosphatase 83 03/14/23 20:04 WBC Hgb Hct Plt Count PT INR APTT Sodium Cancelled Potassium Cancelled BUN Cancelled Creatinine Cancelled Glucose Cancelled Magnesium Total Bilirubin Cancelled AST Cancelled ALT Cancelled Alkaline Phosphatase Cancelled Microbiology Data (last 24 hrs): 03/14/23 20:35 Nasopharnyx Influenza Type A Antigen Screen - Final 03/14/23 20:35 Nasopharnyx Influenza Type B Antigen Screen - Final Assessment and Plan - Problems (Diagnosis) (1) Acute metabolic encephalopathy Current Visit: Yes Status: Acute (2) Acute cystitis without hematuria Current Visit: Yes Status: Acute (3) Seizure disorder Current Visit: Yes Status: Acute (4) Diabetes mellitus type 2 in obese Current Visit: Yes Status: Acute (5) Sepsis Current Visit: No Status: Acute Qualifiers: Sepsis acute organ dysfunction status: with acute organ dysfunction Severe sepsis acute organ dysfunction type: acute renal failure - Plan Acute metabolic encephalopathy Sepsis Acute cystitis without hematuria Secondary to sepsis and UTI Admit patient to the medical floor. Sepsis protocol initiated in the ED. Patient does not meet criteria for severe sepsis IV hydration Broad-spectrum antibiotic-IV cefepime and IV vancomycin. Follow urine culture and blood cultures. Diabetes mellitus type 2 Insulin sliding scale Hold home glimepiride due to poor oral intake. Fingerstick glucose checks. Seizure disorder Resume home antiseizure medications. Essential hypertension Monitor blood pressure closely Resume home antihypertensives in am. GRACIE Likely secondary to dehydration. IV hydration. Monitor renal function. DVT prophylaxis: Heparin subQ Disposition: Anticipated in 3 to 4 days of inpatient stay. Disposition to home with home health. - Advance Directives Does patient have a Living Will: No Does patient have a Durable POA for Healthcare: No
[2023-03-15] MEDS: HEPARIN 5000 UNIT/ML 1 ML VIAL SQ SCH ×4 (01:00→15:50)
[2023-03-15 02:01] LABS: Absolute Lymphocytes (CBC) 1.1 K/uL (0.7-4.9); Hematocrit 41.1 % (36.0-45.0); Lymphocytes % 5.6 % (15.3-44.8); MCV 89.6 fL (80-100); MPV 7.5 fL (7.6-11.3); Platelets 220 thou/uL (152-406); RBC Red Blood Cell Count 4.59 M/uL (3.86-4.86)
[2023-03-15 02:14] LABS: Magnesium 1.8 mg/dL (1.6-2.4); Phosphorus 3.3 mg/dL (2.5-4.9); Potassium 3.9 mEq/L (3.5-5.1); Thyroid Stimulating Hormone 0.228 uIU/mL (0.358-3.740)
[2023-03-15 02:49] LABS: Blood Morphology Comment NOT SEEN (NOT SEEN); Platelet Estimate ADEQ
[2023-03-15] MEDS: NA CHLORIDE 0.9% 1,000 ML IV SCH ×2 (04:28→14:40)
[2023-03-15] MEDS ORDERED: VANCOMYCIN 1 GM in NA CHLORIDE 0.9% 250 ML IVPB SCH (07:00)
[2023-03-15] MEDS ORDERED: VANCOMYCIN 1.5 GM in NA CHLORIDE 0.9% 500 ML IVPB ONE (07:00)
[2023-03-15] MEDS: INSULIN REGULAR (HUMAN) 100 UNIT/ML SQ SCH ×8 (07:30→21:00)
[2023-03-15] MEDS ORDERED: D10W 125 ML IV PRN (07:43)
--- NOTE | 2023-03-15 08:58 | P.CNS ---
Date of Consult: 03/15/23 Reason for Consult: sepsis, recurrent UTI Chief Complaint: Altered mental status History of Present Illness: Patient is a 77 yo female with a past medical history of seizure disorder, diabetes mellitus type II, hypertension and prior CVA who presented to the ED with complaints of altered mental status. Patient was found to have fever of 102, significant leukocytosis and met criteria for sepsis. Urinalysis suggestive of UTI. Cultures obtained, patient was started on empiric antibiotics. Infectious disease was consulted. Allergies citric acid Allergy (Verified 12/14/22 02:45) Hives/Rash Home medications list reviewed: Yes Home Medications: Gabapentin 100 mg PO TID 12/02/22 levETIRAcetam [Levetiracetam] 3 tab PO BID 12/02/22 Lacosamide 1 tab PO BID 12/14/22 Aspirin Chewable [Aspirin Chewable*] 81 mg PO DAILY #30 tab.chew 12/15/22 Docusate/Senna [Senokot-S*] 1 tab PO BID #60 tab 12/15/22 traMADol HCL [Ultram*] 50 mg PO Q6H PRN 12/24/22 Magnesium Oxide [Mag 0X*] 400 mg PO BID #60 tab 01/04/23 Amlodipine [Norvasc*] 5 mg PO BID #30 tab 01/05/23 Carvedilol [Coreg] 12.5 mg PO BID #30 01/05/23 Hydralazine [Apresoline*] 25 mg PO BID #60 tab 01/05/23 Insulin Glargine,Hum.rec.anlog [Insulin Glargine] 15 unit SQ BEDTIME #1 vial 01/05/23 Lisinopril [Zestril] 5 mg PO BID #30 01/05/23 Glimepiride [Amaryl*] 2 mg PO DAILY 03/15/23 - Past Medical/Surgical History Diabetic: Yes -: HTN -: IDDM II -: CVA -: Seizures -: Proteinuria/ Hx GRACIE (Dr. Alonso/ Dr. Sesay) -: Dental surgery -: finger surgery -: Cataract -: Eye lid surgery - Family History Mother Medical History: Cancer Notes: Colon Father Medical History: Heart disease Brother Medical History: Cancer Notes: Pancreatic - Social History Smoking Status: Unknown if ever smoked Alcohol use: No CD- Drugs: No Caffeine use: Yes Review of Systems 10-point ROS is otherwise unremarkable General: Weakness Physical Examination Temp Pulse Resp BP Pulse Ox 100.3 F 85 18 115/56 L 93 03/15/23 04:00 03/15/23 04:00 03/15/23 04:00 03/15/23 04:00 03/15/23 04:00 General: Oriented x1, Demented, Confused HEENT: Atraumatic, Normocephalic Neck: Supple, JVD not distended Respiratory: Clear to auscultation bilaterally, Normal air movement Cardiovascular: Normal S1 S2, Edema (BLE) Gastrointestinal: Normal bowel sounds, Soft and benign Integumentary: No rashes Urinary: Bhatti catheter Laboratory Data - Reviewed Microbiology Data - Reviewed Imagings Data: - Reviewed Conclusions/Impression: Problem List Sepsis secondary to Complicated Urinary Tract Infection Acute Kidney Injury Diabetes Mellitus type II Hypertension Seizure Disorder Sepsis secondary to Complicated Urinary Tract Infection - Urinalysis 03/14: LE 500, RBC 11-20, WBC >50 - Urine culture 03/14: pending - Blood cultures 03/14: pending - recent history of Enterococcus faecium UTI on 12/25/22 - Currently on Cefepime and Vancomycin (started 03/15) - Leukocytosis with left shift (WBC 20.2) - 24 Tmax = 102.2 F - CT abdomen pelvis wo contrast 03/15: "Progressive hydronephrosis, now moderate to severe, with proximal hydroureter. Two adjacent calculi just past the ureteropelvic junction, up to 7 millimeter in size." - Urologist Dr. Gonzalez consulted. Pending stent placement. Recommendations - Continue current antibiotics for now. - Awaiting final blood and urine culture results. Will adjust antibiotics as appropriate - Monitor WBC and fever trends. PRN tylenol - Strict blood glucose control. Goal <180 - Nutritional supplementation - Renally dose medications - Seizure precautions - Continue all supportive care Case discussed with Ephraim Leggett Physician Review: Patient Assessed, Agree with Above Assessment and Plan
[2023-03-15] MEDS ORDERED: VANCOMYCIN 1.5 GM in NA CHLORIDE 0.9% 500 ML IVPB SCH (09:00)
--- NOTE | 2023-03-15 09:41 | P.PN ---
Date of Service: 03/15/23 Subjective: Oriented x2-3 at baseline Denies pain Son at bedside providing history ROS: 10 point ROS as noted above, otherwise negative Physical exam GEN: Alert, oriented x2, NAD HEENT: Normal conjunctiva, sclera anicteric CV: Regular rate and rhythm, no edema Pulm: Nonlabored respirations on room air ABD: Soft, nontender, nondistended MSK: No joint tenderness Integumentary: No rashes Neuro: Normal speech, normal affect Vitals reviewed Problem List Acute metabolic encephalopathy Severe sepsis secondary toAcute cystitis without hematuria IV hydration Broad-spectrum antibiotic-IV cefepime and IV vancomycin. Follow urine culture and blood cultures. ID consult given frequent recurrent infections Diabetes mellitus type 2 Insulin sliding scale Hold home glimepiride due to poor oral intake. Fingerstick glucose checks. Seizure disorder Resume home antiseizure medications. Essential hypertension Monitor blood pressure closely Resume home antihypertensives in am. GRACIE likely secondary to sepsis versus dehydration Did not improve overnight with IV fluids Nephrology consult Noncontrast CT abdomen pelvis to eval for possible hydronephrosis/obstruction IV hydration. Monitor renal function. DVT prophylaxis: Heparin subQ Disposition: Anticipated in 3 to 4 days of inpatient stay. Disposition to home with home health Time Spent Managing Pts Care (In Minutes): 35 <Braden Cruz - Last Filed: 03/15/23 09:38> Patient seen and examined on rounds today. Continues with high fever review of EMR noted prior stone at right renal pelvis given recurrent UTIs, prior stone, GRACIE, obtained a CT abd/pelvis found to have obstructing stone with hydroureteronephrosis I called and spoke with Dr. Gonzalez who was fortunately available to assist with this patient's care and plans to take patient to OR for urgent/emergent stenting continue broad spectrum antibiotics plan of care otherwise as noted above by SACHA Cruz <Faraz Urrutia - Last Filed: 03/15/23 21:55>
[2023-03-15] MEDS: ACETAMINOPHEN 325 MG TABLET PO PRN (10:02)
[2023-03-15] MEDS ORDERED: PNEUMOCOCCAL VACCINE 0.5 ML IMVAC ONE (12:00)
[2023-03-15] MEDS ORDERED: INFLUENZA VACCINE (for 6+ mo) 0.5 ML DOSE IMVAC ONE (12:00)
--- NOTE | 2023-03-15 12:27 | RAD REPORT ---
EXAM DESCRIPTION: CT - Abdomen Pelvis Wo Contrast - 03/15/2023 10:19 am CLINICAL HISTORY: UTI, GRACIE, hx renal stones COMPARISON: Stone Protocol dated 12/13/2022; Abdomen Pelvis Wo Contrast dated 11/13/2022 TECHNIQUE: Thin cut axial CT imaging of the abdomen and pelvis was performed without IV contrast. Mu ltiplanar reformats were generated and reviewed. All CT scans are performed using dose optimization technique as appropriate and may include automated exposure control or mA/KV adjustment according to patient size. FINDINGS: No suspicious findings in the lung bases. The liver, spleen, adrenal glands, and pancreas show no suspicious findings. Gallbladder and biliary tree are also without suspicious finding. Symmetric renal contour, without suspicious parenchymal findings within limits of noncontrast techniq ue. Moderate to severe right hydronephrosis and proximal hydroureter. Two adjacent calculi at the lev el of obstruction, largest measuring up to 7 millimeter. No dilated bowel loops or bowel wall thickening. No free air, free fluid or inflammatory stranding. D iastasis recti. Mild colonic diverticulosis. No hernia, mass or bulky lymphadenopathy. The urinary bl adder is decompressed with Bhatti catheter in place. No suspicious bony findings. IMPRESSION: Progressive hydronephrosis, now moderate to severe, with proximal hydroureter. Two adjac ent calculi just past the ureteropelvic junction, up to 7 millimeter in size. Other incidental findings as above. The findings were communicated to Braden Cruz on 03/15/2023 at 12:23 hours.
[2023-03-15] MEDS ORDERED: FENTANYL CITR 100 MCG/2 ML ONE (13:04)
[2023-03-15] MEDS ORDERED: propofoL 200 MG/20 ML VIAL IV ONE (13:04)
[2023-03-15] MEDS ORDERED: LIDOCAINE 1% MPF 5 ML VIAL ONE (13:05)
[2023-03-15] MEDS ORDERED: ROCURONIUM 50 MG/5 ML VIAL IV ONE (13:08)
[2023-03-15] MEDS ORDERED: propofoL 1,000 MG/100 ML VIAL IV ONE (13:12)
[2023-03-15] MEDS ORDERED: SUCCINYLCHOLINE 20 MG/ML (10 ML) IV ONE (13:12)
--- NOTE | 2023-03-15 13:18 | P.CNS ---
Date of Consult: 03/15/23 Reason for Consult: Obstructive pyelonephritis Requesting Physician: Faraz Urrutia Chief Complaint: Altered mental status History of Present Illness: 77-year-old woman with IDDM2, hypertension, history of seizure disorder and hemorrhagic CVA in 05/2021 on aspirin was admitted yesterday evening after she was found nonresponsive by her son who had her transported via EMS. Her son is morbidly obese and essentially wheelchair bound. He had noted progressive confusion and weakness. The patient denies any particular pain, specifically no flank pain. She was found to be febrile to 102 which persisted through the night. She denies any prior history of nephroureterolithiasis. Past medical history: As above She lists an allergy to citric acid causes hives Examination: Patient awake, alert but slightly somnolent, oriented x 2.5 and in no acute distress No dyspnea or sign of respiratory distress with lying down No cervical/supraclavicular adenopathy or thyromegaly Abdomen soft, nontender, nondistended No lower extremity tenderness Laboratory analyses from 03/14/2023 and 03/15/2023: WBC 18.1 --20.2, hemoglobin 13.8, platelets 220, INR 1.11, BUN/creatinine 39/2.24 --- 38/2.35, UA micro 2+ leukocyte Estrace, > 50 WBCs per hpf, 11-20 RBCs per hpf Given the acute kidney injury observed and the patient's history of prior kidney stone, CT scan was obtained this morning and I reviewed the images as below documented: Mid proximal ureterolithiasis causing obstruction and moderate right-sided hydronephrosis. CT - Abdomen Pelvis Wo Contrast - 03/15/2023 10:19 am CLINICAL HISTORY: UTI, GRACIE, hx renal stones COMPARISON: Stone Protocol dated 12/13/2022; Abdomen Pelvis Wo Contrast dated 11/13/2022 TECHNIQUE: Thin cut axial CT imaging of the abdomen and pelvis was performed without IV contrast. Multiplanar reformats were generated and reviewed. All CT scans are performed using dose optimization technique as appropriate and may include automated exposure control or mA/KV adjustment according to patient size. FINDINGS: No suspicious findings in the lung bases. The liver, spleen, adrenal glands, and pancreas show no suspicious findings. Gallbladder and biliary tree are also without suspicious finding. Symmetric renal contour, without suspicious parenchymal findings within limits of noncontrast technique. Moderate to severe right hydronephrosis and proximal hydroureter. Two adjacent calculi at the level of obstruction, largest measuring up to 7 millimeter. No dilated bowel loops or bowel wall thickening. No free air, free fluid or inflammatory stranding. Diastasis recti. Mild colonic diverticulosis. No hernia, mass or bulky lymphadenopathy. The urinary bladder is decompressed with Bhatti catheter in place. No suspicious bony findings. IMPRESSION: Progressive hydronephrosis, now moderate to severe, with proximal hydroureter. Two adjacent calculi just past the ureteropelvic junction, up to 7 millimeter in size. Assessment and recommendation: 77-year-old woman with IDDM2, hypertension, history of seizure disorder and hemorrhagic CVA in 05/2021 on aspirin admitted with AMS, SIRS/suspected sepsis, and right hydronephrosis secondary to obstructive ureterolithiasis [address] -Patient on cefepime and vancomycin, continue -Recommendation for urgent decompression made to patient and her son. Cystoscopy with right retrograde pyelography and ureteral stent placement tamiko mmended. Risk of the procedure discussed to include ureteral stricture/injury, urethral stricture, failure to achieve desired approach and need for percutaneous nephrostomy tube placement. Need for subsequent removal of the foreign body was discussed in detail as well as the need for definitive delayed management of her obstructive ureterolithiasis. -Consent obtained at bedside -Patient scheduled for cystoscopy with right retrograde pyelography and right ureteral stent placement today. Allergies citric acid Allergy (Verified 12/14/22 02:45) Hives/Rash Home medications list reviewed: Yes Home Medications: Gabapentin 100 mg PO TID 12/02/22 levETIRAcetam [Levetiracetam] 3 tab PO BID 12/02/22 Lacosamide 1 tab PO BID 12/14/22 Aspirin Chewable [Aspirin Chewable*] 81 mg PO DAILY #30 tab.chew 12/15/22 Docusate/Senna [Senokot-S*] 1 tab PO BID #60 tab 12/15/22 traMADol HCL [Ultram*] 50 mg PO Q6H PRN 12/24/22 Magnesium Oxide [Mag 0X*] 400 mg PO BID #60 tab 01/04/23 Amlodipine [Norvasc*] 5 mg PO BID #30 tab 01/05/23 Carvedilol [Coreg] 12.5 mg PO BID #30 01/05/23 Hydralazine [Apresoline*] 25 mg PO BID #60 tab 01/05/23 Insulin Glargine,Hum.rec.anlog [Insulin Glargine] 15 unit SQ BEDTIME #1 vial 01/05/23 Lisinopril [Zestril] 5 mg PO BID #30 01/05/23 Glimepiride [Amaryl*] 2 mg PO DAILY 03/15/23 - Past Medical/Surgical History Diabetic: Yes -: HTN -: IDDM II -: CVA -: Seizures -: Proteinuria/ Hx GRACIE (Dr. Alonso/ Dr. Sesay) -: Dental surgery -: finger surgery -: Cataract -: Eye lid surgery - Family History Mother Medical History: Cancer Notes: Colon Father Medical History: Heart disease Brother Medical History: Cancer Notes: Pancreatic - Social History Smoking Status: Unknown if ever smoked Alcohol use: No CD- Drugs: No Caffeine use: Yes Physical Examination Temp Pulse Resp BP Pulse Ox 100.1 F 86 23 H 140/58 L 95 03/15/23 11:02 03/15/23 08:00 03/15/23 08:00 03/15/23 08:00 03/15/23 08:00 Laboratory Data (last 24 hrs) 03/14/23 03/14/23 03/14/23 20:14 20:14 20:14 WBC 18.10 H Hgb 13.7 Hct 40.6 Plt Count 242 PT 12.2 INR 1.11 APTT 25.4 Sodium 132 L Potassium 4.3 BUN 39 H Creatinine 2.24 H Glucose 224 H Magnesium 1.9 Total Bilirubin 0.4 AST 13 L ALT 19 Alkaline Phosphatase 83 03/14/23 20:04 WBC Hgb Hct Plt Count PT INR APTT Sodium Cancelled Potassium Cancelled BUN Cancelled Creatinine Cancelled Glucose Cancelled Magnesium Total Bilirubin Cancelled AST Cancelled ALT Cancelled Alkaline Phosphatase Cancelled - Problems (1) Obstructive pyelonephritis Current Visit: Yes Status: Acute (2) SIRS (systemic inflammatory response syndrome) Current Visit: Yes Status: Acute (3) Ureterolithiasis Current Visit: Yes Status: Acute Critical Care: No Time Spent Managing Pts care (In Minutes): 30
[2023-03-15] MEDS ORDERED: EPHEDRINE SULF 50 MG/ML VIAL ONE (13:44)
--- NOTE | 2023-03-15 14:21 | RAD REPORT ---
EXAM DESCRIPTION: RAD - Urethrocystogrphy Retrograde - 03/15/2023 1:52 pm CLINICAL HISTORY: ICD N 20.0 FINDINGS: A 16 fluoroscopic spot images obtained. Fluoroscopy time 0.4 minutes Right ureter was cannulated and contrast administered. Subsequently an ureteral stent was placed. Exa mination was performed by Dr Gonzalez
--- NOTE | 2023-03-15 14:46 | OP ---
Surgeon: SHERRY RIBERIO Preoperative Diagnoses: 1.Right obstructive ureterolithiasis. 2.Obstructive pyelonephritis. 3.SIRS with suspected sepsis. Postoperative Diagnoses: 1.Right obstructive ureterolithiasis. 2.Obstructive pyelonephritis. 3.SIRS with suspected sepsis. Principal Procedures: 1.Cystoscopy. 2.Right retrograde pyelography. 3.Right ureteral stent placement, complex. 4.Urethral Bhatti catheter placement. Indication For Procedure: This is a 77-year-old woman with IDDM 2, hypertension, history of seizure disorder, and hemorrhagic CVA in 05/2021, on aspirin, admitted with altered mental status, SIRS/suspe cted sepsis, and right hydronephrosis secondary to obstructive 7 mm ureterolithiasis. She was treated on admission with cefepime and vancomycin and ultimately given the obstruction with i nfection, she was recommended for urgent decompression. Procedure In Detail: The patient was consented in the preoperative holding area before being transfe rred to the operative suite where general anesthesia was induced. She was given cefepime and vancomy asa on the floor; so no additional antimicrobials were provided. Pneumo boots were provided for DVT prophylaxis. She was placed in the lithotomy position, padded and secured to the table appropriately . Her genitalia were prepped with Hibiclens and she was draped in standard fashion. The case was be gun using a 22-German rigid cystoscope to traverse the urethra and into the bladder with ease. The b ladder was decompressed of fluid and urine. The ureteral orifices were orthotopic in location, and t he right ureteral orifice was cannulated using a 5-German ureteral access catheter. There was a poin t of obstruction encountered in the distal ureter, likely the stone which was radiolucent. As a resu lt, I then utilized a 70:30 mixture of Omnipaque and saline in order to perform a retrograde pyelogra m. Right retrograde pyelography: Using that 70:30 mixture of Omnipaque and saline, contrast was injecte d via the lumen of the 5-German ureteral access catheter and did propagate up to the point of obstruc tion where initially, no contrast would go beyond it. I thus gathered a second bolus of 10 cc of con trast and again under pressure, we tried to force some contrast beyond the distal ureteral point of o bstruction, at which point, I was able to get a wisp of contrast beyond the obstruction into the mid and mid proximal ureter. I then injected an additional few cc of contrast just to delineate the dominic l pelvis because there was significant tortuosity of the ureter encountered and to ensure appropriate stent placement in the targeted location. Once the pelvis was identified, I then passed a Sensor wi re initially with some difficulty getting it beyond the calculus obstruction, but with some manipulat ion, I was able to navigate the Sensor wire under fluoroscopic guidance via the ureteral lumen all th e way up into the proximal ureter. Because of tortuosity of the proximal ureter, I was unable initia lly to get into the renal pelvis, but I advanced a 5-German ureteral access catheter over the wire in to the proximal ureter, which enabled me to then navigate the Sensor wire all the way into the renal pelvis and upper pole calyces. I then advanced the 5-German ureteral access catheter over the wire i nto the upper pole calices, where I collected a sample of urine as right renal aspirate urine culture . The urine was cloudy in that location consistent with the suspected infection. I then advanced th e Sensor wire back via the 5-German ureteral access catheter coiling it within the upper pole of the kidney and removed the 5-German ureteral access catheter. I then advanced a 6-German x 24 cm double-J ureteral stent over the Sensor wire and with some difficu lty, was able to manipulate it into the renal pelvis. The difficulty was owing to the point of obstr uction in the distal ureter that made navigation of the stent beyond it slightly more challenging. I n the end, I was able to properly position the coil of the stent in the right renal pelvis as observe d fluoroscopically, and an additional coil was observed cystoscopically in her bladder. I then place d an 18-German urethral Bhatti catheter into her bladder with ease, and it did drain similar cloudy-ap pearing slightly hemorrhagic urine. The patient was then taken out of the lithotomy position, awaken ed from general anesthesia, transferred to a stretcher, and then transferred to the recovery room in good condition. Complications: None. Discharge Disposition: She will require outpatient followup after the infection has cleared, for def initive management of her distal obstructive ureterolithiasis via ureteroscopy with laser lithotripsy and stent exchange. Preoperative cardiac evaluation will likely be required given her extensive med ical comorbidities, and given her history of hemorrhagic CVA, preoperative neurologic evaluation may also be considered. LONDON/LORRAINE Voice ID: [id number] Report ID: [id number]
--- NOTE | 2023-03-15 16:51 | EKG ---
Test Date: 2023-03-14 Test Time: 20:09:37 Computer Art Instructor: MB MEASUREMENT RESULTS: Intervals: Rate: 89 OH: 202 QRSD: 92 QT: 328 QTc: 399 Sheldon: P: 63 OH: 202 QRS: 6 T: 60 INTERPRETIVE STATEMENTS: Normal sinus rhythm Cannot rule out Anterior infarct, age undetermined Abnormal ECG Compared to ECG 12/13/2022 12:32:19 Myocardial infarct finding now present ST (T wave) deviation no longer present Electronically Signed On 03-15-23 16:49:01 WIND UP OPERATOR by Vinny Ken
--- NOTE | 2023-03-15 18:49 | P.CNS ---
Date of Consult: 03/15/23 Reason for Consult: renal failure Requesting Physician: Fraaz Urrutia Chief Complaint: Altered mental status History of Present Illness: 77F w/ PMHx of Htn, seizure disorder, diabetes mellitus type II, hypertension, & CVA who p/w AMS foundt to have sepsis 2/2 UTI from obstructive urolithiasis. She underwent cystoscopy & right ureteral stenting on 03/15. She received IVF & IV abx. she is referred to nephrology for HPI. Serum K and 2.2 on admission, at 2.4 today. Allergies citric acid Allergy (Verified 12/14/22 02:45) Hives/Rash Home Medications: Gabapentin 100 mg PO TID 12/02/22 levETIRAcetam [Levetiracetam] 3 tab PO BID 12/02/22 Lacosamide 1 tab PO BID 12/14/22 Aspirin Chewable [Aspirin Chewable*] 81 mg PO DAILY #30 tab.chew 12/15/22 Docusate/Senna [Senokot-S*] 1 tab PO BID #60 tab 12/15/22 traMADol HCL [Ultram*] 50 mg PO Q6H PRN 12/24/22 Magnesium Oxide [Mag 0X*] 400 mg PO BID #60 tab 01/04/23 Amlodipine [Norvasc*] 5 mg PO BID #30 tab 01/05/23 Carvedilol [Coreg] 12.5 mg PO BID #30 01/05/23 Hydralazine [Apresoline*] 25 mg PO BID #60 tab 01/05/23 Insulin Glargine,Hum.rec.anlog [Insulin Glargine] 15 unit SQ BEDTIME #1 vial 01/05/23 Lisinopril [Zestril] 5 mg PO BID #30 01/05/23 Glimepiride [Amaryl*] 2 mg PO DAILY 03/15/23 - Past Medical/Surgical History Diabetic: Yes -: HTN -: IDDM II -: CVA -: Seizures -: Proteinuria/ Hx GRACIE (Dr. Alonso/ Dr. Sesay) -: Dental surgery -: finger surgery -: Cataract -: Eye lid surgery - Family History Mother Medical History: Cancer Notes: Colon Father Medical History: Heart disease Brother Medical History: Cancer Notes: Pancreatic - Social History Smoking Status: Unknown if ever smoked Alcohol use: No CD- Drugs: No Caffeine use: Yes Review of Systems is unable to be obtained (d/t AMS) Physical Examination Temp Pulse Resp BP Pulse Ox 97.1 F 75 18 129/53 L 93 03/15/23 14:26 03/15/23 14:26 03/15/23 14:26 03/15/23 14:26 03/15/23 12:00 General: Other (chronically ill-appearing) HEENT: Atraumatic, Normocephalic Neck: Supple Respiratory: Other (symmetric chest expansion) Cardiovascular: No rubs, No murmurs Gastrointestinal: Soft and benign, No guarding Musculoskeletal: No clubbing Integumentary: No warmth Neurological: Normal tone Urinary: Other (no bladder distention) External genitalia: Deferred Rectal: Deferred Laboratory Data (last 24 hrs) 03/14/23 03/14/23 03/14/23 20:14 20:14 20:14 WBC 18.10 H Hgb 13.7 Hct 40.6 Plt Count 242 PT 12.2 INR 1.11 APTT 25.4 Sodium 132 L Potassium 4.3 BUN 39 H Creatinine 2.24 H Glucose 224 H Magnesium 1.9 Total Bilirubin 0.4 AST 13 L ALT 19 Alkaline Phosphatase 83 03/14/23 20:04 WBC Hgb Hct Plt Count PT INR APTT Sodium Cancelled Potassium Cancelled BUN Cancelled Creatinine Cancelled Glucose Cancelled Magnesium Total Bilirubin Cancelled AST Cancelled ALT Cancelled Alkaline Phosphatase Cancelled Conclusions/Impression: # GRACIE 2/2 ATN/sepsis + obstructive R nephropathy SCr 2.2 on adm, at 2.[address] A/P obstructive right nephropathy with 2 adjacent calculi just past the ureteropelvic junction up to 7 mm in size IV fluid, IV abx Monitor renal panel # Obstructive R ureterolithiasis S/p cystoscopy & right ureteral stenting on 03/15 Abx 24 hour urinary stone panel at least one month apart 2 sets as outpatient # Sepsis 2/2 UTI from obstructive R ureterolithiases. She underwent cystoscopy & right ureteral stenting on 03/15. She received IVF & IV abx. she is referred to nephrology for HPI. Serum K and 2.2 on admission, at 2.4 today. # AMS Per other services # DM2 Mngt per primary team # Htn Cont current med regimen # Seizure disorder Per other services
[2023-03-15] MEDS: CEFEPIME 1 GM in NA CHLORIDE 0.9% 100 ML IV SCH (19:52)
[2023-03-16] MEDS: HEPARIN 5000 UNIT/ML 1 ML VIAL SQ SCH ×3 (00:12→16:32)
[2023-03-16] MEDS: ACETAMINOPHEN 325 MG TABLET PO PRN ×3 (00:14→18:29)
[2023-03-16] MEDS: NA CHLORIDE 0.9% 1,000 ML IV SCH ×3 (00:40→16:34)
[2023-03-16 02:34] LABS: MCV 88.4 fL (80-100); MPV 7.1 fL (7.6-11.3); Platelets 202 thou/uL (152-406); RBC Red Blood Cell Count 3.95 M/uL (3.86-4.86)
[2023-03-16 03:05] LABS: Bilirubin Total 0.2 mg/dL (0.2-1.0); Potassium 3.2 mEq/L (3.5-5.1); Protein, Total 5.8 g/dL (6.4-8.2)
[2023-03-16] MEDS ORDERED: POTASSIUM 25 MEQ EFFERV TAB PO ONE (03:24)
[2023-03-16] MEDS: INSULIN REGULAR (HUMAN) 100 UNIT/ML SQ SCH ×6 (07:30→21:21)
--- NOTE | 2023-03-16 07:57 | P.PN ---
Date of Service: 03/16/23 Chief Complaint: Altered mental status Subjective: Patient is more alert today. In no apparent distress. No acute events reported overnight. Physical Examination Temp Pulse Resp BP Pulse Ox 97.4 F 71 18 109/56 L 95 03/16/23 04:00 03/16/23 04:00 03/16/23 04:00 03/16/23 04:00 03/16/23 04:00 General: Oriented x1, Demented, Confused HEENT: Atraumatic, Normocephalic Neck: Supple, JVD not distended Respiratory: Clear to auscultation bilaterally, Normal air movement. On room air. Cardiovascular: Regular rate and rhythm Gastrointestinal: Normal bowel sounds, Soft and benign. Non-distended. Integumentary: No rashes Urinary: Bhatti catheter Laboratory Data - Reviewed Microbiology Data - Reviewed Imagings Data: - Reviewed Assessment and plan Problem List Sepsis secondary to Complicated Urinary Tract Infection Acute Kidney Injury Diabetes Mellitus type II Hypertension Seizure Disorder Sepsis secondary to Complicated Urinary Tract Infection Right obstructive ureterolithiasis. Obstructive pyelonephritis. - Urinalysis 03/14: LE 500, RBC 11-20, WBC >50 - Urine culture 03/14: no growth to date - Blood cultures 03/14: + yeast - recent history of Enterococcus faecium UTI on 12/25/22 - Currently on Cefepime and Vancomycin (started 03/15) - Leukocytosis improving (WBC 20.2 -> 13.4) - 24 Tmax = 100.1 F - CT abdomen pelvis wo contrast 03/15: "Progressive hydronephrosis, now moderate to severe, with proximal hydroureter. Two adjacent calculi just past the ureteropelvic junction, up to 7 millimeter in size." - Urologist Dr. Gonzalez consulted. - s/p cystoscopy, Right retrograde pyelography, complex Right ureteral stent placement and Urethral Bhatti catheter placement on 03/[address] Gonzalez. Findings of Right obstructive ureterolithiasis and Obstructive pyelonephritis. Recommendations - Blood cultures 03/14 +yeast in 2 of 4 bottles. -> start on Micafungin 100mg IV daily for 14 days. - Follow up with final blood culture results - Monitor WBC and fever trends. PRN tylenol - Strict blood glucose control. Goal <180 - Nutritional supplementation - Renally dose medications - Seizure precautions - Continue all supportive care Case discussed with Dr. Deluna N.
--- NOTE | 2023-03-16 09:52 | P.PN ---
Date of Service: 03/16/23 Subjective: Oriented x2-3 at baseline Denies pain Son at bedside providing history ROS: 10 point ROS as noted above, otherwise negative Physical exam GEN: Alert, oriented x2, NAD HEENT: Normal conjunctiva, sclera anicteric CV: Regular rate and rhythm, no edema Pulm: Nonlabored respirations on room air ABD: Soft, nontender, nondistended MSK: No joint tenderness Integumentary: No rashes Neuro: Normal speech, normal affect Vitals reviewed Right obstructive ureterolithiasis Obstructive pyelonephritis Severe sepsis secondary to above Cystoscopy, right retrograde pyelography, right ureteral stent placement, urethral Bhatti placement She will require outpatient followup after the infection has cleared, for definitive management of her distal obstructive ureterolithiasis via ureteroscopy with laser lithotripsy and stent exchange. Preoperative cardiac evaluation will likely be required given her extensive medical comorbidities, and given her history of hemorrhagic CVA, preoperative neurologic evaluation may also be considered. Problem List Acute metabolic encephalopathy-improving Severe sepsis secondary to obstructive pyelonephritis/right obstructive ureterolithiasis S/P right ureteral stent placement 03/15 Broad-spectrum antibiotic-IV cefepime and IV vancomycin. Blood Culture 04/27 prelim + for yeast D/W ID, start micafungin repeat blood cultures 24-48 hours after initiation of micafungin Urology following-will need outpatient follow-up after infection is cleared for definitive management outpatient will need ureteroscopy with laser lithotripsy and stent exchange-will need cardiac clearance prior to this/possible neurology clearance Diabetes mellitus type 2 Insulin sliding scale Hold home glimepiride due to poor oral intake. Fingerstick glucose checks. Seizure disorder Resume home antiseizure medications. Essential hypertension Monitor blood pressure closely Resume home antihypertensives in am. GRACIE likely secondary to sepsis versus dehydration Did not improve overnight with IV fluids Obstruction from stone possible contributing as well Stent placed by urology Nephrology consult IV hydration. Monitor renal function. DVT prophylaxis: Heparin subQ Disposition: Anticipated in 3 to 4 days of inpatient stay. Disposition to home with home health Time Spent Managing Pts Care (In Minutes): 35
[2023-03-16] MEDS: MICAFUNGIN SODIUM 100 MG in NA CHLORIDE 0.9% 100 ML IV SCH (10:33)
[2023-03-16] MEDS ORDERED: TRAMADOL HCL 50 MG TAB PO PRN (10:55)
[2023-03-16] MEDS ORDERED: MICAFUNGIN SODIUM 100 MG VIAL IV SCH (11:00)
[2023-03-16] MEDS: GABAPENTIN 100 MG CAP PO SCH ×2 (15:07→21:00)
--- NOTE | 2023-03-16 16:50 | P.PN ---
Subjective Date of Service: 03/16/23 Chief Complaint: Altered mental status Subjective: No new changes Physical Examination - Vital Signs Temperature: 99.4 F Blood Pressure: 163/74 Pulse: 88 Respirations: 20 Pulse Ox (%): 96 - Physical Exam General: Other (chronically ill-appearing) HEENT: Atraumatic, Normocephalic Neck: Supple, JVD not distended Respiratory: Other (symmetric chest expansion) Cardiovascular: No rubs, No murmurs Gastrointestinal: Soft and benign, No guarding Musculoskeletal: No clubbing Integumentary: No warmth Neurological: Normal tone Urinary: Other (no bladder distention) External genitalia: Deferred Rectal: Deferred - Studies Microbiology Data (last 24 hrs): 03/14/23 20:56 Blood - Blood Blood Culture Gram Stain - Final 03/14/23 21:14 Catheterized Urine [place] Count - Final No growth. 03/14/23 21:14 Catheterized Urine - Final No growth. Assessment And Plan - Plan # GRACIE 2/2 ATN/sepsis + obstructive R nephropathy SCr 2.2 on adm, increased to 2.4, decreased to 1.[address] A/P obstructive right nephropathy with 2 adjacent calculi just past the ureteropelvic junction up to 7 mm in size IV fluid, IV abx Monitor renal panel # Obstructive R ureterolithiasis S/p cystoscopy & right ureteral stenting on 03/15 Abx 24 hour urinary stone panel at least one month apart 2 sets as outpatient # Sepsis 2/2 UTI from obstructive R ureterolithiases. She underwent cystoscopy & right ureteral stenting on 03/15. She received IVF & IV abx. she is referred to nephrology for HPI. Serum K and 2.2 on admission, at 2.4 today. # AMS Per other services # DM2 Mngt per primary team # Htn Cont current med regimen # Seizure disorder Per other services Physician Review: Patient Assessed, Agree with Above Assessment and Plan
[2023-03-16] MEDS ORDERED: NA CHLORIDE 0.9% 100 ML ONE (20:15)
[2023-03-16] MEDS: CEFEPIME 1 GM in NA CHLORIDE 0.9% 100 ML IV SCH (20:31)
[2023-03-16] MEDS: levETIRAcetam 500 MG TAB PO SCH (20:32)
[2023-03-16] MEDS: LACOSAMIDE 50 MG TABLET PO SCH (20:32)
[2023-03-16] MEDS: DOCUSATE NA/SENNA CONC 1 TAB PO SCH (20:32)
[2023-03-17] MEDS: NA CHLORIDE 0.9% 1,000 ML IV SCH ×3 (02:21→11:58)
[2023-03-17] MEDS: HEPARIN 5000 UNIT/ML 1 ML VIAL SQ SCH ×3 (02:22→17:27)
[2023-03-17] MEDS: INSULIN REGULAR (HUMAN) 100 UNIT/ML SQ SCH ×4 (07:30→19:45)
--- NOTE | 2023-03-17 08:07 | P.PN ---
Date of Service: 03/17/23 Chief Complaint: Altered mental status Subjective: Improving. Patient is sitting in bed eating breakfast. In no apparent distress. She denies any complaints at this time. No acute events reported overnight. Physical Examination Temp Pulse Resp BP Pulse Ox 99.4 F 88 20 163/74 H 96 03/17/23 07:54 03/17/23 07:54 03/17/23 07:54 03/17/23 07:54 03/17/23 07:54 General: In no apparent distress. Awake, oriented x2. HEENT: Atraumatic, Normocephalic Neck: Supple, JVD not distended Respiratory: Clear to auscultation bilaterally, Normal air movement. On room air. Cardiovascular: Regular rate and rhythm Gastrointestinal: Normal bowel sounds, Soft and benign. Non-distended. Integumentary: No rashes Urinary: Bhatti catheter Laboratory Data - Reviewed Microbiology Data - Reviewed Imagings Data: - Reviewed Medications List: Reviewed Assessment and plan Problem List Sepsis secondary to Complicated Urinary Tract Infection Acute Kidney Injury Diabetes Mellitus type II Hypertension Seizure Disorder Sepsis secondary to Complicated Urinary Tract Infection Right obstructive ureterolithiasis. Obstructive pyelonephritis. - Urinalysis 03/14: LE 500, RBC 11-20, WBC >50 - Urine culture 03/14: no growth to date - Blood cultures 03/14: + yeast in 2 of 4 bottles. - recent history of Enterococcus faecium UTI on 12/25/22 - CT abdomen pelvis wo contrast 03/15: "Progressive hydronephrosis, now moderate to severe, with proximal hydroureter. Two adjacent calculi just past the ureteropelvic junction, up to 7 millimeter in size." - Urologist Dr. Gonzalez consulted. - s/p cystoscopy, Right retrograde pyelography, complex Right ureteral stent placement and Urethral Bhatti catheter placement on 03/[address] Gonzalez. - Currently on Cefepime (03/15-) and Micafungin (03/16-) - Leukocytosis improving (WBC 20.2 -> 13.4 -> 8.2) - Afebrile 48 hours Recommendations - Blood cultures 03/14 +yeast in 2 of 4 bottles. -> continue Micafungin 100mg IV q24h for 14 days (03/16 to 03/29) - Patient to follow up with urology once infection is cleared. - Monitor WBC and fever trends. PRN tylenol - Strict blood glucose control. Goal <180 - Nutritional supplementation - Renally dose medications - Seizure precautions - Continue all supportive care - Pressure offloading measures. - Bhatti catheter care Case discussed with Ephraim Leggett
[2023-03-17] MEDS: levETIRAcetam 500 MG TAB PO SCH ×2 (09:15→19:59)
[2023-03-17] MEDS: MICAFUNGIN SODIUM 100 MG in NA CHLORIDE 0.9% 100 ML IV SCH (09:15)
[2023-03-17] MEDS: LACOSAMIDE 50 MG TABLET PO SCH ×2 (09:16→19:59)
[2023-03-17] MEDS: GABAPENTIN 100 MG CAP PO SCH ×3 (09:16→19:59)
[2023-03-17] MEDS: DOCUSATE NA/SENNA CONC 1 TAB PO SCH ×2 (09:18→19:59)
--- NOTE | 2023-03-17 09:53 | P.PN ---
Date of Service: 03/17/23 Subjective: Oriented x2-3 at baseline Denies pain Son at bedside providing history ROS: 10 point ROS as noted above, otherwise negative Physical exam GEN: Alert, oriented x2, NAD HEENT: Normal conjunctiva, sclera anicteric CV: Regular rate and rhythm, no edema Pulm: Nonlabored respirations on room air ABD: Soft, nontender, nondistended MSK: No joint tenderness Integumentary: No rashes Neuro: Normal speech, normal affect Vitals reviewed Right obstructive ureterolithiasis Obstructive pyelonephritis Severe sepsis secondary to above Cystoscopy, right retrograde pyelography, right ureteral stent placement, urethral Bhatti placement She will require outpatient followup after the infection has cleared, for definitive management of her distal obstructive ureterolithiasis via ureteroscopy with laser lithotripsy and stent exchange. Preoperative cardiac evaluation will likely be required given her extensive medical comorbidities, and given her history of hemorrhagic CVA, preoperative neurologic evaluation may also be considered. Problem List Acute metabolic encephalopathy-improving Severe sepsis secondary to obstructive pyelonephritis/right obstructive ureterolithiasis S/P right ureteral stent placement 03/15 Broad-spectrum antibiotic-IV cefepime, vancomycin discontinued 03/17 Blood Culture 05/28 prelim + for yeast D/W ID, started micafungin 03/16 Will need 14 days total IV micafungin ending date 03/29 repeat blood cultures 04/17 ordered Urology following-will need outpatient follow-up after infection is cleared for definitive management outpatient will need ureteroscopy with laser lithotripsy and stent exchange-will need cardiac clearance prior to this/possible neurology clearance Diabetes mellitus type 2 Insulin sliding scale Hold home glimepiride due to poor oral intake. Fingerstick glucose checks. Seizure disorder Resume home antiseizure medications. Essential hypertension Monitor blood pressure closely Resume home antihypertensives in am. GRACIE likely secondary to sepsis versus dehydration GRACIE improving, nephrology following Obstruction from stone possible contributing as well Stent placed by urology IV hydration. Monitor renal function. DVT prophylaxis: Heparin subQ Disposition: Anticipated in 3 to 4 days of inpatient stay. Disposition to home with home health Time Spent Managing Pts Care (In Minutes): 35
[2023-03-17 10:48] LABS: Hematocrit 36.7 % (36.0-45.0); MPV 7.6 fL (7.6-11.3); Platelets 228 thou/uL (152-406); RBC Red Blood Cell Count 4.13 M/uL (3.86-4.86)
[2023-03-17 11:05] LABS: Albumin 2.1 g/dL (3.4-5.0); Bilirubin Total 0.3 mg/dL (0.2-1.0); Potassium 3.4 mEq/L (3.5-5.1); Protein, Total 6.2 g/dL (6.4-8.2)
--- NOTE | 2023-03-17 14:47 | P.PN ---
Subjective Date of Service: 03/17/23 Chief Complaint: Altered mental status Subjective: No new changes Physical Examination - Vital Signs Temperature: 96.8 F Blood Pressure: 157/67 Pulse: 73 Respirations: 16 Pulse Ox (%): 98 - Physical Exam General: Other (chronically ill-appearing) HEENT: Atraumatic, Normocephalic Neck: Supple, JVD not distended Respiratory: Other (symmetric chest expansion) Cardiovascular: No rubs, No murmurs Gastrointestinal: Soft and benign, No guarding Musculoskeletal: No clubbing Integumentary: No warmth Neurological: Normal tone Urinary: Other (no bladder distention) External genitalia: Deferred Rectal: Deferred - Studies Microbiology Data (last 24 hrs): 03/14/23 20:56 Blood - Blood Blood Culture Gram Stain - Final Assessment And Plan - Plan # GRACIE 2/2 ATN/sepsis + obstructive R nephropathy SCr 2.2 on adm, increased to 2.4, decreased to 1.[address] A/P obstructive right nephropathy with 2 adjacent calculi just past the ureteropelvic junction up to 7 mm in size [place] po fluid intake Monitor renal panel # Obstructive R ureterolithiasis S/p cystoscopy & right ureteral stenting on 03/15 Abx 24 hour urinary stone panel at least one month apart 2 sets as outpatient # Hypokalemia KCl repletion prn # Sepsis 2/2 UTI from obstructive R ureterolithiases. She underwent cystoscopy & right ureteral stenting on 03/15. She received IVF & IV abx. she is referred to nephrology for HPI. Serum K and 2.2 on admission, at 2.4 today. # AMS Per other services # DM2 Mngt per primary team # Htn Cont current med regimen # Seizure disorder Per other services Physician Review: Patient Assessed, Agree with Above Assessment and Plan
[2023-03-17] MEDS: HYDRALAZINE HCL 25 MG TABLET PO SCH (17:52)
[2023-03-17] MEDS: carvediloL 12.5 MG TAB PO SCH (17:52)
[2023-03-17] MEDS: CEFEPIME 1 GM in NA CHLORIDE 0.9% 100 ML IV SCH (19:59)
[2023-03-17 21:28] LABS: Specific Gravity 1.012 (1.005-1.030); Urine Bacteria <20 /HPF (<20); Urine Bilirubin NEGATIVE (Negative); Urine Blood 3+ (Negative); Urine Clarity Extremely Turbid (Clear); Urine Color Light-Yellow (Yellow); Urine Glucose NEGATIVE (Negative); Urine Mucus Slight /HPF (None Seen); Urine Protein 1+ (Negative); Urine RBC >50 /HPF (None Seen); Urine Urobilinogen Normal (Normal)
[2023-03-18] MEDS: NA CHLORIDE 0.9% 1,000 ML IV SCH (01:30)
[2023-03-18] MEDS: HEPARIN 5000 UNIT/ML 1 ML VIAL SQ SCH ×3 (01:30→16:53)
[2023-03-18 02:46] LABS: Hematocrit 34.3 % (36.0-45.0); MCV 88.1 fL (80-100); MPV 6.9 fL (7.6-11.3); Platelets 224 thou/uL (152-406)
[2023-03-18 03:18] LABS: Bilirubin Total 0.3 mg/dL (0.2-1.0); Phosphorus 1.8 mg/dL (2.5-4.9); Protein, Total 5.9 g/dL (6.4-8.2)
[2023-03-18 03:19] LABS: Magnesium 1.5 mg/dL (1.6-2.4); Potassium 3.5 mEq/L (3.5-5.1)
[2023-03-18 05:19] VITALS: BMI 30.7
[2023-03-18] MEDS ORDERED: Magnesium Sulfate 2gm IVPB 2 G/50 ML BAG IV ONE (05:21)
[2023-03-18] MEDS ORDERED: POTASSIUM CL SA 10 MEQ TAB PO ONE (05:21)
[2023-03-18] MEDS: carvediloL 12.5 MG TAB PO SCH ×2 (05:40→17:01)
[2023-03-18] MEDS ORDERED: POTASSIUM 25 MEQ EFFERV TAB PO ONE (07:07)
[2023-03-18] MEDS: INSULIN REGULAR (HUMAN) 100 UNIT/ML SQ SCH ×4 (07:20→21:04)
[2023-03-18] MEDS: DOCUSATE NA/SENNA CONC 1 TAB PO SCH ×2 (08:35→20:46)
[2023-03-18] MEDS: LACOSAMIDE 50 MG TABLET PO SCH ×2 (08:35→20:46)
[2023-03-18] MEDS: GABAPENTIN 100 MG CAP PO SCH ×3 (08:36→20:46)
[2023-03-18] MEDS: HYDRALAZINE HCL 25 MG TABLET PO SCH ×2 (08:36→20:46)
[2023-03-18] MEDS: MICAFUNGIN SODIUM 100 MG in NA CHLORIDE 0.9% 100 ML IV SCH (08:37)
[2023-03-18] MEDS: levETIRAcetam 500 MG TAB PO SCH ×2 (09:03→20:46)
--- NOTE | 2023-03-18 09:31 | P.PN ---
Date of Service: 03/18/23 Subjective: Oriented x2-3 at baseline Denies pain feeling better, no abd pain no acute events overnight ROS: 10 point ROS as noted above, otherwise negative Physical exam GEN: Alert, oriented x2, NAD HEENT: Normal conjunctiva, sclera anicteric CV: Regular rate and rhythm, no edema Pulm: Nonlabored respirations on room air ABD: Soft, nontender, nondistended MSK: No joint tenderness Integumentary: No rashes Neuro: Normal speech, normal affect Vitals reviewed Problem List Acute metabolic encephalopathy-improving Severe sepsis secondary to obstructive pyelonephritis/right obstructive ureterolithiasis S/P right ureteral stent placement 03/15 Broad-spectrum antibiotic-IV cefepime, vancomycin discontinued 03/17 Blood Culture 05/28 prelim + for yeast D/W ID, started micafungin 03/16 Will need 14 days total IV micafungin ending date 03/29 repeat blood cultures 04/17 pending Urology following-will need outpatient follow-up after infection is cleared for definitive management outpatient will need ureteroscopy with laser lithotripsy and stent exchange-will need cardiac clearance prior to this/possible neurology clearance Elevated LFTs Likely related to micafungin Trend LFTs Liver US ordered Diabetes mellitus type 2 Insulin sliding scale Hold home glimepiride due to poor oral intake. Fingerstick glucose checks. Seizure disorder Resume home antiseizure medications. Essential hypertension Monitor blood pressure closely Resume home antihypertensives in am. GRACIE likely secondary to sepsis versus dehydration GRACIE improving, nephrology following Obstruction from stone possible contributing as well Stent placed by urology IV hydration. Monitor renal function. DVT prophylaxis: Heparin subQ Disposition: Anticipated in 3 to 4 days of inpatient stay. Disposition to home with home health Time Spent Managing Pts Care (In Minutes): 35
--- NOTE | 2023-03-18 10:33 | RAD REPORT ---
EXAM DESCRIPTION: US - Liver Only - 03/18/2023 9:20 am CLINICAL HISTORY: elevated lfts Abdominal pain COMPARISON: Abdomen Pelvis Wo Contrast dated 03/15/2023 FINDINGS: The liver appears normal in size and shape and echotexture.No focal liver lesion or intrah epatic biliary dilatation.No evidence of portal vein thrombosis. Normal size spleen measuring 10.8 cm. IMPRESSION: Unremarkable study.
--- NOTE | 2023-03-18 15:40 | P.PN ---
Subjective Date of Service: 03/18/23 Chief Complaint: Altered mental status Subjective: No new changes Physical Examination - Vital Signs Temperature: 97.4 F Blood Pressure: 117/60 Pulse: 70 Respirations: 16 Pulse Ox (%): 96 - Physical Exam General: Other (chronically ill-appearing) HEENT: Atraumatic, Normocephalic Neck: Supple Respiratory: Other (symmetric chest expansion) Cardiovascular: No rubs, No murmurs Gastrointestinal: Soft and benign, No guarding Musculoskeletal: No clubbing Integumentary: No warmth Neurological: Normal tone Urinary: Other (no bladder distention) External genitalia: Deferred Rectal: Deferred - Studies Microbiology Data (last 24 hrs): 03/14/23 20:51 Blood - Blood Blood Culture Gram Stain - Final 03/14/23 20:56 Blood - Blood Blood Culture Gram Stain - Final Assessment And Plan - Plan # GRACIE 2/2 ATN/sepsis + obstructive R nephropathy SCr 2.2 on adm, increased to 2.4, decreased to 1.[address] A/P obstructive right nephropathy with 2 adjacent calculi just past the ureteropelvic junction up to 7 mm in size [place] po fluid intake Monitor renal panel # Obstructive R ureterolithiasis S/p cystoscopy & right ureteral stenting on 03/15 Abx 24 hour urinary stone panel at least one month apart 2 sets as outpatient # Hypokalemia KCl repletion prn # Sepsis 2/2 UTI from obstructive R ureterolithiases. She underwent cystoscopy & right ureteral stenting on 03/15. She received IVF & IV abx. she is referred to nephrology for HPI. Serum K and 2.2 on admission, at 2.4 today. # AMS Per other services # DM2 Mngt per primary team # Htn Cont current med regimen # Seizure disorder Per other services Physician Review: Patient Assessed, Agree with Above Assessment and Plan
[2023-03-18] MEDS ORDERED: SODIUM PHOSPHATE 10 MM in NA CHLORIDE 0.9% 250 ML IV ONE (16:00)
[2023-03-18] MEDS: ACETAMINOPHEN 325 MG TABLET PO PRN (17:26)
[2023-03-18] MEDS: CEFEPIME 1 GM in NA CHLORIDE 0.9% 100 ML IV SCH (20:46)
[2023-03-19] MEDS: HEPARIN 5000 UNIT/ML 1 ML VIAL SQ SCH ×3 (00:09→17:24)
[2023-03-19 03:26] LABS: Hematocrit 34.7 % (36.0-45.0); MCV 88.4 fL (80-100); MPV 7.8 fL (7.6-11.3); Platelets 283 thou/uL (152-406); RBC Red Blood Cell Count 3.93 M/uL (3.86-4.86)
[2023-03-19 03:41] LABS: Albumin 1.9 g/dL (3.4-5.0); Bilirubin Total 0.3 mg/dL (0.2-1.0); Magnesium 1.9 mg/dL (1.6-2.4); Phosphorus 2.6 mg/dL (2.5-4.9); Potassium 3.8 mEq/L (3.5-5.1)
[2023-03-19] MEDS: carvediloL 12.5 MG TAB PO SCH ×2 (05:12→17:24)
[2023-03-19] MEDS ORDERED: POTASSIUM 25 MEQ EFFERV TAB PO ONE (08:00)
[2023-03-19] MEDS: INSULIN REGULAR (HUMAN) 100 UNIT/ML SQ SCH ×4 (08:50→20:15)
[2023-03-19] MEDS: HYDRALAZINE HCL 25 MG TABLET PO SCH ×2 (08:51→20:15)
[2023-03-19] MEDS: GABAPENTIN 100 MG CAP PO SCH ×3 (08:51→20:15)
[2023-03-19] MEDS: LACOSAMIDE 50 MG TABLET PO SCH ×2 (08:51→20:14)
[2023-03-19] MEDS: levETIRAcetam 500 MG TAB PO SCH ×2 (08:51→20:14)
[2023-03-19] MEDS: MICAFUNGIN SODIUM 100 MG in NA CHLORIDE 0.9% 100 ML IV SCH (08:51)
[2023-03-19] MEDS: DOCUSATE NA/SENNA CONC 1 TAB PO SCH ×2 (08:51→20:15)
[2023-03-19] MEDS ORDERED: AMLODIPINE 5 MG TAB PO SCH (09:00)
--- NOTE | 2023-03-19 13:04 | P.PN ---
Date of Service: 03/19/23 Subjective: Oriented x2-3 at baseline Denies pain feeling better, no abd pain no acute events overnight ROS: 10 point ROS as noted above, otherwise negative Physical exam GEN: Alert, oriented x2, NAD HEENT: Normal conjunctiva, sclera anicteric CV: Regular rate and rhythm, no edema Pulm: Nonlabored respirations on room air ABD: Soft, nontender, nondistended MSK: No joint tenderness Integumentary: No rashes Neuro: Normal speech, normal affect Vitals reviewed Problem List Acute metabolic encephalopathy-improving Severe sepsis secondary to obstructive pyelonephritis/right obstructive ureterolithiasis S/P right ureteral stent placement 03/15 Broad-spectrum antibiotic-IV cefepime, vancomycin discontinued 03/17 Blood Culture 05/28 prelim + for yeast D/W ID, started micafungin 03/16 Will need 14 days total IV micafungin ending date 03/29 repeat blood cultures 04/17 NGTD Urology following-will need outpatient follow-up after infection is cleared for definitive management outpatient will need ureteroscopy with laser lithotripsy and stent exchange-will need cardiac clearance prior to this/possible neurology clearance Elevated LFTs Likely related to micafungin LFTs improving today-continue to trend Liver US WNL Diabetes mellitus type 2 Insulin sliding scale Hold home glimepiride due to poor oral intake. Fingerstick glucose checks. Seizure disorder Resumed home antiseizure medications. Essential hypertension Monitor blood pressure closely Resumed home antihypertensives GRACIE likely secondary to sepsis versus dehydration GRACIE improving, nephrology following Obstruction from stone possible contributing as well Stent placed by urology IV hydration. renal function improving DVT prophylaxis: Heparin subQ Disposition: Anticipated in 2 to 3 days of inpatient stay. Disposition to home with home health Time Spent Managing Pts Care (In Minutes): 35
--- NOTE | 2023-03-19 15:38 | P.PN ---
Subjective Date of Service: 03/19/23 Chief Complaint: Altered mental status Subjective: No new changes Physical Examination - Vital Signs Temperature: 98.0 F Blood Pressure: 147/74 Pulse: 67 Respirations: 17 Pulse Ox (%): 95 - Physical Exam General: Other (Chronically ill appearing) HEENT: Atraumatic Neck: Supple, JVD not distended Respiratory: Other (symmetric chest expansion) Cardiovascular: No rubs, No murmurs Gastrointestinal: Soft and benign, No guarding Musculoskeletal: No clubbing Integumentary: No warmth Neurological: Normal tone Urinary: Other (no bladder distention) External genitalia: Deferred Rectal: Deferred - Studies Microbiology Data (last 24 hrs): 03/14/23 20:56 Blood - Blood Blood Culture Gram Stain - Final Assessment And Plan - Plan # GRACIE 2/2 ATN/sepsis + obstructive R nephropathy SCr 2.2 on adm, increased to 2.4, decreased to 1.0 CT A/P obstructive right nephropathy with 2 adjacent calculi just past the ureteropelvic junction up to 7 mm in size [place] po fluid intake Monitor renal panel # Obstructive R ureterolithiasis S/p cystoscopy & right ureteral stenting on 03/15 Abx 24 hour urinary stone panel at least one month apart 2 sets as outpatient # Hypokalemia KCl repletion prn # Sepsis 2/2 UTI from obstructive R ureterolithiases. She underwent cystoscopy & right ureteral stenting on 03/15. She received IVF & IV abx. she is referred to nephrology for HPI. Serum K and 2.2 on admission, at 2.4 today. # AMS Per other services # DM2 Mngt per primary team # Htn Cont current med regimen # Seizure disorder Per other services Physician Review: Patient Assessed, Agree with Above Assessment and Plan
[2023-03-19] MEDS ORDERED: AMLODIPINE 5 MG TAB PO ONE (16:01)
[2023-03-19] MEDS: ACETAMINOPHEN 325 MG TABLET PO PRN (16:28)
[2023-03-19] MEDS: CEFEPIME 1 GM in NA CHLORIDE 0.9% 100 ML IV SCH (20:15)
[2023-03-20] MEDS: HEPARIN 5000 UNIT/ML 1 ML VIAL SQ SCH ×3 (00:28→16:42)
[2023-03-20] MEDS: carvediloL 12.5 MG TAB PO SCH ×2 (05:12→18:27)
[2023-03-20 06:16] LABS: Hematocrit 35.1 % (36.0-45.0); MPV 7.1 fL (7.6-11.3); Platelets 306 thou/uL (152-406); RBC Red Blood Cell Count 3.94 M/uL (3.86-4.86)
[2023-03-20 06:33] LABS: Bilirubin Total 0.3 mg/dL (0.2-1.0); Magnesium 1.5 mg/dL (1.6-2.4); Phosphorus 2.9 mg/dL (2.5-4.9); Protein, Total 6.2 g/dL (6.4-8.2)
[2023-03-20] MEDS ORDERED: Magnesium Sulfate 2gm IVPB 2 G/50 ML BAG IV ONE (08:00)
[2023-03-20] MEDS: INSULIN REGULAR (HUMAN) 100 UNIT/ML SQ SCH ×4 (08:24→20:53)
[2023-03-20] MEDS: LACOSAMIDE 50 MG TABLET PO SCH ×2 (08:25→20:52)
[2023-03-20] MEDS: DOCUSATE NA/SENNA CONC 1 TAB PO SCH ×2 (08:25→20:52)
[2023-03-20] MEDS: HYDRALAZINE HCL 25 MG TABLET PO SCH ×2 (08:26→20:52)
[2023-03-20] MEDS: GABAPENTIN 100 MG CAP PO SCH ×3 (08:26→20:52)
[2023-03-20] MEDS: AMLODIPINE 5 MG TAB PO SCH ×2 (08:26→20:52)
[2023-03-20] MEDS: levETIRAcetam 500 MG TAB PO SCH ×2 (08:27→20:52)
--- NOTE | 2023-03-20 09:11 | P.PN ---
Date of Service: 03/20/23 Chief Complaint: Altered mental status Subjective: Improving Patient in bed, in no apparent distress. Breathing comfortably on room air. Son at bedside. Patient denies any new or worsening complaints. No acute events reported overnight. Continue current plan of care. Physical Examination Temp Pulse Resp BP Pulse Ox 97.2 F 63 16 181/77 H 96 03/20/23 04:00 03/20/23 05:12 03/20/23 04:00 03/20/23 05:12 03/20/23 04:00 General: In no apparent distress. Awake, oriented x2-3. HEENT: Atraumatic, Normocephalic Neck: Supple, JVD not distended Respiratory: Clear to auscultation bilaterally, Normal air movement. On room air. Cardiovascular: Regular rate and rhythm Gastrointestinal: Normal bowel sounds, Soft and benign. Non-distended. Integumentary: No rashes Urinary: Bhatti catheter Laboratory Data - Reviewed Microbiology Data - Reviewed Imagings Data: - Reviewed Medications List: Reviewed Assessment and plan Problem List Sepsis secondary to Complicated Urinary Tract Infection Acute Kidney Injury Diabetes Mellitus type II Hypertension Seizure Disorder Sepsis secondary to Complicated Urinary Tract Infection Right obstructive ureterolithiasis. Obstructive pyelonephritis. - Urinalysis 03/14: LE 500, RBC 11-20, WBC >50 - Urine culture 03/14: no growth to date - Blood cultures 03/14: + yeast in 2 of 4 bottles; presumptive Renetta glabrata - Repeat blood cultures 03/18: no growth 24 hours - CT abdomen pelvis wo contrast 03/15: "Progressive hydronephrosis, now moderate to severe, with proximal hydroureter. Two adjacent calculi just past the ureteropelvic junction, up to 7 millimeter in size." - Urologist Dr. Gonzalez consulted. - s/p cystoscopy, Right retrograde pyelography, complex Right ureteral stent placement and Urethral Bhatti catheter placement on 03/[address] Gonzalez. - Currently on Cefepime (03/15-) and Micafungin (03/16-) - Afebrile 48 hours Recommendations - Blood cultures 03/14 +yeast in 2 of 4 bottles; presumptive Renetta glabrata -> continue Micafungin 100mg IV q24h for 14 days (03/16 to 03/29) - Discontinue Cefepime - Patient to follow up with urology once infection is cleared. - Monitor WBC and fever trends. PRN tylenol - Strict blood glucose control. Goal <180 - Nutritional supplementation - Seizure precautions - Continue all supportive care - Pressure offloading measures. - Bhatti catheter care Case discussed with Ephraim Leggett
[2023-03-20] MEDS: MICAFUNGIN SODIUM 100 MG in NA CHLORIDE 0.9% 100 ML IV SCH (10:57)
--- NOTE | 2023-03-20 17:54 | P.PN ---
Date of Service: 03/20/23 Subjective: Awake and conversing well No complaints this AM Midline failed, waiting for PICC line ROS: 10 point ROS as noted above, otherwise negative Physical exam GEN: Alert, oriented x2, NAD HEENT: Normal conjunctiva, sclera anicteric CV: Regular rate and rhythm, no edema Pulm: Nonlabored respirations on room air ABD: Soft, nontender, nondistended MSK: No joint tenderness Integumentary: No rashes Neuro: Normal speech, normal affect Vitals reviewed Problem List Acute metabolic encephalopathy-improving Severe sepsis secondary to obstructive pyelonephritis/right obstructive ureterolithiasis S/P right ureteral stent placement 03/15 Broad-spectrum antibiotic-IV cefepime, vancomycin discontinued 03/17 Blood Culture 05/28 prelim + for yeast D/W ID, started micafungin 03/16 Will need 14 days total IV micafungin ending date 03/29 repeat blood cultures 04/17 NGTD Urology following-will need outpatient follow-up after infection is cleared for definitive management outpatient will need ureteroscopy with laser lithotripsy and stent exchange-will need cardiac clearance prior to this/possible neurology clearance Elevated LFTs Likely related to micafungin LFTs improving today-continue to trend Liver US WNL Diabetes mellitus type 2 Insulin sliding scale Hold home glimepiride due to poor oral intake. Fingerstick glucose checks. Seizure disorder Resumed home antiseizure medications. Essential hypertension Monitor blood pressure closely Resumed home antihypertensives GRACIE likely secondary to sepsis versus dehydration GRACIE improving, nephrology following Obstruction from stone possible contributing as well Stent placed by urology IV hydration. renal function improving DVT prophylaxis: Heparin subQ Disposition: Anticipated in 2 to 3 days of inpatient stay. Disposition to home with home health Time Spent Managing Pts Care (In Minutes): 35
[2023-03-20] MEDS: Mupirocin NASAL 2 APPL/1 GM TUBE NAS SCH (20:53)
--- NOTE | 2023-03-20 23:40 | PN ---
Date of Progress Note: 03/20/2023 Chief Complaint: Acute kidney injury. Subjective: The patient is admitted to the hospital because of altered mental status. She was found to have acute kidney injury secondary to sepsis, obstructive right nephropathy. Baseline creatinine level on admission was 2.2 and increased to 2.4, subsequently decreased to 1.0. CT scan of the abdo men and pelvis show obstructive right nephropathy with 2 adjacent calculi just past the ureteropelvic junction up to 7 mm in size. Review of Systems: Denies chest pain, palpitation. Physical Examination: Lungs: Diminished breath sounds in the bases. Heart: S1, S2. Abdomen: Soft, benign. Extremities: Edema present. Impression And Plan: 1.Acute kidney injury secondary to acute tubular necrosis due to sepsis and obstructive right nephro tracie. Serum creatinine level is improving. Patient was found to have a calculi. Urology consultat ion was recommended. 2.Obstructive right ureterolithiasis, status post cystoscopy and right ureteral stenting was done on March 15. Continue antibiotics. 3.Hypokalemia. Potassium chloride treatment by mouth for hypokalemia. 4.Sepsis secondary to urinary tract infection from obstructive right ureterolithiasis. The patient underwent cystoscopy and right ureteral stenting on March 15. Patient received IV antibiotics. Monitor blood culture, urine culture. 5.Altered mental status, per Primary Team. 6.Diabetes mellitus. Continue insulin. 7.Hypertension. Adjust medication according to blood pressure. Avoid BELKIS inhibitor due to acute ki dney injury. EB/MODL Voice ID: [id number] Report ID: [id number]
[2023-03-21] MEDS: HEPARIN 5000 UNIT/ML 1 ML VIAL SQ SCH (00:25)
[2023-03-21 03:22] LABS: Hematocrit 33.4 % (36.0-45.0); MCV 88.5 fL (80-100); MPV 7.6 fL (7.6-11.3); Platelets 364 thou/uL (152-406); RBC Red Blood Cell Count 3.77 M/uL (3.86-4.86)
[2023-03-21 03:26] LABS: Albumin 2.1 g/dL (3.4-5.0); Bilirubin Total 0.2 mg/dL (0.2-1.0); Magnesium 1.7 mg/dL (1.6-2.4); Potassium 3.9 mEq/L (3.5-5.1); Protein, Total 6.2 g/dL (6.4-8.2)
[2023-03-21] MEDS: carvediloL 12.5 MG TAB PO SCH ×2 (05:30→17:26)
[2023-03-21] MEDS: INSULIN REGULAR (HUMAN) 100 UNIT/ML SQ SCH ×4 (08:45→21:36)
[2023-03-21] MEDS: levETIRAcetam 500 MG TAB PO SCH ×2 (08:47→21:37)
[2023-03-21] MEDS: HYDRALAZINE HCL 25 MG TABLET PO SCH ×2 (08:48→21:41)
[2023-03-21] MEDS: AMLODIPINE 5 MG TAB PO SCH ×2 (08:48→21:37)
[2023-03-21] MEDS: DOCUSATE NA/SENNA CONC 1 TAB PO SCH ×2 (08:48→21:37)
[2023-03-21] MEDS: GABAPENTIN 100 MG CAP PO SCH ×3 (08:48→21:37)
[2023-03-21] MEDS: LACOSAMIDE 50 MG TABLET PO SCH ×2 (08:49→21:37)
[2023-03-21] MEDS: Mupirocin NASAL 2 APPL/1 GM TUBE NAS SCH ×2 (08:50→21:37)
[2023-03-21] MEDS ORDERED: POTASSIUM CL SA 10 MEQ TAB PO ONE (09:00)
[2023-03-21] MEDS: MICAFUNGIN SODIUM 100 MG in NA CHLORIDE 0.9% 100 ML IV SCH (10:13)
[2023-03-21] MEDS: MAGNESIUM OXIDE 400 MG TAB PO SCH ×2 (11:00→21:40)
--- NOTE | 2023-03-21 14:12 | P.PN ---
Date of Service: 03/21/23 Subjective: Awake eating breakfast no complaints today still need PICC line placed then discharge with micafungin monitoring LFTs ROS: 10 point ROS as noted above, otherwise negative Physical exam GEN: Alert, oriented x2, NAD HEENT: Normal conjunctiva, sclera anicteric CV: Regular rate and rhythm, no edema Pulm: Nonlabored respirations on room air ABD: Soft, nontender, nondistended Genitourinary: dee in place MSK: No joint tenderness Integumentary: No rashes Neuro: Normal speech, normal affect Vitals reviewed Problem List Acute metabolic encephalopathy-improving Severe sepsis secondary to obstructive pyelonephritis/right obstructive ureterolithiasis S/P right ureteral stent placement 03/15 Broad-spectrum antibiotic-IV cefepime, vancomycin discontinued 03/17 Blood Culture 05/28 prelim + for yeast D/W ID, started micafungin 03/16 Will need 14 days total IV micafungin ending date 03/29 repeat blood cultures 04/17 NGTD Urology following-will need outpatient follow-up after infection is cleared for definitive management outpatient will need ureteroscopy with laser lithotripsy and stent exchange-will need cardiac clearance prior to this/possible neurology clearance Elevated LFTs Likely related to micafungin LFTs improving today-continue to trend Liver US WNL Diabetes mellitus type 2 Insulin sliding scale Hold home glimepiride due to poor oral intake. Fingerstick glucose checks. Seizure disorder Resumed home antiseizure medications. Essential hypertension Monitor blood pressure closely Resumed home antihypertensives GRACIE likely secondary to sepsis versus dehydration GRACIE improving, nephrology following Obstruction from stone possible contributing as well Stent placed by urology IV hydration. renal function normalized DVT prophylaxis: Heparin subQ Disposition: Anticipated in 2 to 3 days of inpatient stay. Disposition to home with home health Time Spent Managing Pts Care (In Minutes): 35
--- NOTE | 2023-03-21 14:38 | P.PN ---
Date of Service: 03/21/23 Chief Complaint: Altered mental status Subjective: Improving Patient eating breakfast in bed. In no apparent distress. She denies any new or worsening complaints at this time. No pain. No acute events reported overnight. Physical Examination Temp Pulse Resp BP Pulse Ox 97.1 F 65 18 133/60 93 03/21/23 12:00 03/21/23 12:00 03/21/23 12:00 03/21/23 12:00 03/21/23 12:00 General: In no apparent distress. Awake, oriented x2-3. HEENT: Atraumatic, Normocephalic Neck: Supple, JVD not distended Respiratory: Clear to auscultation bilaterally, Normal air movement. On room air. Cardiovascular: Regular rate and rhythm Gastrointestinal: Normal bowel sounds, Soft and benign. Non-distended. Integumentary: No rashes Urinary: Bhatti catheter Laboratory Data - Reviewed Microbiology Data - Reviewed Imagings Data: - Reviewed Medications List: Reviewed Assessment and plan Problem List Sepsis secondary to Complicated Urinary Tract Infection Acute Kidney Injury Diabetes Mellitus type II Hypertension Seizure Disorder Sepsis secondary to Complicated Urinary Tract Infection Right obstructive ureterolithiasis. Obstructive pyelonephritis. - Urinalysis 03/14: LE 500, RBC 11-20, WBC >50 - Urine culture 03/14: no growth to date - Blood cultures 03/14: + yeast in 2 of 4 bottles; presumptive Renetta glabrata - Repeat blood cultures 03/18: no growth to date - CT abdomen pelvis wo contrast 03/15: "Progressive hydronephrosis, now moderate to severe, with proximal hydroureter. Two adjacent calculi just past the ureteropelvic junction, up to 7 millimeter in size." - Urologist Dr. Gonzalez consulted. - s/p cystoscopy, Right retrograde pyelography, complex Right ureteral stent placement and Urethral Bhatti catheter placement on 03/[address] Gonzalez. - Previously on Cefepime (03/15-03/20). Discontinued on 03/20 due to no bacterial growth on cultures - Currently on Micafungin (started 03/16-) - Right renal aspirate/urine culture 03/15: 3+ yeast, presumptive Renetta glabrata Recommendations - Blood cultures and right renal aspirate/urine culture with +yeast, presumptive Renetta glabrata -> continue Micafungin 100mg IV q24h for 14 days (03/16 to 03/29) - pending Midline/PICC line placement - Patient to follow up with urology in 1-2 weeks - Monitor WBC and fever trends - Strict blood glucose control. Goal <180 - Seizure precautions - Pressure offloading measures. Case discussed with Ephraim Leggett
--- NOTE | 2023-03-21 18:40 | PN ---
Date of Progress Note: 03/21/2023 Subjective: This patient was admitted to the hospital with altered mental status and sepsis, found t o have UTI with obstructive uropathy on the right side with 2 calculi. The patient was started on an tibiotic. The patient's kidney function has started being improved. Physical Examination: Vital Signs: When I saw the patient, blood pressure 133/60, pulse of 65, afebrile. Chest: Clear to auscultation. Heart: S1, S2. Regular. Abdomen: Soft, nontender. Extremities: No edema. Neurologic: Alert. No focality. Laboratory Data: Hemoglobin 11.1, WBC 12.7. Sodium 136, potassium 3.5, bicarb 26, BUN 23, creatinin e 0.9, calcium 8.6, magnesium 1.7, albumin 2.1, corrected calcium is 10.2. Current Medications: Amlodipine 5 mg, carvedilol 12.5 b.i.d., hydralazine 25 b.i.d., gabapentin 100 t.i.d., Keppra, magnesium sulfate, tramadol. Assessment And Plan: 1.Acute kidney injury secondary to toxic acute tubular necrosis, poor perfusion acute tubular necros is/obstructive uropathy, resolved. The patient has normal volume. We will continue to monitor. 2.Sepsis secondary to urosepsis, recovered. 3.Urinary tract infection, status post treatment. We will follow up. 4.Hypertension, controlled, optimal. Continue current treatment. Keep avoiding any BELKIS inhibitor o r ARB. 5.Obstructive uropathy with right-sided ureterolithotripsy and cystoscopy and stenting back on March 15, recovered. We will continue to monitor. Follow up [facility]. BERNICE/LORRAINE Voice ID: [id number] Report ID: [id number]
[2023-03-22] MEDS: carvediloL 12.5 MG TAB PO SCH (06:11)
--- NOTE | 2023-03-22 08:08 | P.DS ---
Admission Date: 03/14/23 Discharge Date: 03/22/23 Disposition: TRANSFER TO INPATIENT REHAB Discharge Condition: FAIR Reason for Admission: Altered mental status Hospital Course: Diagnosis: Acute metabolic encephalopathy-improving Severe sepsis secondary to obstructive pyelonephritis/right obstructive ureterolithiasis S/P right ureteral stent placement 03/15 Elevated LFTs Diabetes mellitus type 2 Seizure disorder Essential hypertension GRACIE likely secondary to sepsis versus dehydration Maribell Coello is a pleasant 77-year-old female with a past medical history significant for seizure disorder, diabetes and hypertension who was admitted to the [facility] on 03/14/2023 for Severe sepsis secondary to obstructive pyelonephritis/right obstructive ureterolithiasis. Maribell presented to the ED with complaints of altered mental status, inability to eat and give oral medications. CT abdomen pelvis showed progressive hydronephrosis requiring consultation with Dr. Gonzalez. Dr. Gonzalez performed a cystoscopy/ureteroscopy and placed a stent in the right ureter with a Dee catheter in place as well. Urine culture resulted with yeast and she has tolerated IV micafungin. ID was consulted and recommended micafungin through 03/29/23. She has remained alert and oriented x3, independently feeding herself, conversing well, and participated with physical therapy. She is afebrile, blood pressure and heart rate stable, and urinating without complaints. On 03/22/2020, Maribell was seen on morning rounds and deemed medically stable for discharge to inpatient rehab. Maribell was discharged with instructions to schedule follow-up appointments with Dr. Tracy. Maribell was provided prescriptions for Micafungin IV. The patient and family members were given the opportunity to ask questions and reported no further questions. Furthermore, all questions were answered to the best of my ability. A copy of this discharge summary will be sent to the above providers to facilitate continuity of care. Today, I personally spent 55 minutes with Maribell, of which greater than 50% of the time was spent in patient education, counseling, and coordination of care as described above. Vital Signs/Physical Exam: Temp Pulse Resp BP Pulse Ox 97.2 F 73 15 127/57 L 98 03/22/23 04:00 03/22/23 06:11 03/22/23 04:00 03/22/23 06:11 03/22/23 04:00 Laboratory Data at Discharge: WBC 12.70 thou/uL (4.3-10.9) H 03/21/23 01:49 Hgb 11.1 g/dL (12.0-15.0) L 03/21/23 01:49 Hct 33.4 % (36.0-45.0) L 03/21/23 01:49 Plt Count 364 thou/uL (152-406) 03/21/23 01:49 PT 12.2 SECONDS (9.5-12.5) 03/14/23 20:14 INR 1.11 03/14/23 20:14 APTT 25.4 SECONDS (24.3-36.9) 03/14/23 20:14 Sodium 136 mEq/L (136-145) 03/21/23 01:49 Potassium 3.9 mEq/L (3.5-5.1) 03/21/23 01:49 BUN 23 mg/dL (7-18) H 03/21/23 01:49 Creatinine 0.92 mg/dL (0.55-1.02) 03/21/23 01:49 Glucose 156 mg/dL (74-106) H 03/21/23 01:49 Phosphorus 2.9 mg/dL (2.5-4.9) 03/20/23 05:52 Magnesium 1.7 mg/dL (1.6-2.4) 03/21/23 01:49 Total Bilirubin 0.2 mg/dL (0.2-1.0) 03/21/23 01:49 AST 31 U/L (15-37) 03/21/23 01:49 ALT 90 U/L (13-56) H 03/21/23 01:49 Alkaline Phosphatase 313 U/L (45-117) H 03/21/23 01:49 Home Medications: Gabapentin 100 mg PO TID 12/02/22 levETIRAcetam [Levetiracetam] 3 tab PO BID 12/02/22 Lacosamide 1 tab PO BID 12/14/22 Aspirin Chewable [Aspirin Chewable*] 81 mg PO DAILY #30 tab.chew 12/15/22 Docusate/Senna [Senokot-S*] 1 tab PO BID #60 tab 12/15/22 traMADol HCL [Ultram*] 50 mg PO Q6H PRN 09/02/23 Magnesium Oxide [Mag 0X*] 400 mg PO BID #60 tab 01/04/23 Amlodipine [Norvasc*] 5 mg PO BID #30 tab 01/05/23 Carvedilol [Coreg] 12.5 mg PO BID #30 01/05/23 Hydralazine [Apresoline*] 25 mg PO BID #60 tab 01/05/23 Insulin Glargine,Hum.rec.anlog [Insulin Glargine] 15 unit SQ BEDTIME #1 vial 01/05/23 Lisinopril [Zestril] 5 mg PO BID #30 01/05/23 Glimepiride [Amaryl*] 2 mg PO DAILY 03/15/23 Amlodipine [Norvasc*] 5 mg PO BID tab 03/22/23 Micafungin Sodium [Micafungin] 100 mg IV DAILY 8 Days #8 ml 03/22/23 Mupirocin Calcium [Bactroban Nasal*] 1 appl JAZMÍN BID tube 03/22/23 New Medications: Micafungin Sodium [Micafungin] 100 mg IV DAILY 8 Days #8 ml Physician Discharge Instructions: Physical exam GEN: Alert, oriented x2, NAD HEENT: Normal conjunctiva, sclera anicteric CV: Regular rate and rhythm, no edema Pulm: Nonlabored respirations on room air ABD: Soft, nontender, nondistended Genitourinary: dee in place MSK: No joint tenderness Integumentary: No rashes Neuro: Normal speech, normal affect 1. Follow up with Dr. Gonzalez in 1 week 2. Follow-up with PCP in 1 week for continued medication management 3. Follow-up with Dr. Herzog in one month for kidney management 4. Continue Renal diet 5. fall precautions, continue working with PT for strengthening 6. Return to ED is symptoms return New medications Micafungin 100 mg IV daily for 8 days (03/22-03/29), last dose to be given on 03/29 Diet: ADA Activity: Fall precautions Followup: NONE,NONE [Primary Care Provider] - Hansel Gonzalez [ACTIVE - CAN ADMIT] - Time spent managing pt's care (in minutes): 55
[2023-03-22] MEDS: INSULIN REGULAR (HUMAN) 100 UNIT/ML SQ SCH ×3 (08:46→16:30)
[2023-03-22] MEDS: GABAPENTIN 100 MG CAP PO SCH ×2 (08:47→14:02)
[2023-03-22] MEDS: levETIRAcetam 500 MG TAB PO SCH (08:47)
[2023-03-22] MEDS: AMLODIPINE 5 MG TAB PO SCH (08:48)
[2023-03-22] MEDS: Mupirocin NASAL 2 APPL/1 GM TUBE NAS SCH (08:48)
[2023-03-22] MEDS: MICAFUNGIN SODIUM 100 MG in NA CHLORIDE 0.9% 100 ML IV SCH ×2 (08:49→09:00)
[2023-03-22] MEDS: LACOSAMIDE 50 MG TABLET PO SCH (08:49)
[2023-03-22] MEDS: DOCUSATE NA/SENNA CONC 1 TAB PO SCH (08:49)
[2023-03-22] MEDS: MAGNESIUM OXIDE 400 MG TAB PO SCH (08:49)
[2023-03-22] MEDS: HYDRALAZINE HCL 25 MG TABLET PO SCH (08:49)
--- NOTE | 2023-03-22 09:11 | P.PN ---
Date of Service: 03/22/23 Chief Complaint: Altered mental status Subjective: Improving In no apparent distress. Breathing comfortably on room air. Patient denies any new or worsening complaints. pending inpatient rehab placement Physical Examination Temp Pulse Resp BP Pulse Ox 97.2 F 73 15 127/57 L 98 03/22/23 04:00 03/22/23 06:11 03/22/23 04:00 03/22/23 06:11 03/22/23 04:00 General: In no apparent distress. Awake, oriented x2-3. HEENT: Atraumatic, Normocephalic Neck: Supple, JVD not distended Respiratory: Clear to auscultation bilaterally, Normal air movement. On room air. Cardiovascular: Regular rate and rhythm Gastrointestinal: Normal bowel sounds, Soft and benign. Non-distended. Integumentary: No rashes Urinary: Bhatti catheter Laboratory Data - Reviewed Microbiology Data - Reviewed Imagings Data: - Reviewed Medications List: Reviewed Assessment and plan Problem List Sepsis secondary to Complicated Urinary Tract Infection Acute Kidney Injury Diabetes Mellitus type II Hypertension Seizure Disorder Sepsis secondary to Complicated Urinary Tract Infection Right obstructive ureterolithiasis. Obstructive pyelonephritis. - Urinalysis 03/14: LE 500, RBC 11-20, WBC >50 - Urine culture 03/14: no growth to date - Blood cultures 03/14: + yeast in 2 of 4 bottles; presumptive Renetta glabrata - Repeat blood cultures 03/18: no growth to date - CT abdomen pelvis wo contrast 03/15: "Progressive hydronephrosis, now moderate to severe, with proximal hydroureter. Two adjacent calculi just past the ureteropelvic junction, up to 7 millimeter in size." - Urologist Dr. Gonzalez consulted. - s/p cystoscopy, Right retrograde pyelography, complex Right ureteral stent placement and Urethral Bhatti catheter placement on 03/[address] Gonzalez. - Previously on Cefepime (03/15-03/20). Discontinued on 03/20 due to no bacterial growth on cultures - Currently on Micafungin (started 03/16-) - Right renal aspirate/urine culture 03/15: 3+ yeast, presumptive Renetta glabrata - WBC up-trending (11.7 -> 12.7). Pending today's results (03/22) - Afebrile Recommendations - Blood cultures and right renal aspirate/urine culture with +yeast presumptive Renetta glabrata -> continue Micafungin 100mg IV q24h for 14 days (03/16 to 03/29) - Patient to follow up with urology once infection is cleared - Monitor WBC and fever trends. WBC pending for today, follow up with results. - Strict blood glucose control. Goal <180 - Seizure precautions - Pressure offloading measures. Case discussed with Ephraim Leggett
[2023-03-22 11:08] LABS: Absolute Lymphocytes (CBC) 2.9 K/uL (0.7-4.9); Hematocrit 35.3 % (36.0-45.0); Lymphocytes % 23.4 % (15.3-44.8); MCV 88.8 fL (80-100); MPV 7.3 fL (7.6-11.3); Platelets 460 thou/uL (152-406); RBC Red Blood Cell Count 3.97 M/uL (3.86-4.86)
[2023-03-22 11:22] VITALS: O2SAT 93
[2023-03-22 12:12] VITALS: BP 150/61; TEMP 96.7
[2023-03-22 12:35] LABS: Blood Morphology Comment NOT SEEN (NOT SEEN); Platelet Estimate ADEQ; Toxic Granulation 1+; White Blood Cell Scan OK (OK)
--- NOTE | 2023-03-22 13:40 | PN ---
Date of Progress Note: 03/22/2023 Subjective: The patient was admitted to the hospital with sepsis, UTI. The patient had acute kidney injury secondary to toxic ATN, poor perfusion ATN. The patient's kidney function has been improved, significantly normalized. Objective: Vital Signs: When I saw the patient, blood pressure 137/63, pulse of 68, afebrile. Chest: Clear to auscultation. Heart: S1, S2. Regular. Abdomen: Soft, nontender. Could not appreciate any organomegaly. Extremities: Trace edema. Neurologic: Alert. No focality. Pleasantly confused. Laboratory Data: Sodium 136, potassium 3.9, bicarb 26, BUN 23, creatinine 0.9, calcium 8.6, hemoglob in 11.7. Current Medications: The patient on, it includes: 1.Tylenol. 2.Gabapentin. 3.Keppra. 4.Mupirocin. 5.Carvedilol 12.5. 6.Amlodipine. 7.Hydralazine. 8.KCl. Assessment And Plan: 1.Acute kidney injury secondary to poor perfusion acute tubular necrosis, toxic acute tubular necros is, recovered, resolved. Normal volume. We will continue off IV fluid. 2.Sepsis secondary to urosepsis, resolved, status post urinary tract infection treatment. We will f ollow up with the Primary and Urology. 3.Hypertension, controlled, optimal. Continue current treatment. Keep avoiding any ARB or BELKIS inhi bitor. 4.Obstructive uropathy, status post ureterolithotripsy and cystoscopy back on March 15. Continue current treatment. We will continue to monitor. BERNICE/LORRAINE Voice ID: [id number] Report ID: [id number]
--- NOTE | 2023-03-22 13:43 | RAD REPORT ---
EXAM DESCRIPTION: [facility]22/2023 12:45 pm CLINICAL HISTORY: verify PICC line placement COMPARISON: Chest Single View dated 03/14/2023; Chest Single View dated 12/20/2022; Chest Single View dated 12/13/2022; Chest Single View dated 11/30/2022 TECHNIQUE: Portable AP view of the chest. FINDINGS: A left arm PICC has been placed, with catheter projecting at the level of the distal SVC. Stable left costophrenic angle blunting which may relate to pleural thickening or trace persistent ef fusion. The lungs are clear. No pneumothorax or effusion. The cardiomediastinal contours are unremar kable. IMPRESSION: Left arm PICC in satisfactory position. No acute cardiopulmonary process. Findings as a khushbu.
[2023-03-22 13:58] LABS: Albumin 2.2 g/dL (3.4-5.0); Bilirubin Total 0.2 mg/dL (0.2-1.0); Potassium 4.7 mEq/L (3.5-5.1); Protein, Total 6.8 g/dL (6.4-8.2)
[2023-03-22 16:42] LABS: SARS-CoV-2 Antigen Rapid Res Negative (Negative)
== END 2023-03-22 18:29 | DRG 853 ==
LOC: ER 19:53 → ERHOLD 22:20 → 2ND 03-15 03:48
PROVIDERS: ADMIT Internal Medicine; ATTEND Internal Medicine
PROC: BT1D1ZZ Fluoroscopy of Right Kidney, Ureter and Bladder using Low Osmolar Contrast (ICD-10-PCS; 2023-03-15)
PROC: 0T9B80Z Drainage of Bladder with Drainage Device, Via Natural or Artificial Opening Endoscopic (ICD-10-PCS; 2023-03-15)
PROC: 0T768DZ Dilation of Right Ureter with Intraluminal Device, Via Natural or Artificial Opening Endoscopic (ICD-10-PCS; principal; 2023-03-15 12:30)
PROC: 02HV33Z Insertion of Infusion Device into Superior Vena Cava, Percutaneous Approach (ICD-10-PCS; 2023-03-22)
DX: A41.9 Sepsis, unspecified organism (principal); G93.41 Metabolic encephalopathy; N17.0 Acute kidney failure with tubular necrosis; N13.6 Pyonephrosis; E11.9 Type 2 diabetes mellitus without complications; I10 Essential (primary) hypertension; E87.6 Hypokalemia; E86.0 Dehydration; E66.9 Obesity, unspecified; G40.909 Epilepsy, unspecified, not intractable, without status epilepticus; F03.90 Unspecified dementia, unspecified severity, without behavioral disturbance, psychotic disturbance, mood disturbance, and anxiety; R65.20 Severe sepsis without septic shock; R79.89 Other specified abnormal findings of blood chemistry; Z79.4 Long term (current) use of insulin; Z88.8 Allergy status to other drugs, medicaments and biological substances; Z79.82 Long term (current) use of aspirin; Z79.84 Long term (current) use of oral hypoglycemic drugs; Z11.52 Encounter for screening for COVID-19; Z79.02 Long term (current) use of antithrombotics/antiplatelets; Z86.73 Personal history of transient ischemic attack (TIA), and cerebral infarction without residual deficits; Z68.31 Body mass index [BMI] 31.0-31.9, adult; Z79.899 Other long term (current) drug therapy
CPT/HCPCS: 36415; 51610; 51702; 70450; 71045; 74176; 74450; 76705; 80048; 80053; 80076; 80202; 81001; 82947; 83605; 83735; 84100; 84132; 84443; 84484; 85025; 85027; 85610; 85730; 87040; 87070; 87086; 87088; 87205; 87635; 87804; 87811; 93005; 94760; 96365; 96372; 96375; 97110; 97116; 97161; 97530; 99285; J0692; J1644; J1650; J1815; J2001; J2248; J2704; J3010; J3475; J7030; J7040; J7050

== ENCOUNTER 2023-03-21 14:10 | Inpatient (IN) | payer OTHER, BC ==
--- OUTSIDE RECORDS SUMMARY | 2023-03-22 17:30 | XMS REPORT | Continuity of Care Document ---
:1945 Author Organization [facility] t Address [address] [place] [place] [address] Care Team Providers Name Role Phone Jose Callejas Primary Care Physician LON TRAMMELL Attending Clinician Unavailable WENDY RAMIREZ Attending Clinician Unavailable MELVIN HERNANDEZ Attending Clinician Unavailable RAMESH BRAN Attending Clinician Unavailable YARIEL BRAY Admitting Clinician Unavailable Payers Payer Name Policy Type Policy Number Effective Date Expiration Date Taylor villafuerte MEDICARE PART A [id number] 2010 2024 AND B 00:00:00 00:00:00 Problems Condition Condition Condition Status Onset Resolution Last Treating Co mments Source Name Details Category Date Date Treatment Clinician Date Focal Focal Disease Active [place] [facility] epilepsy 08-17 [facility] 00:00: 00 Pathologic [...] Source Exposure to 2022-08-06 2022-08-16 Not sure [facility] SARS-CoV-2 (event) 00:00:00 19:30:00 Tobacco use and 2022-02-15 2022-02-15 Smokeless tobacco [facility] exposure 00:00:00 00:00:00 non-user Alcohol intake 2022-02-15 2022-02-15 Lifetime [facility] 00:00:00 00:00:00 non-drinker (finding) Sex Ass[birth year] [facility] 00:00:00 00:00:00 Smoking Status Start Date Stop Date Source Never smoked tobacco [facility] Medications Ordered Filled Start Stop Current Ordering Indication Dosage Frequency Signature Comments Components Source Medication Medication Date Date Medication? Clinician (SIG) Name Name carvedilol Yes [id number] TAKE 1 U T (Coreg) 25 4-19 TABLET BY Heal th MG tablet 00:00: MOUTH 00 TWICE A DAY IN THE MORNING AND IN THE EVENING. TAKE WITH MEALS. levETIRAcet Yes [id number] 1500mg Q.5D Take 3 UT am (Keppra) 2-16 9106 tablets Healt h 500 MG 00:00: (1,500 mg tablet 00 total) by mouth in the morning and 3 tablets (1,500 mg total) in the evening. lacosamide 2022- No [id number] 100mg Q.5D Take 1 UT (Vimpat) 2-16 04-26 9106 tablet Health 100 MG 00:00: 00:00 (100 mg tablet 00 :00 total) by mouth in the morning and 1 tablet (100 mg total) before bedtime. hydrALAZINE 2022- No [id number] TAKE 1 AND UT (Apresoline 2-13 05-15 04/25 Health ) 50 MG 00:00: 04:59 TABLETS BY tablet 00 :00 MOUTH 2 TIMES A DAY gabapentin Yes [id number] 100mg Q.[id number] Take 1 UT (Neurontin) 2-10 9106 [id number] capsule Health 100 MG 00:00: 3D (100 mg capsule 00 total) by mouth in the morning and 1 capsule (100 mg total) at noon and 1 capsule (100 mg total) in the evening. lacosamide Yes [id number] 100mg Q.5D Take 1 UT (Vimpat) 1-27 9106 tablet Health 100 MG 00:00: (100 mg tablet 00 total) by mouth in the morning and 1 tablet (100 mg total) before bedtime. amLODIPine 2021-04 Yes [id number] TAKE 1 U T (Norvasc) 1-21 TABLET BY Healt h 10 MG 00:00: MOUTH 1 tablet 00 TIME EACH DAY. lisinopril 2021-04 Yes [id number] 10mg QD Take 1 U T 10 MG 1-09 tablet (10 Health tablet 00:00: mg total) 00 by mouth 1 (one) time each day. Blood 2021-04 Yes [id number] Check BP UT Pressure 0-25 daily Health Monitor kit 00:00: 00 methocarbam Yes [id number] 500mg Q.[id number] Take 1 UT ol 801 9106 [id number] tablet Health (Robaxin) 00:00: 3D (500 mg 500 MG 00 total) by tablet mouth in the morning and 1 tablet (500 mg total) at noon and 1 tablet (500 mg total) in the evening. Do all this for 14 days. glimepiride Yes [id number] 2mg Take 1 UT (Amaryl) 2 4-27 [...] Type Clinicians Facility Department ID 2022-08-[address] [facility] [id number] [place] 10:05:[id number] [facility] 2022-08-[address] [facility] [id number] [place] 13:41:[id number] [facility] 2022-08-[address] [facility] [id number] [place] 19:59:[id number] [facility] 2022-08-[address] [facility] [id number] [place] 15:58:[id number] [facility] 2022-02-[address] [facility] [id number] [place] 14:35:[id number] [facility] 2022-02-[address] [facility] [id number] [place] 14:03:[id number] [facility] 2021-09-12 Outpatient VALERI, [facility] [id number] [place] 01:03:08 LON [id number] [facility] 2021-09-[address] [facility] [id number] [place] 13:01:[id number] [facility] 2021-08-11 Outpatient JAMES, [facility] [id number] [place] 10:03:41 [facility] [id number] [facility] 2021-08-[address] [facility] [id number] [place] 11:03:[id number] [facility] 2021-08-[address] [facility] [id number] [place] 09:37:[id number] [facility] 2021-07-[address] [facility] [id number] [place] 13:45:[id number] [place] [address] 2021-06-11 Outpatient JAMES, [facility] [id number] [place] 15:41:00 [facility] 2023-08-21 2023-08-21 Outpatient DAMARIS, [facility] [id number] [place] 13:00:00 13:00:00 [facility] 2022-08-17 2022-08-17 [facility] [id number] [place] 14:00:00 14:27:53 [facility] [id number] [facility] [id number] 2022-02-22 2022-02-22 Outpatient JAMES, [facility] [id number] [place] 13:00:00 13:00:00 [facility] 2022-02-15 2022-02-15 Outpatient JAMES, [facility] [id number] [place] 14:30:00 14:54:11 [facility] 2021-06-04 2021-06-16 Inpatient Bijan BRAN, [facility] [id number] [facility] 22:12:00 17:10:00 RAMESH Results This patient has no known results.
[2023-03-22] MEDS ORDERED: TRAMADOL HCL 50 MG TAB PO PRN (18:43)
[2023-03-22] MEDS ORDERED: D10W 250 ML BAG IV PRN (18:50)
[2023-03-22] MEDS ORDERED: GLUCAGON 1 MG/VIAL IM PRN (18:50)
[2023-03-22] MEDS: levETIRAcetam 500 MG TAB PO SCH (20:34)
[2023-03-22] MEDS: AMLODIPINE 5 MG TAB PO SCH (20:34)
[2023-03-22] MEDS: HYDRALAZINE HCL 25 MG TABLET PO SCH (20:35)
[2023-03-22] MEDS: INSULIN REGULAR (HUMAN) 100 UNIT/ML SQ SCH (20:35)
[2023-03-22] MEDS: MAGNESIUM OXIDE 400 MG TAB PO SCH (20:35)
[2023-03-22] MEDS: DOCUSATE NA/SENNA CONC 1 TAB PO SCH (20:35)
[2023-03-22] MEDS: Mupirocin NASAL 2 APPL/1 GM TUBE NAS SCH (20:35)
[2023-03-22] MEDS: lisinopriL 5 MG TAB PO SCH (20:35)
[2023-03-22] MEDS: GABAPENTIN 100 MG CAP PO SCH (20:35)
[2023-03-22] MEDS: LACOSAMIDE 50 MG TABLET PO SCH (20:35)
[2023-03-22] MEDS ORDERED: INSULIN GLARGINE 100 UNIT/ML SQ SCH (21:00)
[2023-03-23 03:52] LABS: Absolute Lymphocytes (CBC) 2.8 K/uL (0.7-4.9); Hematocrit 31.5 % (36.0-45.0); Lymphocytes % 22.3 % (15.3-44.8); MCV 88.2 fL (80-100); Platelets 419 thou/uL (152-406); RBC Red Blood Cell Count 3.57 M/uL (3.86-4.86)
[2023-03-23 04:29] LABS: Albumin 1.9 g/dL (3.4-5.0); Magnesium 1.6 mg/dL (1.6-2.4); Potassium 3.9 mEq/L (3.5-5.1); Prealbumin 15.3 mg/dL (20-40)
[2023-03-23] MEDS: carvediloL 12.5 MG TAB PO SCH ×2 (05:17→17:52)
[2023-03-23 05:45] LABS: Specific Gravity 1.016 (1.005-1.030); Urine Bacteria None Seen /HPF (<20); Urine Bilirubin NEGATIVE (Negative); Urine Blood Trace (Negative); Urine Clarity Turbid (Clear); Urine Color Light-Yellow (Yellow); Urine Glucose NEGATIVE (Negative); Urine Mucus Slight /HPF (None Seen); Urine Protein TRACE (Negative); Urine RBC 21-50 /HPF (None Seen); Urine Urobilinogen Normal (Normal); Urine WBC Clump Moderate /HPF (None Seen); Urine pH 5.5 (5.0-7.0)
[2023-03-23] MEDS: INSULIN REGULAR (HUMAN) 100 UNIT/ML SQ SCH ×4 (06:47→20:14)
[2023-03-23] MEDS ORDERED: MICAFUNGIN SODIUM 100 MG VIAL IV SCH (08:00)
[2023-03-23] MEDS: AMLODIPINE 5 MG TAB PO SCH ×3 (08:00→20:15)
[2023-03-23] MEDS: MAGNESIUM OXIDE 400 MG TAB PO SCH ×2 (08:38→20:15)
[2023-03-23] MEDS: HYDRALAZINE HCL 25 MG TABLET PO SCH ×3 (08:39→20:19)
[2023-03-23] MEDS: LACOSAMIDE 50 MG TABLET PO SCH ×2 (08:39→20:19)
[2023-03-23] MEDS: levETIRAcetam 500 MG TAB PO SCH ×2 (08:40→20:16)
[2023-03-23] MEDS: GLIMEPIRIDE 2 MG TABLET PO SCH (08:41)
[2023-03-23] MEDS: APIXABAN 2.5 MG TABLET PO SCH ×2 (08:41→20:16)
[2023-03-23] MEDS: ASPIRIN 81 MG CHEWABLE TABLET PO SCH (08:42)
[2023-03-23] MEDS: DOCUSATE NA/SENNA CONC 1 TAB PO SCH ×2 (08:42→20:16)
[2023-03-23] MEDS: GABAPENTIN 100 MG CAP PO SCH ×3 (08:42→20:15)
[2023-03-23] MEDS: lisinopriL 5 MG TAB PO SCH ×2 (09:48→20:15)
[2023-03-23] MEDS: MICAFUNGIN SODIUM 100 MG in NA CHLORIDE 0.9% 100 ML IV SCH (09:49)
[2023-03-23] MEDS: GLUCERNA SHAKE 237 ML CAN PO SCH ×2 (09:49→20:16)
[2023-03-23] MEDS: Mupirocin NASAL 2 APPL/1 GM TUBE NAS SCH ×2 (11:39→20:16)
[2023-03-23] MEDS ORDERED: MAGNESIUM SULFATE 1 gm IVPB 1 GM/100 ML BAG IV ONE (12:00)
[2023-03-23] MEDS ORDERED: INSULIN GLARGINE 100 UNIT/ML SQ SCH (21:00)
[2023-03-24] MEDS: carvediloL 12.5 MG TAB PO SCH ×2 (05:29→17:05)
--- NOTE | 2023-03-24 06:22 | HP ---
Date of Admission: 03/22/2023 Time Of Service: 12 noon. Chief Complaint: "I became very weak made me come to the hospital." History Of Present Illness: Ms. Coello is a 77-year-old patient with multiple medical problems inc luding hypertension, diabetes mellitus, stroke, seizures, and renal insufficiency, who was confused, disoriented, and found to have leukocytosis, hyponatremia, and acute on chronic renal dysfunction. S he had a fever of 102 and a urinary tract infection. She received IV antibiotics, IV fluids, and was diagnosed with metabolic encephalopathy. She had right nephropathy obstructive nephropat hy. She was treated under sepsis protocol and urine cultures obtained. She did have a seizure medic estrella and a proton pump inhibitor restarted. Her cultures in the urine did grow yeast and she was sid ated for that. She was seen by the Infectious Disease and Nephrology Service. She had a cystoscopy and had study finding of needing a stent and that was actually performed. She was seen by the Physic al and Occupational Therapy Service and determined that she was functioning significantly lower than her baseline and presently encephalopathy, also requiring speech therapy. As a result of that, she w as felt to be appropriate candidate for inpatient rehabilitation, where she will have physical, occup ational, and speech therapy along with medical management. long-term at this evalua tion on a daily basis and then Social Service evaluation for discharge planning. Past Medical History: As noted above. Allergies: CITRIC ACID. Medications: Norvasc 5 mg twice daily, Eliquis 2.5 mg twice daily, aspirin 81 mg daily, Coreg 12.5 m g twice daily, gabapentin 100 mg 3 times daily, Amaryl 2 mg daily, 1 mg daily, guaifenesin 200 mg every 4 hours as needed, Apresoline 25 mg twice daily, Semglee insulin 18 units at bedtime, V impat 100 mg twice daily, Keppra 1500 mg twice daily, Prinivil 5 mg twice daily, magnesium oxide 400 mg twice daily, micafungin sodium 100 mg daily, mupirocin 1 nasal spray twice daily, Senokot-S 2 at b edtime, and Ultram 50 mg every 6 hours as needed. Family History: Noncontributory. Surgical History: She had dental surgery, surgery on her finger, and cataract surgery. Social History: No alcohol, tobacco, or IV drug use. She does use caffeinated beverages. Review of Systems: As noted some disorientation, confusion, fevers, and chills. Mild myalgias, which had improved. Con stipation. No rash. No other positives on a 10-point systems review. Imaging: Pelvic CT scan shows hydronephrosis, now moderate to severe with proximal hydroureter. The re are 2 adjacent calculi in the ureteropelvic junction up to 7 mm in size. Laboratory Studies: White blood cell count 12.6, hemoglobin 10.5, platelets 419. INR 1.11. Sodium 139, potassium 3.9, chloride 107, carbon dioxide 26, BUN 25, creatinine 0.8, glucose ranged from 176 to 261, calcium 7.9, magnesium 1.2, albumin 1.9, prealbumin 15.3. Urinalysis shows turbid clarity, t race blood, 500 esterase, 21-50 red blood cells, white blood cells greater than 50 moderat e, bacterial none seen, and she had a trace of protein. She had a negative COVID-19 test on the and on the 14 of March. Physical Examination: Vital Signs: Blood pressure 133/73, pulse , respiratory rate 16, temperature 97.2, O2 satu ration 98%. General: Ms. Coello is in bed, resting comfortably in between therapy sessions. HEENT: She is normocephalic, atraumatic. Sclerae are anicteric. Oropharynx is moist. Neck: Supple. Chest: Clear. Heart: Regular. Neurologic: She does have some diffuse weakness of her lower extremities and some problems with gait , balance, coordination. She is working on the gait with the physical therapist. Rehab And Medical Diagnoses: Her rehab impairment category is 03, brain dysfunction, nontraumatic. Her impairment group code is 01.2, nontraumatic. Her etiologic diagnosis, metabolic encephalopathy. Her comorbidities are renal insufficiency decreased mobility, decreased physical function , dehydration, diabetes mellitus type 2, hypertension, metabolic encephalopathy, seizures, sepsis, ur inary tract infection, weakness, hyperglycemia. Plan: She will have physical, occupational, and speech therapy for 3.5 hours, 5 of 7 days. She will have Eliquis 2.5 mg twice daily for DVT prophylaxis, aspirin 81 mg daily for stroke risk red uction. We will continue with Coreg 12.5 mg twice daily along with Apresoline 25 mg twice daily for high blood pressure. Continue Vimpat and Keppra for seizure risk reduction and Prinivil also for hyp ertension. Guaifenesin for cough. Continue magnesium oxide for muscle relaxation. Continue ___ nasal spray for dry nose. Continue Senokot-S for constipation. Norvasc also added for her blood pressure management. Impact Of Comorbidities: She has had a fever with urinary tract infection. She will be followed for fevers. She does have a risk of making poor decisions because of cognitive impairment. She will dorsey ve speech therapy for that. Rehab Specific Plan: Ms. Coello will have physical, occupational, and speech therapy for 3.5 hours a day to improve her ability to dress upper and lower body, for toileting, for showering, for perfor jayda activities of daily living, and for making decisions about her medications, about where she will be leaving to after her discharge. She should be able to ambulate 250 feet with modified independen ce, propel a wheelchair 250 feet with modified independence, up and down 15 steps with modified indep endence. She will have senior care 24 hours a day, 7 days a week and she will have physician evaluation on a daily basis and Social Work evaluation is appropriate for discharge planning and ordering durable medical equipment. Barriers To Discharge: She does have cognitive issues and working with Speech Therapy for that. She does have a fall risk and she will have a gait belt at all times. Given the complex medical condition that Ms. Coello has and the risk of complications, rehabilitati on cannot be safely or effectively provided at the lower level of care. Estimated Length Of Stay: About 10 days. Disposition: Home with family. Prognosis: Good. Rehabilitation Goals: 1.Independent with upper body dressing, toileting, showering. 2.Independently ambulating 250 feet with a rolling walker. 3.Independently propel a wheelchair 250 feet. 4.Independently go up and down 15 steps with bilateral handrails. 5.Independently perform cognitive functioning. 6.Independently manage all of her activities of daily living. 7.The above goals were reviewed with Ms. Coello and family and she is in agreement. 8.By signing this document, I acknowledge I personally performed a full physical examination on Ms. Coello no later than 24 hours after her admission to the inpatient rehabilitation facility and dete rmined that she is able to tolerate the above course of treatment at an intensive level for reasonabl e period of time. A detailed individualized plan of care for her rehabilitation management will be c ompleted by hospital day 4 based on the preadmission screen, history and physical, and therapy evalua tions. ROBERT/LORRAINE Voice ID: [id number]
[2023-03-24] MEDS: MICAFUNGIN SODIUM 100 MG in NA CHLORIDE 0.9% 100 ML IV SCH (07:27)
[2023-03-24] MEDS: INSULIN REGULAR (HUMAN) 100 UNIT/ML SQ SCH ×4 (07:30→19:49)
[2023-03-24] MEDS: GABAPENTIN 100 MG CAP PO SCH ×3 (07:37→19:37)
[2023-03-24] MEDS: MAGNESIUM OXIDE 400 MG TAB PO SCH ×2 (07:37→19:38)
[2023-03-24] MEDS: APIXABAN 2.5 MG TABLET PO SCH ×2 (07:37→19:38)
[2023-03-24] MEDS: DOCUSATE NA/SENNA CONC 1 TAB PO SCH ×2 (07:37→19:37)
[2023-03-24] MEDS: LACOSAMIDE 50 MG TABLET PO SCH ×2 (07:37→19:37)
[2023-03-24] MEDS: GLIMEPIRIDE 2 MG TABLET PO SCH (07:37)
[2023-03-24] MEDS: GLUCERNA SHAKE 237 ML CAN PO SCH ×2 (07:43→19:38)
[2023-03-24] MEDS: Mupirocin NASAL 2 APPL/1 GM TUBE NAS SCH ×2 (07:43→19:50)
[2023-03-24] MEDS: AMLODIPINE 5 MG TAB PO SCH ×2 (07:44→19:37)
[2023-03-24] MEDS: ASPIRIN 81 MG CHEWABLE TABLET PO SCH (08:49)
[2023-03-24] MEDS: levETIRAcetam 500 MG TAB PO SCH ×2 (08:49→19:37)
[2023-03-24] MEDS: HYDRALAZINE HCL 25 MG TABLET PO SCH ×2 (08:49→19:39)
[2023-03-24] MEDS: lisinopriL 5 MG TAB PO SCH ×2 (08:50→19:38)
--- NOTE | 2023-03-24 13:36 | P.RH.PN ---
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[employer] Goal: Mobility, Transfers, Self Care Vital Signs: Last Vital Signs Temp 97.3 F 03/24/23 07:00 Pulse 74 03/24/23 12:03 Resp 18 03/24/23 07:00 BP 139/63 03/24/23 12:03 Pulse Ox 93 03/24/23 07:00 Laboratory: Laboratory Last Values WBC 12.60 thou/uL (4.3-10.9) H 03/23/23 02:57 RBC 3.57 M/uL (3.86-4.86) L 03/23/23 02:57 Hgb 10.5 g/dL (12.0-15.0) L D 03/23/23 02:57 Hct 31.5 % (36.0-45.0) L 03/23/23 02:57 MCV 88.2 fL (80-100) 03/23/23 02:57 MCH 29.5 pg (27.0-35.0) 03/23/23 02:57 MCHC 33.4 g/dL (32.0-36.0) 03/23/23 02:57 RDW 14.1 % (12.1-15.2) 03/23/23 02:57 Plt Count 419 thou/uL (152-406) H 03/23/23 02:57 MPV 7.0 fL (7.6-11.3) L 03/23/23 02:57 Neutrophils % 67.3 % (41.7-73.7) 03/23/23 02:57 Lymphocytes % 22.3 % (15.3-44.8) 03/23/23 02:57 Monocytes % 7.4 % (3.3-12.3) 03/23/23 02:57 Eosinophils % 2.5 % (0-4.4) 03/23/23 02:57 Basophils % 0.5 % (0-1.3) 03/23/23 02:57 Absolute Neutrophils 8.5 K/uL (1.8-8.0) H 03/23/23 02:57 Absolute Lymphocytes 2.8 K/uL (0.7-4.9) 03/23/23 02:57 Absolute Monocytes 0.9 K/uL (0.1-1.3) 03/23/23 02:57 Absolute Eosinophils 0.3 K/uL (0-0.5) 03/23/23 02:57 Absolute Basophils 0.1 K/uL (0-0.5) 03/23/23 02:57 Sodium 139 mEq/L (136-145) D 03/23/23 02:57 Potassium 3.9 mEq/L (3.5-5.1) D 03/23/23 02:57 Chloride 107 mEq/L (98-107) 03/23/23 02:57 Carbon Dioxide 26 mEq/L (21-32) 03/23/23 02:57 Anion Gap 9.9 mEq/L (5.0-15.0) 03/23/23 02:57 BUN 25 mg/dL (7-18) H 03/23/23 02:57 Creatinine 0.80 mg/dL (0.55-1.02) 03/23/23 02:57 Est GFR (CKD-EPI) 76 ml/min (=/>90) L 03/23/23 02:57 Glucose 176 mg/dL (74-106) H 03/23/23 02:57 POC Glucose 330 mg/dL (65-120) H 03/24/23 11:00 Calcium 7.9 mg/dL (8.5-10.1) L D 03/23/23 02:57 Magnesium 1.6 mg/dL (1.6-2.4) 03/23/23 02:57 Albumin 1.9 g/dL (3.4-5.0) L 03/23/23 02:57 Prealbumin 15.3 mg/dL (20-40) L 03/23/23 02:57 Urine Color Light-yellow (Yellow) 03/22/23 20:10 Urine Clarity Turbid (Clear) H 03/22/23 20:10 Urine pH 5.5 (5.0-7.0) 03/22/23 20:10 Ur Specific Beatrice 1.016 (1.005-1.030) 03/22/23 20:10 Glucose (UA)(Auto) Negative (Negative) 03/22/23 20:10 Urine Ketones Negative (Negative) 03/22/23 20:10 Urine Blood Trace (Negative) H 03/22/23 20:10 Urine Nitrite Negative (Negative) 03/22/23 20:10 Urine Bilirubin Negative (Negative) 03/22/23 20:10 Urine Urobilinogen Normal (Normal) 03/22/23 20:10 Ur Leukocyte Esterase 500 Geraldine/uL (Negative) H 03/22/23 20:10 Urine RBC 21-50 /HPF (None Seen) H 03/22/23 20:10 Urine WBC >50 /HPF (<5) H 03/22/23 20:10 Urine WBC Clumps Moderate /HPF (None Seen) H 03/22/23 20:10 Ur Squamous Epith Cells <5 /HPF (None Seen) 03/22/23 20:10 U Non-Squamous Epi Cells <5 /HPF (None Seen) 03/22/23 20:10 Urine Bacteria None seen /HPF (<20) 03/22/23 20:10 Urine Mucus Slight /HPF (None Seen) 03/22/23 20:10 Urine Culture Reflexed Reflexed 03/22/23 20:10 Urine Total Protein Trace (Negative) H 03/22/23 20:10 Weight: 173 lb Wound Present: No Closed Surgical Incision Present: No Negative Pressure Wound Therapy Present: No Physician Update: Labs were reviewed, showed mildly elevated WBC. She has cognitive impairment and will require 24/7 supervision. BIMS 15, SLUMS 12. Word finding difficulties, slow speech. 70' RW min yuly, WC 200' with min assist. Good transfers to bed and chair. 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 Please see the Rehabilitation Signature page for all necessary signatures.
[2023-03-24] MEDS: guaiFENesin 100 MG/5 ML UCUP PO PRN (15:44)
[2023-03-24] MEDS: INSULIN GLARGINE 100 UNIT/ML SQ SCH (19:39)
[2023-03-25] MEDS: guaiFENesin 100 MG/5 ML UCUP PO PRN ×2 (04:31→15:30)
[2023-03-25 04:56] LABS: Absolute Lymphocytes (CBC) 2.5 K/uL (0.7-4.9); Hematocrit 32.1 % (36.0-45.0); MPV 6.9 fL (7.6-11.3); Platelets 453 thou/uL (152-406); RBC Red Blood Cell Count 3.65 M/uL (3.86-4.86)
[2023-03-25] MEDS: carvediloL 12.5 MG TAB PO SCH ×2 (05:02→17:03)
[2023-03-25 05:08] LABS: Magnesium 2.1 mg/dL (1.6-2.4); Potassium 4.3 mEq/L (3.5-5.1)
[2023-03-25 05:57] LABS: Blood Morphology Comment NOT SEEN (NOT SEEN); Platelet Estimate INCR; White Blood Cell Scan OK (OK)
[2023-03-25] MEDS: MICAFUNGIN SODIUM 100 MG in NA CHLORIDE 0.9% 100 ML IV SCH (08:24)
[2023-03-25] MEDS: ASPIRIN 81 MG CHEWABLE TABLET PO SCH (08:27)
[2023-03-25] MEDS: APIXABAN 2.5 MG TABLET PO SCH ×2 (08:27→19:08)
[2023-03-25] MEDS: GABAPENTIN 100 MG CAP PO SCH ×3 (08:27→19:08)
[2023-03-25] MEDS: LACOSAMIDE 50 MG TABLET PO SCH ×2 (08:27→19:09)
[2023-03-25] MEDS: GLIMEPIRIDE 2 MG TABLET PO SCH (08:27)
[2023-03-25] MEDS: lisinopriL 5 MG TAB PO SCH ×2 (08:28→19:08)
[2023-03-25] MEDS: MAGNESIUM OXIDE 400 MG TAB PO SCH ×2 (08:28→19:09)
[2023-03-25] MEDS: DOCUSATE NA/SENNA CONC 1 TAB PO SCH ×2 (08:28→19:08)
[2023-03-25] MEDS: HYDRALAZINE HCL 25 MG TABLET PO SCH ×2 (08:32→19:11)
[2023-03-25] MEDS: GLUCERNA SHAKE 237 ML CAN PO SCH ×2 (08:33→19:10)
[2023-03-25] MEDS: INSULIN REGULAR (HUMAN) 100 UNIT/ML SQ SCH ×4 (08:53→19:07)
[2023-03-25] MEDS: levETIRAcetam 500 MG TAB PO SCH ×2 (08:55→19:09)
[2023-03-25] MEDS: Mupirocin NASAL 2 APPL/1 GM TUBE NAS SCH ×2 (08:55→19:08)
[2023-03-25] MEDS: AMLODIPINE 5 MG TAB PO SCH ×2 (10:10→19:09)
[2023-03-25] MEDS: BENZONATATE 100 MG CAP PO PRN (10:12)
--- NOTE | 2023-03-25 15:08 | RAD REPORT ---
EXAM DESCRIPTION: RAD - Chest Single View - 03/23/2023 3:27 pm CLINICAL HISTORY: cough Chest pain. COMPARISON: <Comparisons> FINDINGS: Portable technique limits examination quality. The lungs are mildly emphysematous but grossly clear. The heart is normal in size. No displaced fract ures.Left-sided PICC line is unchanged with tip in the SVC. IMPRESSION: No acute intrathoracic process suspected.
[2023-03-25] MEDS: INSULIN GLARGINE 100 UNIT/ML SQ SCH (19:07)
[2023-03-26] MEDS: carvediloL 12.5 MG TAB PO SCH ×2 (05:03→17:18)
[2023-03-26] MEDS: INSULIN REGULAR (HUMAN) 100 UNIT/ML SQ SCH ×4 (06:51→20:08)
[2023-03-26] MEDS: MICAFUNGIN SODIUM 100 MG in NA CHLORIDE 0.9% 100 ML IV SCH (07:14)
[2023-03-26] MEDS: GABAPENTIN 100 MG CAP PO SCH ×3 (07:21→19:56)
[2023-03-26] MEDS: DOCUSATE NA/SENNA CONC 1 TAB PO SCH ×2 (07:21→19:55)
[2023-03-26] MEDS: ASPIRIN 81 MG CHEWABLE TABLET PO SCH (07:22)
[2023-03-26] MEDS: lisinopriL 5 MG TAB PO SCH ×2 (07:22→19:56)
[2023-03-26] MEDS: APIXABAN 2.5 MG TABLET PO SCH ×2 (07:22→19:56)
[2023-03-26] MEDS: GLUCERNA SHAKE 237 ML CAN PO SCH ×2 (07:30→19:56)
[2023-03-26] MEDS: levETIRAcetam 500 MG TAB PO SCH ×2 (08:49→19:55)
[2023-03-26] MEDS: MAGNESIUM OXIDE 400 MG TAB PO SCH ×2 (08:50→19:57)
[2023-03-26] MEDS: GLIMEPIRIDE 2 MG TABLET PO SCH (08:50)
[2023-03-26] MEDS: LACOSAMIDE 50 MG TABLET PO SCH ×2 (08:50→19:55)
[2023-03-26] MEDS: Mupirocin NASAL 2 APPL/1 GM TUBE NAS SCH ×2 (08:53→19:58)
[2023-03-26] MEDS: CRANBERRY FRUIT EXTRACT 200 MG CAP PO SCH ×2 (08:53→19:55)
[2023-03-26] MEDS: AMLODIPINE 5 MG TAB PO SCH ×2 (09:48→19:56)
[2023-03-26] MEDS: HYDRALAZINE HCL 25 MG TABLET PO SCH ×2 (09:50→19:57)
[2023-03-26] MEDS: BENZONATATE 100 MG CAP PO PRN (13:11)
[2023-03-26] MEDS: guaiFENesin 100 MG/5 ML UCUP PO PRN (17:18)
[2023-03-26] MEDS: INSULIN GLARGINE 100 UNIT/ML SQ SCH (20:00)
[2023-03-27] MEDS: carvediloL 12.5 MG TAB PO SCH ×2 (05:25→17:12)
[2023-03-27] MEDS: guaiFENesin 100 MG/5 ML UCUP PO PRN (05:26)
[2023-03-27] MEDS: INSULIN REGULAR (HUMAN) 100 UNIT/ML SQ SCH ×4 (06:57→20:44)
[2023-03-27] MEDS: MICAFUNGIN SODIUM 100 MG in NA CHLORIDE 0.9% 100 ML IV SCH (07:17)
[2023-03-27] MEDS: DOCUSATE NA/SENNA CONC 1 TAB PO SCH ×2 (07:18→20:44)
[2023-03-27] MEDS: APIXABAN 2.5 MG TABLET PO SCH ×2 (07:18→20:44)
[2023-03-27] MEDS: ASPIRIN 81 MG CHEWABLE TABLET PO SCH (07:18)
[2023-03-27] MEDS: LACOSAMIDE 50 MG TABLET PO SCH ×2 (07:18→20:44)
[2023-03-27] MEDS: levETIRAcetam 500 MG TAB PO SCH ×2 (07:19→20:00)
[2023-03-27] MEDS: CRANBERRY FRUIT EXTRACT 200 MG CAP PO SCH ×2 (07:19→20:44)
[2023-03-27] MEDS: MAGNESIUM OXIDE 400 MG TAB PO SCH ×2 (07:19→20:43)
[2023-03-27] MEDS: GLIMEPIRIDE 2 MG TABLET PO SCH (07:19)
[2023-03-27] MEDS: HYDRALAZINE HCL 25 MG TABLET PO SCH ×2 (08:00→20:44)
[2023-03-27] MEDS: AMLODIPINE 5 MG TAB PO SCH ×2 (08:00→20:43)
[2023-03-27] MEDS: lisinopriL 5 MG TAB PO SCH ×2 (08:00→20:44)
[2023-03-27] MEDS: GLUCERNA SHAKE 237 ML CAN PO SCH ×2 (08:51→20:00)
[2023-03-27] MEDS: Mupirocin NASAL 2 APPL/1 GM TUBE NAS SCH (09:21)
[2023-03-27] MEDS: GABAPENTIN 100 MG CAP PO SCH ×3 (09:22→20:44)
[2023-03-27 17:04] LABS: Specific Gravity 1.016 (1.005-1.030); Urine Bacteria <20 /HPF (<20); Urine Bilirubin NEGATIVE (Negative); Urine Blood Trace (Negative); Urine Clarity Extremely Turbid (Clear); Urine Color Light-Yellow (Yellow); Urine Crystals Unidentified Few /HPF (None Seen); Urine Glucose NEGATIVE (Negative); Urine Mucus Slight /HPF (None Seen); Urine Protein TRACE (Negative); Urine Urobilinogen Normal (Normal); Urine WBC Clump Rare /HPF (None Seen)
[2023-03-27] MEDS: AMITRIPTYLINE 10 MG TAB PO SCH (20:43)
[2023-03-27] MEDS: INSULIN GLARGINE 100 UNIT/ML SQ SCH (20:45)
--- NOTE | 2023-03-28 02:08 | PN ---
Date of Progress Note: 03/27/2023 Time Of Service: 1:40 p.m. Subjective: Ms. Coello is resting comfortably. She denies any significant issues such as myalgias , arthralgias. She is doing very well with therapy and is quite happy so far. Objective: No fevers, chills, nausea, vomiting, myalgias, arthralgias, rash, headache, weight change . No psychiatric issues, no active gastrointestinal or genitourinary issues. Medications: Norvasc 5 mg twice daily, Elavil 10 mg at bedtime, Eliquis 2.5 mg twice daily, aspirin 81 mg daily, Tessalon Perles 100 mg every 6 hours as needed, Coreg 12.5 mg twice daily, Ensure Enlive 237 mL twice daily, gabapentin 100 mg 3 times daily, Amaryl 2 mg daily, guaifenesin 200 mg every 4 h ours as needed, Apresoline 25 mg twice daily, Semglee insulin 20 units at nighttime, Keppra 1500 mg t wice daily, Vimpat 100 mg twice daily, Prinivil 5 mg twice daily, magnesium oxide 400 mg twice daily. She is on micafungin 100 mg IV daily, Senokot-S 1 twice daily, tramadol 50 mg every 6 hours as need ed. Imaging: No new x-rays or imaging. She did have a chest x-ray done on March 23, that study showe d no acute intrathoracic processes. Progress Made With Physical And Occupational Therapy: Today, she did have, as staff noted, some incr eased confusion, but she did propel a wheelchair with standby assistance over 500 feet, made the turn s without assistance and managed surface changes very well. Minimal assistance for turning in bed, s upine to sit minimum assistance, sit to stand transfers with contact guard assistance. With her occu pational therapy, toileting supervision, grooming supervision. It is noted that the patient did atte mpt 3 times to her Bhatti catheter with lower body dressing, but she did have some confusion and did r equire help. She had problems with motor planning to complete that task. She also ambulated 300 fee t with a rolling walker with standby assistance. Emphasis was placed on upright posture. As noted, she is making great progress with some limitations that are mostly cognitive. Assessment: Ms. Coello is a 77-year-old patient in rehabilitation unit with debility. She has oswald betes and dehydration, hypertension, seizures, sepsis, urinary tract infection with hyperglycemia ___ treated and renal insufficiency. Plan: 1.She will continue with physical, occupational, and speech therapy for 3.5 hours, 5/7 days. 2.We will continue management of seizures with Vimpat and Keppra. 3.Guaifenesin for cough. 4.Senokot-S for constipation. 5.Norvasc for hypertension along with Apresoline. Continue aspirin 81 mg daily for stroke risk redu ction. Impact Of Comorbidities On Rehabilitation: Some mild cognitive impairments making it challenging for her to follow all precautions and to have good safety awareness. After discharge, it is actually re commended that the patient be in a facility where someone can help with those decisions such as for s afety awareness risk of falling and injury. ROBERT/LORRAINE Voice ID: [id number] Report ID: [id number]
[2023-03-28] MEDS: carvediloL 12.5 MG TAB PO SCH ×2 (05:36→18:00)
[2023-03-28] MEDS: INSULIN REGULAR (HUMAN) 100 UNIT/ML SQ SCH ×4 (07:19→20:37)
[2023-03-28] MEDS: LACOSAMIDE 50 MG TABLET PO SCH ×2 (07:50→20:38)
[2023-03-28] MEDS: GLIMEPIRIDE 2 MG TABLET PO SCH (07:50)
[2023-03-28] MEDS: ASPIRIN 81 MG CHEWABLE TABLET PO SCH (07:50)
[2023-03-28] MEDS: APIXABAN 2.5 MG TABLET PO SCH ×2 (07:51→20:38)
[2023-03-28] MEDS: MAGNESIUM OXIDE 400 MG TAB PO SCH ×2 (07:51→20:37)
[2023-03-28] MEDS: DOCUSATE NA/SENNA CONC 1 TAB PO SCH ×2 (07:51→20:38)
[2023-03-28] MEDS: CRANBERRY FRUIT EXTRACT 200 MG CAP PO SCH ×2 (07:51→20:38)
[2023-03-28] MEDS: GLUCERNA SHAKE 237 ML CAN PO SCH ×2 (07:51→20:38)
[2023-03-28] MEDS: AMLODIPINE 5 MG TAB PO SCH ×2 (07:59→20:37)
[2023-03-28] MEDS: MICAFUNGIN SODIUM 100 MG in NA CHLORIDE 0.9% 100 ML IV SCH (08:13)
[2023-03-28] MEDS: HYDRALAZINE HCL 25 MG TABLET PO SCH ×2 (09:01→20:38)
[2023-03-28] MEDS: GABAPENTIN 100 MG CAP PO SCH ×3 (09:02→20:38)
[2023-03-28] MEDS: lisinopriL 5 MG TAB PO SCH ×2 (10:22→20:37)
[2023-03-28] MEDS ORDERED: CEPHALEXIN 500 MG CAP PO ONE (15:45)
--- NOTE | 2023-03-28 16:19 | RAD REPORT ---
EXAM DESCRIPTION: [place] Single View03/28/2023 4:07 pm CLINICAL HISTORY: Shortness of breath COMPARISON: February 2023 FINDINGS: The lungs appear clear of acute infiltrate. The heart is normal size. Central venous line with its tip in the proximal superior vena cava IMPRESSION: No acute abnormalities displayed
[2023-03-28] MEDS: INSULIN GLARGINE 100 UNIT/ML SQ SCH (20:36)
[2023-03-28] MEDS: AMITRIPTYLINE 10 MG TAB PO SCH (20:37)
[2023-03-29 04:53] LABS: Albumin 2.2 g/dL (3.4-5.0); Magnesium 1.9 mg/dL (1.6-2.4)
[2023-03-29 04:54] LABS: Absolute Lymphocytes (CBC) 2.9 K/uL (0.7-4.9); Hematocrit 32.9 % (36.0-45.0); Lymphocytes % 40.6 % (15.3-44.8); MCV 88.2 fL (80-100); MPV 7.1 fL (7.6-11.3); Platelets 433 thou/uL (152-406); RBC Red Blood Cell Count 3.73 M/uL (3.86-4.86)
[2023-03-29] MEDS: carvediloL 12.5 MG TAB PO SCH ×2 (05:35→17:46)
[2023-03-29] MEDS: INSULIN REGULAR (HUMAN) 100 UNIT/ML SQ SCH ×4 (07:30→20:06)
[2023-03-29] MEDS: MAGNESIUM OXIDE 400 MG TAB PO SCH ×2 (08:12→20:08)
[2023-03-29] MEDS: GLUCERNA SHAKE 237 ML CAN PO SCH ×2 (08:12→20:08)
[2023-03-29] MEDS: ASPIRIN 81 MG CHEWABLE TABLET PO SCH (08:12)
[2023-03-29] MEDS: CRANBERRY FRUIT EXTRACT 200 MG CAP PO SCH ×2 (08:13→20:06)
[2023-03-29] MEDS: GABAPENTIN 100 MG CAP PO SCH ×3 (08:13→20:10)
[2023-03-29] MEDS: LACOSAMIDE 50 MG TABLET PO SCH ×2 (08:13→20:07)
[2023-03-29] MEDS: DOCUSATE NA/SENNA CONC 1 TAB PO SCH ×2 (08:13→20:06)
[2023-03-29] MEDS: levETIRAcetam 500 MG TAB PO SCH ×2 (08:13→20:07)
[2023-03-29] MEDS: MICAFUNGIN SODIUM 100 MG in NA CHLORIDE 0.9% 100 ML IV SCH (08:14)
[2023-03-29] MEDS: APIXABAN 2.5 MG TABLET PO SCH ×2 (08:14→20:07)
[2023-03-29] MEDS: lisinopriL 5 MG TAB PO SCH ×2 (08:15→20:07)
[2023-03-29] MEDS: GLIMEPIRIDE 2 MG TABLET PO SCH (08:16)
[2023-03-29] MEDS: AMLODIPINE 5 MG TAB PO SCH ×2 (09:57→20:08)
[2023-03-29] MEDS: HYDRALAZINE HCL 25 MG TABLET PO SCH ×2 (09:57→20:06)
[2023-03-29] MEDS ORDERED: ONDANSETRON 4 MG (ODT) TAB PO PRN (13:52)
--- NOTE | 2023-03-29 20:01 | PN ---
Date of Progress Note: 03/29/2023 Time Of Service: 01:30 p.m. Subjective: Ms. Coello is resting comfortably in bed between therapy sessions. She has blankets a ll pulled up. She has no complaints except mild nausea, but she is otherwise in good spirits. Objective: No fevers, chills. No myalgias, arthralgias. No nausea. No rash, headache, or psychiat akin complaints. No genitourinary complaints. Physical Examination: Vital Signs: Blood pressure 145/72, pulse 74, respiratory rate 16, temperature 97.9, oxygen saturati on 92%. General: Ms. Coello is lying in bed, in no acute distress. She is cool day today. HEENT: She, however, is normocephalic, atraumatic. Sclerae anicteric. Oropharynx pink, moist. Neck: Supple. Chest: Clear. Heart: Regular. Extremities: She has no significant clubbing, cyanosis, or edema. No focal deficits. Laboratory Studies: Today, white blood cell count 7.2, hemoglobin 11, platelets 433. Sodium 136, po tassium 4.0, chloride 102, carbon dioxide 29, BUN 31, creatinine 1.03, glucose ranged from 116 to 239 , calcium 8.9, magnesium 1.9, albumin 2.2, prealbumin 17.0. Note that on March 25, Keppra level wa s very high at 90.8 and upper level should be 46 mcg/mL. Her Keppra dose was decreased to 1000 mg tw ice a day from 1500 mg twice daily after being held for 2 days. She does have a send out for Vimpat levels that will likely take a few days to return. X-ray Imaging: On yesterday, the , she had a chest x-ray because of some shortness of breath and cough. Showed no acute abnormalities. Lungs were clear of infiltrates. Heart normal in size. A ce ntral venous line with its tip in the proximal superior vena cava was noted. Progress Made With Physical And Occupation Therapy: Today with physical therapy, bed mobilization in cluding turning was at modified independence, supine sit transfer at modified independence, sit-to-st and transfer with supervision. Completed gait training with a rolling walker, completed 500 feet wit h standby assistance. Propel a wheelchair 475 feet with modified independence. With speech, she use d organizational thinking, could name 7 items per concrete category with 50% accuracy. Working memor y was used for 3 units of information with 90% accuracy. She did responsive speech questions with 80 % accuracy and minimum assistance. With occupational therapy, supervision for bathing and needing ve rbal cues. Independent for toilet hygiene. Upper and lower body dressing and footwear all independe nt. She required supervision for cognitive issues. She is overall, however, doing well with physica l, occupational, and speech therapy. Assessment And Plan: Ms. Coello is a 77-year-old patient in the rehabilitation unit with debility, is making great progress with improvement in endurance, her strength. Also should be noted incentiv e spirometry and doing well from that standpoint. She has comorbid hypertension managed with Norvasc and Prinivil in addition to seizures treated with Keppra. She currently has the dosage back down to 1000 mg twice daily from 1500 mg twice daily, which was toxic. Also on Vimpat 100 mg twice daily wi th levels pending for her seizures. Semglee insulin 20 units at bedtime for diabetes mellitus. She has hydralazine in addition to her Norvasc for blood pressure control. Aspirin 81 mg daily for strok e risk reduction, Eliquis 2.5 mg twice daily for DVT prophylaxis, Tylenol for pain, Glucerna shake 23 0 mL twice daily for malnutrition, and glimepiride along with Semglee insulin for diabetes mellitus. Comorbidities That Continue To Impact Rehabilitation: There is some mild cognitive impairment, but t he patient actually had done well with that. She has hypertension and there were some issues of orth ostatic changes, but she is actually doing well from that perspective. Worry about pneumonia ruled out with chest x-ray and she will be ready for discharge. LB/MODL Voice ID: [id number] Report ID: [id number]
[2023-03-29] MEDS: INSULIN GLARGINE 100 UNIT/ML SQ SCH (20:06)
[2023-03-29] MEDS: AMITRIPTYLINE 10 MG TAB PO SCH (20:11)
[2023-03-30] MEDS: carvediloL 12.5 MG TAB PO SCH ×2 (05:22→17:49)
[2023-03-30] MEDS: INSULIN REGULAR (HUMAN) 100 UNIT/ML SQ SCH ×4 (07:05→20:18)
[2023-03-30] MEDS: CRANBERRY FRUIT EXTRACT 200 MG CAP PO SCH ×2 (08:05→19:32)
[2023-03-30] MEDS: APIXABAN 2.5 MG TABLET PO SCH ×2 (08:05→19:31)
[2023-03-30] MEDS: levETIRAcetam 500 MG TAB PO SCH ×2 (08:05→19:31)
[2023-03-30] MEDS: GLIMEPIRIDE 2 MG TABLET PO SCH (08:05)
[2023-03-30] MEDS: DOCUSATE NA/SENNA CONC 1 TAB PO SCH ×2 (08:05→19:31)
[2023-03-30] MEDS: LACOSAMIDE 50 MG TABLET PO SCH ×2 (08:05→19:32)
[2023-03-30] MEDS: ASPIRIN 81 MG CHEWABLE TABLET PO SCH (08:05)
[2023-03-30] MEDS: GABAPENTIN 100 MG CAP PO SCH ×3 (08:06→19:31)
[2023-03-30] MEDS: HYDRALAZINE HCL 25 MG TABLET PO SCH ×2 (08:06→19:32)
[2023-03-30] MEDS: MAGNESIUM OXIDE 400 MG TAB PO SCH ×2 (08:09→19:32)
[2023-03-30] MEDS: GLUCERNA SHAKE 237 ML CAN PO SCH ×2 (08:09→19:32)
[2023-03-30] MEDS: AMLODIPINE 5 MG TAB PO SCH ×2 (09:53→19:31)
[2023-03-30] MEDS: lisinopriL 5 MG TAB PO SCH ×2 (11:02→19:31)
[2023-03-30] MEDS: AMITRIPTYLINE 10 MG TAB PO SCH (19:31)
[2023-03-30] MEDS: INSULIN GLARGINE 100 UNIT/ML SQ SCH (20:48)
[2023-03-30 20:59] VITALS: TEMP 97.2
--- NOTE | 2023-03-30 23:14 | PN ---
Date of Progress Note: 03/30/2023 Time Of Service: 1:35 p.m. Subjective: Ms. Coello is resting comfortably in the chair in the room. She is in no significant distress. She is happy so far with her therapy, making good progress. Objective: No fevers, chills, nausea, vomiting, myalgias, arthralgias, rash, headache, or weight davis nge. Physical Examination: Vital Signs: Blood pressure 176/81, pulse 80, respiratory rate of 16, temperature 97.2, oxygen satur ation 95%. General: Ms. Coello is resting comfortably. She is in no acute distress. HEENT: She is normocephalic, atraumatic. Sclerae anicteric. Oropharynx pink, moist. Neck: Supple. Chest: Clear. Heart: Regular. Extremities: Show no significant edema, cyanosis, or clubbing. Neurological: No focal neurological deficits. Laboratory Studies: White blood cell count 7.2, hemoglobin 11.0, platelets 433. Today, glucose rang ed from 96 to 193. X-ray/imaging: No new x-rays or imaging done today. Medications: Have been reviewed and remained unchanged. Progress Made With Physical And Occupational Therapy: With physical therapy, today, she was able to ambulate with a rolling walker 600 feet and another 150 feet with supervision. Emphasis was placed o n upright posture. She did show proper technique to ascend and descend 5 steps with bilateral handra ils, independently. [id number] transfers done independently. [id number] transfers done indepen dently. Car transfers done independently. With speech, she improved her SLUMS score from 12 to 20. Improvements noted in calculation, working memory, short-term recall, attention, and visual spatial reasoning. With occupational therapy, she is independent in the room, going to the bathroom with a r olling walker. Independent with toilet transfers and did ambulate with the occupational therapist 25 0 feet, did bulk picker objects from the floor with hands and with verbal cues to use her hands and not f eet. Assessment: Ms. Coello is a 77-year-old patient in the rehabilitation unit with debility, has made excellent progress with physical and occupational therapy, and ready for discharge in the morning. She has hypertension, managed by Regan Martins. Seizures, managed by [facility]. She has diabetes w luis f Semeva insulin on board. Aspirin for stroke risk reduction. Eliquis for deep venous thrombosis prophylaxis. Glucerna for malnutrition. Comorbidities That Continue To Impact Rehabilitation: The comorbidities of mild cognitive impairment have a mild impact on her rehabilitation, not necessarily stop her from doing well. She may still r equire some supervision at home for safety awareness. KETAN Voice ID: [id number] Report ID: [id number]
[2023-03-31] MEDS: carvediloL 12.5 MG TAB PO SCH (05:06)
[2023-03-31] MEDS: INSULIN REGULAR (HUMAN) 100 UNIT/ML SQ SCH (07:02)
[2023-03-31 07:15] VITALS: BP 134/61
[2023-03-31] MEDS: GABAPENTIN 100 MG CAP PO SCH (07:29)
[2023-03-31] MEDS: levETIRAcetam 500 MG TAB PO SCH (07:29)
[2023-03-31] MEDS: AMLODIPINE 5 MG TAB PO SCH (07:29)
[2023-03-31] MEDS: DOCUSATE NA/SENNA CONC 1 TAB PO SCH (07:29)
[2023-03-31] MEDS: CRANBERRY FRUIT EXTRACT 200 MG CAP PO SCH (07:30)
[2023-03-31] MEDS: LACOSAMIDE 50 MG TABLET PO SCH (07:30)
[2023-03-31] MEDS: GLIMEPIRIDE 2 MG TABLET PO SCH (07:30)
[2023-03-31] MEDS: APIXABAN 2.5 MG TABLET PO SCH (07:30)
[2023-03-31] MEDS: GLUCERNA SHAKE 237 ML CAN PO SCH (08:43)
[2023-03-31] MEDS: ASPIRIN 81 MG CHEWABLE TABLET PO SCH (08:44)
[2023-03-31] MEDS: MAGNESIUM OXIDE 400 MG TAB PO SCH (08:44)
[2023-03-31] MEDS: lisinopriL 5 MG TAB PO SCH (10:27)
[2023-03-31] MEDS: HYDRALAZINE HCL 25 MG TABLET PO SCH (10:27)
== END 2023-03-31 11:30 | disposition home health service (06) | DRG 71 ==
LOC: 5TH 03-22 17:27
PROVIDERS: ADMIT Psychiatry & Neurology Neurology with Special Qualifications in Child Neurology; ATTEND Psychiatry & Neurology Neurology with Special Qualifications in Child Neurology
DX: G93.41 Metabolic encephalopathy (principal); E46 Unspecified protein-calorie malnutrition; E87.1 Hypo-osmolality and hyponatremia; N39.0 Urinary tract infection, site not specified; I10 Essential (primary) hypertension; E86.0 Dehydration; E11.65 Type 2 diabetes mellitus with hyperglycemia; K59.00 Constipation, unspecified; R53.81 Other malaise; Z68.30 Body mass index [BMI] 30.0-30.9, adult
CPT/HCPCS: 36415; 71045; 80048; 80177; 81001; 82040; 82947; 83735; 84134; 85025; 87086; 87088; 92523; 97110; 97116; 97129; 97163; 97165; 97530; 97542; J1815; J2248; J3475; Q0162